=== PATIENT | female | born 1955 | race Caucasian/White ===

== ENCOUNTER 2017-01-23 09:19 | Inpatient (IN) | payer MEDICAID ==
[~2017-01-23] VITALS: Ht 167.6 cm; Wt 54.2 kg
[2017-01-23] VITALS (17 sets, daily range): BP systolic 95–189; BP diastolic 54–83; PULSE 52–92; RESP 13–24; TEMP 95–97.6; O2SAT 93–100
[~2017-01-23 09:19] MED LIST: ASPI81 PO; BACL10TA PO; BUSP15TA PO; CARB200 PO; CARB200T16 PO; CARV3.125 PO; CLOP75 PO; FAMO20 PO; GABA300 PO; GABA300C3 PO; MECL25 PO; MIRTA15 PO; OLAN10 PO; REME45TA PO; TRAM50TA PO; ZYPR10TA PO
[2017-01-23] MEDS ORDERED: SODIUM CHLOR 0.9% 1000 ML INJ 1,000 ML IV SCH ×2 (09:26→12:04)
[2017-01-23] MEDS ORDERED: SODIUM CHLORIDE 0.9% FLUSH 5 ML FLUSH IV FLUSH PRN (09:30)
--- NOTE | 2017-01-23 09:33 | PD ---
HPI Chief Complaint: altered mental status Time Seen by Provider: 09:26 Travel History International Travel<30 days: No Contact w/Intl Traveler<30days: No History of Present Illness HPI 61 y/o female presents by ambulance with being found unresponsive. When they arrived on scene her oxygen saturation was in the 80s. They gave her 2 mg of Narcan and as they were preparing to intubate her with the laryngoscope in her mouth she started to wake up and this was withdrawn. Here she can tell me her name and denies complaints but is a very poor historian on initial evaluation. She was found down outside an apartment complex. PFS Past Medical History Narrative Medical By records Hx Anticoagulant Therapy: Yes ADHD: Yes Arthritis: Yes Asthma: No Autoimmune Disease: No Bipolar Disorder: Yes Anxiety: Yes Depression: Yes Heart Rhythm Problems: Yes (MURMUR) Cancer: No Cardiovascular Problems: Yes High Cholesterol: No Chemotherapy: Yes Chest Pain: Yes Congestive Heart Failure: No COPD: Yes Diabetes: No Diminished Hearing: No Endocrine: No Gastrointestinal Disorders: Yes (IS ON MEDICATION FOR REFLUX) GERD: Yes Genitourinary: No Headaches: No Hepatitis: Yes (HEP B AND C) Hiatal Hernia: No Immune Disorder: No Implanted Vascular Access Dvce: Yes Musculoskeletal: Yes Neurologic: No Psychiatric: Yes Reproductive: No Respiratory: Yes Radiation Therapy: No Schizophrenia: Yes Seizures: No Sleep Apnea: No Ulcer: No Menopausal: Yes Dilation and Curettage (D&C): Yes Past Surgical History Narrative Surgical By records Abdominal Surgery: Yes (total hysterectomy) Cardiac Surgery: No Cholecystectomy: Yes Ear Surgery: No Endocrine Surgery: No Eye Surgery: No Genitourinary Surgery: Yes (UROSTOMY-BLADDER CANCER) Gynecologic Surgery: Yes (total hysterecomy) Hysterectomy: Yes (OVARECTOMY) Oral Surgery: No Thoracic Surgery: Yes (port in and out) Other Surgery: Yes (ILEOSTOMY) Social History Narrative Social History By records Alcohol Use: No Tobacco Use: Yes ( 1 PPD) Substance Use: No Allergies-Medications (Allergen,Severity, Reaction): Coded Allergies: Codeine (Verified Allergy, Severe, 06/10/16) Corticosteroids (Verified Allergy, Severe, 06/10/16) Uncoded Allergies: ANTIHISTIMINES (Allergy, Mild, MANIC, 11/15/06) Reported Meds & Prescriptions Reported Meds & Active Scripts Active Tramadol Hcl (Tramadol HCl) 50 Mg Tab 25 Mg PO Q8HR PRN Olanzapine 10 Mg Tab 20 Mg PO HS 10 Days Mirtazapine 15 Mg Tab 15 Mg PO HS 10 Days Neurontin (Gabapentin) 300 Mg Cap 300 Mg PO Q12HR 10 Days Tegretol 200 Mg Tab (Carbamazepine) 200 Mg Tab 200 Mg PO DAILY 10 Days Tegretol 200 Mg Tab (Carbamazepine) 200 Mg Tab 400 Mg PO HS 10 Days Antivert (Meclizine HCl) 25 Mg Tab 25 Mg PO Q8H PRN 30 Days Pepcid 20 Mg Tab (Famotidine) 20 Mg Tab 20 Mg PO BID 30 Days Aspirin Low Strength (Aspirin) 81 Mg Chw 81 Mg PO DAILY 30 Days Coreg 3.125 mg (Carvedilol) 3.125 Mg Tab 3.125 Mg PO Q12HR 30 Days Plavix (Clopidogrel Bisulfate) 75 Mg Tab 75 Mg PO DAILY 30 Days Reported Remeron 45 mg (Mirtazapine) 45 Mg Tab 45 Tab PO HS Zyprexa (Olanzapine) 10 Mg Tab 10 Mg PO HS Lioresal (Baclofen) 10 Mg Tab 10 Mg PO TID Buspirone Hcl (Buspirone HCl) 15 Mg Tab 15 Mg PO TID Gabapentin 300 Mg Cap 300 Mg PO TID Tegretol (Carbamazepine) 200 Mg Tab 400 Mg PO HS Tegretol (Carbamazepine) 200 Mg Tab 200 Mg PO DAILY Review of Systems ROS Limitations: Poor Historian Physical Exam Exam Limitations: Poor Historian Narrative GENERAL: Thin, well-developed patient. SKIN: Warm and dry. Multiple old bruises noted throughout body HEAD: Normocephalic EYES: No injection or drainage. Pupils equal ENT: No nasal drainage noted. NECK: Supple, trachea midline. No pain with range of motion CARDIOVASCULAR: Regular rate and rhythm RESPIRATORY: Breath sounds equal bilaterally at apices. No accessory muscle use. GASTROINTESTINAL: Abdomen soft, nondistended. NEUROLOGICAL: Awake and alert to name. Moves extremities. Normal speech. Data Data Last Documented VS Vital Signs Date Time Temp Pulse Resp B/P Pulse Ox O2 Delivery O2 Flow Rate FiO2 01/23/17 10:33 18 96 Nasal Cannula 2 01/23/17 09:25 97.6 92 189/75 Orders Electrocardiogram (01/23/17 09:26) Ammonia (01/23/17 09:26) Complete Blood Count With Diff (01/23/17 09:26) Comprehensive Metabolic Panel (01/23/17:26) Creatine Kinase (Cpk) (01/23/17:26) Prothrombin Time / Inr (Pt) (01/23/17:) Act Partial Throm Time (Ptt) (01/23/17:) Troponin I (01/23/17:) Thyroid Stimulating Hormone (01/23/17:) Urinalysis - C+S If Indicated (01/23/17:) Lactic Acid Sepsis Protocol (01/23/17:) Blood Culture (01/23/17:) Chest, Single Ap (01/23/17 09:26) Ct Brain W/O Iv Contrast(Rout) (01/23/17:) Blood Glucose (01/23/17:) Ecg Monitoring (01/23/17:) Iv Access Insert/Monitor (01/23/17:) Oximetry (01/23/17:) Sodium Chloride 0.9% Flush (Ns Flush) (01/23/17 09:30) Sodium Chlor 0.9% 1000 Ml Inj (Ns 1000 M (01/23/17 09:26) Alcohol (Ethanol) (01/23/17 09:26) Drug Screen, Random Urine (01/23/17 09:26) Carbamazepine (Tegretol) (01/23/17 09:28) CKMB (01/23/17 09:30) CKMB% (01/23/17 09:30) Urine Culture (01/23/17 10:00) Ceftriaxone Inj (Rocephin Inj) (01/23/17 11:15) Naloxone Inj (Narcan Inj) (01/23/17 11:31) Etomidate Inj (Amidate Inj) (01/23/17 11:37) Succinylcholine Inj (Quelicin Inj) (01/23/17 11:39) Chest, Single Ap (01/23/17 ) Propofol 1000 Mg/100 Ml Inj (Diprivan 10 (01/23/17 12:00) Admit Order (Ed Use Only) (01/23/17 11:46) Midazolam Inj (Versed Inj) (01/23/17 12:00) Labs Laboratory Tests Test 01/23/17 01/23/17 01/23/17 09:30 10:00 10:55 White Blood Count 7.0 TH/MM3 Red Blood Count 4.22 MIL/MM3 Hemoglobin 14.1 GM/DL Hematocrit 39.6 % Mean Corpuscular Volume 93.8 FL Mean Corpuscular Hemoglobin 33.4 PG Mean Corpuscular Hemoglobin 35.6 % Concent Red Cell Distribution Width 12.9 % Platelet Count 137 TH/MM3 Mean Platelet Volume 8.2 FL Neutrophils (%) (Auto) 66.2 % Lymphocytes (%) (Auto) 22.9 % Monocytes (%) (Auto) 10.8 % Eosinophils (%) (Auto) 0.0 % Basophils (%) (Auto) 0.1 % Neutrophils # (Auto) 4.6 TH/MM3 Lymphocytes # (Auto) 1.6 TH/MM3 Monocytes # (Auto) 0.8 TH/MM3 Eosinophils # (Auto) 0.0 TH/MM3 Basophils # (Auto) 0.0 TH/MM3 CBC Comment DIFF FINAL Differential Comment Sodium Level 138 MEQ/L Potassium Level 3.7 MEQ/L Chloride Level 101 MEQ/L Carbon Dioxide Level 26.3 MEQ/L Anion Gap 11 MEQ/L Blood Urea Nitrogen 17 MG/DL Creatinine 0.94 MG/DL Estimat Glomerular Filtration 61 ML/MIN Rate Random Glucose 120 MG/DL Lactic Acid Level 0.8 mmol/L Calcium Level 8.8 MG/DL Total Bilirubin 0.8 MG/DL Aspartate Amino Transf 84 U/L (AST/SGOT) Alanine Aminotransferase 34 U/L (ALT/SGPT) Alkaline Phosphatase 123 U/L Ammonia 33 MCMOL/L Total Creatine Kinase 1914 U/L Creatine Kinase MB 28.6 NG/ML Creatine Kinase MB % 1.5 % Troponin I LESS THAN 0.02 NG/ML Total Protein 8.0 GM/DL Albumin 3.7 GM/DL Thyroid Stimulating Hormone 1.550 uIU/ML 3rd Gen Carbamazepine (Tegretol) Level 30.0 MCG/ML Ethyl Alcohol Level LESS THAN 3 MG/DL Urine Color YELLOW Urine Turbidity HAZY Urine pH 7.0 Urine Specific [place] 1.019 Urine Protein 30 mg/dL Urine Glucose (UA) NEG mg/dL Urine Ketones TRACE mg/dL Urine Occult Blood NEG Urine Nitrite POS Urine Bilirubin NEG Urine Urobilinogen LESS THAN 2.0 MG/DL Urine Leukocyte Esterase LARGE Urine RBC 0-3 /hpf Urine WBC 20-24 /hpf Urine WBC Clumps OCC Urine Squamous Epithelial 0-5 /hpf Cells Urine Amorphous Sediment SMALL Urine Bacteria MANY /hpf Urine Mucus OCC /lpf Microscopic Urinalysis Comment CATH-CULTURE IND Urine Opiates Screen POS Urine Barbiturates Screen NEG Urine Amphetamines Screen NEG Urine Benzodiazepines Screen POS Urine Cocaine Screen POS Urine Cannabinoids Screen NEG Prothrombin Time 12.5 SEC Prothromb Time International 1.1 RATIO Ratio Activated Partial 28.8 SEC Thromboplast Time MDM Medical Decision Making Medical Screen Exam Complete: Yes Emergency Medical Condition: Yes Medical Record Reviewed: Yes (past history confirmed) Interpretation(s) EKG is sinus rhythm, QTC 406, no STEMI criteria CBC & BMP Diagram 01/23/17 09:30 Last [address] 01/23/17925 Signed Impressions: Service Date/Time: Monday, January 23, 2017 09:46 - CONCLUSION: No acute intracranial findings. Zane Espinal MD Chest X-Ray 01/23/17925 Signed Impressions: Service Date/Time: Monday, January 23, 2017 09:45 - CONCLUSION: No acute cardiopulmonary disease identified. Zane Espinal MD Differential Diagnosis Overdose, congestion, intracranial, electrolyte, UTI Narrative Course Will check blood work, UA, CT brain and closely monitor. Patient now awake and talking and can state her name. GCS of 14. Had pinpoint pupils and responded to Narcan will need to closely follow On recheck patient with depressed GCS and notified by staff of this, patient minimally responsive and decreased respirations. Given 2 mg of Narcan without change. Proceeded with rapid sequence intubation. Sister is at bedside and she was updated. She'll be admitted in ICU area, given Rocephin for UTI Critical Care Narrative Aggregate critical care time was 45 minutes. Time to perform other separately billable procedures was not included in the critical care time. My time did not include minutes spent treating any other patients simultaneously or on activities that did not directly contribute to the patient's treatment. The services I provided to this patient were to treat and/or prevent clinically significant deterioration that could result in: Respiratory failure, shock I provided critical care services requiring my management, as noted below: Chart data review, documentation time, medication orders and management, vital sign assessments/reviewing monitor data, ordering and reviewing lab tests, ordering and interpreting/reviewing x-rays and diagnostic studies, care of the patient and discussion of the patient with the admitting physicians. Procedures Procedure Narrative Emergently performed: INTUBATION: The patient was put in optimal position for the procedure. Rapid sequence intubation was initiated by me using 20 milligrams of etomidate IV and 100 milligrams of succinylcholine IV. The patient was intubated with a 7.5 cuffed endotracheal tube. Tube placement was confirmed by visualization of the tube and balloon passing through the cords, capnometry and subsequent chest x- ray. Breath sounds were equal and well aerated bilaterally postintubation. No breath sounds over stomach. Patient tolerated procedure well. Physician Communication Physician Communication dr troncoso agrees to admit, requests call to [facility] from staff Diagnosis Primary Impression: Respiratory failure Qualified Code: J96.00 - Acute respiratory failure, unspecified whether with hypoxia or hypercapnia Additional Impressions: Tegretol toxicity Qualified Code: T42.1X4A - Tegretol toxicity, undetermined intent, initial encounter Cocaine abuse Opiate overdose Qualified Code: T40.604A - Opiate overdose, undetermined intent, initial encounter UTI (urinary tract infection) Qualified Code: N39.0 - Urinary tract infection without hematuria, site unspecified Admitting Information Admitting Physician Requests: Admit Ese Pagan MD Jan 23, 2017 09:33
--- NOTE | 2017-01-23 09:59 | RADRPT ---
EXAM DATE/TIME: 01/23/2017 09:46 [facility] COMPARISON: CT BRAIN W/O CONTRAST, August 11, 2014, 0:13. INDICATIONS : Altered mental status. RADIATION DOSE: 56.35 CTDIvol (mGy) MEDICAL HISTORY : Hypertension. Cardiovascular disease SURGICAL HISTORY : None. ENCOUNTER: Initial ACUITY: 1 day PAIN SCALE: Non-responsive LOCATION: cranial TECHNIQUE: Multiple contiguous axial images were obtained of the head. Using automated exposure control and adj ustment of the mA and/or kV according to patient size, radiation dose was kept as low as reasonably a chievable to obtain optimal diagnostic quality images. FINDINGS: CEREBRUM: The ventricles are normal for age. No evidence of midline shift, mass lesion, hemorrhage or acute in farction. No extra-axial fluid collections are seen. POSTERIOR FOSSA: The cerebellum and brainstem are intact. The 4th ventricle is midline. The cerebellopontine angle i s unremarkable. EXTRACRANIAL: The visualized portion of the orbits is intact. SKULL: The calvaria is intact. No evidence of skull fracture. CONCLUSION: No acute intracranial findings. Zane Espinal MD on January 23, 2017 at 9:55 Board Certified Radiologist. This report was verified electronically.
--- NOTE | 2017-01-23 10:00 | RADRPT ---
EXAM DATE/TIME: 01/23/2017 09:45 [facility] COMPARISON: CHEST SINGLE AP, June 10, 2016, 20:01. INDICATIONS : Syncopal episode, Short of Breath MEDICAL HISTORY : Carcinoma, bladder. SURGICAL HISTORY : Discectomy, cervical. Hysterectomy. ENCOUNTER: Initial ACUITY: 1 day PAIN SCORE: Non-responsive. LOCATION: Bilateral chest FINDINGS: Single AP view of the chest. The lungs are clear. Cardiomediastinal silhouette within normal limits. No evidence of pleural effusion or pneumothorax. CONCLUSION: No acute cardiopulmonary disease identified. Zane Espinal MD on January 23, 2017 at 9:57 Board Certified Radiologist. This report was verified electronically.
[2017-01-23 10:08] LABS: AUTOMATED NEUTROPHIL # 4.6 TH/MM3 (1.8-7.7); BASOPHIL % 0.1 % (0.0-2.0); HEMATOCRIT 39.6 % (35.0-46.0); HEMO FLAGS DIFF FINAL; LYMPH % 22.9 % (9.0-44.0); LYMPHOCYTE # 1.6 TH/MM3 (1.0-4.8); MEAN CELL VOLUME 93.8 FL (80.0-100.0); MEAN CORPUSCULAR HEMOGLOBIN 33.4 PG (27.0-34.0); MEAN CORPUSCULAR HGB CONC 35.6 % (32.0-36.0); MONO % 10.8 % (0.0-8.0); NEUT % 66.2 % (16.0-70.0); PLATELET COUNT 137 TH/MM3 (150-450); RED BLOOD COUNT 4.22 MIL/MM3 (4.00-5.30); RED CELL DISTRIBUTION WIDTH 12.9 % (11.6-17.2)
[2017-01-23 10:10] LABS: ALT (GPT) 34 U/L (10-53)
[2017-01-23 10:31] LABS: ALKALINE PHOSPHATASE 123 U/L (45-117); ANION GAP 11 MEQ/L (5-15); AST (GOT) 84 U/L (15-37); BICARBONATE 26.3 MEQ/L (21.0-32.0); BLOOD UREA NITROGEN 17 MG/DL (7-18); CHLORIDE 101 MEQ/L (98-107); CREATINE KINASE 1914 U/L (26-192); GLOMERULAR FILTRATION RATE 61 ML/MIN (>89); SODIUM (NA) 138 MEQ/L (136-145); TOTAL BILIRUBIN ADULT 0.8 MG/DL (0.2-1.0)
[2017-01-23 10:36] LABS: POTASSIUM 3.7 MEQ/L (3.5-5.1)
[2017-01-23 10:37] LABS: CKMB 28.6 NG/ML (0.5-3.6)
[2017-01-23 10:43] LABS: BLOOD, URINE NEG (NEG); GLUCOSE,URINE NEG (NEG); KETONE, URINE TRACE mg/dL (NEG); URINE COLOR YELLOW (YELLW/STRAW)
[2017-01-23 10:44] LABS: NITRITE,URINE POS (NEG)
[2017-01-23 10:53] LABS: BACTERIA, URINE MANY /hpf; COMMENT (UR) CATH-CULTURE IND; CULTURE IF INDICATED CATH CULTURE IND; MUCUS URINE OCC /lpf (OCC); RBC, URINE 0-3 /hpf (0-3); SQUAMOUS EPITHELIAL CELL URINE 0-5 /hpf (0-5)
[2017-01-23 10:54] LABS: COMMENT2 (UR) CATH-CULTURE IND
[2017-01-23 10:58] LABS: AMPHETAMINE, URINE NEG (NEG); BARBITURATES, URINE NEG (NEG); COCAINE, URINE POS (NEG)
[2017-01-23] MEDS ORDERED: cefTRIAXone INJ 1,000 MG in SODIUM CHLORIDE 0.9% INJ 100 ML IV ONE (11:15)
[2017-01-23 11:22] LABS: APTT (PATIENT) 28.8 SEC (24.3-30.1); INTERNATIONAL NORMALIZED RATIO 1.1 RATIO; PROTHROMBIN TIME - PATIENT 12.5 SEC (9.8-11.6)
[2017-01-23] MEDS ORDERED: NALOXONE HCL 2 MG/2 ML VIAL ONE (11:31)
[2017-01-23] MEDS ORDERED: ETOMIDATE 40 MG/20 ML VIAL ONE (11:37)
[2017-01-23] MEDS ORDERED: SUCCINYLCHOLINE CHLORIDE 200 MG/10 ML VIAL ONE (11:39)
[2017-01-23] MEDS ORDERED: PROPOFOL 1000 MG/100 ML INJ 100 ML IV SCH (12:00)
[2017-01-23] MEDS ORDERED: MIDAZOLAM HCL 2 MG/2 ML VIAL IV PUSH ONE (12:00)
--- NOTE | 2017-01-23 12:11 | HHI.HP ---
[facility] Service Critical Care Medicine Primary Care Physician Dmitry Gomez, DO Admission Diagnosis overdose, respiratory failure Diagnosis: (1) Acute respiratory failure Diagnosis: Principal (2) Acute encephalopathy Diagnosis: Principal (3) Polydrug overdose Diagnosis: Principal (4) Tegretol toxicity Diagnosis: Principal (5) Rhabdomyolysis Diagnosis: Principal (6) Schizoaffective disorder, bipolar type Diagnosis: Secondary (7) Hx of bladder cancer Diagnosis: Secondary Chief Complaint: Poly drug OD Respiratory failure Travel History International Travel<30 Days: No Contact w/Intl Traveler <30 Da: No Traveled to Known Affected Are: No History of Present Illness Patient is a 61 year old female with past medical history significant for COPD, past history of IV drug use, bladder cancer with history of urostomy, schizoaffective disorder, hepatitis B and C was brought to the [facility] emergency department after being found unresponsive. On scene her oxygen saturation was in the 80s. Patient received 2 mg of Narcan with not adequate response, when EMS attempted to intubate patient started to wake up. Initially in the ER patient had a GCS of 14. On recheck patient with depressed GCS and minimally responsive and decreased respirations. Given 2 mg of Narcan without response and patient was intubated and placed on mechanical ventilation. CT of the head was negative. Urine drug screen was positive for cocaine and opiates and benzodiazepines. Tegretol level was very high at 30, EKG shows slight QTC prolongation. Other pertinent labs include elevated CPK and UA showing UTI I evaluated the patient in the ED. Patient is intubated and heavily sedated. Brother at the bedside confirms that patient has history of IVDU previously done IV heroin and cocaine. I explained to him the expected hospital course Review of Systems ROS Limitations: Intubated Past Family Social History Allergies: Coded Allergies: Codeine (Verified Allergy, Severe, 06/10/16) Corticosteroids (Verified Allergy, Severe, 06/10/16) Uncoded Allergies: ANTIHISTIMINES (Allergy, Mild, MANIC, 11/15/06) Past Medical History Bladder cancer s/p cystectomy Hep C and B GERD Anxiety Bipolar COPD Tobacco abuse Chronic pain Schizoaffective disorder Past Surgical History Cervical spine surgery Hysterectomy/BSO Cystectomy, urostomy EGD/Colonoscopy Reported Medications Tramadol Hcl (Tramadol HCl) 50 Mg Tab 25 Mg PO Q8HR PRN Olanzapine 10 Mg Tab 20 Mg PO HS 10 Days Mirtazapine 15 Mg Tab 15 Mg PO HS 10 Days Neurontin (Gabapentin) 300 Mg Cap 300 Mg PO Q12HR 10 Days Tegretol 200 Mg Tab (Carbamazepine) 200 Mg Tab 200 Mg PO DAILY 10 Days Tegretol 200 Mg Tab (Carbamazepine) 200 Mg Tab 400 Mg PO HS 10 Days Antivert (Meclizine HCl) 25 Mg Tab 25 Mg PO Q8H PRN 30 Days Pepcid 20 Mg Tab (Famotidine) 20 Mg Tab 20 Mg PO BID 30 Days Aspirin Low Strength (Aspirin) 81 Mg Chw 81 Mg PO DAILY 30 Days Coreg 3.125 mg (Carvedilol) 3.125 Mg Tab 3.125 Mg PO Q12HR 30 Days Plavix (Clopidogrel Bisulfate) 75 Mg Tab 75 Mg PO DAILY 30 Days Remeron 45 mg (Mirtazapine) 45 Mg Tab 45 Tab PO HS Zyprexa (Olanzapine) 10 Mg Tab 10 Mg PO HS Lioresal (Baclofen) 10 Mg Tab 10 Mg PO TID Buspirone Hcl (Buspirone HCl) 15 Mg Tab 15 Mg PO TID Gabapentin 300 Mg Cap 300 Mg PO TID Tegretol (Carbamazepine) 200 Mg Tab 400 Mg PO HS Tegretol (Carbamazepine) 200 Mg Tab 200 Mg PO DAILY Active Ordered Medications Reviewed Family History Reviewed Social History UDS positive for cocaine, opiates, benzo and toxic level of Tegretol Physical Exam Vital Signs Vital Signs Date Time Temp Pulse Resp B/P Pulse Ox O2 Delivery O2 Flow Rate FiO2 01/23/17 10:33 18 96 Nasal Cannula 2 01/23/17 09:32 95 Nasal Cannula 2 01/23/17 09:25 97.6 92 24 189/75 93 Physical Exam GENERAL: Thin, built patient who appears chronically ill. SKIN: Warm and dry. Multiple bruises HEAD: Normocephalic EYES: No injection or drainage. Pupils equal ENT: No nasal drainage noted. Orotracheally intubated NECK: Supple, trachea midline. No pain with range of motion CARDIOVASCULAR: Regular rate and rhythm RESPIRATORY: Breath sounds equal bilaterally. No accessory muscle use. GASTROINTESTINAL: Abdomen soft, nondistended. Right-sided urostomy in place NEUROLOGICAL: Intubated sedated with propofol. Moves extremities spontaneously Laboratory Laboratory Tests Test 01/23/17 01/23/17 01/23/17 09:30 10:00 10:55 White Blood Count 7.0 Red Blood Count 4.22 Hemoglobin 14.1 Hematocrit 39.6 Mean Corpuscular Volume 93.8 Mean Corpuscular Hemoglobin 33.4 Mean Corpuscular Hemoglobin 35.6 Concent Red Cell Distribution Width 12.9 Platelet Count 137 Mean Platelet Volume 8.2 Neutrophils (%) (Auto) 66.2 Lymphocytes (%) (Auto) 22.9 Monocytes (%) (Auto) 10.8 Eosinophils (%) (Auto) 0.0 Basophils (%) (Auto) 0.1 Neutrophils # (Auto) 4.6 Lymphocytes # (Auto) 1.6 Monocytes # (Auto) 0.8 Eosinophils # (Auto) 0.0 Basophils # (Auto) 0.0 CBC Comment DIFF FINAL Differential Comment Sodium Level 138 Potassium Level 3.7 Chloride Level 101 Carbon Dioxide Level 26.3 Anion Gap 11 Blood Urea Nitrogen 17 Creatinine 0.94 Estimat Glomerular Filtration 61 Rate Random Glucose 120 Lactic Acid Level 0.8 Calcium Level 8.8 Total Bilirubin 0.8 Aspartate Amino Transf 84 (AST/SGOT) Alanine Aminotransferase 34 (ALT/SGPT) Alkaline Phosphatase 123 Ammonia 33 Total Creatine Kinase 1914 Creatine Kinase MB 28.6 Creatine Kinase MB % 1.5 Troponin I LESS THAN 0.02 Total Protein 8.0 Albumin 3.7 Thyroid Stimulating Hormone 1.550 3rd Gen Carbamazepine (Tegretol) Level 30.0 Ethyl Alcohol Level LESS THAN 3 Urine Color YELLOW Urine Turbidity HAZY Urine pH 7.0 Urine Specific [place] 1.019 Urine Protein 30 Urine Glucose (UA) NEG Urine Ketones TRACE Urine Occult Blood NEG Urine Nitrite POS Urine Bilirubin NEG Urine Urobilinogen LESS THAN 2.0 Urine Leukocyte Esterase LARGE Urine RBC 0-3 Urine WBC 20-24 Urine WBC Clumps OCC Urine Squamous Epithelial 0-5 Cells Urine Amorphous Sediment SMALL Urine Bacteria MANY Urine Mucus OCC Microscopic Urinalysis Comment CATH-CULTURE IND Urine Opiates Screen POS Urine Barbiturates Screen NEG Urine Amphetamines Screen NEG Urine Benzodiazepines Screen POS Urine Cocaine Screen POS Urine Cannabinoids Screen NEG Prothrombin Time 12.5 Prothromb Time International 1.1 Ratio Activated Partial 28.8 Thromboplast Time Date/Time Procedure Status Source Growth 01/23/17 10:00 Urine Culture Received Urine Catheterized Urine Pending 01/23/17 09:38 Aerobic Blood Culture Received Blood Peripheral Pending 01/23/17 09:38 Anaerobic Blood Culture Received Blood Peripheral Pending Result Diagram: 01/23/1730 01/23/[address] head negative Assessment and Plan Assessment and Plan NEURO: Polysubstance abuse overdose Acute encephalopathy IV drug use Tegretol toxicity -Use propofol for sedation and ventilator synchrony -Urine drug screen is positive for cocaine and opiates and benzodiazepines -Tegretol toxicity-start bicarbonate infusion to alkalinize urine -Poison control recommendation check ammonia level, aspirin and Tylenol level, repeat Tegretol level -Charcoal recommended a Tegretol level going up. Monitor QTC RESP: Acute respiratory failure COPD -Assist-control mechanical ventilation, ventilator bundle -DuoNeb every 6 hours and when necessary -Start SBT when mental status permits CV: -Normal saline IV fluids 3L bolus and bicarbonate infusion at 150 mL per hour -Mild QTC prolongation due to Tegretol overdose. Serial EKGs and alkalinization of urine GI: Hepatitis B and C -Start tube feeds in 24 hours -IV Protonix 40 mg daily. Bowel regimen : Acute rhabdomyolysis -Monitor renal function closely. Place Dailey catheter. -Bicarbonate infusion at 150 ml per hour after 3 L of fluid boluses with normal saline ID: UTI -Continue ceftriaxone. Blood urine and sputum cultures sent HEME: -Monitor CBC, CMP, coags -History of bladder cancer status post cystectomy and urostomy ENDO: -Electrolyte replacement protocol PROPH: -Bilateral lower extremity SCDs. Lovenox 40 mg daily. IV Protonix LINES: Utilize peripheral IVs, central line if needed CC time 60 min Code Status Full Discussed Condition With Dr. Pagan, patient's brother at the bedside Problem Qualifiers (1) Acute respiratory failure: Qualified Code: J96.00 - Acute respiratory failure, unspecified whether with hypoxia or hypercapnia (2) Tegretol toxicity: Justin Nino MD Jan 23, 2017 12:11 01/23/17 09:38 Anaerobic Blood Culture Received Blood Peripheral Pending Result Diagram: 01/23/1792901/23/17929 Problem Qualifiers (1) Acute respiratory failure: Qualified Code: J96.00 - Acute respiratory failure, unspecified whether with hypoxia or hypercapnia (2) Tegretol toxicity: Justin Nino MD Jan 23, 2017 12:11
[2017-01-23] MEDS ORDERED: SODIUM CHLORIDE 0.9% FLUSH 10 ML FLUSH IV FLUSH PRN (12:15)
[2017-01-23] MEDS ORDERED: RESP: ALBUTEROL 2.5 MG/3 ML NEB (PRN) INH (12:15)
[2017-01-23] MEDS ORDERED: CHLORHEXIDINE GLUCONATE 2 % 1 PACK (2 CLOTHS) TOP PRN (12:15)
[2017-01-23] MEDS ORDERED: MISCELLANEOUS NURSING INFORMATION XX SCH (12:15)
[2017-01-23 12:30] LABS: BLOOD GAS BASE EXCESS 0.5 mmol/L (-2-2); BLOOD GAS CARBOXYHEMOGLOBIN 3.2 % (0-4); BLOOD GAS HCO3 25 mmol/L (22-26); BLOOD GAS METHEMOGLOBIN 0.8 % (0-2); BLOOD GAS O2 HGB SATURATION 95 % (90-100); BLOOD GAS OXYGEN CONTENT 18.4 Vol % (12.0-20.0); BLOOD GAS PCO2 40 mmHg (38-42); BLOOD GAS PO2 121 mmHG (61-120); BLOOD GAS TOTAL HGB 13.7 G/DL (12.0-16.0); CRITICAL VALUE NO; DRAW SITE LT RADIAL; FIO2 40 %; NUMBER OF ARTERIAL PUNCTURES 1; OXYGEN DEVICE VENTILATOR; STAT YES; TEMP CORR TO 98.6; VENT SETTINGS AC/14/500/PEEP5
[2017-01-23] MEDS ORDERED: SODIUM CHLOR 0.9% 1000 ML INJ 1,000 ML IV ONE ×3 (12:45→14:00)
[2017-01-23] MEDS ORDERED: MIDAZOLAM 100 MG/ML INJ 100 ML IV SCH (12:45)
--- NOTE | 2017-01-23 13:13 | RADRPT ---
EXAM DATE/TIME: 01/23/2017 12:37 [facility] COMPARISON: CHEST SINGLE AP, January 23, 2017, 9:45. INDICATIONS : Post Intubation MEDICAL HISTORY : Hypertension. Cardiovascular disease SURGICAL HISTORY : None. ENCOUNTER: Subsequent ACUITY: 1 day PAIN SCORE: Non-responsive. LOCATION: Bilateral chest FINDINGS: Single AP view of the chest. Endotracheal tube is in place with the tip 3.4 cm above the colby. The lungs are clear. Cardiomediastinal silhouette within normal limits. No evidence of pleural effusion o r pneumothorax. CONCLUSION: Endotracheal tube now in place. No acute cardiopulmonary disease identified. Zane Espinal MD on January 23, 2017 at 13:11 Board Certified Radiologist. This report was verified electronically.
[2017-01-23] MEDS ORDERED: ATOR1TAB18 PO (14:09)
[2017-01-23] MEDS ORDERED: OLAN20TA PO (14:09)
[2017-01-23] MEDS ORDERED: GABA300C5 PO (14:09)
[2017-01-23] MEDS ORDERED: PLAV75TA29 PO (14:09)
[2017-01-23] MEDS ORDERED: BACL10TA PO (14:09)
[2017-01-23] MEDS ORDERED: ASPI81CH7 CHEW (14:09)
[2017-01-23] MEDS ORDERED: TEGR200T PO ×2 (14:09)
[2017-01-23] MEDS ORDERED: ALBUAER3 INH (14:09)
[2017-01-23] MEDS ORDERED: PANT40TA3 PO (14:09)
[2017-01-23] MEDS ORDERED: OLAN5TAB PO (14:09)
[2017-01-23] MEDS ORDERED: CLON0.5T PO (14:09)
[2017-01-23] MEDS ORDERED: MELA2.5C2 PO (14:09)
--- NOTE | 2017-01-23 14:10 | EKG ---
Date Performed: 01/23/2017 Time Performed: 09:32:35 PTAGE: 61 years EKG: Sinus rhythm POSSIBLE LEFT ATRIAL ENLARGEMENT PROBABLE INFERIOR MYOCARDIAL INFARCTION ABNORMAL ECG INTERPRETATION BASED ON A DEFAULT AGE OF [address]-T change Since PREVIOUS TRACING 06/10/2016, the ST-T changes inferolaterally have improved. Q waves rem ain inferiorly. PREVIOUS TRACIN06/10/2016 19.56 DOCTOR: Aubrey Contreras Interpretating Date/Time 01/23/2017 14:09:22
[2017-01-23] MEDS: RESP: ALBUTEROL 2.5 MG/IPRATROPIUM 0.5 MG NEB (SCH) NEB ×2 (16:03→20:34)
[2017-01-23] MEDS: cefTRIAXone INJ 2,000 MG in SODIUM CHLORIDE 0.9% INJ 100 ML IV SCH (16:40)
[2017-01-23 17:14] LABS: INDIRECT BILIRUBIN 0.2 MG/DL (0.0-0.8); TOTAL BILIRUBIN ADULT 0.4 MG/DL (0.2-1.0)
[2017-01-23] MEDS: SODIUM CHLOR 0.45% IV PUSH SCH (18:37)
[2017-01-23] MEDS: SODIUM BICARBONATE IV PUSH SCH (18:37)
[2017-01-23] MEDS: CHLORHEXIDINE 0.12% (ORAL KIT) 15 ML CUP MT SCH (20:00)
[2017-01-23] MEDS: PROPOFOL 1000 MG/100 ML INJ 100 ML IV SCH (20:22)
[2017-01-23] MEDS: SODIUM CHLORIDE 0.9% FLUSH 10 ML FLUSH IV FLUSH SCH (20:27)
[2017-01-24] VITALS (18 sets, daily range): BP systolic 129–187; BP diastolic 60–94; PULSE 60–99; RESP 14–22; TEMP 95.9–98.8; O2SAT 93–100
[2017-01-24] MEDS: PROPOFOL 1000 MG/100 ML INJ 100 ML IV SCH ×2 (01:42→08:03)
[2017-01-24] MEDS: SODIUM CHLOR 0.45% IV PUSH SCH ×2 (01:42→10:15)
[2017-01-24] MEDS: SODIUM BICARBONATE IV PUSH SCH ×2 (01:42→10:15)
[2017-01-24] MEDS: RESP: ALBUTEROL 2.5 MG/IPRATROPIUM 0.5 MG NEB (SCH) NEB ×4 (03:26→20:23)
[2017-01-24] MEDS: CHLORHEXIDINE GLUCONATE 2 % 1 PACK (2 CLOTHS) TOP SCH (04:00)
--- NOTE | 2017-01-24 04:34 | RADRPT ---
EXAM DATE/TIME: 01/24/2017 03:27 [facility] COMPARISON: CHEST SINGLE AP, January 23, 2017, 12:37. INDICATIONS : Shortness of breath, possible pulmonary disease. MEDICAL HISTORY : Hypertension. Cardiovascular disease. SURGICAL HISTORY : None. ENCOUNTER: Subsequent ACUITY: 2 days PAIN SCORE: Non-responsive. LOCATION: Bilateral chest FINDINGS: A single view of the chest demonstrates the endotracheal tube and nasogastric are in position. The na sogastric tubes proximal port overlies the lower esophagus, it could be advanced. The lungs are gross ly clear. No visible pneumothorax. Previous cervical fusion.. The cardiomediastinal contours are unr emarkable. Osseous structures are intact. CONCLUSION: The nasogastric tube be advanced since it barely enters the stomach. ET tube in good position. Lungs are grossly clear. Dexter Hernandez MD on January 24, 2017 at 4:31 Board Certified Radiologist. This report was verified electronically.
[2017-01-24 05:07] LABS: AUTOMATED NEUTROPHIL # 3.7 TH/MM3 (1.8-7.7); BASOPHIL % 0.2 % (0.0-2.0); HEMATOCRIT 35.3 % (35.0-46.0); HEMO FLAGS DIFF FINAL; LYMPH % 20.9 % (9.0-44.0); LYMPHOCYTE # 1.1 TH/MM3 (1.0-4.8); MEAN CELL VOLUME 93.7 FL (80.0-100.0); MEAN CORPUSCULAR HGB CONC 35.2 % (32.0-36.0); MONO % 8.1 % (0.0-8.0); NEUT % 70.8 % (16.0-70.0); PLATELET COUNT 116 TH/MM3 (150-450); RED BLOOD COUNT 3.76 MIL/MM3 (4.00-5.30); RED CELL DISTRIBUTION WIDTH 12.9 % (11.6-17.2); WHITE BLOOD COUNT 5.3 TH/MM3 (4.0-11.0)
[2017-01-24 05:31] LABS: BICARBONATE 30.5 MEQ/L (21.0-32.0); CALCIUM-PROTEIN CORRECTED 7.8 MG/DL (8.5-10.1); TOTAL BILIRUBIN ADULT 0.2 MG/DL (0.2-1.0)
[2017-01-24 05:34] LABS: POTASSIUM 2.8 MEQ/L (3.5-5.1)
[2017-01-24] MEDS: POTASSIUM CHLOR 40 MEQ PREMIX 100 ML IV PRN ×2 (05:59→12:38)
[2017-01-24] MEDS ORDERED: POTASSIUM PHOSPHATE MONOBASIC 500 MG TAB PO/TUBE PRN (06:00)
[2017-01-24] MEDS ORDERED: MAGNESIUM SULFATE INJ 2 GM in SODIUM CHLORIDE 0.9% INJ 96 ML IV PRN (06:00)
[2017-01-24] MEDS ORDERED: SODIUM PHOSPHATE INJ 30 MMOL in SODIUM CHLOR 0.9% 250 ML INJ 240 ML IV PRN (06:00)
[2017-01-24] MEDS ORDERED: POTASSIUM CHLOR 40 MEQ PREMIX 100 ML IV PRN (06:00)
[2017-01-24] MEDS ORDERED: POTASSIUM PHOSPHATE INJ 30 MMOL in SODIUM CHLOR 0.9% 250 ML INJ 250 ML IV PRN (06:00)
[2017-01-24] MEDS ORDERED: POTASSIUM CHLOR 20 MEQ PREMIX 100 ML IV PRN (06:00)
[2017-01-24] MEDS ORDERED: POTASSIUM CHLORIDE 25 MEQ EFFERVESCENT TAB PO PRN (06:00)
[2017-01-24] MEDS ORDERED: MAGNESIUM SULFATE INJ 4 GM in SODIUM CHLORIDE 0.9% INJ 92 ML IV PRN (06:00)
[2017-01-24] MEDS ORDERED: MAGNESIUM OXIDE 400 MG TAB PO PRN (06:00)
[2017-01-24] MEDS ORDERED: POTASSIUM PHOSPHATE MONOBASIC 500 MG TAB PO PRN (06:00)
[2017-01-24] MEDS: CHLORHEXIDINE 0.12% (ORAL KIT) 15 ML CUP MT SCH ×2 (07:28→20:00)
--- NOTE | 2017-01-24 07:45 | HHI.CCPN ---
Subjective Remarks/Hospital Course Patient is a 61 year old female with past medical history significant for COPD, past history of IV drug use, bladder cancer with history of urostomy, schizoaffective disorder, hepatitis B and C was brought to the [place] emergency department after being found unresponsive. On scene her oxygen saturation was in the 80s. Patient received 2 mg of Narcan with not adequate response, when EMS attempted to intubate patient started to wake up. Initially in the ER patient had a GCS of 14. On recheck patient with depressed GCS and minimally responsive and decreased respirations. Given 2 mg of Narcan without response and patient was intubated and placed on mechanical ventilation. CT of the head was negative. Urine drug screen was positive for cocaine and opiates and benzodiazepines. Tegretol level was very high at 30, EKG shows slight QTC prolongation. Other pertinent labs include elevated CPK and UA showing UTI 01/24 Patient is sedated with Diprivan, versed and intubated. On Bicarb drip. Afebrile. Objective Vital Signs Date Time Temp Pulse Resp B/P Pulse Ox O2 Delivery O2 Flow Rate FiO2 01/24/17 06:00 71 01/24/17 04:12 100 35 01/24/17 04:00 98.8 14 129/60 01/23/17 10:33 Nasal Cannula 2 Intake and Output 01/23/17 01/23/17 01/24/17 08:00 16:00 00:00 Intake Total 1178 ml Output Total 550 ml 325 ml Balance -550 ml 853 ml Result Diagram: 01/24/17 0423 01/24/17 0423 Other Results Laboratory Tests Test 01/23/17 01/23/17 01/23/17 01/23/17 09:30 10:00 10:55 12:19 White Blood Count 7.0 TH/MM3 Red Blood Count 4.22 MIL/MM3 Hemoglobin 14.1 GM/DL Hematocrit 39.6 % Mean Corpuscular Volume 93.8 FL Mean Corpuscular Hemoglobin 33.4 PG Mean Corpuscular Hemoglobin 35.6 % Concent Red Cell Distribution Width 12.9 % Platelet Count 137 TH/MM3 Mean Platelet Volume 8.2 FL Neutrophils (%) (Auto) 66.2 % Lymphocytes (%) (Auto) 22.9 % Monocytes (%) (Auto) 10.8 % Eosinophils (%) (Auto) 0.0 % Basophils (%) (Auto) 0.1 % Neutrophils # (Auto) 4.6 TH/MM3 Lymphocytes # (Auto) 1.6 TH/MM3 Monocytes # (Auto) 0.8 TH/MM3 Eosinophils # (Auto) 0.0 TH/MM3 Basophils # (Auto) 0.0 TH/MM3 CBC Comment DIFF FINAL Differential Comment Sodium Level 138 MEQ/L Potassium Level 3.7 MEQ/L Chloride Level 101 MEQ/L Carbon Dioxide Level 26.3 MEQ/L Anion Gap 11 MEQ/L Blood Urea Nitrogen 17 MG/DL Creatinine 0.94 MG/DL Estimat Glomerular Filtration 61 ML/MIN Rate Random Glucose 120 MG/DL Lactic Acid Level 0.8 mmol/L Calcium Level 8.8 MG/DL Total Bilirubin 0.8 MG/DL Aspartate Amino Transf 84 U/L (AST/SGOT) Alanine Aminotransferase 34 U/L (ALT/SGPT) Alkaline Phosphatase 123 U/L Ammonia 33 MCMOL/L Total Creatine Kinase 1914 U/L Creatine Kinase MB 28.6 NG/ML Creatine Kinase MB % 1.5 % Troponin I LESS THAN 0.02 NG/ML Total Protein 8.0 GM/DL Albumin 3.7 GM/DL Thyroid Stimulating Hormone 1.550 uIU/ML 3rd Gen Acetaminophen Level LESS THAN 2.0 MCG/ML Carbamazepine (Tegretol) Level 30.0 MCG/ML Ethyl Alcohol Level LESS THAN 3 MG/DL Urine Color YELLOW Urine Turbidity HAZY Urine pH 7.0 Urine Specific [place] 1.019 Urine Protein 30 mg/dL Urine Glucose (UA) NEG mg/dL Urine Ketones TRACE mg/dL Urine Occult Blood NEG Urine Nitrite POS Urine Bilirubin NEG Urine Urobilinogen LESS THAN 2.0 MG/DL Urine Leukocyte Esterase LARGE Urine RBC 0-3 /hpf Urine WBC 20-24 /hpf Urine WBC Clumps OCC Urine Squamous Epithelial 0-5 /hpf Cells Urine Amorphous Sediment SMALL Urine Bacteria MANY /hpf Urine Mucus OCC /lpf Microscopic Urinalysis Comment CATH-CULTURE IND Urine Opiates Screen POS Urine Barbiturates Screen NEG Urine Amphetamines Screen NEG Urine Benzodiazepines Screen POS Urine Cocaine Screen POS Urine Cannabinoids Screen NEG Prothrombin Time 12.5 SEC Prothromb Time International 1.1 RATIO Ratio Activated Partial 28.8 SEC Thromboplast Time Blood Gas Puncture Site LT RADIAL Blood Gas Patient Temperature 98.6 Blood Gas HCO3 25 mmol/L Blood Gas Base Excess 0.5 mmol/L Blood Gas Oxygen Saturation 95 % Arterial Blood pH 7.41 Arterial Blood Partial 40 mmHg Pressure CO2 Arterial Blood Partial 121 mmHG Pressure O2 Arterial Blood Oxygen Content 18.4 Vol % Arterial Blood 3.2 % Carboxyhemoglobin Arterial Blood Methemoglobin 0.8 % Blood Gas Hemoglobin 13.7 G/DL Oxygen Delivery Device VENTILATOR Blood Gas Ventilator Setting AC/14/500/PEEP5 Blood Gas Inspired Oxygen 40 % Test 01/23/17 01/23/17 01/24/17 15:30 16:25 04:23 Nasal Screen MRSA (PCR) MRSA NOT DETECTED Total Bilirubin 0.4 MG/DL 0.2 MG/DL Direct Bilirubin 0.2 MG/DL Indirect Bilirubin 0.2 MG/DL Aspartate Amino Transf 85 U/L 79 U/L (AST/SGOT) Alanine Aminotransferase 29 U/L 27 U/L (ALT/SGPT) Alkaline Phosphatase 102 U/L 94 U/L Ammonia 21 MCMOL/L Total Protein 6.5 GM/DL 6.1 GM/DL Albumin 2.9 GM/DL 2.7 GM/DL Salicylates Level 6.5 MG/DL Carbamazepine (Tegretol) Level 18.7 MCG/ML White Blood Count 5.3 TH/MM3 Red Blood Count 3.76 MIL/MM3 Hemoglobin 12.4 GM/DL Hematocrit 35.3 % Mean Corpuscular Volume 93.7 FL Mean Corpuscular Hemoglobin 33.0 PG Mean Corpuscular Hemoglobin 35.2 % Concent Red Cell Distribution Width 12.9 % Platelet Count 116 TH/MM3 Mean Platelet Volume 8.1 FL Neutrophils (%) (Auto) 70.8 % Lymphocytes (%) (Auto) 20.9 % Monocytes (%) (Auto) 8.1 % Eosinophils (%) (Auto) 0.0 % Basophils (%) (Auto) 0.2 % Neutrophils # (Auto) 3.7 TH/MM3 Lymphocytes # (Auto) 1.1 TH/MM3 Monocytes # (Auto) 0.4 TH/MM3 Eosinophils # (Auto) 0.0 TH/MM3 Basophils # (Auto) 0.0 TH/MM3 CBC Comment DIFF FINAL Differential Comment Sodium Level 144 MEQ/L Potassium Level 2.8 MEQ/L Chloride Level 106 MEQ/L Carbon Dioxide Level 30.5 MEQ/L Anion Gap 8 MEQ/L Blood Urea Nitrogen 11 MG/DL Creatinine 0.50 MG/DL Estimat Glomerular Filtration 126 ML/MIN Rate Random Glucose 89 MG/DL Calcium Level 7.3 MG/DL Protein Corrected Calcium 7.8 MG/DL Phosphorus Level 2.4 MG/DL Imaging Last Impressions Chest X-Ray 01/24/17 0600 Signed Impressions: Service Date/Time: Tuesday, January 24, 2017 03:27 - CONCLUSION: The nasogastric tube be advanced since it barely enters the stomach. ET tube in good position. Lungs are grossly clear. Dexter Hernandez MD Head CT 01/23/17 0926 Signed Impressions: Service Date/Time: Monday, January 23, 2017 09:46 - CONCLUSION: No acute intracranial findings. Zane Espinal MD Objective Remarks GENERAL: Thin, built patient who appears chronically ill. SKIN: Warm and dry. Multiple bruises HEAD: Normocephalic EYES: No injection or drainage. Pupils equal ENT: No nasal drainage noted. Orotracheally intubated NECK: Supple, trachea midline. No pain with range of motion CARDIOVASCULAR: Regular rate and rhythm RESPIRATORY: Breath sounds equal bilaterally. No accessory muscle use. GASTROINTESTINAL: Abdomen soft, nondistended. Right-sided urostomy in place NEUROLOGICAL: Intubated sedated. Moves extremities spontaneously A/P Assessment and Plan NEURO: Polysubstance abuse overdose Acute encephalopathy IV drug use Tegretol toxicity -On propofol and Versed for sedation and ventilator synchrony. Daily sedation vacation. -Urine drug screen is positive for cocaine and opiates and benzodiazepines -Tegretol toxicity-start bicarbonate infusion to alkalinize urine. Tegretol level trending down, check level today -Charcoal recommended if Tegretol level going up. Monitor QTC RESP: Acute respiratory failure COPD -Continue with vent support keep sat >92% -DuoNeb every 6 hours and when necessary -Start SBT as courtney CV: -On 2 NS + 75meqv bicarb@150ml/hr - Serial EKGs and alkalinization of urine, monitor QTC -Monitor HR and BP keep MAP>65mmHg GI: Hepatitis B and C -Start tube feeds -Glucerna 1.5 @goal rate 45ml/hr -IV Protonix 40 mg daily. Bowel regimen : Acute rhabdomyolysis -Monitor renal function < I/O's, electrolytes replacement per protocol. Will need K, Phos replacement today --On 1/2NS+75meqv bicarb @150ml/hr. Monitor CK;s. ID: UTI -Continue ceftriaxone. Monitor for signs of infections ( Fever, WBC) follow up on cultures HEME: -Monitor CBC, CMP, coags -History of bladder cancer status post cystectomy and urostomy ENDO: -SSI if needed for glycemic control PROPH: -Bilateral lower extremity SCDs. Lovenox 40 mg daily. IV Protonix LINES: Utilize peripheral IVs, central line if needed level 3 Krystal Khalil MD Jan 24, 2017 07:45
[2017-01-24] MEDS: PANTOPRAZOLE SODIUM 40 MG VIAL IV SCH (07:46)
[2017-01-24 08:57] LABS: CKMB 53.8 NG/ML (0.5-3.6)
[2017-01-24] MEDS: SODIUM CHLORIDE 0.9% FLUSH 10 ML FLUSH IV FLUSH SCH ×2 (09:00→21:00)
[2017-01-24] MEDS ORDERED: CALCIUM GLUCONATE INJ 1 GM in SODIUM CHLORIDE 0.9% INJ 100 ML IV ONE (10:00)
[2017-01-24] MEDS ORDERED: DEXMEDETOMIDINE INJ 200 MCG in SODIUM CHLORIDE 0.9% INJ 50 ML IV SCH (11:45)
[2017-01-24] MEDS: SODIUM CHLOR 0.9% 1000 ML INJ 1,000 ML IV SCH ×2 (12:00→20:00)
[2017-01-24 14:50] LABS: BLOOD GAS BASE EXCESS 2.2 mmol/L (-2-2); BLOOD GAS CARBOXYHEMOGLOBIN 1.3 % (0-4); BLOOD GAS HCO3 26 mmol/L (22-26); BLOOD GAS METHEMOGLOBIN 1.2 % (0-2); BLOOD GAS O2 HGB SATURATION 93 % (90-100); BLOOD GAS OXYGEN CONTENT 17.8 Vol % (12.0-20.0); BLOOD GAS PCO2 36 mmHg (38-42); BLOOD GAS PO2 77 mmHg (61-120); BLOOD GAS TOTAL HGB 13.5 G/DL (12.0-16.0); TEMP CORR TO 98.6
[2017-01-24 14:51] LABS: CRITICAL VALUE NO; OXYGEN DEVICE VENTILATOR; VENT SETTINGS PEEP5/PS10
[2017-01-24 14:52] LABS: DRAW SITE RT BRACHIAL; FIO2 35 %; NUMBER OF ARTERIAL PUNCTURES 1; STAT NO
[2017-01-24] MEDS: cefTRIAXone INJ 2,000 MG in SODIUM CHLORIDE 0.9% INJ 100 ML IV SCH (17:06)
[2017-01-24] MEDS: ENOXAPARIN SODIUM 40 MG/0.4 ML SYRINGE SQ SCH (17:07)
[2017-01-24] MEDS: LORazepam 2 MG/ML VIAL IV PUSH PRN (18:02)
[2017-01-24] MEDS: POTASSIUM CHLOR 20 MEQ PREMIX 100 ML IV PRN (23:12)
[2017-01-25] VITALS (14 sets, daily range): BP systolic 120–162; BP diastolic 63–95; PULSE 52–127; RESP 18–26; TEMP 97–97.9; O2SAT 95–100
[2017-01-25] MEDS: LORazepam 2 MG/ML VIAL IV PUSH PRN ×2 (01:21→07:29)
[2017-01-25] MEDS: RESP: ALBUTEROL 2.5 MG/IPRATROPIUM 0.5 MG NEB (SCH) NEB ×4 (03:33→21:34)
[2017-01-25] MEDS: CHLORHEXIDINE GLUCONATE 2 % 1 PACK (2 CLOTHS) TOP SCH (04:00)
[2017-01-25] MEDS: SODIUM CHLOR 0.9% 1000 ML INJ 1,000 ML IV SCH ×3 (04:00→19:29)
[2017-01-25] MEDS: POTASSIUM CHLOR 20 MEQ PREMIX 100 ML IV PRN (05:26)
[2017-01-25] MEDS: DEXMEDETOMIDINE INJ 1,000 MCG in SODIUM CHLOR 0.9% 250 ML INJ 250 ML IV SCH ×2 (05:26→19:29)
[2017-01-25] MEDS: CHLORHEXIDINE 0.12% (ORAL KIT) 15 ML CUP MT SCH ×2 (07:15→19:29)
[2017-01-25 07:23] LABS: CKMB 34.7 NG/ML (0.5-3.6)
[2017-01-25] MEDS: PANTOPRAZOLE SODIUM 40 MG VIAL IV SCH (07:29)
[2017-01-25] MEDS: SODIUM CHLORIDE 0.9% FLUSH 10 ML FLUSH IV FLUSH SCH ×2 (07:29→19:29)
--- NOTE | 2017-01-25 07:38 | HHI.CCPN ---
Subjective Remarks/Hospital Course Patient is a 61 year old female with past medical history significant for COPD, past history of IV drug use, bladder cancer with history of urostomy, schizoaffective disorder, hepatitis B and C was brought to the [place] emergency department after being found unresponsive. On scene her oxygen saturation was in the 80s. Patient received 2 mg of Narcan with not adequate response, when EMS attempted to intubate patient started to wake up. Initially in the ER patient had a GCS of 14. On recheck patient with depressed GCS and minimally responsive and decreased respirations. Given 2 mg of Narcan without response and patient was intubated and placed on mechanical ventilation. CT of the head was negative. Urine drug screen was positive for cocaine and opiates and benzodiazepines. Tegretol level was very high at 30, EKG shows slight QTC prolongation. Other pertinent labs include elevated CPK and UA showing UTI 01/24 Patient is sedated with Diprivan, versed and intubated. On Bicarb drip. Afebrile. 01/25 Patient was extubated yesterday lying inbed in NAD placed on Precedex drip for agitation. Objective Vital Signs Date Time Temp Pulse Resp B/P Pulse Ox O2 Delivery O2 Flow Rate FiO2 01/25/17 06:00 104 01/25/17 04:00 97.0 26 151/79 96 01/24/17 20:21 21 01/24/17 15:30 Nasal Cannula 4 Intake and Output 01/24/17 01/24/17 01/25/17 08:00 16:00 00:00 Intake Total 992 ml 456 ml 770 ml Output Total 300 ml 800 ml 500 ml Balance 692 ml -344 ml 270 ml Result Diagram: 01/24/17 0423 01/24/17 2147 Other Results Laboratory Tests Test 01/24/17 01/24/17 01/25/17 14:35 21:47 05:12 Blood Gas Puncture Site RT BRACHIAL Blood Gas Patient Temperature 98.6 Blood Gas HCO3 26 mmol/L Blood Gas Base Excess 2.2 mmol/L Blood Gas Oxygen Saturation 93 % Arterial Blood pH 7.46 Arterial Blood Partial 36 mmHg Pressure CO2 Arterial Blood Partial 77 mmHg Pressure O2 Arterial Blood Oxygen Content 17.8 Vol % Arterial Blood 1.3 % Carboxyhemoglobin Arterial Blood Methemoglobin 1.2 % Blood Gas Hemoglobin 13.5 G/DL Oxygen Delivery Device VENTILATOR Blood Gas Ventilator Setting PEEP5/PS10 Blood Gas Inspired Oxygen 35 % Potassium Level 3.4 MEQ/L Total Creatine Kinase 2493 U/L Creatine Kinase MB 34.7 NG/ML Creatine Kinase MB % 1.4 % Imaging Last Impressions Chest X-Ray 01/24/17 0600 Signed Impressions: Service Date/Time: Tuesday, January 24, 2017 03:27 - CONCLUSION: The nasogastric tube be advanced since it barely enters the stomach. ET tube in good position. Lungs are grossly clear. Detxer Hernandez MD Head CT 01/23/17 0926 Signed Impressions: Service Date/Time: Monday, January 23, 2017 09:46 - CONCLUSION: No acute intracranial findings. Zane Espinal MD Objective Remarks GENERAL: Thin, built patient who appears chronically ill. SKIN: Warm and dry. Multiple bruises HEAD: Normocephalic EYES: No injection or drainage. Pupils equal ENT: No nasal drainage noted. Orotracheally intubated NECK: Supple, trachea midline. No pain with range of motion CARDIOVASCULAR: Regular rate and rhythm RESPIRATORY: Breath sounds equal bilaterally. No accessory muscle use. GASTROINTESTINAL: Abdomen soft, nondistended. Right-sided urostomy in place NEUROLOGICAL:Awake, confused at times. A/P Assessment and Plan NEURO: Polysubstance abuse overdose Acute encephalopathy IV drug use Tegretol toxicity -Wean off Precedex drip monitor neuro status -Urine drug screen is positive for cocaine and opiates and benzodiazepines - Tegretol level trending down, 10.9 on 01/24 RESP: Acute respiratory failure- extubated 01/24 COPD -Continue with oxygen keep sat >92% -DuoNeb every 6 hours and when necessary CV: -Monitor HR and BP keep MAP>65mmHg GI: Hepatitis B and C Elevated AST -Speech eval, diet per speech -IV Protonix 40 mg daily. Bowel regimen -Monitor LFT's, check US liver, hepatitis profile. : Acute rhabdomyolysis -Monitor renal function ,I/O's, electrolytes replacement per protocol. Will need K, Phos replacement today --On NS@125ml/hr. Monitor CK;s. ID: UTI -Continue ceftriaxone. Monitor for signs of infections ( Fever, WBC) follow up on cultures Blood cultures 01/23: No growth Urine cx 01/23: GNR HEME: -Monitor CBC, CMP, -History of bladder cancer status post cystectomy and urostomy ENDO: -SSI if needed for glycemic control PROPH: -Bilateral lower extremity SCDs. Lovenox 40 mg daily. IV Protonix LINES: Utilize peripheral IVs, Follow up on labs today level 3 Krystal Khalil MD Jan 25, 2017 07:38
[2017-01-25 08:41] LABS: AUTOMATED NEUTROPHIL # 5.8 TH/MM3 (1.8-7.7); BASOPHIL % 0.4 % (0.0-2.0); HEMATOCRIT 36.3 % (35.0-46.0); HEMO FLAGS DIFF FINAL; LYMPHOCYTE # 1.4 TH/MM3 (1.0-4.8); MEAN CELL VOLUME 92.9 FL (80.0-100.0); MEAN CORPUSCULAR HEMOGLOBIN 32.8 PG (27.0-34.0); MEAN CORPUSCULAR HGB CONC 35.3 % (32.0-36.0); NEUT % 72.6 % (16.0-70.0); PLATELET COUNT 123 TH/MM3 (150-450); RED CELL DISTRIBUTION WIDTH 12.9 % (11.6-17.2); WHITE BLOOD COUNT 7.9 TH/MM3 (4.0-11.0)
[2017-01-25 08:56] LABS: ANION GAP 8 MEQ/L (5-15); AST (GOT) 93 U/L (15-37); BICARBONATE 25.8 MEQ/L (21.0-32.0); BLOOD UREA NITROGEN 6 MG/DL (7-18); CHLORIDE 107 MEQ/L (98-107); GLOMERULAR FILTRATION RATE 132 ML/MIN (>89); MAGNESIUM 1.7 MG/DL (1.5-2.5); POTASSIUM 3.7 MEQ/L (3.5-5.1); SODIUM (NA) 141 MEQ/L (136-145)
[2017-01-25 08:57] LABS: ALT (GPT) 34 U/L (10-53)
[2017-01-25 09:00] LABS: ALKALINE PHOSPHATASE 100 U/L (45-117); TOTAL BILIRUBIN ADULT 0.5 MG/DL (0.2-1.0)
--- NOTE | 2017-01-25 15:32 | RADRPT ---
EXAM DATE/TIME: 01/25/2017 12:03 [facility] COMPARISON: No previous studies available for comparison. INDICATIONS : Increased lab values. MEDICAL HISTORY : Hypertension. Chronic obstructive pulmonary disease. Gastroesophageal reflux disease. Myocardial infa rction. Anticoagulant therapy. Arthritis. Hepatitis B. Hepatitis C. Depression. Bipolar disorder. Anx iety. SURGICAL HISTORY : Cholecystectomy. Hysterectomy. Neck fusion. Urostomy. Cervical surgery with plate. Ileostomy. Chemo therapy. ENCOUNTER: Initial ACUITY: 1 day PAIN SCORE: Nonresponsive. LOCATION: Right upper quadrant MEASUREMENTS: LIVER: 18.4 cm length COMMON DUCT: 8 mm RIGHT KIDNEY: 11.5 x 3.7 x 4.7 cm SPLEEN: 9.8 cm length FINDINGS: Small amount of pleural effusion on the left side. LIVER: Normal echotexture without focal lesion or ductal dilatation. Hepatopedal flow single portable vein. COMMON DUCT: No intraluminal mass or stone visualized. GALLBLADDER: Cholecystectomy. PANCREAS: The visualized portions are within normal limits. RIGHT KIDNEY: No hydronephrosis, stone or mass. SPLEEN: No focal lesion. CONCLUSION: 1. Hepatomegaly without focal lesion. 2. Small left pleural effusion. Antolin Tineo MD on January 25, 2017 at 15:29 Board Certified Radiologist. This report was verified electronically.
[2017-01-25] MEDS ORDERED: ONDANSETRON HCL 4 MG/2 ML VIAL IV PUSH PRN (16:15)
[2017-01-25] MEDS: cefTRIAXone INJ 2,000 MG in SODIUM CHLORIDE 0.9% INJ 100 ML IV SCH (16:44)
[2017-01-25] MEDS: ENOXAPARIN SODIUM 40 MG/0.4 ML SYRINGE SQ SCH (16:44)
[2017-01-26] VITALS (15 sets, daily range): BP systolic 137–169; BP diastolic 69–81; PULSE 58–87; RESP 16–26; TEMP 97.4–98.5; O2SAT 95–99
[2017-01-26] MEDS: CHLORHEXIDINE GLUCONATE 2 % 1 PACK (2 CLOTHS) TOP SCH (04:00)
[2017-01-26] MEDS: SODIUM CHLOR 0.9% 1000 ML INJ 1,000 ML IV SCH ×3 (04:00→20:00)
[2017-01-26] MEDS: RESP: ALBUTEROL 2.5 MG/IPRATROPIUM 0.5 MG NEB (SCH) NEB ×4 (04:24→20:23)
[2017-01-26 05:37] LABS: AUTOMATED NEUTROPHIL # 4.8 TH/MM3 (1.8-7.7); BASOPHIL % 0.4 % (0.0-2.0); HEMATOCRIT 37.1 % (35.0-46.0); HEMO FLAGS DIFF FINAL; LYMPH % 23.9 % (9.0-44.0); LYMPHOCYTE # 1.7 TH/MM3 (1.0-4.8); MEAN CELL VOLUME 93.6 FL (80.0-100.0); MEAN CORPUSCULAR HEMOGLOBIN 32.5 PG (27.0-34.0); MEAN CORPUSCULAR HGB CONC 34.7 % (32.0-36.0); MONO % 6.4 % (0.0-8.0); NEUT % 69.3 % (16.0-70.0); PLATELET COUNT 135 TH/MM3 (150-450); RED BLOOD COUNT 3.97 MIL/MM3 (4.00-5.30); WHITE BLOOD COUNT 6.9 TH/MM3 (4.0-11.0)
[2017-01-26 05:49] LABS: ALT (GPT) 32 U/L (10-53); ANION GAP 15 MEQ/L (5-15); AST (GOT) 80 U/L (15-37); BICARBONATE 20.7 MEQ/L (21.0-32.0); CHLORIDE 108 MEQ/L (98-107); GLOMERULAR FILTRATION RATE 136 ML/MIN (>89); MAGNESIUM 1.7 MG/DL (1.5-2.5); POTASSIUM 3.6 MEQ/L (3.5-5.1); SODIUM (NA) 144 MEQ/L (136-145)
[2017-01-26 05:52] LABS: ALKALINE PHOSPHATASE 100 U/L (45-117); TOTAL BILIRUBIN ADULT 0.4 MG/DL (0.2-1.0)
[2017-01-26 06:05] LABS: BLOOD UREA NITROGEN 7 MG/DL (7-18)
[2017-01-26 06:37] LABS: CREATINE KINASE 1404 U/L (26-192)
[2017-01-26 07:05] LABS: CKMB 15.4 NG/ML (0.5-3.6)
[2017-01-26] MEDS ORDERED: DEXTROSE 50% IN WATER 50 ML SYRINGE ONE (07:34)
[2017-01-26] MEDS: PANTOPRAZOLE SODIUM 40 MG VIAL IV SCH (08:53)
[2017-01-26] MEDS: SODIUM CHLORIDE 0.9% FLUSH 10 ML FLUSH IV FLUSH SCH ×2 (08:53→22:32)
[2017-01-26] MEDS: DEXMEDETOMIDINE INJ 1,000 MCG in SODIUM CHLOR 0.9% 250 ML INJ 250 ML IV SCH (11:48)
[2017-01-26] MEDS: CHLORHEXIDINE 0.12% (ORAL KIT) 15 ML CUP MT SCH ×2 (11:49→20:00)
[2017-01-26] MEDS ORDERED: HALOPERIDOL LACTATE 5 MG/ML AMP IV PRN (13:15)
[2017-01-26] MEDS: ENOXAPARIN SODIUM 40 MG/0.4 ML SYRINGE SQ SCH (13:55)
[2017-01-26] MEDS: cefTRIAXone INJ 2,000 MG in SODIUM CHLORIDE 0.9% INJ 100 ML IV SCH (16:03)
--- NOTE | 2017-01-26 17:23 | HHI.CCPN ---
Subjective Remarks/Hospital Course Patient is a 61 year old female with past medical history significant for COPD, past history of IV drug use, bladder cancer with history of urostomy, schizoaffective disorder, hepatitis B and C was brought to the [facility] emergency department after being found unresponsive. On scene her oxygen saturation was in the 80s. Patient received 2 mg of Narcan with not adequate response, when EMS attempted to intubate patient started to wake up. Initially in the ER patient had a GCS of 14. On recheck patient with depressed GCS and minimally responsive and decreased respirations. Given 2 mg of Narcan without response and patient was intubated and placed on mechanical ventilation. CT of the head was negative. Urine drug screen was positive for cocaine and opiates and benzodiazepines. Tegretol level was very high at 30, EKG shows slight QTC prolongation. Other pertinent labs include elevated CPK and UA showing UTI 01/24 Patient is sedated with Diprivan, versed and intubated. On Bicarb drip. Afebrile. 01/25 Patient was extubated yesterday lying inbed in NAD placed on Precedex drip for agitation. 01/26: much less agitated. still on precedex drip at 1.2 mcg/kg/min. however, now oriented and doing much better, although still slightly confused. Objective Vital Signs Date Time Temp Pulse Resp B/P Pulse Ox O2 Delivery O2 Flow Rate FiO2 01/26/17 16:00 97.9 63 19 137/69 98 01/26/17 08:31 Nasal Cannula 2.00 01/25/17 21:34 21 Intake and Output 01/25/17 01/25/17 01/26/17 08:00 16:00 00:00 Intake Total 449 ml 750 ml 873 ml Output Total 700 ml 1000 ml 250 ml Balance -251 ml -250 ml 623 ml Result Diagram: 01/26/17 0433 01/26/17 0433 Other Results Microbiology Date/Time Procedure Status Source Growth 01/23/17 23:10 Gram Stain - Final Complete Sputum Endotracheal 01/23/17 23:10 Sputum Culture - Final Complete Sputum Endotracheal MODERATE GROWTH NORMAL RESPIRATORY SEBAS Imaging Last Impressions Chest X-Ray 01/24/17 0600 Signed Impressions: Service Date/Time: Tuesday, January 24, 2017 03:27 - CONCLUSION: The nasogastric tube be advanced since it barely enters the stomach. ET tube in good position. Lungs are grossly clear. Dexter Hernandez MD Head CT 01/23/17 0955 Signed Impressions: Service Date/Time: Monday, January 23, 2017 09:46 - CONCLUSION: No acute intracranial findings. Zane Espinal MD Objective Remarks GENERAL: Thin, built patient who appears chronically ill. SKIN: Warm and dry. Multiple bruises HEAD: Normocephalic EYES: No injection or drainage. Pupils equal ENT: No nasal drainage noted. Orotracheally intubated NECK: Supple, trachea midline. No pain with range of motion CARDIOVASCULAR: Regular rate and rhythm RESPIRATORY: Breath sounds equal bilaterally. No accessory muscle use. GASTROINTESTINAL: Abdomen soft, nondistended. Right-sided urostomy in place NEUROLOGICAL:Awake, confused at times. A/P Assessment and Plan NEURO: Polysubstance abuse overdose Acute encephalopathy IV drug use Tegretol toxicity- resolved. Agitated Delirium -Wean off Precedex drip monitor neuro status -Urine drug screen is positive for cocaine and opiates and benzodiazepines - Tegretol level trending down, now low - restart home tegretol dose. - restart home psych meds - haldol 5mg iv q4h prn for agitation. RESP: Acute respiratory failure- extubated 01/24 COPD -Continue with oxygen keep sat >92% -DuoNeb every 6 hours and when necessary CV: -Monitor HR and BP keep MAP>65mmHg GI: Hepatitis B and C Elevated AST -Speech eval, diet per speech -IV Protonix 40 mg daily. Bowel regimen -Monitor LFT's, liver u/s: enlarged liver, hepatitis profile pending. : Acute rhabdomyolysis - resolving. -Monitor renal function ,I/O's, electrolytes replacement per protocol. --On NS@125ml/hr. CKs downtrending. ID: UTI -Continue ceftriaxone. Monitor for signs of infections ( Fever, WBC) follow up on cultures Blood cultures 01/23: No growth Urine cx 01/23: Klebsiella and Escherichia, sensitive to ceftriaxone. continue full 7 day course (anticipated stop date 01/28) HEME: -Monitor CBC, CMP, -History of bladder cancer status post cystectomy and urostomy ENDO: -SSI if needed for glycemic control PROPH: -Bilateral lower extremity SCDs. Lovenox 40 mg daily. IV Protonix LINES: Utilize peripheral IVs, level 3 Rm Alvarez MD Jan 26, 2017 17:23
[2017-01-26] MEDS: OLANZapine 10 MG TAB PO SCH (22:31)
[2017-01-26] MEDS: clonazePAM 0.5 MG TAB PO SCH (22:31)
[2017-01-26] MEDS: MELATONIN 5 MG TAB PO SCH (22:31)
[2017-01-26] MEDS: carBAMazepine 200 MG TAB PO SCH (22:32)
[2017-01-26] MEDS: GABAPENTIN 300 MG CAP PO SCH (22:32)
[2017-01-27] VITALS (21 sets, daily range): BP systolic 117–146; BP diastolic 60–75; PULSE 44–103; RESP 15–25; TEMP 97.7–98.8; O2SAT 95–99
[2017-01-27] MEDS: CHLORHEXIDINE GLUCONATE 2 % 1 PACK (2 CLOTHS) TOP SCH (04:00)
[2017-01-27] MEDS: RESP: ALBUTEROL 2.5 MG/IPRATROPIUM 0.5 MG NEB (SCH) NEB ×4 (04:02→21:47)
[2017-01-27 05:34] LABS: MEAN CELL VOLUME 93.5 FL (80.0-100.0); MEAN CORPUSCULAR HEMOGLOBIN 32.1 PG (27.0-34.0); MEAN CORPUSCULAR HGB CONC 34.3 % (32.0-36.0); PLATELET COUNT 143 TH/MM3 (150-450); RED BLOOD COUNT 4.07 MIL/MM3 (4.00-5.30); REVIEW FLAG FINAL; WHITE BLOOD COUNT 5.8 TH/MM3 (4.0-11.0)
[2017-01-27 06:13] LABS: BICARBONATE 24.9 MEQ/L (21.0-32.0)
[2017-01-27 06:18] LABS: POTASSIUM 2.9 MEQ/L (3.5-5.1)
[2017-01-27] MEDS: POTASSIUM CHLOR 40 MEQ PREMIX 100 ML IV PRN (07:02)
[2017-01-27] MEDS: CHLORHEXIDINE 0.12% (ORAL KIT) 15 ML CUP MT SCH ×2 (08:13→20:00)
[2017-01-27] MEDS: OLANZapine 5 MG TAB PO SCH (09:00)
[2017-01-27] MEDS: GABAPENTIN 300 MG CAP PO SCH ×2 (09:38→20:10)
[2017-01-27] MEDS: POTASSIUM CHLORIDE 20 MEQ CONTROLLED RELEASE TAB PO SCH ×2 (09:38→20:12)
[2017-01-27] MEDS: ASPIRIN 81 MG CHEW TAB CHEW SCH (09:38)
[2017-01-27] MEDS: clonazePAM 0.5 MG TAB PO SCH ×2 (09:38→20:11)
[2017-01-27] MEDS: carBAMazepine 200 MG TAB PO SCH ×2 (09:38→20:13)
[2017-01-27] MEDS: PANTOPRAZOLE SOD 40 MG DELAYED RELEASE TAB PO SCH (09:39)
[2017-01-27] MEDS: ENOXAPARIN SODIUM 40 MG/0.4 ML SYRINGE SQ SCH (15:57)
[2017-01-27] MEDS: cefTRIAXone INJ 2,000 MG in SODIUM CHLORIDE 0.9% INJ 100 ML IV SCH (15:57)
[2017-01-27] MEDS: SODIUM CHLORIDE 0.9% FLUSH 10 ML FLUSH IV FLUSH SCH ×2 (15:57→20:09)
[2017-01-27] MEDS: ACETAMINOPHEN 325 MG TAB PO PRN (16:36)
[2017-01-27 17:32] LABS: C. DIFF EPI 027 PRESUMPTIVE NEGATIVE (NEGATIVE); C. DIFF TOXIN PCR NEGATIVE (NEGATIVE)
--- NOTE | 2017-01-27 19:22 | HHI.CCPN ---
Subjective Remarks/Hospital Course Patient is a 61 year old female with past medical history significant for COPD, past history of IV drug use, bladder cancer with history of urostomy, schizoaffective disorder, hepatitis B and C was brought to the [place] emergency department after being found unresponsive. On scene her oxygen saturation was in the 80s. Patient received 2 mg of Narcan with not adequate response, when EMS attempted to intubate patient started to wake up. Initially in the ER patient had a GCS of 14. On recheck patient with depressed GCS and minimally responsive and decreased respirations. Given 2 mg of Narcan without response and patient was intubated and placed on mechanical ventilation. CT of the head was negative. Urine drug screen was positive for cocaine and opiates and benzodiazepines. Tegretol level was very high at 30, EKG shows slight QTC prolongation. Other pertinent labs include elevated CPK and UA showing UTI 01/24 Patient is sedated with Diprivan, versed and intubated. On Bicarb drip. Afebrile. 01/25 Patient was extubated yesterday lying inbed in NAD placed on Precedex drip for agitation. 01/26: much less agitated. still on precedex drip at 1.2 mcg/kg/min. however, now oriented and doing much better, although still slightly confused. 01/27: agitation much improved. now off precedex and on home regimen. required 1 dose of haldol yesterday. still slightly confused, but this may be close to baseline. Objective Vital Signs Date Time Temp Pulse Resp B/P Pulse Ox O2 Delivery O2 Flow Rate FiO2 01/27/17 18:01 96 23 119/65 97 01/27/17 16:00 98.8 01/27/17 09:38 Nasal Cannula 1.00 01/25/17 21:34 21 Intake and Output 01/26/17 01/26/17 01/26/17 07:59 15:59 23:59 Intake Total 1205 ml 1238 ml 1242 ml Output Total 550 ml 900 ml 1000 ml Balance 655 ml 338 ml 242 ml Result Diagram: 01/27/17 0459 01/27/17 1518 Imaging Last Impressions Chest X-Ray 01/24/17 0600 Signed Impressions: Service Date/Time: Tuesday, January 24, 2017 03:27 - CONCLUSION: The nasogastric tube be advanced since it barely enters the stomach. ET tube in good position. Lungs are grossly clear. Dexter Hernandez MD Head CT 01/23/17 0926 Signed Impressions: Service Date/Time: Monday, January 23, 2017 09:46 - CONCLUSION: No acute intracranial findings. Zane Espinal MD Objective Remarks GENERAL: Thin, built patient who appears chronically ill. SKIN: Warm and dry. Multiple bruises HEAD: Normocephalic EYES: No injection or drainage. Pupils equal ENT: No nasal drainage noted. Orotracheally intubated NECK: Supple, trachea midline. No pain with range of motion CARDIOVASCULAR: Regular rate and rhythm RESPIRATORY: Breath sounds equal bilaterally. No accessory muscle use. GASTROINTESTINAL: Abdomen soft, nondistended. Right-sided urostomy in place NEUROLOGICAL:Awake, confused at times. A/P Assessment and Plan NEURO: Polysubstance abuse overdose Acute encephalopathy IV drug use Tegretol toxicity- resolved. Agitated Delirium- improving. -Urine drug screen is positive for cocaine and opiates and benzodiazepines - Tegretol level trending down, now low - home tegretol dose. - home psych meds - haldol 5mg iv q4h prn for agitation. RESP: Acute respiratory failure- extubated 01/24 COPD -Continue with oxygen keep sat >92% -DuoNeb every 6 hours and when necessary CV: -Monitor HR and BP keep MAP>65mmHg GI: Hepatitis B and C Elevated AST -Speech eval, diet per speech -IV Protonix 40 mg daily. Bowel regimen -Monitor LFT's, liver u/s: enlarged liver, hepatitis profile pending. : Acute rhabdomyolysis - resolving. -Monitor renal function ,I/O's, electrolytes replacement per protocol. --saline lock ivf. CKs downtrending. ID: UTI -Continue ceftriaxone. Monitor for signs of infections ( Fever, WBC) follow up on cultures Blood cultures 01/23: No growth Urine cx 01/23: Klebsiella and Escherichia, sensitive to ceftriaxone. continue full 7 day course (anticipated stop date 01/28) HEME: -Monitor CBC, CMP, -History of bladder cancer status post cystectomy and urostomy ENDO: -SSI if needed for glycemic control PROPH: -Bilateral lower extremity SCDs. Lovenox 40 mg daily. IV Protonix LINES: Utilize peripheral IVs, Dispo: stable for transfer to floor. consult hospitalist. Rm Alvarez MD Jan 27, 2017 19:22
[2017-01-27] MEDS: OLANZapine 10 MG TAB PO SCH (20:10)
[2017-01-27] MEDS: MELATONIN 5 MG TAB PO SCH (20:10)
[2017-01-28] VITALS (15 sets, daily range): BP systolic 95–134; BP diastolic 50–83; PULSE 67–95; RESP 16–22; TEMP 97.5–98.8; O2SAT 91–98
[2017-01-28] MEDS: RESP: ALBUTEROL 2.5 MG/IPRATROPIUM 0.5 MG NEB (SCH) NEB ×4 (03:41→20:30)
[2017-01-28] MEDS: CHLORHEXIDINE GLUCONATE 2 % 1 PACK (2 CLOTHS) TOP SCH (04:00)
[2017-01-28 07:03] LABS: HEMATOCRIT 38.4 % (35.0-46.0); MEAN CELL VOLUME 93.2 FL (80.0-100.0); MEAN CORPUSCULAR HEMOGLOBIN 33.4 PG (27.0-34.0); MEAN CORPUSCULAR HGB CONC 35.8 % (32.0-36.0); PLATELET COUNT 179 TH/MM3 (150-450); RED BLOOD COUNT 4.12 MIL/MM3 (4.00-5.30); RED CELL DISTRIBUTION WIDTH 13.5 % (11.6-17.2); REVIEW FLAG FINAL; WHITE BLOOD COUNT 6.8 TH/MM3 (4.0-11.0)
[2017-01-28 07:31] LABS: BICARBONATE 28.8 MEQ/L (21.0-32.0); POTASSIUM 3.2 MEQ/L (3.5-5.1)
[2017-01-28] MEDS: CHLORHEXIDINE 0.12% (ORAL KIT) 15 ML CUP MT SCH (08:00)
[2017-01-28] MEDS: OLANZapine 5 MG TAB PO SCH (09:00)
[2017-01-28 10:27] LABS: MAGNESIUM 1.8 MG/DL (1.5-2.5)
[2017-01-28] MEDS: clonazePAM 0.5 MG TAB PO SCH (10:46)
[2017-01-28] MEDS: carBAMazepine 200 MG TAB PO SCH ×2 (10:46→20:08)
[2017-01-28] MEDS: ASPIRIN 81 MG CHEW TAB CHEW SCH (10:46)
[2017-01-28] MEDS: GABAPENTIN 300 MG CAP PO SCH ×2 (10:46→20:08)
[2017-01-28] MEDS: PANTOPRAZOLE SOD 40 MG DELAYED RELEASE TAB PO SCH (10:46)
[2017-01-28] MEDS: POTASSIUM CHLORIDE 20 MEQ CONTROLLED RELEASE TAB PO SCH ×2 (10:47→20:06)
[2017-01-28] MEDS: SODIUM CHLORIDE 0.9% FLUSH 10 ML FLUSH IV FLUSH SCH ×2 (10:47→20:06)
--- NOTE | 2017-01-28 13:01 | HHI.PR ---
Subjective Remarks Patient reports she is feeling much better. She is awake, alert and oriented. She is requesting to be restarted on Valium for anxiety. She states she has been on this medication by her primary care physician. She would like to start moving around. Objective Vitals Vital Signs Date Time Temp Pulse Resp B/P Pulse Ox O2 Delivery O2 Flow Rate FiO2 01/28/17 09:58 98 21 01/28/17 08:00 69 16 131/68 95 01/28/17 07:00 98.4 77 18 114/63 96 01/28/17 06:00 72 01/28/17 04:00 82 01/28/17 04:00 98.5 82 18 115/55 93 01/28/17 02:00 81 01/28/17 00:00 98.7 89 21 95/50 91 01/28/17 00:00 89 01/27/17 22:00 94 01/27/17 21:49 97 21 01/27/17 20:00 98.5 90 22 118/61 97 01/27/17 20:00 90 01/27/17 18:01 96 23 119/65 97 01/27/17 17:36 16 01/27/17 17:01 103 22 117/66 96 01/27/17 16:00 98.8 88 20 117/60 96 01/27/17 15:00 83 22 132/69 96 01/27/17 14:00 62 01/27/17 14:00 96 20 121/66 98 I/O 01/27/17 01/27/17 01/27/17 01/28/17 01/28/17 01/28/17 07:00 15:00 23:00 07:00 15:00 23:00 Intake Total 981 ml 1018 ml 360 ml 120 ml Output Total 950 ml 2500 ml 1150 ml 450 ml Balance 31 ml -1482 ml -790 ml -330 ml Intake Oral 360 ml 360 ml 120 ml IV Total 981 ml 658 ml 0 ml 0 ml Output Urine Total 950 ml 2500 ml 1150 ml 450 ml # Bowel Movements 7 0 0 1 Result Diagram: 01/28/17 0522 01/28/17 0522 Imaging Last Impressions Liver Ultrasound 01/25/17 0000 Signed Impressions: Service Date/Time: Wednesday, January 25, 2017 12:03 - CONCLUSION: 1. Hepatomegaly without focal lesion. 2. Small left pleural effusion. Antolin Tineo MD Chest X-Ray 01/24/17 0600 Signed Impressions: Service Date/Time: Tuesday, January 24, 2017 03:27 - CONCLUSION: The nasogastric tube be advanced since it barely enters the stomach. ET tube in good position. Lungs are grossly clear. Dexter Hernandez MD Head CT 01/23/17 0926 Signed Impressions: Service Date/Time: Monday, January 23, 2017 09:46 - CONCLUSION: No acute intracranial findings. Zane Espinal MD Objective Remarks GENERAL: Patient appearing older than stated age in no apparent distress. CARDIOVASCULAR: Normal rate and regular rhythm without murmurs, gallops, or rubs. RESPIRATORY: Good respiratory efforts. Breath sounds equal and clear to auscultation bilaterally. GASTROINTESTINAL: Abdomen soft, non-tender, non-distended. Normal active bowel sounds MUSCULOSKELETAL: Extremities without cyanosis, or edema. NEURO: Alert & Oriented x4 to person, place, time, situation. Moves all ext x4. Somewhat tremulous. PSYCH: Anxious. A/P Problem List: (1) Acute respiratory failure ICD Code: J96.00 Status: Acute (2) Acute encephalopathy ICD Code: G93.40 Status: Acute (3) Polydrug overdose Status: Acute (4) Tegretol toxicity ICD Code: T42.1X1A Status: Acute (5) Rhabdomyolysis ICD Code: M62.82 Status: Acute (6) Schizoaffective disorder, bipolar type ICD Code: F25.0 Status: Acute (7) Hx of bladder cancer ICD Code: Z85.51 Status: Acute Assessment and Plan 61-year-old female admitted for respiratory failure secondary to overdose. Patient admitted to using cocaine, opiates and benzodiazepines. She is status post respiratory failure requiring intubation. She has been extubated and is stable. Patient downgraded to the hospitalist service. Polysubstance abuse overdose Acute encephalopathy IV drug use Tegretol toxicity- resolved. Agitated Delirium-resolved. - Urine drug screen is positive for cocaine and opiates and benzodiazepines - Tegretol level trending down, now low - Continue home Tegretol dose. - Continue home psych meds - haldol 5mg iv q4h prn for agitation. Delirium resolving. Patient is now at baseline. Patient is status post respiratory failure requiring intubation. extubated 01/24 COPD -Continue with oxygen keep sat >92% -DuoNeb every 6 hours and when necessary Acute rhabdomyolysis - resolving. -Monitor renal function ,I/O's, electrolytes replacement per protocol. --saline lock ivf. CKs downtrending. UTI -Continue ceftriaxone. Urine cx 01/23: Klebsiella and Escherichia, sensitive to ceftriaxone. Patient completing treatment today. 01/28 History of bladder cancer status post cystectomy and urostomy -Patient has urostomy and she knows how to take care of it. FEN: - Corrective electrolytes per protocol. PROPH: -Bilateral lower extremity SCDs. Lovenox 40 mg daily. Protonix Discharge Planning Stable to transfer to floor. Consult PT. Anticipated discharge in the next 1- 2 days. Problem Qualifiers (1) Acute respiratory failure: Qualified Code: J96.00 - Acute respiratory failure, unspecified whether with hypoxia or hypercapnia (2) Tegretol toxicity: Elias Abreu MD Jan 28, 2017 13:01
[2017-01-28] MEDS: ENOXAPARIN SODIUM 40 MG/0.4 ML SYRINGE SQ SCH (15:49)
[2017-01-28] MEDS: cefTRIAXone INJ 2,000 MG in SODIUM CHLORIDE 0.9% INJ 100 ML IV SCH (15:50)
[2017-01-28] MEDS: ACETAMINOPHEN 325 MG TAB PO PRN (17:45)
[2017-01-28] MEDS: OLANZapine 10 MG TAB PO SCH (20:07)
[2017-01-28] MEDS: MELATONIN 5 MG TAB PO SCH (20:07)
[2017-01-28] MEDS: DIAZEPAM 2 MG TAB PO SCH (20:08)
[2017-01-29 00:34] VITALS: BP 111/53; PULSE 67; RESP 18; TEMP 97.5; O2SAT 95
[2017-01-29] MEDS: CHLORHEXIDINE GLUCONATE 2 % 1 PACK (2 CLOTHS) TOP SCH (04:00)
[2017-01-29 04:31] VITALS: BP 114/62; PULSE 68; RESP 18; TEMP 98.1; O2SAT 93
[2017-01-29] MEDS: RESP: ALBUTEROL 2.5 MG/IPRATROPIUM 0.5 MG NEB (SCH) NEB ×3 (04:44→15:23)
[2017-01-29 04:47] VITALS: O2SAT 93
[2017-01-29 05:26] LABS: HEMATOCRIT 35.2 % (35.0-46.0); MEAN CELL VOLUME 94.8 FL (80.0-100.0); MEAN CORPUSCULAR HEMOGLOBIN 31.7 PG (27.0-34.0); MEAN CORPUSCULAR HGB CONC 33.4 % (32.0-36.0); PLATELET COUNT 157 TH/MM3 (150-450); RED BLOOD COUNT 3.72 MIL/MM3 (4.00-5.30); RED CELL DISTRIBUTION WIDTH 13.3 % (11.6-17.2); REVIEW FLAG FINAL; WHITE BLOOD COUNT 4.8 TH/MM3 (4.0-11.0)
[2017-01-29 05:56] LABS: BICARBONATE 28.8 MEQ/L (21.0-32.0); POTASSIUM 3.8 MEQ/L (3.5-5.1)
[2017-01-29] MEDS: GABAPENTIN 300 MG CAP PO SCH (07:58)
[2017-01-29] MEDS: ASPIRIN 81 MG CHEW TAB CHEW SCH (07:58)
[2017-01-29] MEDS: POTASSIUM CHLORIDE 20 MEQ CONTROLLED RELEASE TAB PO SCH (07:58)
[2017-01-29] MEDS: PANTOPRAZOLE SOD 40 MG DELAYED RELEASE TAB PO SCH (07:58)
[2017-01-29] MEDS: ACETAMINOPHEN 325 MG TAB PO PRN ×2 (07:58→14:43)
[2017-01-29] MEDS: DIAZEPAM 2 MG TAB PO SCH (07:58)
[2017-01-29] MEDS: SODIUM CHLORIDE 0.9% FLUSH 10 ML FLUSH IV FLUSH SCH (07:59)
[2017-01-29] MEDS: carBAMazepine 200 MG TAB PO SCH (07:59)
[2017-01-29] MEDS: OLANZapine 5 MG TAB PO SCH (08:08)
[2017-01-29 08:20] VITALS: BP 154/75; PULSE 63; PULSE 66; RESP 18; TEMP 98; O2SAT 96
[2017-01-29 12:00] VITALS: BP 129/59; PULSE 76; RESP 18; TEMP 98.2; O2SAT 94
[2017-01-29] MEDS: ENOXAPARIN SODIUM 40 MG/0.4 ML SYRINGE SQ SCH (13:33)
--- NOTE | 2017-01-29 14:42 | HHI.DS ---
Discharge Summary Admission Date Jan 23, 2017 at 11:48 Discharge Date: Jan 29, 2017 Admitting Diagnosis overdose, respiratory failure (1) Acute respiratory failure ICD Code: J96.00 Diagnosis: Principal (2) Acute encephalopathy ICD Code: G93.40 Diagnosis: Principal (3) Polydrug overdose Diagnosis: Principal (4) Tegretol toxicity ICD Code: T42.1X1A Diagnosis: Principal (5) Rhabdomyolysis ICD Code: M62.82 Diagnosis: Principal (6) Schizoaffective disorder, bipolar type ICD Code: F25.0 Diagnosis: Secondary (7) Hx of bladder cancer ICD Code: Z85.51 Diagnosis: Secondary Procedures None Brief History - From Admission Patient is a 61 year old female with past medical history significant for COPD, past history of IV drug use, bladder cancer with history of urostomy, schizoaffective disorder, hepatitis B and C was brought to the [facility] emergency department after being found unresponsive. On scene her oxygen saturation was in the 80s. Patient received 2 mg of Narcan with not adequate response, when EMS attempted to intubate patient started to wake up. Initially in the ER patient had a GCS of 14. On recheck patient with depressed GCS and minimally responsive and decreased respirations. Given 2 mg of Narcan without response and patient was intubated and placed on mechanical ventilation. CT of the head was negative. Urine drug screen was positive for cocaine and opiates and benzodiazepines. Tegretol level was very high at 30, EKG shows slight QTC prolongation. Other pertinent labs include elevated CPK and UA showing UTI I evaluated the patient in the ED. Patient is intubated and heavily sedated. Brother at the bedside confirms that patient has history of IVDU previously done IV heroin and cocaine. I explained to him the expected hospital course CBC/BMP: 01/29/17 0455 01/29/17 0455 Significant Findings Laboratory Tests Test 01/27/17 01/27/17 01/28/17 01/29/17 04:59 15:18 05:22 04:55 Platelet Count 143 TH/MM3 (150-450) Potassium Level 2.9 MEQ/L 3.4 MEQ/L 3.2 MEQ/L (3.5-5.1) (3.5-5.1) (3.5-5.1) Chloride Level 109 MEQ/L 108 MEQ/L 108 MEQ/L (98-107) (98-107) (98-107) Blood Urea Nitrogen 6 MG/DL (7-18) Creatinine 0.44 MG/DL (0.50-1.00) Calcium Level 7.7 MG/DL 8.4 MG/DL (8.5-10.1) (8.5-10.1) Phosphorus Level 2.1 MG/DL (2.5-4.9) Red Blood Count 3.72 MIL/MM3 (4.00-5.30) Imaging Last Impressions Liver Ultrasound 01/25/17 0000 Signed Impressions: Service Date/Time: Wednesday, January 25, 2017 12:03 - CONCLUSION: 1. Hepatomegaly without focal lesion. 2. Small left pleural effusion. Antolin Tineo MD Chest X-Ray 01/24/17 0600 Signed Impressions: Service Date/Time: Tuesday, January 24, 2017 03:27 - CONCLUSION: The nasogastric tube be advanced since it barely enters the stomach. ET tube in good position. Lungs are grossly clear. Dexter Hernandez MD Head CT 01/23/17 0926 Signed Impressions: Service Date/Time: Monday, January 23, 2017 09:46 - CONCLUSION: No acute intracranial findings. Zane Espinal MD PE at Discharge GENERAL: Patient appearing older than stated age in no apparent distress. CARDIOVASCULAR: Normal rate and regular rhythm without murmurs, gallops, or rubs. RESPIRATORY: Good respiratory efforts. Breath sounds equal and clear to auscultation bilaterally. GASTROINTESTINAL: Abdomen soft, non-tender, non-distended. Normal active bowel sounds MUSCULOSKELETAL: Extremities without cyanosis, or edema. NEURO: Alert & Oriented x4 to person, place, time, situation. Moves all ext x4. PSYCH: Calm. Pt update on day of discharge Patient reports she is feeling great. Anxious to go home. She has no complaints. She is grateful for the care she received and reports that she is "done with drugs" Hospital Course 61-year-old female admitted for respiratory failure secondary to overdose. Patient admitted to using cocaine, opiates and benzodiazepines. She is status post respiratory failure requiring intubation. She has been extubated and is stable. Patient downgraded to the hospitalist service. Evaluation and treatment course detailed below: Polysubstance abuse/overdose Acute encephalopathy IV drug use Tegretol toxicity- resolved. Agitated Delirium-resolved. - Urine drug screen is positive for cocaine and opiates and benzodiazepines - Tegretol level trending down, now low - Continue home Tegretol dose. - Continue home psych meds Delirium resolved Patient is status post respiratory failure requiring intubation. extubated 01/24 COPD -Patient weaned down to room air by the time of discharge Acute rhabdomyolysis - Resolved with IVF UTI -Patient treated with ceftriaxone. Urine cx 01/23: Klebsiella and Escherichia, sensitive to ceftriaxone. Patient completing treatment today. 01/28 History of bladder cancer status post cystectomy and urostomy -Patient has urostomy and she knows how to take care of it. Pt Condition on Discharge: Good Discharge Disposition: Discharge Home Discharge Time: > 30 minutes Discharge Instructions DIET: Follow Instructions for: Heart Healthy Diet Activities you can perform: Regular-No Restrictions Other Activity Instructions: DO NOT USE ILLEGAL DRUGS. Follow up Referrals: PCP Follow-up - 1 Week Continued Medications: Albuterol 8.5 GM Inh (Proair Hfa 8.5 GM Inh) 90 Mcg/Act Aer 2 PUFF INH DIRECTED 108 mcg/actuation PRN SHORTNESS OF BREATH #1 Ref 0 INHALER Aspirin (Aspirin Children's) 81 Mg Chew 81 MG CHEW DAILY Ref 0 TAB Atorvastatin (Atorvastatin) 80 Mg Tab 80 MG PO DAILY Cholesterol Management #30 Ref 0 TAB Baclofen (Baclofen) 10 Mg Tab 10 MG PO BID Muscle Spasm Ref 0 TAB Carbamazepine (Tegretol) 200 Mg Tab 200 MG PO DAILY IN THE MORNING #60 Ref 0 TAB Carbamazepine (Tegretol) 200 Mg Tab 400 MG PO HS #60 Ref 0 TAB Clopidogrel (Plavix) 75 Mg Tab 75 MG PO DAILY Blood Clot Prevention #30 Ref 0 TAB Gabapentin (Gabapentin) 300 Mg Cap 300 MG PO BID #60 Ref 0 CAP Melatonin (Melatonin Gummies) 2.5 Mg Chw 10 MG PO HS Olanzapine (Olanzapine) 20 Mg Tab 20 MG PO HS #30 Ref 0 TAB Olanzapine (Olanzapine) 5 Mg Tab 5 MG PO DAILY IN THE MORNING #30 Ref 0 TAB Pantoprazole (Pantoprazole) 40 Mg Tab 40 MG PO DAILY Reflux #30 Ref 0 TAB Discontinued Medications: Clonazepam (Clonazepam) 0.5 Mg Tab 0.5 MG PO BID #60 Ref 0 TAB Elias Abreu MD Jan 29, 2017 14:42
[2017-01-29 15:23] VITALS: O2SAT 92
== END 2017-01-29 19:36 | disposition home or self-care (01) | DRG 917 ==
LOC: NEPE 09:19 → NEDA 11:48 → HIMN 15:20 → N04A 01-28 21:20
PROVIDERS: ADMIT Family Medicine; ATTEND Family Medicine
PROC: 0BH17EZ Insertion of Endotracheal Airway into Trachea, Via Natural or Artificial Opening (ICD-10-PCS; principal; 2017-01-23)
PROC: 5A1935Z Respiratory Ventilation, Less than 24 Consecutive Hours (ICD-10-PCS; 2017-01-23)
DX: T42.1X1A Poisoning by iminostilbenes, accidental (unintentional), initial encounter (principal); G92 Toxic encephalopathy; J96.00 Acute respiratory failure, unspecified whether with hypoxia or hypercapnia; J44.9 Chronic obstructive pulmonary disease, unspecified; M62.82 Rhabdomyolysis; N39.0 Urinary tract infection, site not specified; B19.10 Unspecified viral hepatitis B without hepatic coma; F90.9 Attention-deficit hyperactivity disorder, unspecified type; F25.0 Schizoaffective disorder, bipolar type; F41.9 Anxiety disorder, unspecified; K21.9 Gastro-esophageal reflux disease without esophagitis; F17.210 Nicotine dependence, cigarettes, uncomplicated; Z85.51 Personal history of malignant neoplasm of bladder; I45.81 Long QT syndrome; T40.5X1A Poisoning by cocaine, accidental (unintentional), initial encounter; B19.20 Unspecified viral hepatitis C without hepatic coma
CPT/HCPCS: 31500; 36600; 70450; 71010; 76705; 76937; 80048; 80053; 80074; 80076; 80156; 80307; 81001; 82140; 82550; 82552; 82805; 83605; 83735; 84100; 84132; 84443; 84484; 85025; 85027; 85610; 85730; 87040; 87070; 87077; 87086; 87186; 87205; 87493; 87641; 93005; 94002; 94003; 94640; 94664; 96361; 96374; 96375; C9113; J0330; J0610; J0696; J1630; J1650; J2060; J2250; J2310; J2405; J3480; J7030; J7050

== ENCOUNTER 2017-06-20 12:19 | Inpatient (IN) | payer MEDICAID ==
[~2017-06-20] VITALS: Ht 167.6 cm; Wt 61.0 kg
[~2017-06-20 12:19] MED LIST changes: +ALBUAER3 INH; -ASPI81 PO; +ASPI81CH7 CHEW; +ATOR80TA45 PO; -BUSP15TA PO; -CARB200 PO; -CARB200T16 PO; -CARV3.125 PO; -CLOP75 PO; -FAMO20 PO; -GABA300 PO; -GABA300C3 PO; +GABA300C5 PO; -MECL25 PO; +MELA2.5C2 PO; -MIRTA15 PO; -OLAN10 PO; +OLAN20TA PO; +OLAN5TAB PO; +PANT40TA3 PO; +PLAV75TA29 PO; -REME45TA PO; +TEGR200T PO; -TRAM50TA PO; -ZYPR10TA PO
[2017-06-20 12:30] VITALS: BP 142/65; PULSE 88; RESP 16; O2SAT 96
[2017-06-20] MEDS ORDERED: ZOLO50TA PO (12:49)
[2017-06-20] MEDS ORDERED: OLAN10TA PO (12:49)
[2017-06-20] MEDS ORDERED: SODIUM CHLOR 0.9% 1000 ML INJ 1,000 ML IV SCH (12:52)
[2017-06-20] MEDS ORDERED: MORPHINE SULFATE 8 MG/ML INJ IV PUSH ONE (13:00)
[2017-06-20] MEDS ORDERED: PANTOPRAZOLE SODIUM 40 MG VIAL IVP ONE (13:00)
[2017-06-20] MEDS ORDERED: SODIUM CHLORIDE 0.9% FLUSH 10 ML FLUSH IV FLUSH PRN (13:00)
[2017-06-20] MEDS ORDERED: ONDANSETRON HCL 4 MG/2 ML VIAL IVP ONE (13:00)
[2017-06-20 13:01] LABS: BILIRUBIN, URINE NEG (NEG); BLOOD, URINE NEG (NEG); GLUCOSE,URINE NEG (NEG); KETONE, URINE NEG (NEG); NITRITE,URINE POS (NEG); PH, URINE GREATER/EQUAL 9.0 (5.0-8.5); URINE LEUKOCYTE ESTERASE SMALL (NEG)
[2017-06-20 13:06] LABS: URINE COLOR STRAW (YELLW/STRAW)
[2017-06-20 13:07] VITALS: BP 127/74; PULSE 70; RESP 18; O2SAT 97
[2017-06-20 13:07] LABS: AMORPHOUS SEDIMENT, URINE MOD; BACTERIA, URINE MANY /hpf; SQUAMOUS EPITHELIAL CELL URINE 0-5 /hpf (0-5); WBC, URINE 15-19 /hpf (0-5)
[2017-06-20 13:08] LABS: RBC, URINE 0-3 /hpf (0-3)
[2017-06-20] MEDS ORDERED: LIDOCAINE VISCOUS 2% SOLN 15 ML UDC PO STA (13:09)
[2017-06-20 13:14] LABS: AUTOMATED NEUTROPHIL # 8.5 TH/MM3 (1.8-7.7); BASOPHIL # 0.5 TH/MM3 (0-0.2); BASOPHIL % 4.5 % (0.0-2.0); HEMATOCRIT 49.9 % (35.0-46.0); LYMPH % 20.5 % (9.0-44.0); LYMPHOCYTE # 2.5 TH/MM3 (1.0-4.8); MEAN CELL VOLUME 93.8 FL (80.0-100.0); MEAN CORPUSCULAR HEMOGLOBIN 31.9 PG (27.0-34.0); MEAN PLATELET VOLUME 7.4 FL (7.0-11.0); MONO % 3.9 % (0.0-8.0); MONOCYTE # 0.5 TH/MM3 (0-0.9); NEUT % 71.1 % (16.0-70.0); PLATELET COUNT 246 TH/MM3 (150-450); RED BLOOD COUNT 5.32 MIL/MM3 (4.00-5.30); RED CELL DISTRIBUTION WIDTH 14.3 % (11.6-17.2)
[2017-06-20] MEDS ORDERED: ALUMINUM/MAGNESIUM/SIMETH 30 ML CUP PO ONE (13:15)
[2017-06-20 13:18] LABS: CHLORIDE 99 MEQ/L (98-107); SODIUM (NA) 136 MEQ/L (136-145)
[2017-06-20 13:21] LABS: CALCIUM 9.8 MG/DL (8.5-10.1)
[2017-06-20 13:22] LABS: ALBUMIN 4.1 GM/DL (3.4-5.0); BICARBONATE 27.9 MEQ/L (21.0-32.0); BLOOD UREA NITROGEN 12 MG/DL (7-18); GLUCOSE,RANDOM 123 MG/DL (74-106); LIPASE 117 U/L (73-393)
[2017-06-20 13:24] LABS: ALT (GPT) 25 U/L (10-53)
[2017-06-20 13:25] LABS: AST (GOT) 31 U/L (15-37); CREATININE 0.89 MG/DL (0.50-1.00); GLOMERULAR FILTRATION RATE 65 ML/MIN (>89)
[2017-06-20 13:26] LABS: TOTAL BILIRUBIN ADULT 0.5 MG/DL (0.2-1.0)
[2017-06-20 13:27] LABS: ALKALINE PHOSPHATASE 100 U/L (45-117)
[2017-06-20 13:30] LABS: TROPONIN I LESS THAN 0.02 NG/ML (0.02-0.05)
[2017-06-20] MEDS ORDERED: MECLIZINE HCL 25 MG TAB PO ONE (13:30)
[2017-06-20] MEDS ORDERED: IOHEXOL 350 MG/ML 10 ML VIAL (for RAD DIAG) IVCONTRAST ONE (14:12)
--- NOTE | 2017-06-20 14:25 | PD ---
HPI Chief Complaint: Abdominal Pain Time Seen by Provider: 12:50 Travel History International Travel<30 days: No Contact w/Intl Traveler<30days: No Traveled to known affect area: No History of Present Illness HPI This 61-year-old female is complaining of abdominal pain. She says the pain started yesterday and is epigastric in location. She has been having vomiting. She says she had similar pain last year and had a heart attack at the time. She has a history of a radical cystectomy 20 years ago and has a urostomy. She has had a cholecystectomy in the past. She's been having persistent vomiting this morning. The pain she is having is generalized. It is somewhat intermittent PFSH Past Medical History Hx Anticoagulant Therapy: Yes ADHD: Yes Arthritis: Yes Asthma: No Autoimmune Disease: No Bipolar Disorder: Yes Anxiety: Yes Depression: Yes Heart Rhythm Problems: Yes (MURMUR) Cancer: No Cardiovascular Problems: Yes (STENTS TIMES 2 , CHOL) High Cholesterol: Yes Chemotherapy: Yes Chest Pain: Yes Congestive Heart Failure: No COPD: Yes Coronary Artery Disease: Yes Diabetes: No Diminished Hearing: No Endocrine: No Gastrointestinal Disorders: Yes (IS ON MEDICATION FOR REFLUX) GERD: Yes Genitourinary: No Headaches: No Hepatitis: Yes (HEP B AND C) Hiatal Hernia: No Hypertension: Yes Immune Disorder: No Implanted Vascular Access Dvce: Yes Musculoskeletal: Yes Neurologic: No Psychiatric: Yes Reproductive: No Respiratory: Yes Radiation Therapy: No Schizophrenia: Yes Seizures: No Sleep Apnea: No Ulcer: No ?: Not Menopausal: Yes Dilation and Curettage (D&C): Yes Past Surgical History Abdominal Surgery: Yes (total hysterectomy) Cardiac Surgery: No Cholecystectomy: Yes Coronary Stent: Yes Ear Surgery: No Endocrine Surgery: No Eye Surgery: No Genitourinary Surgery: Yes (UROSTOMY-BLADDER CANCER) Gynecologic Surgery: Yes (total hysterecomy) Hysterectomy: Yes (OVARECTOMY) Neurologic Surgery: No Oral Surgery: No Thoracic Surgery: Yes (port in and out) Other Surgery: Yes (ILEOSTOMY) Social History Alcohol Use: No Tobacco Use: Yes ( 1 PPD) Substance Use: No (UNKNOWN) Allergies-Medications (Allergen,Severity, Reaction): Coded Allergies: amcinonide (Unverified Allergy, Severe, 06/20/17) beclomethasone (Unverified Allergy, Severe, 06/20/17) betamethasone (Unverified Allergy, Severe, 06/20/17) codeine (Unverified Allergy, Severe, 06/20/17) desoximetasone (Unverified Allergy, Severe, 06/20/17) dexamethasone (Unverified Allergy, Severe, 06/20/17) fludrocortisone (Unverified Allergy, Severe, 06/20/17) flunisolide (Unverified Allergy, Severe, 06/20/17) fluocinolone acetonide (Unverified Allergy, Severe, 06/20/17) fluocinonide (Unverified Allergy, Severe, 06/20/17) fluorometholone (Unverified Allergy, Severe, 06/20/17) flurandrenolide (Unverified Allergy, Severe, 06/20/17) fluticasone (Unverified Allergy, Severe, 06/20/17) fluticasone furoate (Unverified Allergy, Severe, 06/20/17) hydrocortisone (Unverified Allergy, Severe, 06/20/17) methylprednisolone (Unverified Allergy, Severe, 06/20/17) mometasone furoate (Unverified Allergy, Severe, 06/20/17) prednisolone (Unverified Allergy, Severe, 06/20/17) prednisone (Unverified Allergy, Severe, 06/20/17) triamcinolone (Unverified Allergy, Severe, 06/20/17) Uncoded Allergies: ANTIHISTIMINES (Allergy, Mild, MANIC, 11/15/06) Reported Meds & Prescriptions Reported Meds & Active Scripts Active Reported Spiriva Handihaler (Tiotropium Inh) 18 Mcg Cap 18 Mcg INH DAILY 1 capsule = 18 mcg Valium (Diazepam) 5 Mg Tab 5 Mg PO TID PRN Olanzapine 10 Mg Tab 10 Mg PO HS Zoloft (Sertraline HCl) 50 Mg Tab 50 Mg PO DAILY Proair Hfa 8.5 GM Inh (Albuterol Sulfate) 90 Mcg/Act Aer 2 Puff INH DIRECTED PRN 108 mcg/actuation Atorvastatin (Atorvastatin Calcium) 80 Mg Tab 80 Mg PO DAILY Melatonin Gummies (Melatonin) 2.5 Mg Chw 10 Mg PO HS Plavix (Clopidogrel Bisulfate) 75 Mg Tab 75 Mg PO DAILY Aspirin Children's (Aspirin) 81 Mg Chew 81 Mg CHEW DAILY Gabapentin 300 Mg Cap 300 Mg PO BID Tegretol (Carbamazepine) 200 Mg Tab 400 Mg PO HS Tegretol (Carbamazepine) 200 Mg Tab 200 Mg PO DAILY IN THE MORNING Pantoprazole (Pantoprazole Sodium) 40 Mg Tab 40 Mg PO DAILY Review of Systems General / Constitutional: No: Fever, Chills Eyes: No: Diploplia, Blurred Vision HENT: No: Headaches, Vertigo Cardiovascular: No: Chest Pain or Discomfort, Palpitations Respiratory: No: Cough, Shortness of Breath Gastrointestinal: Positive: Nausea, Vomiting, Abdominal Pain, No: Diarrhea, Loss of Appetite Genitourinary: No: Urgency, Frequency Musculoskeletal: No: Myalgias, Arthralgias Skin: No Rash, No Itching Psychiatric: Positive: Disorder of Thought Hematologic/Lymphatic: No: Easy Bruising Physical Exam Narrative GENERAL: Well-developed female. She is having vomiting on arrival SKIN: Focused skin assessment warm/dry. HEAD: Atraumatic. Normocephalic. EYES: Pupils equal and round. No scleral icterus. No injection or drainage. ENT: No nasal bleeding or discharge. Mucous membranes pink and moist. NECK: Trachea midline. No JVD. CARDIOVASCULAR: Regular rate and rhythm. No murmur appreciated. RESPIRATORY: No accessory muscle use. Clear to auscultation. Breath sounds equal bilaterally. GASTROINTESTINAL: Abdomen soft, there is epigastric and upper abdominal tenderness. there is mild distention. Bowel sounds diminished. There is an ileal conduit on the right side of the abdomen MUSCULOSKELETAL: No obvious deformities. No clubbing. No cyanosis. No edema. NEUROLOGICAL: Awake and alert. No obvious cranial nerve deficits. Motor grossly within normal limits. Normal speech. PSYCHIATRIC: Anxious Data Data Last Documented VS Vital Signs Date Time Temp Pulse Resp B/P (MAP) Pulse Ox O2 Delivery O2 Flow Rate FiO2 06/20/17 13:07 70 18 127/74 (91) 97 Room Air Orders Orders Urinalysis - C+S If Indicated (06/20/17 12:23) Complete Blood Count With Diff (06/20/17 12:52) Comprehensive Metabolic Panel (06/20/17 12:52) Lipase (06/20/17 12:52) Iv Access Insert/Monitor (06/20/17 12:52) Ecg Monitoring (06/20/17 12:52) Oximetry (06/20/17 12:52) Ondansetron Inj (Zofran Inj) (06/20/17 13:00) Pantoprazole Inj (Protonix Inj) (06/20/17 13:00) Sodium Chlor 0.9% 1000 Ml Inj (Ns 1000 M (06/20/17 12:52) Sodium Chloride 0.9% Flush (Ns Flush) (06/20/17 13:00) Electrocardiogram (06/20/17 12:52) Morphine Inj (Morphine Inj) (06/20/17 13:00) Ct Abd/Pel W Iv Contrast(Rout) (06/20/17 ) Troponin I (06/20/17 12:52) Urine Culture (06/20/17 12:55) Al-Mag Hy-Si 40-40-4 Mg/Ml Liq (Mag-Al P (06/20/17 13:15) Lidocaine 2% Viscous (Xylocaine 2% Visco (06/20/17 13:09) Meclizine (Antivert) (06/20/17 13:30) Iohexol 350 Inj (Omnipaque 350 Inj) (06/20/17 14:12) Labs Laboratory Tests Test 06/20/17 12:45 06/20/17 12:55 White Blood Count 12.0 TH/MM3 Red Blood Count 5.32 MIL/MM3 Hemoglobin 17.0 GM/DL Hematocrit 49.9 % Mean Corpuscular Volume 93.8 FL Mean Corpuscular Hemoglobin 31.9 PG Mean Corpuscular Hemoglobin Concent 34.0 % Red Cell Distribution Width 14.3 % Platelet Count 246 TH/MM3 Mean Platelet Volume 7.4 FL Neutrophils (%) (Auto) 71.1 % Lymphocytes (%) (Auto) 20.5 % Monocytes (%) (Auto) 3.9 % Eosinophils (%) (Auto) 0.0 % Basophils (%) (Auto) 4.5 % Neutrophils # (Auto) 8.5 TH/MM3 Lymphocytes # (Auto) 2.5 TH/MM3 Monocytes # (Auto) 0.5 TH/MM3 Eosinophils # (Auto) 0.0 TH/MM3 Basophils # (Auto) 0.5 TH/MM3 CBC Comment DIFF FINAL Differential Comment Blood Urea Nitrogen 12 MG/DL Creatinine 0.89 MG/DL Random Glucose 123 MG/DL Total Protein 9.0 GM/DL Albumin 4.1 GM/DL Calcium Level 9.8 MG/DL Alkaline Phosphatase 100 U/L Aspartate Amino Transf (AST/SGOT) 31 U/L Alanine Aminotransferase (ALT/SGPT) 25 U/L Total Bilirubin 0.5 MG/DL Sodium Level 136 MEQ/L Potassium Level 4.7 MEQ/L Chloride Level 99 MEQ/L Carbon Dioxide Level 27.9 MEQ/L Anion Gap 9 MEQ/L Estimat Glomerular Filtration Rate 65 ML/MIN Troponin I LESS THAN 0.02 NG/ML Lipase 117 U/L Urine Collection Type CLEAN CATCH Urine Color STRAW Urine Turbidity SLIGHT Urine pH GREATER/EQUAL 9.0 Urine Specific [place] 1.015 Urine Protein NEG mg/dL Urine Glucose (UA) NEG mg/dL Urine Ketones NEG mg/dL Urine Occult Blood NEG Urine Nitrite POS Urine Bilirubin NEG Urine Leukocyte Esterase SMALL Urine RBC 0-3 /hpf Urine WBC 15-19 /hpf Urine Squamous Epithelial Cells 0-5 /hpf Urine Amorphous Sediment MOD Urine Bacteria MANY /hpf Microscopic Urinalysis Comment CULTURE INDICATED Urine Collection Time 1255 MDM Medical Decision Making Medical Screen Exam Complete: Yes Emergency Medical Condition: Yes Medical Record Reviewed: Yes Differential Diagnosis Differential includes gastritis, gastroenteritis, bowel obstruction Narrative Course CT scan shows dilatation of proximal small bowel compared to distal with an abrupt zone of transition in the right lower quadrant. No ascites is seen. Diagnosis Primary Impression: Small bowel obstruction Admitting Information Admitting Physician Requests: Admit Mike Sainz MD Jun 20, 2017 14:25
[2017-06-20] MEDS ORDERED: DIAZ5 PO (14:27)
[2017-06-20] MEDS ORDERED: SPIRCAP INH (14:27)
--- NOTE | 2017-06-20 14:39 | RADRPT ---
EXAM DATE/TIME: 06/20/2017 14:03 [facility] COMPARISON: CT ABDOMEN & PELVIS W CONTRAST, January 19, 2013, 17:54. INDICATIONS : Mid abdominal pain and nausea. IV CONTRAST: 85 cc Omnipaque 350 (iohexol) IV ORAL CONTRAST: No oral contrast ingested. RADIATION DOSE: 8.15 CTDIvol (mGy) MEDICAL HISTORY : Cardiovascular disease. Chronic obstructive pulmonary disease. Carcinoma, bladder.Hypertension. SURGICAL HISTORY : Coronary artery stent. Cholecystectomy.Hysterectomy.Urostomy. ENCOUNTER: Initial ACUITY: 2 days PAIN SCALE: 5/10 LOCATION: abdomen TECHNIQUE: Volumetric scanning of the abdomen and pelvis was performed. Using automated exposure control and ad justment of the mA and/or kV according to patient size, radiation dose was kept as low as reasonably achievable to obtain optimal diagnostic quality images. DICOM format image data is available electro nically for review and comparison. FINDINGS: The lung base is are clear. The liver is free of focal defects. Surgical clips are seen in the gallbladder fossa. The common duct is prominent measuring 12 mm in the head of the pancreas. The spleen and pancreas are unremarkable There is symmetrical renal function There is no ascites or adenopathy There is dilatation of proximal small bowel compared to distal with an abrupt zone of transition in t he right lower quadrant. There may be small focal mass in this region as well. I do not see signifi cant tethering of the mesentery. There is no free fluid or free air. Pelvic contents are otherwise unremarkable. CONCLUSION: Abnormal small bowel with abrupt transition right lower quadrant There is no ascites Prominent common duct, probably reservoir phenomenon. Nii Bey MD FACR on June 20, 2017 at 14:33 Board Certified Radiologist. This report was verified electronically.
[2017-06-20] MEDS ORDERED: LORazepam 2 MG/ML VIAL IV PUSH ONE ×2 (15:45→23:15)
[2017-06-20] MEDS: SODIUM CHLORIDE 0.9% FLUSH 10 ML FLUSH IV FLUSH PRN ×2 (15:51→23:38)
[2017-06-20] MEDS: SODIUM CHLOR 0.45% 1000 ML INJ 1,000 ML IV SCH (16:07)
[2017-06-20 16:08] VITALS: BP 103/68; PULSE 94; RESP 16; TEMP 98; O2SAT 91
[2017-06-20 17:30] VITALS: BP 131/60; PULSE 91; RESP 16; TEMP 96.1; O2SAT 91
[2017-06-20] MEDS ORDERED: RESP: ALBUTEROL 2.5 MG/IPRATROPIUM 0.5 MG NEB (PRN) NEB (18:45)
--- NOTE | 2017-06-20 18:45 | HHI.HP ---
[place] [facility] Dmitry Gomez DO Admission Diagnosis SMALL BOWEL OBSTRUCTION Diagnoses: (1) Small bowel obstruction Diagnosis: Principal Chief Complaint: Abdominal pain Travel History International Travel<30 Days: No Contact w/Intl Traveler <30 Da: No Traveled to Known Affected Are: No History of Present Illness Written by Papa Tariq, acting as scribe for Dr. Lo on 06/20/17 at 18:28. 61-year-old female with known history of chronic obstructive pulmonary disease, history of IV drug use, history of bladder cancer with urostomy, history of bowel obstruction, schizoaffective disorder, hepatitis B and C, history of myocardial infarction, hypertension, hyperlipidemia, coronary artery disease who presented to the hospital because acute onset abdominal pain. Patient states that she is doing well until last night when she got a sudden onset of epigastric abdominal pain. Which she describes as a burning type pain 10/10 on a pain scale and she indicated it was a rather constant crescendo type discomfort where the pain would go down to a 5/10 on a pain scale. Patient states that it started after she ate dinner last night. she vomited 2-3 times which made the pain worse. She forced herself to have a bowel movement this morning to see if the pain would improve, however she only had a small amount of stool without any relief. the pain is worse whenever she lies down. It does improve whenever she sits up. she does have slow bowels and only has a bowel movement every 2-3 days, if she drinks coffee that she'll have daily bowel movements. Patient states that she felt hot with chills. She denies any hematochezia, hematemesis, melena, diarrhea, chest pain, shortness of breath, dyspnea. Patient had workup done CT shows small bowel obstruction with transition point. It was requested by the ER physician the patient be admitted for further evaluation. Review of Systems Gastrointestinal: COMPLAINS OF: Abdominal pain, Nausea, Vomiting Except as stated in HPI: all other systems reviewed are Neg Past Family Social History Past Medical History Hypertension Hyperlipidemia Coronary artery disease Chronic obstructive pulmonary disease History of bladder cancer status post urostomy Schizoaffective disorder Anxiety/depression History of drug overdose History of IV drug use History of hepatitis B and C Chronic pain Tobacco abuse Past Surgical History Cervical spine surgery Hysterectomy Radical cystectomy with urostomy EGD with colonoscopy Permacath placement and removal Cardiac catheterization with stenting Cholecystectomy Reported Medications Reported Meds & Active Scripts Active Reported Spiriva Handihaler (Tiotropium Inh) 18 Mcg Cap 18 Mcg INH DAILY 1 capsule = 18 mcg Valium (Diazepam) 5 Mg Tab 5 Mg PO TID PRN Olanzapine 10 Mg Tab 10 Mg PO HS Zoloft (Sertraline HCl) 50 Mg Tab 50 Mg PO DAILY Proair Hfa 8.5 GM Inh (Albuterol Sulfate) 90 Mcg/Act Aer 2 Puff INH DIRECTED PRN 108 mcg/actuation Atorvastatin (Atorvastatin Calcium) 80 Mg Tab 80 Mg PO DAILY Melatonin Gummies (Melatonin) 2.5 Mg Chw 10 Mg PO HS Plavix (Clopidogrel Bisulfate) 75 Mg Tab 75 Mg PO DAILY Aspirin Children's (Aspirin) 81 Mg Chew 81 Mg CHEW DAILY Gabapentin 300 Mg Cap 300 Mg PO BID Tegretol (Carbamazepine) 200 Mg Tab 400 Mg PO HS Tegretol (Carbamazepine) 200 Mg Tab 200 Mg PO DAILY IN THE MORNING Pantoprazole (Pantoprazole Sodium) 40 Mg Tab 40 Mg PO DAILY Allergies: Coded Allergies: amcinonide (Unverified Allergy, Severe, 06/20/17) beclomethasone (Unverified Allergy, Severe, 06/20/17) betamethasone (Unverified Allergy, Severe, 06/20/17) codeine (Unverified Allergy, Severe, 06/20/17) desoximetasone (Unverified Allergy, Severe, 06/20/17) dexamethasone (Unverified Allergy, Severe, 06/20/17) fludrocortisone (Unverified Allergy, Severe, 06/20/17) flunisolide (Unverified Allergy, Severe, 06/20/17) fluocinolone acetonide (Unverified Allergy, Severe, 06/20/17) fluocinonide (Unverified Allergy, Severe, 06/20/17) fluorometholone (Unverified Allergy, Severe, 06/20/17) flurandrenolide (Unverified Allergy, Severe, 06/20/17) fluticasone (Unverified Allergy, Severe, 06/20/17) fluticasone furoate (Unverified Allergy, Severe, 06/20/17) hydrocortisone (Unverified Allergy, Severe, 06/20/17) methylprednisolone (Unverified Allergy, Severe, 06/20/17) mometasone furoate (Unverified Allergy, Severe, 06/20/17) prednisolone (Unverified Allergy, Severe, 06/20/17) prednisone (Unverified Allergy, Severe, 06/20/17) triamcinolone (Unverified Allergy, Severe, 06/20/17) Uncoded Allergies: ANTIHISTIMINES (Allergy, Mild, MANIC, 11/15/06) Family History Patient does not know much about her family medical history Social History Patient continue to smoke a pack a cigarettes a day. She states that she quit using alcohol in 2006. Records indicate that the patient has history of IV drug use. However no indication at this time. Physical Exam Vital Signs Vital Signs Date Time Temp Pulse Resp B/P (MAP) Pulse Ox O2 Delivery O2 Flow Rate FiO2 06/20/17 17:30 96.1 91 16 131/60 (83) 91 06/20/17 17:16 06/20/17 16:08 98.0 94 16 103/68 (80) 91 Room Air 06/20/17 13:07 70 18 127/74 (91) 97 Room Air 06/20/17 13:07 18 97 Room Air 06/20/17 12:30 88 16 142/65 (90) 96 Physical Exam GENERAL: Well-developed, well-nourished, in no acute distress. alert and orientated HEENT: Head is normocephalic without any lesions or masses noted. Facial features are symmetric. Eyes: Pupils equal round reactive to light. Extraocular muscles are intact. Conjunctivae were clear. Oropharyngeal: Pharynx without any erythema edema. Tongue is midline without deviation. Buccal mucosa is moist without any masses or lesions NECK: Supple without any masses. Trachea midline no deviation. No JVD, no bruits are appreciated CARDIAC: Regular rhythm, regular rate. S1/S2 are heard. No murmurs gallops or rubs. LUNGS: Clear to auscultation bilaterally. No wheeze, rhonchi or rales. No use of accessory muscles on inspiration or expiration. ABDOMEN: Soft, tenderness noted in epigastric region. Nondistended. Patient with diminished bowel sounds, there are bowel sounds noted right upper quadrant. No organomegaly or masses. Negative rebound, negative guarding EXTREMITIES: No edema, pulses are equal bilaterally. No cyanosis or clubbing NEUROLOGY: Mood and affect appear appropriate. Cranial nerves II through XII grossly intact. Muscle strength 5/5 in upper and lower extremities bilaterally. Deep tendon reflexes are 2+ in upper and lower extremities bilaterally. Laboratory Laboratory Tests Test 06/20/17 12:45 06/20/17 12:55 White Blood Count 12.0 Red Blood Count 5.32 Hemoglobin 17.0 Hematocrit 49.9 Mean Corpuscular Volume 93.8 Mean Corpuscular Hemoglobin 31.9 Mean Corpuscular Hemoglobin Concent 34.0 Red Cell Distribution Width 14.3 Platelet Count 246 Mean Platelet Volume 7.4 Neutrophils (%) (Auto) 71.1 Lymphocytes (%) (Auto) 20.5 Monocytes (%) (Auto) 3.9 Eosinophils (%) (Auto) 0.0 Basophils (%) (Auto) 4.5 Neutrophils # (Auto) 8.5 Lymphocytes # (Auto) 2.5 Monocytes # (Auto) 0.5 Eosinophils # (Auto) 0.0 Basophils # (Auto) 0.5 CBC Comment DIFF FINAL Differential Comment Blood Urea Nitrogen 12 Creatinine 0.89 Random Glucose 123 Total Protein 9.0 Albumin 4.1 Calcium Level 9.8 Alkaline Phosphatase 100 Aspartate Amino Transf (AST/SGOT) 31 Alanine Aminotransferase (ALT/SGPT) 25 Total Bilirubin 0.5 Sodium Level 136 Potassium Level 4.7 Chloride Level 99 Carbon Dioxide Level 27.9 Anion Gap 9 Estimat Glomerular Filtration Rate 65 Troponin I LESS THAN 0.02 Lipase 117 Urine Collection Type CLEAN CATCH Urine Color STRAW Urine Turbidity SLIGHT Urine pH GREATER/EQUAL 9.0 Urine Specific [place] 1.015 Urine Protein NEG Urine Glucose (UA) NEG Urine Ketones NEG Urine Occult Blood NEG Urine Nitrite POS Urine Bilirubin NEG Urine Leukocyte Esterase SMALL Urine RBC 0-3 Urine WBC 15-19 Urine Squamous Epithelial Cells 0-5 Urine Amorphous Sediment MOD Urine Bacteria MANY Microscopic Urinalysis Comment CULTURE INDICATED Urine Collection Time 1255 Date/Time Source Procedure Growth Status 06/20/17 12:55 Urine Clean Catch Urine Culture Pending Received Result Diagram: 06/20/17 1245 06/20/17 1245 Imaging Last Impressions Abdomen/Pelvis CT 06/20/17 0000 Signed Impressions: Service Date/Time: Tuesday, June 20, 2017 14:03 - CONCLUSION: Abnormal small bowel with abrupt transition right lower quadrant There is no ascites Prominent common duct, probably reservoir phenomenon. Nii Bey MD FACR Caprini VTE Risk Assessment Caprini VTE Risk Assessment: Mod/High Risk (score >= 2) Caprini Risk Assessment Model Point Value = 1 Point Value = 2 Point Value = 3 Point Value = 5 Age 41-60 Minor surgery BMI > 25 kg/m2 Swollen legs Varicose veins or History of unexplained or recurrent spontaneous Oral contraceptives or hormone replacement Sepsis (< 1 month) Serious lung disease, including pneumonia (< 1 month) Abnormal pulmonary function Acute myocardial infarction Congestive heart failure (< 1 month) History of inflammatory bowel disease Medical patient at bed rest Age 61-74 Arthroscopic surgery Major open surgery (> 45 min) Laparoscopic surgery (> 45 min) Malignancy Confined to bed (> 72 hours) Immobilizing plaster cast Central venous access Age >= 75 History of VTE Family history of VTE Factor V Leiden Prothrombin [id number] Lupus anticoagulant Anticardiolipin antibodies Elevated serum homocysteine Heparin-induced thrombocytopenia Other congenital or acquired thrombophilia Stroke (< 1 month) Elective arthroplasty Hip, pelvis, or leg fracture Acute spinal cord injury (< 1 month) Prophylaxis Regimen Total Risk Factor Score Risk Level Prophylaxis Regimen 0-1 Low Early ambulation 2 Moderate Order ONE of the following: *Sequential Compression Device (SCD) *Heparin 5000 units SQ BID 3-4 Higher Order ONE of the following medications: *Heparin 5000 units SQ TID *Enoxaparin/Lovenox 40 mg SQ daily (WT < 150 kg, CrCl > 30 mL/min) *Enoxaparin/Lovenox 30 mg SQ daily (WT < 150 kg, CrCl > 10-29 mL/min) *Enoxaparin/Lovenox 30 mg SQ BID (WT < 150 kg, CrCl > 30 mL/min) AND/OR *Sequential Compression Device (SCD) 5 or more Highest Order ONE of the following medications: *Heparin 5000 units SQ TID (Preferred with Epidurals) *Enoxaparin/Lovenox 40 mg SQ daily (WT < 150 kg, CrCl > 30 mL/min) *Enoxaparin/Lovenox 30 mg SQ daily (WT < 150 kg, CrCl > 10-29 mL/min) *Enoxaparin/Lovenox 30 mg SQ BID (WT < 150 kg, CrCl > 30 mL/min) AND *Sequential Compression Device (SCD) Assessment and Plan Assessment and Plan Small bowel obstruction - Patient presented with acute onset abdominal pain, nausea, vomiting. Patient does have history of bowel obstruction 2011. Patient increased risk for multiple surgeries in the abdomen - Conservative management at this time with IV fluids, pain control, nothing by mouth - If patient has any recurrent nausea and vomiting, will need to place NG tube to low intermittent suction - Consult general surgery for further recommendations - Continue follow KUB for resolution Chronic obstructive pulmonary disease in a chronic smoking patient - O2 subluxation maintain O2 sats greater 92% - Duo nebs as needed - Incentive spirometry Hypertension, hyperlipidemia, coronary artery disease - Continue home medications DVT prevention -Lovenox This note was transcribed by lavinia Tariq. I, Patrick Lo, personally performed the history, physical exam, and medical decision making; and confirmed the accuracy of information in the transcribed note. Authenticated by Patrick Lo on 06/20/17 at 1850. Orders entered by Nathanael Tariq were at my discretion. Physician Certification 2 Midnight Certification Type: Admission for Inpatient Services Order for Inpatient Services The services are ordered in accordance with Medicare regulations or non- Medicare payer requirements, as applicable. In the case of services not specified as inpatient-only, they are appropriately provided as inpatient services in accordance with the 2-midnight benchmark. Estimated LOS (days): 3 3 days is the estimated time the patient will need to remain in the hospital, assuming treatment plan goals are met and no additional complications. Post-Hospital Plan: Not yet determined Papa Tariq Jun 20, 2017 18:45 Patrick Lo MD Jun 21, 2017 16:20
[2017-06-20] MEDS: MORPHINE SULFATE 8 MG/ML INJ IV PUSH PRN (19:36)
[2017-06-20] MEDS: PROMETHAZINE INJ 25 MG/ML VIAL IM PRN (19:38)
[2017-06-20 20:00] VITALS: BP 116/61; PULSE 94; RESP 18; TEMP 97; O2SAT 86
[2017-06-20 21:00] VITALS: O2SAT 95
[2017-06-20] MEDS: SODIUM CHLORIDE 0.9% FLUSH 10 ML FLUSH IV FLUSH SCH (22:06)
[2017-06-21] VITALS (7 sets, daily range): BP systolic 100–119; BP diastolic 57–86; PULSE 81–114; RESP 16–20; TEMP 96.3–99.4; O2SAT 93–99
[2017-06-21] MEDS: MORPHINE SULFATE 8 MG/ML INJ IV PUSH PRN ×5 (00:24→21:51)
[2017-06-21] MEDS: SODIUM CHLOR 0.45% 1000 ML INJ 1,000 ML IV SCH ×2 (05:02→17:42)
[2017-06-21] MEDS: PROMETHAZINE INJ 25 MG/ML VIAL IM PRN ×2 (05:13→21:08)
[2017-06-21] MEDS: SODIUM CHLORIDE 0.9% FLUSH 10 ML FLUSH IV FLUSH PRN (05:14)
--- NOTE | 2017-06-21 06:36 | RADRPT ---
EXAM DATE/TIME: 06/21/2017 06:08 [facility] COMPARISON: CT ABDOMEN & PELVIS W CONTRAST, June 20, 2017, 14:03. INDICATIONS : Distention. MEDICAL HISTORY : Cardiovascular disease. Carcinoma, bladder. SURGICAL HISTORY : Cholecystectomy. Hysterectomy. Urostomy. ENCOUNTER: Subsequent ACUITY: 2 days PAIN SCORE: 5/10 LOCATION: abdomen, all quadrants. FINDINGS: Supine and upright views of the abdomen were performed. The abdominal bowel gas pattern is normal. No air fluid levels are seen. No abnormal masses, calcifications, or organomegaly is seen. The visu alized lower lungs are clear. No evidence of free intraperitoneal gas. The osseous structures are u nremarkable. CONCLUSION: Nonspecific abdomen appearance Trung Forde MD on June 21, 2017 at 6:33 Board Certified Radiologist. This report was verified electronically.
[2017-06-21] MEDS: SODIUM CHLORIDE 0.9% FLUSH 10 ML FLUSH IV FLUSH SCH ×2 (09:00→20:54)
--- NOTE | 2017-06-21 09:57 | PD.CONS ---
cc: Tonny Gan MD HPI Service General Surgery Consult Requested By Dr. Lo Reason for Consult Small bowel obstruction Primary Care Physician Dmitry Gomez DO History of Present Illness This is a 61-year-old female with a past medical history of COPD, bladder cancer with urostomy, small bowel obstruction, schizoaffective disease, bipolar disease, hepatitis B and C, myocardial infarction, high cholesterol, and coronary artery disease with 2 stent placements. The patient is chronically on Plavix and aspirin. The patient developed acute abdominal pain with associated nausea and vomiting about 2 days prior to admission. The patient does does state that she has been around her sister's granddaughter who is 4 years old and had similar type symptoms a few days prior. The patient has had a similar episode several years ago which was treated nonoperatively. The patient had a CT abdomen and pelvis with abnormal small bowel pattern with abrupt transition point in the right lower quadrant. A follow-up x-ray of the abdomen was obtained which shows no specific pattern. The patient does report she had a moderately large bowel movements but is not passing any gas. A General Surgery consultation has been requested. Review of Systems Constitutional: DENIES: Fatigue, Change in appetite Endocrine: DENIES: Polydipsia, Polyuria, Polyphagia Eyes: DENIES: Diplopia, Eye inflammation Ears, nose, mouth, throat: DENIES: Hearing loss Respiratory: DENIES: Cough Cardiovascular: DENIES: Chest pain Gastrointestinal: COMPLAINS OF: Abdominal pain, Nausea, Vomiting, DENIES: Diarrhea Genitourinary: DENIES: Urinary frequency Musculoskeletal: DENIES: Joint pain Integumentary: DENIES: Abnormal pigmentation Hematologic/lymphatic: DENIES: Bruising Immunologic/allergic: DENIES: Eczema Neurologic: DENIES: Headache, Localized weakness Psychiatric: DENIES: Mood changes, Depression, Hallucinations Past Family Social History Past Medical History COPD Bladder cancer with urostomy Small bowel obstruction Schizophrenic disease Bipolar disease Hepatitis B and C Myocardial infarction Hypercholesterolemia Coronary artery disease with stent placements. Past Surgical History Cervical spine surgery Hysterectomy Radical cystectomy with urostomy Cardiac catheterization with stent placement. Open cholecystectomy. Reported Medications Patient has extensive list of medications; Please note that she does chronically take Plavix and aspirin Allergies: Coded Allergies: amcinonide (Unverified Allergy, Severe, 06/20/17) beclomethasone (Unverified Allergy, Severe, 06/20/17) betamethasone (Unverified Allergy, Severe, 06/20/17) codeine (Unverified Allergy, Severe, 06/20/17) desoximetasone (Unverified Allergy, Severe, 06/20/17) dexamethasone (Unverified Allergy, Severe, 06/20/17) fludrocortisone (Unverified Allergy, Severe, 06/20/17) flunisolide (Unverified Allergy, Severe, 06/20/17) fluocinolone acetonide (Unverified Allergy, Severe, 06/20/17) fluocinonide (Unverified Allergy, Severe, 06/20/17) fluorometholone (Unverified Allergy, Severe, 06/20/17) flurandrenolide (Unverified Allergy, Severe, 06/20/17) fluticasone (Unverified Allergy, Severe, 06/20/17) fluticasone furoate (Unverified Allergy, Severe, 06/20/17) hydrocortisone (Unverified Allergy, Severe, 06/20/17) methylprednisolone (Unverified Allergy, Severe, 06/20/17) mometasone furoate (Unverified Allergy, Severe, 06/20/17) prednisolone (Unverified Allergy, Severe, 06/20/17) prednisone (Unverified Allergy, Severe, 06/20/17) triamcinolone (Unverified Allergy, Severe, 06/20/17) Uncoded Allergies: ANTIHISTIMINES (Allergy, Mild, MANIC, 11/15/06) Active Ordered Medications Current Medications Medications (Trade) Dose Ordered Sig/Deondre Route Start Time Stop Time Status Last Admin Sodium Chloride 1,000 ml @ 75 mls/hr [id number] IV 06/20/17 15:28 06/21/17 05:02 (NS Flush) 2 ml UNSCH PRN IV FLUSH 06/20/17 15:30 06/21/17 05:14 (NS Flush) 2 ml BID IV FLUSH 06/20/17 21:00 06/20/17 22:06 (Phenergan Inj) 12.5 mg Q6H PRN IM 06/20/17 18:30 06/21/17 05:13 (Morphine Inj) 4 mg Q4H PRN IV PUSH 06/20/17 19:00 06/21/17 05:13 (Duoneb Neb) 1 ampule Q6HR NEB PRN NEB 06/20/17 18:45 (Pneumovax-23 Inj) 25 mcg ONCE ONCE IM 06/21/17 10:00 06/21/17 10:01 Family History Mother's sister with colorectal cancer metastatic disease to the brain Mother's brother with liver cancer Social History + tobacco use--- 1 ppd Denies ETOH use Denies illicit drug use Physical Exam Vital Signs Vital Signs Date Time Temp Pulse Resp B/P (MAP) Pulse Ox O2 Delivery O2 Flow Rate FiO2 06/21/17 08:00 96.4 93 16 103/63 (76) 93 06/21/17 06:13 18 06/21/17 00:00 99.4 101 16 100/57 (71) 95 06/20/17 21:00 95 Nasal Cannula 2.00 06/20/17 20:00 97.0 94 18 116/61 (79) 86 06/20/17 17:30 96.1 91 16 131/60 (83) 91 06/20/17 17:16 06/20/17 16:08 98.0 94 16 103/68 (80) 91 Room Air 06/20/17 13:07 70 18 127/74 (91) 97 Room Air 06/20/17 13:07 18 97 Room Air 06/20/17 12:30 88 16 142/65 (90) 96 Physical Exam GENERAL: Pleasant 61 year old female resting in bed in no acute distress. SKIN: Warm and dry. HEAD: Atraumatic. Normocephalic. EYES: Pupils equal and round. No scleral icterus. No injection or drainage. ENT: No nasal bleeding or discharge. Mucous membranes pink and moist. NECK: Trachea midline. CARDIOVASCULAR: Regular rate and rhythm. RESPIRATORY: No accessory muscle use. Clear to auscultation. Breath sounds equal bilaterally. GASTROINTESTINAL: Abdomen soft, non-tender, nondistended. Urostomy in place without complications. Well healed midline line incision. Well healed RUQ incision. MUSCULOSKELETAL: Extremities without clubbing, cyanosis, or edema. No obvious deformities. NEUROLOGICAL: Awake and alert. No obvious cranial nerve deficits. Motor grossly within normal limits. Five out of 5 muscle strength in the arms and legs. Normal speech. PSYCHIATRIC: Appropriate mood and affect; insight and judgment normal. Laboratory Laboratory Tests Test 06/20/17 12:45 06/20/17 12:55 White Blood Count 12.0 Red Blood Count 5.32 Hemoglobin 17.0 Hematocrit 49.9 Mean Corpuscular Volume 93.8 Mean Corpuscular Hemoglobin 31.9 Mean Corpuscular Hemoglobin Concent 34.0 Red Cell Distribution Width 14.3 Platelet Count 246 Mean Platelet Volume 7.4 Neutrophils (%) (Auto) 71.1 Lymphocytes (%) (Auto) 20.5 Monocytes (%) (Auto) 3.9 Eosinophils (%) (Auto) 0.0 Basophils (%) (Auto) 4.5 Neutrophils # (Auto) 8.5 Lymphocytes # (Auto) 2.5 Monocytes # (Auto) 0.5 Eosinophils # (Auto) 0.0 Basophils # (Auto) 0.5 CBC Comment DIFF FINAL Differential Comment Blood Urea Nitrogen 12 Creatinine 0.89 Random Glucose 123 Total Protein 9.0 Albumin 4.1 Calcium Level 9.8 Alkaline Phosphatase 100 Aspartate Amino Transf (AST/SGOT) 31 Alanine Aminotransferase (ALT/SGPT) 25 Total Bilirubin 0.5 Sodium Level 136 Potassium Level 4.7 Chloride Level 99 Carbon Dioxide Level 27.9 Anion Gap 9 Estimat Glomerular Filtration Rate 65 Troponin I LESS THAN 0.02 Lipase 117 Urine Collection Type CLEAN CATCH Urine Color STRAW Urine Turbidity SLIGHT Urine pH GREATER/EQUAL 9.0 Urine Specific [place] 1.015 Urine Protein NEG Urine Glucose (UA) NEG Urine Ketones NEG Urine Occult Blood NEG Urine Nitrite POS Urine Bilirubin NEG Urine Leukocyte Esterase SMALL Urine RBC 0-3 Urine WBC 15-19 Urine Squamous Epithelial Cells 0-5 Urine Amorphous Sediment MOD Urine Bacteria MANY Microscopic Urinalysis Comment CULTURE INDICATED Urine Collection Time 1255 Date/Time Source Procedure Growth Status 06/20/17 12:55 Urine Clean Catch Urine Culture Pending Received Result Diagram: 06/20/17 1245 06/20/17 1245 Imaging Last 48 hours Impressions Abdomen X-Ray 06/21/17 0600 Signed Impressions: Service Date/Time: Wednesday, June 21, 2017 06:08 - CONCLUSION: Nonspecific abdomen appearance Trung Forde MD Abdomen/Pelvis CT 06/20/17 0000 Signed Impressions: Service Date/Time: Tuesday, June 20, 2017 14:03 - CONCLUSION: Abnormal small bowel with abrupt transition right lower quadrant There is no ascites Prominent common duct, probably reservoir phenomenon. Nii Bey MD FACR Assessment and Plan Assessment and Plan 61 year old female with abdominal pain; SBO -NPO; okay for ice chips -IVF -Okay to restart medications for schizoaffective and bipolar disease -OOB and mobilize -Will attempt non operative treatment at this time -Will likely need a SBFT in the next day -Thank you for this consult; We will continue to follow Discussed Condition With Dr. Gan MsKatherine Dobbs Attending Statement Patient seen at bedside multiple medical and surgical problems present with sbo will attempt non op mgnt encourage ng tube in nausea and vomiting continue obtain sbft in 48 hours if no improvement Attestation The exam, history, and the medical decision-making described in the above note were completed with the assistance of the mid-level provider. I reviewed and agree with the findings presented. I attest that I had a [id number] encounter with the patient on the same day, and personally performed and documented my assessment and findings in the medical record. Ashwini Miguel Jun 21, 2017 09:57 Tonny Gan MD Jun 21, 2017 21:53
[2017-06-21] MEDS ORDERED: PNEUMOCOCCAL POLYVALENT INJ 25 MCG/0.5 ML SYR IM ONE (10:00)
[2017-06-21] MEDS: TIOTROPIUM BROMIDE 18 MCG INH INH SCH (12:00)
[2017-06-21] MEDS ORDERED: ATORVASTATIN 80 MG TAB PO SCH (12:00)
[2017-06-21] MEDS ORDERED: ALBUTEROL SULFATE 90 MCG/ACT HFA 8 GM INHALER INH PRN (12:00)
[2017-06-21] MEDS: ASPIRIN 81 MG CHEW TAB CHEW SCH (12:00)
--- NOTE | 2017-06-21 12:37 | HHI.PR ---
Subjective Remarks Nursing reports that the patient is somewhat anxious. Patient herself reports some mild nausea since last night but denies any vomiting or any worse abdominal pain. Says that she feels much better since coming through the ER doors. Objective Vital Signs Date Time Temp Pulse Resp B/P (MAP) Pulse Ox O2 Delivery O2 Flow Rate FiO2 06/21/17 12:00 96.5 98 16 118/72 (87) 93 06/21/17 11:07 18 06/21/17 08:00 96.4 93 16 103/63 (76) 93 06/21/17 00:00 99.4 101 16 100/57 (71) 95 06/20/17 21:00 95 Nasal Cannula 2.00 06/20/17 20:00 97.0 94 18 116/61 (79) 86 06/20/17 17:30 96.1 91 16 131/60 (83) 91 06/20/17 17:16 06/20/17 16:08 98.0 94 16 103/68 (80) 91 Room Air 06/20/17 13:07 70 18 127/74 (91) 97 Room Air 06/20/17 13:07 18 97 Room Air I/O 06/20/17 06/20/17 06/20/17 06/21/17 06/21/17 06/21/17 07:00 15:00 23:00 07:00 15:00 23:00 Intake Total 439 ml 1680 ml Balance 439 ml 1680 ml Intake Oral 480 ml IV Total 439 ml 1200 ml # Voids 2 # Bowel Movements 0 Result Diagram: 06/20/17 1245 06/20/17 1245 Objective Remarks Abdomen is soft, nondistended, actually has positive normoactive bowel sounds today on the left and right which are improved compared to yesterday, A/P Problem List: (1) Small bowel obstruction ICD Code: K56.609 - Unspecified intestinal obstruction, unspecified as to partial versus complete obstruction Status: Acute Assessment and Plan Small bowel obstruction - Improved nausea or vomiting but clinically is stalling improvement otherwise. Independently reviewed CT scan and see the transition point in the small bowel also noted gastric distention likely from air, Discussed with Dr. Gan from general surgery, optimal plan would be to insert nasogastric tube for decompression, may possibly need small bowel follow-through if no improvement otherwise. Patient willing to try NG tube with being premedicated for her anxiety Chronic obstructive pulmonary disease in a chronic smoking patient - O2 subluxation maintain O2 sats greater 92% - Duo nebs as needed - Incentive spirometry Mood disorders (schizoaffective and anxiety) - Resume all home medications including carbamazepine, gabapentin, sertraline, Zyprexa, melatonin hyperlipidemia, coronary artery disease - Continue home aspirin, Lipitor, Plavix DVT prevention -Patrick Dickens MD Jun 21, 2017 12:37
[2017-06-21] MEDS: PANTOPRAZOLE SOD 40 MG DELAYED RELEASE TAB PO SCH (12:38)
[2017-06-21] MEDS: DIAZEPAM 5 MG TAB PO PRN (12:39)
[2017-06-21] MEDS: CLOPIDOGREL 75 MG TAB PO SCH (12:39)
[2017-06-21] MEDS: carBAMazepine 200 MG TAB PO SCH ×2 (12:39→21:09)
[2017-06-21] MEDS: GABAPENTIN 300 MG CAP PO SCH ×2 (12:39→21:08)
[2017-06-21] MEDS: SERTRALINE HCL 50 MG TAB PO SCH (12:39)
[2017-06-21] MEDS ORDERED: LORazepam 2 MG/ML VIAL IV PUSH ONE (15:30)
[2017-06-21] MEDS: ENOXAPARIN SODIUM 30 MG/0.3 ML SYRINGE SQ SCH (17:42)
--- NOTE | 2017-06-21 18:17 | EKG ---
Date Performed: 06/20/2017 Time Performed: 12:56:52 PTAGE: 61 years EKG: Sinus rhythm PROBABLE INFERIOR MYOCARDIAL INFARCTION ABNORMAL ECG Compared to prior tracing no significant change PREVIOUS TRACING : 01/23/2017 [id number] DOCTOR: Reva Jiang Interpretating Date/Time 06/21/2017 18:15:17
[2017-06-21] MEDS ORDERED: OLANZapine 10 MG TAB PO SCH (21:00)
[2017-06-21] MEDS: MELATONIN 5 MG TAB PO SCH (21:08)
[2017-06-21] MEDS: OLANZapine 5 MG TAB PO SCH (21:08)
[2017-06-22] VITALS: BP 100/57; PULSE 84; RESP 20; TEMP 97.6; O2SAT 93
[2017-06-22] MEDS: MORPHINE SULFATE 8 MG/ML INJ IV PUSH PRN ×4 (02:26→20:28)
[2017-06-22] MEDS: SODIUM CHLOR 0.45% 1000 ML INJ 1,000 ML IV SCH ×2 (05:20→20:27)
[2017-06-22] MEDS: PROMETHAZINE INJ 25 MG/ML VIAL IM PRN ×3 (06:05→15:23)
[2017-06-22] MEDS: DIAZEPAM 5 MG TAB PO PRN ×2 (06:09→17:52)
--- NOTE | 2017-06-22 07:17 | HHI.PR ---
Subjective Subjective Notes Throat is sore; abdomen ok No emesis. Objective Vitals/I&O Vital Signs Date Time Temp Pulse Resp B/P (MAP) Pulse Ox O2 Delivery O2 Flow Rate FiO2 06/22/17 00:00 97.6 84 20 100/57 (71) 93 06/21/17 20:15 21 06/21/17 15:00 Nasal Cannula 2.00 Labs Date/Time Source Procedure Growth Status 06/20/17 12:55 Urine Clean Catch Urine Culture - Preliminary Gram Negative Jose G Resulted Radiology Last 48 hours Impressions Abdomen X-Ray 06/21/17 0600 Signed Impressions: Service Date/Time: Wednesday, June 21, 2017 06:08 - CONCLUSION: Nonspecific abdomen appearance Trugn Forde MD Abdomen/Pelvis CT 06/20/17 0000 Signed Impressions: Service Date/Time: Tuesday, June 20, 2017 14:03 - CONCLUSION: Abnormal small bowel with abrupt transition right lower quadrant There is no ascites Prominent common duct, probably reservoir phenomenon. Nii Bey MD FACR Abdomen: Non-distended, Non-tender A/P Assessment and Plan Probable SBO right lower quadrant; E coli UTI Undergoing SBS today; if activity still slow or contrast does not pass well, will need laparoscopy/exploration. Explained to patient. Thony Sauceda MD Jun 22, 2017 07:17
[2017-06-22 08:00] VITALS: BP 104/58; PULSE 80; RESP 17; TEMP 96.7; O2SAT 92; O2SAT 93
[2017-06-22] MEDS ORDERED: PIPERACIL-TAZO 3.375 GM PREMIX 50 ML IV SCH (09:00)
[2017-06-22] MEDS: ASPIRIN 81 MG CHEW TAB CHEW SCH (09:00)
[2017-06-22] MEDS ORDERED: ATORVASTATIN 40 MG TAB PO SCH (09:00)
[2017-06-22] MEDS: PHENOL 1.4% SOLN 180 ML BTL OROPHARYNG PRN (09:11)
[2017-06-22] MEDS: TIOTROPIUM BROMIDE 18 MCG INH INH SCH (09:12)
[2017-06-22] MEDS: GABAPENTIN 300 MG CAP PO SCH ×2 (09:13→20:27)
[2017-06-22] MEDS: CLOPIDOGREL 75 MG TAB PO SCH (09:13)
[2017-06-22] MEDS: carBAMazepine 200 MG TAB PO SCH ×2 (09:13→21:34)
[2017-06-22] MEDS: SERTRALINE HCL 50 MG TAB PO SCH (09:13)
[2017-06-22] MEDS: PANTOPRAZOLE SOD 40 MG DELAYED RELEASE TAB PO SCH (09:13)
[2017-06-22] MEDS: SODIUM CHLORIDE 0.9% FLUSH 10 ML FLUSH IV FLUSH SCH ×2 (09:14→21:35)
[2017-06-22 09:17] LABS: BICARBONATE 28.6 MEQ/L (21.0-32.0); CALCIUM 8.7 MG/DL (8.5-10.1); CREATININE 0.8 MG/DL (0.50-1.00)
[2017-06-22] MEDS ORDERED: DIATRIZOATE MEGLUM/DIATRIZOATE SOD 120 ML BTL (for RAD DIAG) NG ONE (10:45)
[2017-06-22] MEDS: CIPROFLOXACIN 200 MG PREMIX 100 ML IV SCH (11:00)
[2017-06-22 12:00] VITALS: BP 105/70; PULSE 79; RESP 18; TEMP 96.5; O2SAT 93
--- NOTE | 2017-06-22 14:48 | RADRPT ---
EXAM DATE/TIME: 06/22/2017 10:44 [facility] COMPARISON: No previous studies available for comparison. INDICATIONS : Obstruction. Abdominal pain and vomiting since x 3 days. FLUORO TIME: 0 minutes IMAGE COUNT: 8 CONTRAST: [facility] IMAGING TIME(S): 15 min, 30 min, 45 min, 1 hr, 2 hr MEDICAL HISTORY : Hypertension. Myocardial infarction. Cardiovascular disease. chemotherapy, copd, bladder cancer SURGICAL HISTORY : Cholecystectomy. Hysterectomy. Coronary artery stent. Urostomy, radical cystectomy, infusaport ENCOUNTER: Subsequent ACUITY: 3 days PAIN SCORE: 5/10 LOCATION: Bilateral lower quadrant abdomen FINDINGS: Preliminary film is unremarkable. The stomach is grossly unremarkable. Examination of the small bowel demonstrates dilated proximal small bowel loops centrally. Oral contra st remains within these dilated bowel loops. Colostomy seen within the right lower quadrant. No intra luminal filling defects are identified. Small bowel transit time is not obtained. Fluoroscopy of th e abdomen and terminal ileum demonstrates no abnormality. Surgical clips in the pelvis. CONCLUSION: Multiple dilated central small bowel loops which can be seen with obstruction versus ileus. Onesimo Saenz MD on June 22, 2017 at 14:46 Board Certified Radiologist. This report was verified electronically.
--- NOTE | 2017-06-22 15:13 | HHI.PR ---
Subjective Remarks Patient was feeling improved this morning but since going for part of the small bowel follow-through test she has developed nausea and vomiting. Abdominal pain is mild and periumbilical. Objective Vitals Vital Signs Date Time Temp Pulse Resp B/P (MAP) Pulse Ox O2 Delivery O2 Flow Rate FiO2 06/22/17 12:00 96.5 79 18 105/70 (82) 93 06/22/17 09:39 18 06/22/17 08:00 96.7 80 17 104/58 (73) 92 06/22/17 00:00 97.6 84 20 100/57 (71) 93 06/21/17 20:15 93 21 06/21/17 20:00 96.3 83 20 114/86 (95) 95 06/21/17 16:00 97.3 81 16 119/65 (83) 93 I/O 06/21/17 06/21/17 06/21/17 06/22/17 06/22/17 06/22/17 07:00 15:00 23:00 07:00 15:00 23:00 Intake Total 1680 ml 0 ml 1000 ml Output Total 400 ml Balance 1680 ml 0 ml 600 ml Intake Oral 480 ml 0 ml 0 ml IV Total 1200 ml 1000 ml Output Gastric Drainage Total 400 ml # Voids 2 3 1 # Bowel Movements 0 Result Diagram: 06/20/17 1245 06/22/17 0840 Objective Remarks GENERAL: Well-nourished, well-developed female patient. SKIN: Warm and dry. HEAD: Normocephalic. EYES: No scleral icterus. No injection or drainage. NECK: Supple, trachea midline. No JVD or lymphadenopathy. CARDIOVASCULAR: Regular rate and rhythm without murmurs, gallops, or rubs. RESPIRATORY: Breath sounds equal bilaterally. No accessory muscle use. GASTROINTESTINAL: Abdomen soft, mildly tender left abdomen, mildly distended, no rebound tenderness or guarding. EXTREMITIES: No cyanosis, or edema. NEUROLOGICAL: Awake, alert, and oriented x 3. Non-focal. A/P Problem List: (1) Small bowel obstruction ICD Code: K56.609 - Unspecified intestinal obstruction, unspecified as to partial versus complete obstruction Status: Acute (2) UTI (urinary tract infection) ICD Code: N39.0 - Urinary tract infection, site not specified Status: Acute Assessment and Plan Small bowel obstruction - Continued vomiting despite NG tube. Appreciate general surgery managing the patient. Follow-up small bowel follow-through, depending on results she may need surgery. Continue IV fluids and antiemetics as needed. -Escherichia coli UTI. Start Cipro IV. Chronic obstructive pulmonary disease in a chronic smoking patient - O2 subluxation maintain O2 sats greater 92% - Duo nebs as needed - Incentive spirometry Mood disorders (schizoaffective and anxiety) - Resume all home medications including carbamazepine, gabapentin, sertraline, Zyprexa, melatonin hyperlipidemia, coronary artery disease - Continue home aspirin, Lipitor, Plavix DVT prevention -Macie Galdamez MD Jun 22, 2017 15:13
[2017-06-22 16:00] VITALS: BP 101/78; PULSE 82; RESP 18; TEMP 97.8; O2SAT 96
[2017-06-22] MEDS: ENOXAPARIN SODIUM 30 MG/0.3 ML SYRINGE SQ SCH (18:00)
[2017-06-22 20:24] VITALS: BP 131/65; PULSE 89; RESP 16; TEMP 99.2; O2SAT 92
[2017-06-22] MEDS: MELATONIN 5 MG TAB PO SCH (21:34)
[2017-06-22] MEDS: OLANZapine 5 MG TAB PO SCH (21:35)
[2017-06-23 00:06] VITALS: BP 114/67; PULSE 102; RESP 16; TEMP 100.8; O2SAT 93
[2017-06-23] MEDS: CIPROFLOXACIN 200 MG PREMIX 100 ML IV SCH ×3 (00:24→23:38)
[2017-06-23] MEDS: MORPHINE SULFATE 8 MG/ML INJ IV PUSH PRN ×4 (01:10→21:00)
[2017-06-23] MEDS ORDERED: POVIDONE IODINE 5% (ANTISEPSIS KIT) 4 APPLICATIONS EACH NARE PRN (01:45)
[2017-06-23] MEDS ORDERED: CHLORHEXIDINE GLUCONATE 2 % 1 PACK (2 CLOTHS) TOPICAL PRN (01:45)
[2017-06-23] MEDS ORDERED: LACTATED RINGER'S 1000 ML IV PRN (02:00)
[2017-06-23 05:06] VITALS: BP 99/54; PULSE 100; RESP 16; TEMP 98.4; O2SAT 92
--- NOTE | 2017-06-23 07:38 | HHI.PR ---
Subjective Subjective Notes sbft with persistent obstruction pt vomited with contrast, no bm Objective Vitals/I&O Vital Signs Date Time Temp Pulse Resp B/P (MAP) Pulse Ox O2 Delivery O2 Flow Rate FiO2 06/23/17 05:06 98.4 100 16 99/54 (69) 92 06/22/17 20:00 Nasal Cannula 3.00 06/21/17 20:15 21 Labs Laboratory Tests Test 06/22/17 08:40 Blood Urea Nitrogen 18 Creatinine 0.80 Random Glucose 86 Calcium Level 8.7 Sodium Level 134 Potassium Level 3.8 Chloride Level 97 Carbon Dioxide Level 28.6 Anion Gap 8 Estimat Glomerular Filtration Rate 73 Date/Time Source Procedure Growth Status 06/20/17 12:55 Urine Clean Catch Urine Culture - Final Escherichia Coli Complete Radiology Last 48 hours Impressions Abdomen X-Ray 06/21/17 0600 Signed Impressions: Service Date/Time: Wednesday, June 21, 2017 06:08 - CONCLUSION: Nonspecific abdomen appearance Trung Forde MD Abdomen/Pelvis CT 06/20/17 0000 Signed Impressions: Service Date/Time: Tuesday, June 20, 2017 14:03 - CONCLUSION: Abnormal small bowel with abrupt transition right lower quadrant There is no ascites Prominent common duct, probably reservoir phenomenon. Nii Bey MD FACR Abdomen: Other (soft disteneded, mild ttp, healed incisional scars, urostomy) A/P Assessment and Plan sbo PLAN OR today for dx lap, possible ex lap, DERICK, discussed with patient and brother the risks of surgery Tonny Gan MD Jun 23, 2017 07:38
[2017-06-23 08:00] VITALS: BP 118/62; PULSE 106; RESP 17; TEMP 96.1; O2SAT 90
[2017-06-23] MEDS ORDERED: LORazepam 2 MG/ML VIAL IV ONE (08:15)
[2017-06-23] MEDS: SODIUM CHLORIDE 0.9% FLUSH 10 ML FLUSH IV FLUSH SCH ×2 (09:00→22:50)
[2017-06-23] MEDS: SERTRALINE HCL 50 MG TAB PO SCH (09:00)
[2017-06-23] MEDS: ASPIRIN 81 MG CHEW TAB CHEW SCH (09:00)
[2017-06-23] MEDS: PANTOPRAZOLE SOD 40 MG DELAYED RELEASE TAB PO SCH (09:00)
[2017-06-23] MEDS: carBAMazepine 200 MG TAB PO SCH ×2 (09:00→21:01)
[2017-06-23] MEDS: TIOTROPIUM BROMIDE 18 MCG INH INH SCH (09:00)
[2017-06-23] MEDS: GABAPENTIN 300 MG CAP PO SCH ×2 (09:00→21:01)
[2017-06-23] MEDS ORDERED: BUPIVACAINE/EPINEPHRINE 0.5% 50 ML VIAL ONE (11:00)
--- NOTE | 2017-06-23 11:45 | HHI.PR ---
Immediate Post Op Note Procedure Date: Jun 23, 2017 Pre Op Diagnosis: small bowel obstruction Post Op Diagnosis: same Surgeon: Tonny Gan MD Information Operator(s): see or sheet Procedure: dx lap, lap sarina Findings: multiple adhesions Complications: none Specimen(s) removed: none Estimated blood loss: 15cc Anesthesia: General Drains: DUC Patient to: PACU Patient Condition: Good Tonny Gan MD Jun 23, 2017 11:45
--- NOTE | 2017-06-23 11:45 | HHI.PR ---
Immediate Post Op Note Procedure Date: Jun 23, 2017 Pre Op Diagnosis: small bowel obstruction Post Op Diagnosis: same Surgeon: Tonny Gan MD Pile Fabric Knitter(s): see or sheet Procedure: dx lap, lap sarina Findings: multiple adhesions Complications: none Specimen(s) removed: none Estimated blood loss: 15cc Anesthesia: General Drains: DUC Patient to: PACU Patient Condition: Good Tonny Gan MD Jun 23, 2017 11:45
[2017-06-23] MEDS ORDERED: CIPROFLOXACIN 400 MG PREMIX 200 ML ONE (12:00)
[2017-06-23 13:43] LABS: AUTOMATED NEUTROPHIL # 7.6 TH/MM3 (1.8-7.7); BASOPHIL % 0.2 % (0.0-2.0); HEMATOCRIT 36.2 % (35.0-46.0); HEMOGLOBIN 12.3 GM/DL (11.6-15.3); LYMPH % 22.1 % (9.0-44.0); LYMPHOCYTE # 2.5 TH/MM3 (1.0-4.8); MEAN CELL VOLUME 97.2 FL (80.0-100.0); MEAN CORPUSCULAR HEMOGLOBIN 32.9 PG (27.0-34.0); MEAN CORPUSCULAR HGB CONC 33.8 % (32.0-36.0); MEAN PLATELET VOLUME 7.4 FL (7.0-11.0); MONO % 11.1 % (0.0-8.0); MONOCYTE # 1.3 TH/MM3 (0-0.9); NEUT % 66.6 % (16.0-70.0); PLATELET COUNT 154 TH/MM3 (150-450); RED BLOOD COUNT 3.72 MIL/MM3 (4.00-5.30); RED CELL DISTRIBUTION WIDTH 13.7 % (11.6-17.2); WHITE BLOOD COUNT 11.5 TH/MM3 (4.0-11.0)
[2017-06-23] MEDS ORDERED: ACETAMINOPHEN 1000 MG/100 ML 100 ML IV ONE (13:44)
[2017-06-23] MEDS ORDERED: SUGAMMADEX SODIUM 200 MG/2 ML VIAL IV PUSH ONE (13:44)
[2017-06-23 13:51] LABS: INTERNATIONAL NORMALIZED RATIO 1.1 RATIO
[2017-06-23 14:24] LABS: BICARBONATE 28.1 MEQ/L (21.0-32.0); CALCIUM 8.1 MG/DL (8.5-10.1); CREATININE 0.75 MG/DL (0.50-1.00)
[2017-06-23] MEDS ORDERED: DO NOT ADM ANY ANTICOAGULANT DRUGS PRN (14:54)
[2017-06-23] MEDS ORDERED: *ONDANSETRON 4 MG VIAL PERIprocedural Use ONLY ONE (15:45)
[2017-06-23] MEDS ORDERED: *morphine SULFATE 8 MG/ML PERIprocedure ONLY ONE (15:45)
[2017-06-23 16:00] VITALS: BP 105/60; PULSE 80; RESP 16; TEMP 96.2; O2SAT 95
[2017-06-23] MEDS: DIAZEPAM 5 MG TAB PO PRN (16:55)
--- NOTE | 2017-06-23 18:30 | HHI.PR ---
Subjective Remarks Patient is sp lysis of adhesions c/o diffuse abdominal pain denies fevers or chills c/o some nausea Objective Vitals Vital Signs Date Time Temp Pulse Resp B/P (MAP) Pulse Ox O2 Delivery O2 Flow Rate FiO2 06/23/17 16:00 96.2 80 16 105/60 (75) 95 06/23/17 16:00 79 16 106/59 (75) 95 Nasal Cannula 4 06/23/17 15:45 81 16 99/58 (72) 93 Nasal Cannula 4 06/23/17 15:30 87 16 104/58 (73) 91 Nasal Cannula 2 06/23/17 15:15 86 16 107/59 (75) 91 Nasal Cannula 2 06/23/17 15:00 92 16 107/53 (71) 91 Nasal Cannula 4 06/23/17 14:53 98.5 91 16 113/57 (75) 90 Nasal Cannula 4 06/23/17 08:00 92 Nasal Cannula 3.00 06/23/17 08:00 96.1 106 17 118/62 (80) 90 06/23/17 05:06 98.4 100 16 99/54 (69) 92 06/23/17 00:06 100.8 102 16 114/67 (83) 93 06/22/17 20:24 99.2 89 16 131/65 (87) 92 06/22/17 20:00 92 Nasal Cannula 3.00 I/O 06/22/17 06/22/17 06/22/17 06/23/17 06/23/17 06/23/17 07:00 15:00 23:00 07:00 15:00 23:00 Intake Total 1000 ml 738 ml 1200 ml Output Total 400 ml 700 ml 730 ml 50 ml 50 ml Balance 600 ml -700 ml 8 ml 1150 ml -50 ml Intake Oral 0 ml IV Total 1000 ml 738 ml 1200 ml Output Urine Total 630 ml Gastric Drainage Total 400 ml 700 ml 100 ml Drainage Total 50 ml Estimated Blood Loss 50 ml # Voids 1 2 Result Diagram: 06/23/17 1315 06/23/17 1315 Imaging Last Impressions Small Bowel X-Ray 06/22/17 0000 Signed Impressions: Service Date/Time: Thursday, June 22, 2017 10:44 - CONCLUSION: Multiple dilated central small bowel loops which can be seen with obstruction versus ileus. Onesimo Saenz MD Abdomen X-Ray 06/21/17 0600 Signed Impressions: Service Date/Time: Wednesday, June 21, 2017 06:08 - CONCLUSION: Nonspecific abdomen appearance Trung Forde MD Abdomen/Pelvis CT 06/20/17 0000 Signed Impressions: Service Date/Time: Tuesday, June 20, 2017 14:03 - CONCLUSION: Abnormal small bowel with abrupt transition right lower quadrant There is no ascites Prominent common duct, probably reservoir phenomenon. Nii Bey MD FACR Objective Remarks AAOx3 Abdomen moderately distended with hypoactive bowel sounds no edema in legs NG tube in place A/P Problem List: (1) Small bowel obstruction ICD Code: K56.609 - Unspecified intestinal obstruction, unspecified as to partial versus complete obstruction Status: Acute (2) UTI (urinary tract infection) ICD Code: N39.0 - Urinary tract infection, site not specified Status: Acute Assessment and Plan 1. Small bowel obstruction Patient was initially treated with NG tube placement. However the patient was still vomiting despite NG tube in place. Gen. surgery consulted. Bowel through exam showed multiple dilated central small bowel loops which could be seen in obstruction versus ileus. The patient was then transferred to the main hospital in [place] for surgical procedure. The patient is status post diagnostic laparoscopy and laparoscopic lysis of adhesions. Continue management as per general surgery. Continue pain control as per general surgery. 2. Escherichia coli UTI. Continue IV ciprofloxacin. 3. Chronic obstructive pulmonary disease in a chronic smoker - O2 subluxation maintain O2 sats greater 92% - Duo nebs as needed - Incentive spirometry - Advised smoking cessation 4. Mood disorders (schizoaffective and anxiety) -Continue all home medications including carbamazepine, gabapentin, sertraline, Zyprexa, melatonin 5. hyperlipidemia, coronary artery disease - Continue home aspirin, Lipitor, Plavix DVT prevention -lovenox Km William MD Jun 23, 2017 18:30
[2017-06-23 20:23] VITALS: BP 115/65; PULSE 75; RESP 18; TEMP 98; O2SAT 97
[2017-06-23] MEDS: MELATONIN 5 MG TAB PO SCH (21:01)
[2017-06-23] MEDS: OLANZapine 5 MG TAB PO SCH (21:01)
[2017-06-23 23:45] VITALS: BP 109/59; PULSE 78; RESP 16; TEMP 98.5; O2SAT 97
[2017-06-24] MEDS: MORPHINE SULFATE 8 MG/ML INJ IV PUSH PRN ×2 (02:16→06:30)
[2017-06-24] MEDS: DIAZEPAM 5 MG TAB PO PRN (02:26)
[2017-06-24 02:34] VITALS: BP 116/62; PULSE 62; RESP 16; TEMP 98.2; O2SAT 98
[2017-06-24] MEDS: PROMETHAZINE INJ 25 MG/ML VIAL IM PRN (06:34)
[2017-06-24 08:00] VITALS: BP 121/57; PULSE 95; RESP 17; TEMP 96; O2SAT 90
--- NOTE | 2017-06-24 08:44 | HHI.PR ---
Subjective Subjective Notes mild nausea, ng pulled out yesterday when Valium was given, c/o incisional pain Objective Vitals/I&O Vital Signs Date Time Temp Pulse Resp B/P (MAP) Pulse Ox O2 Delivery O2 Flow Rate FiO2 06/24/17 02:34 98.2 62 16 116/62 (80) 98 06/23/17 19:33 Nasal Cannula 3.00 06/21/17 20:15 21 Labs Laboratory Tests Test 06/23/17 13:15 06/23/17 13:38 White Blood Count 11.5 Red Blood Count 3.72 Hemoglobin 12.3 Hematocrit 36.2 Mean Corpuscular Volume 97.2 Mean Corpuscular Hemoglobin 32.9 Mean Corpuscular Hemoglobin Concent 33.8 Red Cell Distribution Width 13.7 Platelet Count 154 Mean Platelet Volume 7.4 Neutrophils (%) (Auto) 66.6 Lymphocytes (%) (Auto) 22.1 Monocytes (%) (Auto) 11.1 Eosinophils (%) (Auto) 0.0 Basophils (%) (Auto) 0.2 Neutrophils # (Auto) 7.6 Lymphocytes # (Auto) 2.5 Monocytes # (Auto) 1.3 Eosinophils # (Auto) 0.0 Basophils # (Auto) 0.0 CBC Comment DIFF FINAL Differential Comment Prothrombin Time 12.0 Prothromb Time International Ratio 1.1 Activated Partial Thromboplast Time 34.2 Blood Urea Nitrogen 20 Creatinine 0.75 Random Glucose 146 Calcium Level 8.1 Sodium Level 133 Potassium Level 3.7 Chloride Level 98 Carbon Dioxide Level 28.1 Anion Gap 7 Estimat Glomerular Filtration Rate 79 Blood Gas Puncture Site ART LINE Blood Gas Patient Temperature 98.6 Blood Gas HCO3 26 Blood Gas Base Excess 0.7 Blood Gas Oxygen Saturation 95 Arterial Blood pH 7.31 Arterial Blood Partial Pressure CO2 53 Arterial Blood Partial Pressure O2 152 Arterial Blood Oxygen Content 16.3 Arterial Blood Carboxyhemoglobin 2.0 Arterial Blood Methemoglobin 1.4 Blood Gas Hemoglobin 11.9 Oxygen Delivery Device VENTILATOR Blood Gas Inspired Oxygen 55 Date/Time Source Procedure Growth Status 06/20/17 12:55 Urine Clean Catch Urine Culture - Final Escherichia Coli Complete Radiology Last 48 hours Impressions Abdomen X-Ray 06/21/17 0600 Signed Impressions: Service Date/Time: Wednesday, June 21, 2017 06:08 - CONCLUSION: Nonspecific abdomen appearance Trung Forde MD Abdomen/Pelvis CT 06/20/17 0000 Signed Impressions: Service Date/Time: Tuesday, June 20, 2017 14:03 - CONCLUSION: Abnormal small bowel with abrupt transition right lower quadrant There is no ascites Prominent common duct, probably reservoir phenomenon. Nii Bey MD FACR Abdomen: Other (soft incisions c/d/i, john serosang) A/P Assessment and Plan s/p dx lap, DERICK POD 1 plan npo ok fo small amount of ice chips IV meds- dilaudid, zofran, inc ivf, ativan, ns at 100cc encourage oob ok to leave ng out, keep npo john sxn start anticoagulants tomorrow Tonny Gan MD Jun 24, 2017 08:44
[2017-06-24] MEDS: HYDROmorphone HCL PF 1 MG/ML VIAL IV PUSH PRN ×3 (08:59→22:29)
[2017-06-24] MEDS: TIOTROPIUM BROMIDE 18 MCG INH INH SCH (09:00)
[2017-06-24] MEDS: carBAMazepine 200 MG TAB PO SCH ×2 (09:00→20:31)
[2017-06-24] MEDS: SODIUM CHLORIDE 0.9% FLUSH 10 ML FLUSH IV FLUSH SCH ×2 (09:00→20:30)
[2017-06-24] MEDS: LORazepam 2 MG/ML VIAL IV PUSH PRN ×4 (09:04→22:29)
[2017-06-24] MEDS: KETOROLAC TROMETHAMINE 30 MG/ML (IVP) VIAL IV PUSH SCH ×3 (09:07→20:29)
[2017-06-24] MEDS: ONDANSETRON HCL 4 MG/2 ML VIAL IV PUSH PRN ×2 (09:10→22:29)
[2017-06-24] MEDS: NS + KCL 20 MEQ INJ 1,000 ML IV SCH ×2 (09:20→20:30)
[2017-06-24 09:34] VITALS: O2SAT 97
[2017-06-24] MEDS: ASPIRIN 81 MG CHEW TAB CHEW SCH (10:41)
[2017-06-24] MEDS: ATORVASTATIN 80 MG TAB PO SCH (10:41)
[2017-06-24] MEDS: GABAPENTIN 300 MG CAP PO SCH ×2 (10:43→20:30)
[2017-06-24 12:00] VITALS: BP 107/56; PULSE 92; RESP 18; TEMP 97.3; O2SAT 93
[2017-06-24] MEDS: CIPROFLOXACIN 200 MG PREMIX 100 ML IV SCH ×2 (12:58→22:28)
[2017-06-24 16:00] VITALS: BP 100/49; PULSE 103; RESP 17; TEMP 98.6; O2SAT 94
--- NOTE | 2017-06-24 17:40 | HHI.PR ---
Subjective Remarks The patient complains of mild nausea. Asking if she can eat. Denies fevers or chills. Denies chest pain or shortness of breath. Vital signs stable for the most part. Objective Vitals Vital Signs Date Time Temp Pulse Resp B/P (MAP) Pulse Ox O2 Delivery O2 Flow Rate FiO2 06/24/17 16:00 98.6 103 17 100/49 (66) 94 06/24/17 12:00 97.3 92 18 107/56 (73) 93 06/24/17 09:34 97 06/24/17 08:00 96.0 95 17 121/57 (78) 90 06/24/17 02:34 98.2 62 16 116/62 (80) 98 06/23/17 23:45 98.5 78 16 109/59 (76) 97 06/23/17 20:23 98.0 75 18 115/65 (82) 97 06/23/17 19:33 97 Nasal Cannula 3.00 06/23/17 18:39 22 I/O 06/23/17 06/23/17 06/23/17 06/24/17 06/24/17 06/24/17 07:00 15:00 23:00 07:00 15:00 23:00 Intake Total 738 ml 1200 ml 0 ml 754 ml 259 ml Output Total 730 ml 50 ml 210 ml 510 ml 50 ml Balance 8 ml 1150 ml -210 ml 244 ml 209 ml Intake Oral 0 ml IV Total 738 ml 1200 ml 754 ml 259 ml Output Urine Total 630 ml 380 ml Gastric Drainage Total 100 ml Drainage Total 210 ml 130 ml 50 ml Estimated Blood Loss 50 ml # Bowel Movements 0 Result Diagram: 06/23/17 1315 06/23/17 1315 Imaging Last Impressions Small Bowel X-Ray 06/22/17 0000 Signed Impressions: Service Date/Time: Thursday, June 22, 2017 10:44 - CONCLUSION: Multiple dilated central small bowel loops which can be seen with obstruction versus ileus. Onesimo Saenz MD Abdomen X-Ray 06/21/17 0600 Signed Impressions: Service Date/Time: Wednesday, June 21, 2017 06:08 - CONCLUSION: Nonspecific abdomen appearance Trung Forde MD Abdomen/Pelvis CT 06/20/17 0000 Signed Impressions: Service Date/Time: Tuesday, June 20, 2017 14:03 - CONCLUSION: Abnormal small bowel with abrupt transition right lower quadrant There is no ascites Prominent common duct, probably reservoir phenomenon. Nii Bey MD FACR Objective Remarks AAOx3 Abdomen moderately distended with hypoactive bowel sounds no edema in legs NG tube in place Medications and IVs Current Medications Medications (Trade) Dose Ordered Sig/Deondre Route Start Time Stop Time Status Last Admin (NS Flush) 2 ml UNSCH PRN IV FLUSH 06/20/17 15:30 06/21/17 05:14 (NS Flush) 2 ml BID IV FLUSH 06/20/17 21:00 06/23/17 22:50 (Phenergan Inj) 12.5 mg Q6H PRN IM 06/20/17 18:30 06/24/17 06:34 (Duoneb Neb) 1 ampule Q6HR NEB PRN NEB 06/20/17 18:45 (Proair Hfa Inh) 2 puff Q6HR NEB PRN INH 06/21/17 12:00 (Aspirin Chew) 81 mg DAILY CHEW 06/21/17 12:00 06/24/17 10:41 (TEGretol) 400 mg HS PO 06/21/17 21:00 06/23/17 21:01 (Plavix) 75 mg DAILY PO 06/21/17 12:00 Future Hold 06/22/17 09:13 (Neurontin) 300 mg BID PO 06/21/17 12:00 06/24/17 10:43 (Zoloft) 50 mg DAILY PO 06/21/17 12:00 Future Hold 06/22/17 09:13 (Spiriva Inh) 18 mcg DAILY INH 06/21/17 12:00 06/22/17 09:12 (Melatonin) 10 mg HS PO 06/21/17 21:00 06/23/17 21:01 (TEGretol) 200 mg DAILY PO 06/21/17 12:00 06/24/17 09:00 (Lovenox Inj) 30 mg Q24H SQ 06/21/17 18:00 Future Hold 06/21/17 17:42 (ZyPREXA) 10 mg HS PO 06/21/17 21:00 06/23/17 21:01 (Chloraseptic [place]) 2 spray Q2H PRN OROPHARYNG 06/22/17 07:15 06/22/17 09:11 Ciprofloxacin/ Dextrose 100 ml @ 100 mls/hr Q12H IV 06/22/17 11:00 06/24/17 12:58 (Betadine 5% Antisepsis Kit) 1 applic PSYCHIATRIC NURSING ASSISTANT PRN EACH NARE 06/23/17 01:45 06/26/17 01:44 (Chlorhexidine 2% Cloth) 3 pack PSYCHIATRIC NURSING ASSISTANT PRN TOPICAL 06/23/17 01:45 06/26/17 01:44 (Lipitor) 80 mg DAILY PO 06/24/17 09:00 06/24/17 10:41 (Dilaudid Pf Inj) 1 mg Q2H PRN IV PUSH 06/24/17 08:45 06/24/17 08:59 (Ativan Inj) 1 mg Q4H PRN IV PUSH 06/24/17 08:45 06/24/17 13:59 Potassium Chloride/Sodium Chloride 1,000 ml @ 100 mls/hr Q10H IV 06/24/17 08:45 06/24/17 09:20 (Toradol Inj) 30 mg Q6H IV PUSH 06/24/17 09:00 06/24/17 15:07 (Zofran Inj) 4 mg Q6HR PRN IV PUSH 06/24/17 08:45 06/24/17 09:10 A/P Problem List: (1) Small bowel obstruction ICD Code: K56.609 - Unspecified intestinal obstruction, unspecified as to partial versus complete obstruction Status: Acute (2) UTI (urinary tract infection) ICD Code: N39.0 - Urinary tract infection, site not specified Status: Acute Assessment and Plan 1. Small bowel obstruction Patient was initially treated with NG tube placement. However the patient was still vomiting despite NG tube in place. Gen. surgery consulted. Bowel through exam showed multiple dilated central small bowel loops which could be seen in obstruction versus ileus. The patient was then transferred to the main hospital in [place] for surgical procedure. The patient is status post diagnostic laparoscopy and laparoscopic lysis of adhesions. Continue management as per general surgery. Continue pain control as per general surgery. 06/24 plans to keep patient nothing by mouth except for small amount of ice chips. Continue IV fluids. Continue pain control with IV medications, Dilaudid , Zofran for nausea, Ativan. 2. Escherichia coli UTI. Continue IV ciprofloxacin. 3. Chronic obstructive pulmonary disease in a chronic smoker - O2 subluxation maintain O2 sats greater 92% - Duo nebs as needed - Incentive spirometry - Advised smoking cessation 4. Mood disorders (schizoaffective and anxiety) -Continue all home medications including carbamazepine, gabapentin, sertraline, Zyprexa, melatonin 5. hyperlipidemia, coronary artery disease - Continue home aspirin, Lipitor, Plavix DVT prevention -lovenox - which patient is refusing Discharge Planning Continue to monitor in the surgical floor. Patient still nothing by mouth. Km William MD Jun 24, 2017 17:40
[2017-06-24 20:00] VITALS: BP 117/55; PULSE 96; RESP 18; TEMP 98.6; O2SAT 95
[2017-06-24] MEDS: MELATONIN 5 MG TAB PO SCH (20:30)
[2017-06-24] MEDS: OLANZapine 5 MG TAB PO SCH (20:31)
--- NOTE | 2017-06-24 22:30 | MP ---
cc: JAY GAN MD DATE OF SURGERY 06/23/17 PREOPERATIVE DIAGNOSIS Small bowel obstruction. POSTOPERATIVE DIAGNOSIS Small bowel obstruction. PROCEDURE PERFORMED 1. Diagnostic laparoscopy. 2. Laparoscopic lysis of adhesions, greater than [address] Jay Gan. TURN OUT WORKER See OR sheet. ANESTHESIA GETA. IV FLUIDS See anesthesia sheet. FINDINGS Multiple adhesions in the pelvis. COMPLICATIONS None. WOUND CLASSIFICATION Clean. SPECIMENS None. INDICATION The patient is a 61-year-old female who presents with acute onset of nausea, vomiting, abdominal pain. She had history of multiple abdominal surgeries including bladder cancer with urostomy. She underwent CT scan with findings of distended dilated loops and obstruction and she had a small bowel follow-through confirming this. No evidence of bowel function, therefore decision was made for operative intervention. DETAILS OF THE PROCEDURE The patient was taken to the operating suite, placed in supine position. She was prepped and draped in the usual sterile fashion after induction of general endotracheal anesthesia. Brief time-out done stating correct patient, procedure, surgical site, we were all in agreement with this. Attention first directed to the left upper quadrant where a stab yves incision was made with an 11-blade, prior to incision local anesthetic injected. Veress needle placed, intra-abdominal placement confirmed with saline drop test. Abdomen insufflated to 50 mm pneumoperitoneum. Several other ports placed including left midquadrant 5 mm, left lower quadrant 12 mm and then other left lower quadrant 5 mm and a right lower quadrant 5 mm port. Once the identification of landmarks, the omentum was noted to be intimately adhesed to the anterior abdominal wall along with a portion of small bowel. Harmonic scalpel used to mobilize and transect the omentum down in order to identify the posterior pelvic small bowel. The small bowel was run distally and with findings of a small interloop connected with adhesions down to the posterior pelvis. This appeared to be the point of obstruction. Adequate exposure was obtained laparoscopically and the small bowel loop was tediously mobilized using Endoshears and Harmonic. Once the bowel was completely freed the bowel looked viable. However, one portion had abrasion. A 2-0 Polysorb Endosuture was used just for approximation of this. No overt perforation or bile spillage noted. Further, the small bowel was run distally and noted to be patent and viable. The ileoconduit was identified where the urostomy was. A small hernia defect urostomy was viable and adhered to the anterior abdominal wall as well, patent, without evidence of any issue. The small bowel was run proximally, again noted to be somewhat dilated, however again viable bowel noted as well. At this point once we were satisfied with this the omentum was brought, placed over maintaining anatomical position and suction irrigation used till all ___ was clear. A small 10-Jamaican DUC drain was placed through the left lower quadrant trocar site and secured in place with 2-0 nylon. Next, pneumoperitoneum was removed. The 12 mm port was closed with 0 Vicryl [id number] and 4-0 Monocryl was used for subcuticular sutures at all incision sites. Sterile dressings were placed. All lap and instrument counts were correct. The patient tolerated the procedure well. Drains were 10-Jamaican DUC drain placed in the pelvis out the left lower quadrant incision. MD MARLEN Hernandez/MOISÉS /9:50 AM /10:19 PM
--- NOTE | 2017-06-24 22:30 | MP ---
cc: JAY GAN MD DATE OF SURGERY 06/23/17 PREOPERATIVE DIAGNOSIS Small bowel obstruction. POSTOPERATIVE DIAGNOSIS Small bowel obstruction. PROCEDURE PERFORMED 1. Diagnostic laparoscopy. 2. Laparoscopic lysis of adhesions, greater than [address] Jay Gan. 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 ANESTHESIA GETA. IV FLUIDS See anesthesia sheet. FINDINGS Multiple adhesions in the pelvis. COMPLICATIONS None. WOUND CLASSIFICATION Clean. SPECIMENS None. INDICATION The patient is a 61-year-old female who presents with acute onset of nausea, vomiting, abdominal pain. She had history of multiple abdominal surgeries including bladder cancer with urostomy. She underwent CT scan with findings of distended dilated loops and obstruction and she had a small bowel follow-through confirming this. No evidence of bowel function, therefore decision was made for operative intervention. DETAILS OF THE PROCEDURE The patient was taken to the operating suite, placed in supine position. She was prepped and draped in the usual sterile fashion after induction of general endotracheal anesthesia. Brief time-out done stating correct patient, procedure, surgical site, we were all in agreement with this. Attention first directed to the left upper quadrant where a stab yves incision was made with an 11-blade, prior to incision local anesthetic injected. Veress needle placed, intra-abdominal placement confirmed with saline drop test. Abdomen insufflated to 50 mm pneumoperitoneum. Several other ports placed including left midquadrant 5 mm, left lower quadrant 12 mm and then other left lower quadrant 5 mm and a right lower quadrant 5 mm port. Once the identification of landmarks, the omentum was noted to be intimately adhesed to the anterior abdominal wall along with a portion of small bowel. Harmonic scalpel used to mobilize and transect the omentum down in order to identify the posterior pelvic small bowel. The small bowel was run distally and with findings of a small interloop connected with adhesions down to the posterior pelvis. This appeared to be the point of obstruction. Adequate exposure was obtained laparoscopically and the small bowel loop was tediously mobilized using Endoshears and Harmonic. Once the bowel was completely freed the bowel looked viable. However, one portion had abrasion. A 2-0 Polysorb Endosuture was used just for approximation of this. No overt perforation or bile spillage noted. Further, the small bowel was run distally and noted to be patent and viable. The ileoconduit was identified where the urostomy was. A small hernia defect urostomy was viable and adhered to the anterior abdominal wall as well, patent, without evidence of any issue. The small bowel was run proximally, again noted to be somewhat dilated, however again viable bowel noted as well. At this point once we were satisfied with this the omentum was brought, placed over maintaining anatomical position and suction irrigation used till all ___ was clear. A small 10-Lao DUC drain was placed through the left lower quadrant trocar site and secured in place with 2-0 nylon. Next, pneumoperitoneum was removed. The 12 mm port was closed with 0 Vicryl [id number] and 4-0 Monocryl was used for subcuticular sutures at all incision sites. Sterile dressings were placed. All lap and instrument counts were correct. The patient tolerated the procedure well. Drains were 10-Lao DUC drain placed in the pelvis out the left lower quadrant incision. MD MARLEN Hernandez/MOISÉS /9:50 AM /10:19 PM
--- NOTE | 2017-06-24 22:30 | MP ---
cc: JAY GAN MD DATE OF SURGERY 06/23/17 PREOPERATIVE DIAGNOSIS Small bowel obstruction. POSTOPERATIVE DIAGNOSIS Small bowel obstruction. PROCEDURE PERFORMED 1. Diagnostic laparoscopy. 2. Laparoscopic lysis of adhesions, greater than [address] Jay Gan. 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 ANESTHESIA GETA. IV FLUIDS See anesthesia sheet. FINDINGS Multiple adhesions in the pelvis. COMPLICATIONS None. WOUND CLASSIFICATION Clean. SPECIMENS None. INDICATION The patient is a 61-year-old female who presents with acute onset of nausea, vomiting, abdominal pain. She had history of multiple abdominal surgeries including bladder cancer with urostomy. She underwent CT scan with findings of distended dilated loops and obstruction and she had a small bowel follow-through confirming this. No evidence of bowel function, therefore decision was made for operative intervention. DETAILS OF THE PROCEDURE The patient was taken to the operating suite, placed in supine position. She was prepped and draped in the usual sterile fashion after induction of general endotracheal anesthesia. Brief time-out done stating correct patient, procedure, surgical site, we were all in agreement with this. Attention first directed to the left upper quadrant where a stab yves incision was made with an 11-blade, prior to incision local anesthetic injected. Veress needle placed, intra-abdominal placement confirmed with saline drop test. Abdomen insufflated to 50 mm pneumoperitoneum. Several other ports placed including left midquadrant 5 mm, left lower quadrant 12 mm and then other left lower quadrant 5 mm and a right lower quadrant 5 mm port. Once the identification of landmarks, the omentum was noted to be intimately adhesed to the anterior abdominal wall along with a portion of small bowel. Harmonic scalpel used to mobilize and transect the omentum down in order to identify the posterior pelvic small bowel. The small bowel was run distally and with findings of a small interloop connected with adhesions down to the posterior pelvis. This appeared to be the point of obstruction. Adequate exposure was obtained laparoscopically and the small bowel loop was tediously mobilized using Endoshears and Harmonic. Once the bowel was completely freed the bowel looked viable. However, one portion had abrasion. A 2-0 Polysorb Endosuture was used just for approximation of this. No overt perforation or bile spillage noted. Further, the small bowel was run distally and noted to be patent and viable. The ileoconduit was identified where the urostomy was. A small hernia defect urostomy was viable and adhered to the anterior abdominal wall as well, patent, without evidence of any issue. The small bowel was run proximally, again noted to be somewhat dilated, however again viable bowel noted as well. At this point once we were satisfied with this the omentum was brought, placed over maintaining anatomical position and suction irrigation used till all ___ was clear. A small 10-Slovenian DUC drain was placed through the left lower quadrant trocar site and secured in place with 2-0 nylon. Next, pneumoperitoneum was removed. The 12 mm port was closed with 0 Vicryl [id number] and 4-0 Monocryl was used for subcuticular sutures at all incision sites. Sterile dressings were placed. All lap and instrument counts were correct. The patient tolerated the procedure well. Drains were 10-Slovenian DUC drain placed in the pelvis out the left lower quadrant incision. MD MARLEN Hernandez/OMISÉS /9:50 AM /10:19 PM
[2017-06-25] VITALS: BP 111/60; PULSE 71; RESP 17; TEMP 98.4; O2SAT 95
[2017-06-25] MEDS: KETOROLAC TROMETHAMINE 30 MG/ML (IVP) VIAL IV PUSH SCH ×4 (03:00→20:30)
[2017-06-25] MEDS: NS + KCL 20 MEQ INJ 1,000 ML IV SCH (04:37)
[2017-06-25] MEDS: ASPIRIN 81 MG CHEW TAB CHEW SCH (07:56)
[2017-06-25] MEDS: ATORVASTATIN 80 MG TAB PO SCH (07:57)
[2017-06-25] MEDS: GABAPENTIN 300 MG CAP PO SCH ×2 (07:57→20:30)
[2017-06-25] MEDS: carBAMazepine 200 MG TAB PO SCH ×2 (07:59→20:31)
[2017-06-25 08:00] VITALS: BP 132/64; PULSE 96; RESP 19; TEMP 98.6; O2SAT 98
[2017-06-25] MEDS: HYDROmorphone HCL PF 1 MG/ML VIAL IV PUSH PRN ×2 (08:00→16:40)
[2017-06-25 08:53] LABS: BASOPHIL % 0.1 % (0.0-2.0); HEMATOCRIT 33.2 % (35.0-46.0); HEMOGLOBIN 11.3 GM/DL (11.6-15.3); LYMPH % 12.8 % (9.0-44.0); LYMPHOCYTE # 1.1 TH/MM3 (1.0-4.8); MEAN CELL VOLUME 98.5 FL (80.0-100.0); MEAN CORPUSCULAR HEMOGLOBIN 33.5 PG (27.0-34.0); MEAN CORPUSCULAR HGB CONC 34.1 % (32.0-36.0); MEAN PLATELET VOLUME 7.6 FL (7.0-11.0); MONO % 14.1 % (0.0-8.0); MONOCYTE # 1.2 TH/MM3 (0-0.9); PLATELET COUNT 163 TH/MM3 (150-450); RED BLOOD COUNT 3.37 MIL/MM3 (4.00-5.30); RED CELL DISTRIBUTION WIDTH 13.6 % (11.6-17.2); WHITE BLOOD COUNT 8.3 TH/MM3 (4.0-11.0)
[2017-06-25] MEDS: TIOTROPIUM BROMIDE 18 MCG INH INH SCH (09:00)
[2017-06-25 09:25] LABS: CALCIUM 7.9 MG/DL (8.5-10.1); CREATININE 0.53 MG/DL (0.50-1.00)
[2017-06-25 10:46] VITALS: O2SAT 95
[2017-06-25] MEDS: CIPROFLOXACIN 200 MG PREMIX 100 ML IV SCH (11:22)
[2017-06-25] MEDS: SODIUM CHLORIDE 0.9% FLUSH 10 ML FLUSH IV FLUSH SCH ×2 (11:22→20:30)
[2017-06-25 12:00] VITALS: BP 115/68; PULSE 77; RESP 19; TEMP 96.9; O2SAT 97
--- NOTE | 2017-06-25 14:07 | HHI.PR ---
Subjective Subjective Notes DAILY PROGRESS NOTE FOR SURGICAL ATTENDING, DR. AMANDO TELLEZ Doing well Sitting up in chair She would like something to eat she is very hungry No nausea or vomiting Feels the surgery really helped Objective Vitals/I&O Vital Signs Date Time Temp Pulse Resp B/P (MAP) Pulse Ox O2 Delivery O2 Flow Rate FiO2 06/25/17 12:00 96.9 77 19 115/68 (84) 97 06/25/17 10:46 Nasal Cannula 3.00 06/21/17 20:15 21 Labs Laboratory Tests Test 06/25/17 08:22 White Blood Count 8.3 Red Blood Count 3.37 Hemoglobin 11.3 Hematocrit 33.2 Mean Corpuscular Volume 98.5 Mean Corpuscular Hemoglobin 33.5 Mean Corpuscular Hemoglobin Concent 34.1 Red Cell Distribution Width 13.6 Platelet Count 163 Mean Platelet Volume 7.6 Neutrophils (%) (Auto) 73.0 Lymphocytes (%) (Auto) 12.8 Monocytes (%) (Auto) 14.1 Eosinophils (%) (Auto) 0.0 Basophils (%) (Auto) 0.1 Neutrophils # (Auto) 6.0 Lymphocytes # (Auto) 1.1 Monocytes # (Auto) 1.2 Eosinophils # (Auto) 0.0 Basophils # (Auto) 0.0 CBC Comment DIFF FINAL Differential Comment Blood Urea Nitrogen 15 Creatinine 0.53 Random Glucose 97 Calcium Level 7.9 Sodium Level 133 Potassium Level 4.5 Chloride Level 103 Carbon Dioxide Level 24.0 Anion Gap 6 Estimat Glomerular Filtration Rate 118 Date/Time Source Procedure Growth Status 06/20/17 12:55 Urine Clean Catch Urine Culture - Final Escherichia Coli Complete Radiology Last 48 hours Impressions Abdomen X-Ray 06/21/17 0600 Signed Impressions: Service Date/Time: Wednesday, June 21, 2017 06:08 - CONCLUSION: Nonspecific abdomen appearance Trung Forde MD Abdomen/Pelvis CT 06/20/17 0000 Signed Impressions: Service Date/Time: Tuesday, June 20, 2017 14:03 - CONCLUSION: Abnormal small bowel with abrupt transition right lower quadrant There is no ascites Prominent common duct, probably reservoir phenomenon. Nii Bey MD FACR Cardiovascular: Regular Abdomen: Post-op tenderness Wound Wound : Wound Location: Abdomen (laparoscopic port sites) Appearance: Clean & Dry (patient has ostomy right lower quadrant some fluid output blood-tinged) A/P Problem List: (1) Postop check ICD Codes: Z09 - Encounter for follow-up examination after completed treatment for conditions other than malignant neoplasm (2) History of urostomy ICD Codes: Z98.890 - Other specified postprocedural states Status: Chronic (3) Small bowel obstruction ICD Codes: K56.609 - Unspecified intestinal obstruction, unspecified as to partial versus complete obstruction Status: Resolved Assessment and Plan 61-year-old female status post laparoscopic lysis of adhesions for small bowel obstruction She has a urostomy She would like to start by mouth intake Ambulate and increase activities Attending Statement NOTE FOR SURGICAL ATTENDING, DR. AMANDO TELLEZ I attest that I had a [id number] encounter with the patient on the same day, and personally performed and documented my assessment and findings in the medical record. The following services were provided during this hospital visit: Chart data review, vital sign assessments/reviewing monitor data Review of consultations notes if present. Medication orders/review and/or management Ordering and/or reviewing lab tests Ordering and/or interpreting/reviewing x-rays and/or diagnostic studies Care of the patient and discussion of the patient with the care team Documentation time To help prompt me to consider important information that might be impacting today's encounter and assessment, information from prior notes written by myself or my colleagues may have been "brought forward/copy and pasted" into today's note. Amando Tellez MD Jun 25, 2017 14:07
--- NOTE | 2017-06-25 14:32 | HHI.PR ---
Subjective Remarks Patient states that she is tolerating diet - had regular diet denies nausea, vomiting or abdominal pain sitting up in chair Objective Vitals Vital Signs Date Time Temp Pulse Resp B/P (MAP) Pulse Ox O2 Delivery O2 Flow Rate FiO2 06/25/17 12:00 96.9 77 19 115/68 (84) 97 06/25/17 10:46 95 Nasal Cannula 3.00 06/25/17 09:54 2.00 06/25/17 08:00 98.6 96 19 132/64 (86) 98 06/25/17 00:00 98.4 71 17 111/60 (77) 95 06/24/17 20:42 Nasal Cannula 2.00 06/24/17 20:00 98.6 96 18 117/55 (75) 95 06/24/17 16:00 98.6 103 17 100/49 (66) 94 I/O 06/24/17 06/24/17 06/24/17 06/25/17 06/25/17 06/25/17 07:00 15:00 23:00 07:00 15:00 23:00 Intake Total 754 ml 259 ml 1050 ml 1190 ml 0 ml Output Total 510 ml 50 ml 540 ml 50 ml Balance 244 ml 209 ml 510 ml 1140 ml 0 ml Intake Oral 100 ml 240 ml 0 ml IV Total 754 ml 259 ml 950 ml 950 ml Output Urine Total 380 ml 500 ml Drainage Total 130 ml 50 ml 40 ml 50 ml # Voids 2 # Bowel Movements 0 Result Diagram: 06/25/17 0822 06/25/17 0822 Imaging Last Impressions Small Bowel X-Ray 06/22/17 0000 Signed Impressions: Service Date/Time: Thursday, June 22, 2017 10:44 - CONCLUSION: Multiple dilated central small bowel loops which can be seen with obstruction versus ileus. Onesimo Saenz MD Abdomen X-Ray 06/21/17 0600 Signed Impressions: Service Date/Time: Wednesday, June 21, 2017 06:08 - CONCLUSION: Nonspecific abdomen appearance Trung Forde MD Abdomen/Pelvis CT 06/20/17 0000 Signed Impressions: Service Date/Time: Tuesday, June 20, 2017 14:03 - CONCLUSION: Abnormal small bowel with abrupt transition right lower quadrant There is no ascites Prominent common duct, probably reservoir phenomenon. Nii Bey MD FACR Objective Remarks AAOx3 Abdomen moderately distended with hypoactive bowel sounds and postop tenderness no edema in legs S1S2 Medications and IVs Current Medications Medications (Trade) Dose Ordered Sig/Deondre Route Start Time Stop Time Status Last Admin (NS Flush) 2 ml UNSCH PRN IV FLUSH 06/20/17 15:30 06/21/17 05:14 (NS Flush) 2 ml BID IV FLUSH 06/20/17 21:00 06/25/17 11:22 (Duoneb Neb) 1 ampule Q6HR NEB PRN NEB 06/20/17 18:45 (Proair Hfa Inh) 2 puff Q6HR NEB PRN INH 06/21/17 12:00 (Aspirin Chew) 81 mg DAILY CHEW 06/21/17 12:00 06/25/17 07:56 (TEGretol) 400 mg HS PO 06/21/17 21:00 06/24/17 20:31 (Plavix) 75 mg DAILY PO 06/21/17 12:00 Future Hold 06/22/17 09:13 (Neurontin) 300 mg BID PO 06/21/17 12:00 06/25/17 07:57 (Zoloft) 50 mg DAILY PO 06/21/17 12:00 Future Hold 06/22/17 09:13 (Spiriva Inh) 18 mcg DAILY INH 06/21/17 12:00 06/22/17 09:12 (Melatonin) 10 mg HS PO 06/21/17 21:00 06/24/17 20:30 (TEGretol) 200 mg DAILY PO 06/21/17 12:00 06/25/17 07:59 (Lovenox Inj) 30 mg Q24H SQ 06/21/17 18:00 Future Hold 06/21/17 17:42 (ZyPREXA) 10 mg HS PO 06/21/17 21:00 06/24/17 20:31 (Chloraseptic Rescue) 2 spray Q2H PRN OROPHARYNG 06/22/17 07:15 06/22/17 09:11 Ciprofloxacin/ Dextrose 100 ml @ 100 mls/hr Q12H IV 06/22/17 11:00 06/25/17 11:22 (Betadine 5% Antisepsis Kit) 1 applic HOOP RIVETING MACHINE OPERATOR HELPER PRN EACH NARE 06/23/17 01:45 06/26/17 01:44 (Chlorhexidine 2% Cloth) 3 pack HOOP RIVETING MACHINE OPERATOR HELPER PRN TOPICAL 06/23/17 01:45 06/26/17 01:44 (Lipitor) 80 mg DAILY PO 06/24/17 09:00 06/25/17 07:57 (Dilaudid Pf Inj) 1 mg Q2H PRN IV PUSH 06/24/17 08:45 06/25/17 08:00 (Ativan Inj) 1 mg Q4H PRN IV PUSH 06/24/17 08:45 06/24/17 22:29 Potassium Chloride/Sodium Chloride 1,000 ml @ 100 mls/hr Q10H IV 06/24/17 08:45 06/25/17 04:37 (Toradol Inj) 30 mg Q6H IV PUSH 06/24/17 09:00 06/25/17 07:58 (Zofran Inj) 4 mg Q6HR PRN IV PUSH 06/24/17 08:45 06/24/17 22:29 A/P Problem List: (1) Small bowel obstruction ICD Code: K56.609 - Unspecified intestinal obstruction, unspecified as to partial versus complete obstruction Status: Resolved (2) UTI (urinary tract infection) ICD Code: N39.0 - Urinary tract infection, site not specified Status: Acute Assessment and Plan 1. Small bowel obstruction Patient was initially treated with NG tube placement. However the patient was still vomiting despite NG tube in place. Gen. surgery consulted. Bowel through exam showed multiple dilated central small bowel loops which could be seen in obstruction versus ileus. The patient was then transferred to the main hospital in [place] for surgical procedure. The patient is status post diagnostic laparoscopy and laparoscopic lysis of adhesions. Continue management as per general surgery. Continue pain control as per general surgery. The patient was kept nothing by mouth initially, except for ice chips. 06/25 the patient has been advanced to soft diet by general surgery, patient tolerating diet well. Continue to advance diet as tolerated as per general surgery recommendations. 2. Escherichia coli UTI. I will switch to oral ciprofloxacin. 3. Chronic obstructive pulmonary disease in a chronic smoker - O2 subluxation maintain O2 sats greater 92% - Duo nebs as needed - Incentive spirometry - Advised smoking cessation Seems to be stable. 4. Mood disorders (schizoaffective and anxiety) -Continue all home medications including carbamazepine, gabapentin, sertraline, Zyprexa, melatonin 5. hyperlipidemia, coronary artery disease - Continue home aspirin, Lipitor, Plavix DVT prevention -lovenox - which patient is refusing Discharge Planning Discharge pending general surgery clearance. Km William MD Jun 25, 2017 14:32
[2017-06-25] MEDS: CIPROFLOXACIN 500 MG TAB PO SCH ×2 (15:27→20:31)
[2017-06-25] MEDS: LORazepam 2 MG/ML VIAL IV PUSH PRN (15:33)
[2017-06-25 16:00] VITALS: BP 104/60; PULSE 90; RESP 20; TEMP 98.6; O2SAT 95
[2017-06-25] MEDS: ONDANSETRON HCL 4 MG/2 ML VIAL IV PUSH PRN (16:40)
[2017-06-25 20:00] VITALS: BP 107/61; PULSE 100; RESP 17; TEMP 97.3; O2SAT 92
[2017-06-25] MEDS: MELATONIN 5 MG TAB PO SCH (20:31)
[2017-06-25] MEDS: OLANZapine 5 MG TAB PO SCH (20:31)
[2017-06-26] VITALS: BP 102/60; PULSE 92; RESP 17; TEMP 97; O2SAT 93
[2017-06-26] MEDS: KETOROLAC TROMETHAMINE 30 MG/ML (IVP) VIAL IV PUSH SCH ×4 (01:36→19:44)
[2017-06-26 05:47] LABS: AUTOMATED NEUTROPHIL # 3.6 TH/MM3 (1.8-7.7); BASOPHIL % 0.3 % (0.0-2.0); HEMATOCRIT 31.7 % (35.0-46.0); HEMOGLOBIN 10.7 GM/DL (11.6-15.3); LYMPH % 24.4 % (9.0-44.0); LYMPHOCYTE # 1.4 TH/MM3 (1.0-4.8); MEAN CELL VOLUME 98.8 FL (80.0-100.0); MEAN CORPUSCULAR HEMOGLOBIN 33.3 PG (27.0-34.0); MEAN CORPUSCULAR HGB CONC 33.7 % (32.0-36.0); MEAN PLATELET VOLUME 7.6 FL (7.0-11.0); MONO % 10.7 % (0.0-8.0); MONOCYTE # 0.6 TH/MM3 (0-0.9); NEUT % 64.6 % (16.0-70.0); PLATELET COUNT 153 TH/MM3 (150-450); RED BLOOD COUNT 3.21 MIL/MM3 (4.00-5.30); RED CELL DISTRIBUTION WIDTH 13.4 % (11.6-17.2); WHITE BLOOD COUNT 5.6 TH/MM3 (4.0-11.0)
[2017-06-26 06:22] LABS: BICARBONATE 24.3 MEQ/L (21.0-32.0); CALCIUM 7.3 MG/DL (8.5-10.1); CALCIUM-PROTEIN CORRECTED 8.1 MG/DL (8.5-10.1); CREATININE 0.7 MG/DL (0.50-1.00); PHOSPHORUS 1.6 MG/DL (2.5-4.9); TOTAL BILIRUBIN ADULT 0.4 MG/DL (0.2-1.0); TOTAL PROTEIN 5.6 GM/DL (6.4-8.2)
[2017-06-26 08:00] VITALS: BP 99/57; PULSE 83; RESP 20; TEMP 99.1; O2SAT 95
[2017-06-26] MEDS: GABAPENTIN 300 MG CAP PO SCH ×2 (08:12→19:43)
[2017-06-26] MEDS: ASPIRIN 81 MG CHEW TAB CHEW SCH (08:12)
[2017-06-26] MEDS: ATORVASTATIN 80 MG TAB PO SCH (08:12)
[2017-06-26] MEDS: carBAMazepine 200 MG TAB PO SCH ×2 (08:13→19:45)
[2017-06-26] MEDS: CIPROFLOXACIN 500 MG TAB PO SCH ×2 (08:14→19:44)
[2017-06-26] MEDS: SODIUM CHLORIDE 0.9% FLUSH 10 ML FLUSH IV FLUSH SCH ×2 (08:14→19:44)
[2017-06-26] MEDS: TIOTROPIUM BROMIDE 18 MCG INH INH SCH (08:14)
[2017-06-26] MEDS: ONDANSETRON HCL 4 MG/2 ML VIAL IV PUSH PRN ×2 (09:54→09:56)
[2017-06-26] MEDS ORDERED: CALCIUM CHLORIDE INJ 2 GM in SODIUM CHLORIDE 0.9% INJ 100 ML IV ONE (10:00)
--- NOTE | 2017-06-26 10:07 | HHI.PR ---
Subjective Subjective Notes reports profuse diarrhea, mild nausea, no emesis. tolerating liquids. Objective Vitals/I&O Vital Signs Date Time Temp Pulse Resp B/P (MAP) Pulse Ox O2 Delivery O2 Flow Rate FiO2 06/26/17 08:55 2.00 06/26/17 08:00 99.1 83 20 99/57 (71) 95 06/25/17 21:50 Nasal Cannula Labs Laboratory Tests Test 06/26/17 04:00 White Blood Count 5.6 Red Blood Count 3.21 Hemoglobin 10.7 Hematocrit 31.7 Mean Corpuscular Volume 98.8 Mean Corpuscular Hemoglobin 33.3 Mean Corpuscular Hemoglobin Concent 33.7 Red Cell Distribution Width 13.4 Platelet Count 153 Mean Platelet Volume 7.6 Neutrophils (%) (Auto) 64.6 Lymphocytes (%) (Auto) 24.4 Monocytes (%) (Auto) 10.7 Eosinophils (%) (Auto) 0.0 Basophils (%) (Auto) 0.3 Neutrophils # (Auto) 3.6 Lymphocytes # (Auto) 1.4 Monocytes # (Auto) 0.6 Eosinophils # (Auto) 0.0 Basophils # (Auto) 0.0 CBC Comment DIFF FINAL Differential Comment Blood Urea Nitrogen 15 Creatinine 0.70 Random Glucose 108 Total Protein 5.6 Albumin 2.0 Calcium Level 7.3 Phosphorus Level 1.6 Magnesium Level 2.0 Alkaline Phosphatase 57 Aspartate Amino Transf (AST/SGOT) 30 Alanine Aminotransferase (ALT/SGPT) 29 Total Bilirubin 0.4 Sodium Level 135 Potassium Level 4.6 Chloride Level 104 Carbon Dioxide Level 24.3 Anion Gap 7 Estimat Glomerular Filtration Rate 86 Protein Corrected Calcium 8.1 Date/Time Source Procedure Growth Status 06/20/17 12:55 Urine Clean Catch Urine Culture - Final Escherichia Coli Complete Radiology Last 48 hours Impressions Abdomen X-Ray 06/21/17 0600 Signed Impressions: Service Date/Time: Wednesday, June 21, 2017 06:08 - CONCLUSION: Nonspecific abdomen appearance Trung Forde MD Abdomen/Pelvis CT 06/20/17 0000 Signed Impressions: Service Date/Time: Tuesday, June 20, 2017 14:03 - CONCLUSION: Abnormal small bowel with abrupt transition right lower quadrant There is no ascites Prominent common duct, probably reservoir phenomenon. Nii Bey MD FACR Cardiovascular: Regular Lungs: Clear Abdomen: Non-distended Narrative Exam urostomy RLQ with urine, steri strips intact, wounds clean, john with serous fluid A/P Problem List: (1) Postop check ICD Codes: Z09 - Encounter for follow-up examination after completed treatment for conditions other than malignant neoplasm (2) History of urostomy ICD Codes: Z98.890 - Other specified postprocedural states Status: Chronic (3) Small bowel obstruction ICD Codes: K56.609 - Unspecified intestinal obstruction, unspecified as to partial versus complete obstruction Status: Resolved Assessment and Plan s/p lap DERICK doing well hold on liquids until nausea resolved resume po meds Barrie Matias MD Jun 26, 2017 10:07
[2017-06-26 11:00] VITALS: O2SAT 96
[2017-06-26] MEDS: POTASSIUM PHOSPHATE/SODIUM PHOSPHATE 250 MG TAB PO SCH ×2 (11:08→15:50)
[2017-06-26] MEDS: SERTRALINE HCL 50 MG TAB PO SCH (11:09)
[2017-06-26 12:00] VITALS: BP 109/62; PULSE 88; RESP 20; TEMP 96.9; O2SAT 95
[2017-06-26] MEDS ORDERED: oxyCODONE/ACETAMINOPHEN 5 MG/325 MG TAB PO PRN (14:15)
--- NOTE | 2017-06-26 14:19 | HHI.PR ---
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 Patient states does not feel well, still feels nauseous c/o abdominal pain but denies diarrhea Objective Vitals Vital Signs Date Time Temp Pulse Resp B/P (MAP) Pulse Ox O2 Delivery O2 Flow Rate FiO2 06/26/17 12:00 96.9 88 20 109/62 (78) 95 06/26/17 11:00 96 21 06/26/17 08:55 2.00 06/26/17 08:00 99.1 83 20 99/57 (71) 95 06/26/17 00:00 97.0 92 17 102/60 (74) 93 06/25/17 21:50 Nasal Cannula 3.00 06/25/17 20:36 Nasal Cannula 2.00 06/25/17 20:00 97.3 100 17 107/61 (76) 92 06/25/17 16:00 98.6 90 20 104/60 (75) 95 I/O 06/25/17 06/25/17 06/25/17 06/26/17 06/26/17 06/26/17 07:00 15:00 23:00 07:00 15:00 23:00 Intake Total 1190 ml 0 ml 960 ml 240 ml 120 ml Output Total 50 ml 1075 ml 80 ml 1350 ml Balance 1140 ml 0 ml -115 ml 160 ml -1230 ml Intake Oral 240 ml 0 ml 960 ml 240 ml 120 ml IV Total 950 ml Output Urine Total 1000 ml 1300 ml Drainage Total 50 ml 75 ml 80 ml 50 ml # Voids 2 2 # Bowel Movements 1 Result Diagram: 06/26/17 0400 06/26/17 0400 Objective Remarks AAOx3 Abdomen moderately distended with hypoactive bowel sounds and postop tenderness no edema in legs S1S2 Procedures Status post diagnostic laparoscopy with laparoscopic lysis of adhesions on Medications and IVs Current Medications Medications (Trade) Dose Ordered Sig/Deondre Route Start Time Stop Time Status Last Admin (NS Flush) 2 ml UNSCH PRN IV FLUSH 06/20/17 15:30 06/21/17 05:14 (NS Flush) 2 ml BID IV FLUSH 06/20/17 21:00 06/26/17 08:14 (Duoneb Neb) 1 ampule Q6HR NEB PRN NEB 06/20/17 18:45 (Proair Hfa Inh) 2 puff Q6HR NEB PRN INH 06/21/17 12:00 (Aspirin Chew) 81 mg DAILY CHEW 06/21/17 12:00 06/26/17 08:12 (TEGretol) 400 mg HS PO 06/21/17 21:00 06/25/17 20:31 (Plavix) 75 mg DAILY PO 06/21/17 12:00 Future hold 06/22/17 09:13 (Neurontin) 300 mg BID PO 06/21/17 12:00 06/26/17 08:12 (Zoloft) 50 mg DAILY PO 06/21/17 12:00 Future hold 06/26/17 11:09 (Spiriva Inh) 18 mcg DAILY INH 06/21/17 12:00 06/22/17 09:12 (Melatonin) 10 mg HS PO 06/21/17 21:00 06/25/17 20:31 (TEGretol) 200 mg DAILY PO 06/21/17 12:00 06/26/17 08:13 (Lovenox Inj) 30 mg Q24H SQ 06/21/17 18:00 Future Hold 06/21/17 17:42 (ZyPREXA) 10 mg HS PO 06/21/17 21:00 06/25/17 20:31 (Chloraseptic [place]) 2 spray Q2H PRN OROPHARYNG 06/22/17 07:15 06/22/17 09:11 (Lipitor) 80 mg DAILY PO 06/24/17 09:00 06/26/17 08:12 (Dilaudid Pf Inj) 1 mg Q2H PRN IV PUSH 06/24/17 08:45 06/25/17 16:40 (Ativan Inj) 1 mg Q4H PRN IV PUSH 06/24/17 08:45 06/25/17 15:33 (Toradol Inj) 30 mg Q6H IV PUSH 06/24/17 09:00 06/26/17 08:12 (Zofran Inj) 4 mg Q6HR PRN IV PUSH 06/24/17 08:45 06/26/17 09:56 (Cipro) 500 mg Q12HR PO 06/25/17 14:45 06/26/17 08:14 (K-Phos Neutral) 250 mg Q8H PO 06/26/17 11:00 06/26/17 11:08 A/P Problem List: (1) Small bowel obstruction ICD Code: K56.609 - Unspecified intestinal obstruction, unspecified as to partial versus complete obstruction Status: Resolved (2) UTI (urinary tract infection) ICD Code: N39.0 - Urinary tract infection, site not specified Status: Acute Assessment and Plan 1. Small bowel obstruction Patient was initially treated with NG tube placement. However the patient was still vomiting despite NG tube in place. Gen. surgery consulted. Bowel through exam showed multiple dilated central small bowel loops which could be seen in obstruction versus ileus. The patient was then transferred to the main hospital in [place] for surgical procedure. The patient is status post diagnostic laparoscopy and laparoscopic lysis of adhesions. Continue management as per general surgery. Continue pain control as per general surgery. The patient was kept nothing by mouth initially, except for ice chips. 06/26 Patient advanced to soft diet however feels nauseous. As per GS recommendations hold on liquids until nausea resolves. - Will place back on full liquid diet. 2. Escherichia coli UTI. Continue po Ciprofloxacin. 3. Chronic obstructive pulmonary disease in a chronic smoker - O2 subluxation maintain O2 sats greater 92% - Duo nebs as needed - Incentive spirometry - Advised smoking cessation Seems to be stable. 4. Mood disorders (schizoaffective and anxiety) -Continue all home medications including carbamazepine, gabapentin, sertraline, Zyprexa, melatonin 5. hyperlipidemia, coronary artery disease - Continue home aspirin, Lipitor, Plavix DVT prevention -lovenox - which patient is refusing Discharge Planning Discharge pending general surgery clearance. Km Willima MD Jun 26, 2017 14:19
[2017-06-26] MEDS: oxyCODONE/ACETAMINOPHEN 5 MG/325 MG TAB PO PRN (15:50)
[2017-06-26 16:00] VITALS: BP 133/67; PULSE 83; RESP 20; TEMP 96.9; O2SAT 95
[2017-06-26] MEDS: OLANZapine 5 MG TAB PO SCH (19:43)
[2017-06-26] MEDS: MELATONIN 5 MG TAB PO SCH (19:44)
[2017-06-26 20:00] VITALS: BP 107/59; PULSE 76; RESP 17; TEMP 95.3; O2SAT 94
[2017-06-27] MEDS: POTASSIUM PHOSPHATE/SODIUM PHOSPHATE 250 MG TAB PO SCH ×3 (02:48→17:38)
[2017-06-27] MEDS: KETOROLAC TROMETHAMINE 30 MG/ML (IVP) VIAL IV PUSH SCH ×4 (02:48→20:52)
[2017-06-27] MEDS: oxyCODONE/ACETAMINOPHEN 5 MG/325 MG TAB PO PRN ×5 (03:31→21:44)
[2017-06-27 08:00] VITALS: BP 135/64; PULSE 72; RESP 17; TEMP 96; O2SAT 93
[2017-06-27] MEDS: CIPROFLOXACIN 500 MG TAB PO SCH ×2 (08:52→20:50)
[2017-06-27] MEDS: GABAPENTIN 300 MG CAP PO SCH ×2 (08:53→20:52)
[2017-06-27] MEDS: ASPIRIN 81 MG CHEW TAB CHEW SCH (08:54)
[2017-06-27] MEDS: CLOPIDOGREL 75 MG TAB PO SCH (08:54)
[2017-06-27] MEDS: ATORVASTATIN 80 MG TAB PO SCH (08:54)
[2017-06-27] MEDS: SERTRALINE HCL 50 MG TAB PO SCH (08:55)
[2017-06-27] MEDS: SODIUM CHLORIDE 0.9% FLUSH 10 ML FLUSH IV FLUSH SCH ×2 (08:56→20:52)
[2017-06-27] MEDS: PHENOL 1.4% SOLN 180 ML BTL OROPHARYNG PRN (08:56)
[2017-06-27] MEDS: carBAMazepine 200 MG TAB PO SCH ×2 (08:57→20:52)
[2017-06-27] MEDS: TIOTROPIUM BROMIDE 18 MCG INH INH SCH (10:20)
[2017-06-27] MEDS: ALPRAZolam 0.5 MG TAB PO PRN ×3 (11:31→23:53)
[2017-06-27 12:00] VITALS: BP 118/73; PULSE 62; RESP 17; TEMP 96; O2SAT 99
--- NOTE | 2017-06-27 12:37 | HHI.PR ---
Subjective Subjective Notes Resting in bed Nausea resolved Has been OOB Objective Vitals/I&O Vital Signs Date Time Temp Pulse Resp B/P (MAP) Pulse Ox O2 Delivery O2 Flow Rate FiO2 06/27/17 11:40 21 06/27/17 08:00 96.0 72 17 135/64 (87) 93 06/26/17 08:55 2.00 06/25/17 21:50 Nasal Cannula Labs Date/Time Source Procedure Growth Status 06/20/17 12:55 Urine Clean Catch Urine Culture - Final Escherichia Coli Complete Radiology Last 48 hours Impressions Abdomen X-Ray 06/21/17 0600 Signed Impressions: Service Date/Time: Wednesday, June 21, 2017 06:08 - CONCLUSION: Nonspecific abdomen appearance Trung Forde MD Abdomen/Pelvis CT 06/20/17 0000 Signed Impressions: Service Date/Time: Tuesday, June 20, 2017 14:03 - CONCLUSION: Abnormal small bowel with abrupt transition right lower quadrant There is no ascites Prominent common duct, probably reservoir phenomenon. Nii Bey MD FACR Cardiovascular: Regular Lungs: Clear Abdomen: Other (lap sites c/d/i; abdomen soft; minimaly tender at incision sites; urostomy with clear yellow urine ) Extremities: No edema A/P Problem List: (1) Postop check ICD Codes: Z09 - Encounter for follow-up examination after completed treatment for conditions other than malignant neoplasm (2) History of urostomy ICD Codes: Z98.890 - Other specified postprocedural states Status: Chronic (3) Small bowel obstruction ICD Codes: K56.609 - Unspecified intestinal obstruction, unspecified as to partial versus complete obstruction Status: Resolved Assessment and Plan 61 year old female POD4 laparoscopic DERICK -Advance to regular soft diet -OOB and mobilize -Pain control -Continue all routine home medications Attending Statement patient seen at bedside doing better, nausea improved advance diet diarrhea Attestation The exam, history, and the medical decision-making described in the above note were completed with the assistance of the mid-level provider. I reviewed and agree with the findings presented. I attest that I had a [id number] encounter with the patient on the same day, and personally performed and documented my assessment and findings in the medical record. Ashwini Miguel Jun 27, 2017 12:37 Tonny Gan MD Jun 28, 2017 21:01
--- NOTE | 2017-06-27 14:25 | HHI.PR ---
Subjective Remarks nausea resolved. pain controlled. afebrile stable vital signs tolerating full liquid diet Objective Vitals Vital Signs Date Time Temp Pulse Resp B/P (MAP) Pulse Ox O2 Delivery O2 Flow Rate FiO2 06/27/17 12:00 96.0 62 17 118/73 (88) 99 06/27/17 11:40 21 06/27/17 08:00 96.0 72 17 135/64 (87) 93 06/26/17 20:00 95.3 76 17 107/59 (75) 94 06/26/17 16:00 96.9 83 20 133/67 (89) 95 I/O 06/26/17 06/26/17 06/26/17 06/27/17 06/27/17 06/27/17 07:00 15:00 23:00 07:00 15:00 23:00 Intake Total 240 ml 1240 ml 950 ml 240 ml Output Total 80 ml 1350 ml 1000 ml 90 ml 830 ml Balance 160 ml -110 ml -50 ml 150 ml -830 ml Intake Oral 240 ml 120 ml 950 ml 240 ml IV Total 1120 ml Output Urine Total 1300 ml 1000 ml 750 ml Drainage Total 80 ml 50 ml 90 ml 80 ml # Voids 2 2 # Bowel Movements 1 Result Diagram: 06/26/17 0400 06/26/17 0400 Imaging Last Impressions Small Bowel X-Ray 06/22/17 0000 Signed Impressions: Service Date/Time: Thursday, June 22, 2017 10:44 - CONCLUSION: Multiple dilated central small bowel loops which can be seen with obstruction versus ileus. Onesimo Saenz MD Abdomen X-Ray 06/21/17 0600 Signed Impressions: Service Date/Time: Wednesday, June 21, 2017 06:08 - CONCLUSION: Nonspecific abdomen appearance Trung Forde MD Abdomen/Pelvis CT 06/20/17 0000 Signed Impressions: Service Date/Time: Tuesday, June 20, 2017 14:03 - CONCLUSION: Abnormal small bowel with abrupt transition right lower quadrant There is no ascites Prominent common duct, probably reservoir phenomenon. Nii Bey MD FACR Objective Remarks AAOx3 Abdomen moderately distended with hypoactive bowel sounds and postop tenderness no edema in legs S1S2 Procedures Status post diagnostic laparoscopy with laparoscopic lysis of adhesions on Medications and IVs Current Medications Medications (Trade) Dose Ordered Sig/Deondre Route Start Time Stop Time Status Last Admin (NS Flush) 2 ml UNSCH PRN IV FLUSH 06/20/17 15:30 06/21/17 05:14 (NS Flush) 2 ml BID IV FLUSH 06/20/17 21:00 06/27/17 08:56 (Duoneb Neb) 1 ampule Q6HR NEB PRN NEB 06/20/17 18:45 (Proair Hfa Inh) 2 puff Q6HR NEB PRN INH 06/21/17 12:00 (Aspirin Chew) 81 mg DAILY CHEW 06/21/17 12:00 06/27/17 08:54 (TEGretol) 400 mg HS PO 06/21/17 21:00 06/26/17 19:45 (Plavix) 75 mg DAILY PO 06/21/17 12:00 Future hold 06/27/17 08:54 (Neurontin) 300 mg BID PO 06/21/17 12:00 06/27/17 08:53 (Zoloft) 50 mg DAILY PO 06/21/17 12:00 Future hold 06/27/17 08:55 (Spiriva Inh) 18 mcg DAILY INH 06/21/17 12:00 06/27/17 10:20 (Melatonin) 10 mg HS PO 06/21/17 21:00 06/26/17 19:44 (TEGretol) 200 mg DAILY PO 06/21/17 12:00 06/27/17 08:57 (Lovenox Inj) 30 mg Q24H SQ 06/21/17 18:00 Future Hold 06/21/17 17:42 (ZyPREXA) 10 mg HS PO 06/21/17 21:00 06/26/17 19:43 (Chloraseptic [place]) 2 spray Q2H PRN OROPHARYNG 06/22/17 07:15 06/27/17 08:56 (Lipitor) 80 mg DAILY PO 06/24/17 09:00 06/27/17 08:54 (Toradol Inj) 30 mg Q6H IV PUSH 06/24/17 09:00 06/27/17 08:56 (Zofran Inj) 4 mg Q6HR PRN IV PUSH 06/24/17 08:45 06/26/17 09:56 (Cipro) 500 mg Q12HR PO 06/25/17 14:45 06/27/17 08:52 (K-Phos Neutral) 250 mg Q8H PO 06/26/17 11:00 06/27/17 11:24 (Xanax) 0.5 mg Q6H PRN PO 06/26/17 14:15 06/27/17 11:31 (Percocet 5-325 Mg) 1 tab Q4H PRN PO 06/26/17 14:15 06/26/17 21:51 (Percocet 5-325 Mg) 2 tab Q4H PRN PO 06/26/17 14:15 06/27/17 13:33 Urinary Catheter: No Vascular Central Line Catheter: No A/P Problem List: (1) Small bowel obstruction ICD Code: K56.609 - Unspecified intestinal obstruction, unspecified as to partial versus complete obstruction Status: Resolved (2) UTI (urinary tract infection) ICD Code: N39.0 - Urinary tract infection, site not specified Status: Acute Assessment and Plan 1. Small bowel obstruction Patient was initially treated with NG tube placement. However the patient was still vomiting despite NG tube in place. Gen. surgery consulted. Bowel through exam showed multiple dilated central small bowel loops which could be seen in obstruction versus ileus. The patient was then transferred to the main hospital in [place] for surgical procedure. The patient is status post diagnostic laparoscopy and laparoscopic lysis of adhesions. Continue management as per general surgery. Continue pain control as per general surgery. The patient was kept nothing by mouth initially, except for ice chips. 06/26 Patient advanced to soft diet however feels nauseous. As per GS recommendations hold on liquids until nausea resolves. - Will place back on full liquid diet. 06/27 ADAT - advanced to soft diet which patient is tolerating. Case discussed with callum Pitts Dc in am. 2. Escherichia coli UTI. Continue po Ciprofloxacin. 3. Chronic obstructive pulmonary disease in a chronic smoker - O2 subluxation maintain O2 sats greater 92% - Duo nebs as needed - Incentive spirometry - Advised smoking cessation Seems to be stable. 4. Mood disorders (schizoaffective and anxiety) -Continue all home medications including carbamazepine, gabapentin, sertraline, Zyprexa, melatonin 5. hyperlipidemia, coronary artery disease - Continue home aspirin, Lipitor, Plavix DVT prevention -lovenox - which patient is refusing Discharge Planning Dc in am. Km William MD Jun 27, 2017 14:25
[2017-06-27 16:00] VITALS: BP 152/92; PULSE 75; RESP 17; TEMP 95.2; O2SAT 92
[2017-06-27] MEDS: ONDANSETRON HCL 4 MG/2 ML VIAL IV PUSH PRN (17:09)
[2017-06-27] MEDS: MELATONIN 5 MG TAB PO SCH (20:50)
[2017-06-27 20:52] VITALS: BP 116/66; PULSE 70; RESP 18; TEMP 96.6; O2SAT 94
[2017-06-27] MEDS: OLANZapine 5 MG TAB PO SCH (20:53)
[2017-06-28 00:45] VITALS: BP 102/61; PULSE 80; RESP 16; TEMP 96.3; O2SAT 97
[2017-06-28] MEDS: POTASSIUM PHOSPHATE/SODIUM PHOSPHATE 250 MG TAB PO SCH ×2 (04:39→09:26)
[2017-06-28] MEDS: oxyCODONE/ACETAMINOPHEN 5 MG/325 MG TAB PO PRN ×3 (04:39→14:41)
[2017-06-28] MEDS: KETOROLAC TROMETHAMINE 30 MG/ML (IVP) VIAL IV PUSH SCH ×3 (04:41→15:00)
--- NOTE | 2017-06-28 07:55 | HHI.PR ---
Subjective Subjective Notes mild nausea, no vomiting, +soft bms Objective Vitals/I&O Vital Signs Date Time Temp Pulse Resp B/P (MAP) Pulse Ox O2 Delivery O2 Flow Rate FiO2 06/28/17 00:45 96.3 80 16 102/61 (75) 97 06/27/17 11:40 21 06/26/17 08:55 2.00 06/25/17 21:50 Nasal Cannula Labs Date/Time Source Procedure Growth Status 06/20/17 12:55 Urine Clean Catch Urine Culture - Final Escherichia Coli Complete Radiology Last 48 hours Impressions Abdomen X-Ray 06/21/17 0600 Signed Impressions: Service Date/Time: Wednesday, June 21, 2017 06:08 - CONCLUSION: Nonspecific abdomen appearance Trung Forde MD Abdomen/Pelvis CT 06/20/17 0000 Signed Impressions: Service Date/Time: Tuesday, June 20, 2017 14:03 - CONCLUSION: Abnormal small bowel with abrupt transition right lower quadrant There is no ascites Prominent common duct, probably reservoir phenomenon. Nii Bey MD FACR Abdomen: Other (incisional tenderness) A/P Problem List: (1) Postop check ICD Codes: Z09 - Encounter for follow-up examination after completed treatment for conditions other than malignant neoplasm (2) History of urostomy ICD Codes: Z98.890 - Other specified postprocedural states Status: Chronic (3) Small bowel obstruction ICD Codes: K56.609 - Unspecified intestinal obstruction, unspecified as to partial versus complete obstruction Status: Resolved Assessment and Plan s/p dx lap, DERICK POD 5 doing well plan ok for diet oob bowel regimen d/c home today f/u 1 week Tonny Gan MD Jun 28, 2017 07:55
[2017-06-28 08:00] VITALS: BP 114/61; PULSE 60; RESP 20; TEMP 96.9; O2SAT 94
--- NOTE | 2017-06-28 09:05 | HHI.PR ---
Subjective Subjective Notes Up to chair eating breakfast Objective Vitals/I&O Vital Signs Date Time Temp Pulse Resp B/P (MAP) Pulse Ox O2 Delivery O2 Flow Rate FiO2 06/28/17 08:00 96.9 60 20 114/61 (78) 94 06/27/17 11:40 21 06/26/17 08:55 2.00 06/25/17 21:50 Nasal Cannula Labs Date/Time Source Procedure Growth Status 06/20/17 12:55 Urine Clean Catch Urine Culture - Final Escherichia Coli Complete Radiology Last 48 hours Impressions Abdomen X-Ray 06/21/17 0600 Signed Impressions: Service Date/Time: Wednesday, June 21, 2017 06:08 - CONCLUSION: Nonspecific abdomen appearance Trung Forde MD Abdomen/Pelvis CT 06/20/17 0000 Signed Impressions: Service Date/Time: Tuesday, June 20, 2017 14:03 - CONCLUSION: Abnormal small bowel with abrupt transition right lower quadrant There is no ascites Prominent common duct, probably reservoir phenomenon. Nii Bey MD FACR Cardiovascular: Regular Lungs: Clear Abdomen: Other (lap sites c/d/i; abdomen soft non tender; urostomy in place without complications ) Extremities: No edema A/P Problem List: (1) Postop check ICD Codes: Z09 - Encounter for follow-up examination after completed treatment for conditions other than malignant neoplasm (2) History of urostomy ICD Codes: Z98.890 - Other specified postprocedural states Status: Chronic (3) Small bowel obstruction ICD Codes: K56.609 - Unspecified intestinal obstruction, unspecified as to partial versus complete obstruction Status: Resolved Assessment and Plan 61 year old female POD5 laparoscopic DERICK -Tolerating regular diet -DUC out -OOB and mobilize -Pain control -Continue all routine home medications -Okay to shower; pat incisions dry -GS clear for DC; follow up 1 week; no heavy pulling pushing or lifting Attending Statement patient seen at bedside pain better having bowel fxn minimal nausea otherwise tolerating po Attestation The exam, history, and the medical decision-making described in the above note were completed with the assistance of the mid-level provider. I reviewed and agree with the findings presented. I attest that I had a [id number] encounter with the patient on the same day, and personally performed and documented my assessment and findings in the medical record. Ashwini Miguel Jun 28, 2017 09:05 Tonny Gan MD Jun 28, 2017 21:43
[2017-06-28] MEDS: GABAPENTIN 300 MG CAP PO SCH (09:26)
[2017-06-28] MEDS: ALPRAZolam 0.5 MG TAB PO PRN (09:26)
[2017-06-28] MEDS: SERTRALINE HCL 50 MG TAB PO SCH (09:27)
[2017-06-28] MEDS: CIPROFLOXACIN 500 MG TAB PO SCH (09:27)
[2017-06-28] MEDS: carBAMazepine 200 MG TAB PO SCH (09:28)
[2017-06-28] MEDS: ASPIRIN 81 MG CHEW TAB CHEW SCH (09:28)
[2017-06-28] MEDS: ATORVASTATIN 80 MG TAB PO SCH (09:28)
[2017-06-28] MEDS: TIOTROPIUM BROMIDE 18 MCG INH INH SCH (09:30)
[2017-06-28] MEDS: CLOPIDOGREL 75 MG TAB PO SCH (09:30)
[2017-06-28] MEDS: SODIUM CHLORIDE 0.9% FLUSH 10 ML FLUSH IV FLUSH SCH (09:31)
--- NOTE | 2017-06-28 09:59 | HHI.FF ---
Face to Face Verification Diagnosis: (1) Small bowel obstruction Home Health Nursing Order: Wound care and dressing changes Instructions: Urostomy care and teaching daily Care of laparoscopic incision sites daily I have seen patient Celia Dobbs on 06/28/17. My clinical findings support the need for the requested home health care services because: Limited ability to care for self High risk of falls I certify that my clinical findings support that this patient is homebound because: Post-op weakness Ashwini Miguel Jun 28, 2017 09:58
[2017-06-28 12:00] VITALS: BP 114/62; PULSE 66; RESP 19; TEMP 96.9; O2SAT 96
--- NOTE | 2017-06-28 15:26 | HHI.DS ---
Discharge Summary Admission Date Jun 20, 2017 at 15:32 Discharge Date: Jun 28, 2017 Admitting Diagnosis SMALL BOWEL OBSTRUCTION (1) Small bowel obstruction ICD Code: K56.609 - Unspecified intestinal obstruction, unspecified as to partial versus complete obstruction Status: Resolved (2) UTI (urinary tract infection) ICD Code: N39.0 - Urinary tract infection, site not specified Status: Acute Procedures Status post diagnostic laparoscopy with laparoscopic lysis of adhesions on Brief History - From Admission Written by Papa Tariq, acting as scribe for Dr. Lo on 06/20/17 at 18:28. 61-year-old female with known history of chronic obstructive pulmonary disease, history of IV drug use, history of bladder cancer with urostomy, history of bowel obstruction, schizoaffective disorder, hepatitis B and C, history of myocardial infarction, hypertension, hyperlipidemia, coronary artery disease who presented to the hospital because acute onset abdominal pain. Patient states that she is doing well until last night when she got a sudden onset of epigastric abdominal pain. Which she describes as a burning type pain 10/10 on a pain scale and she indicated it was a rather constant crescendo type discomfort where the pain would go down to a 5/10 on a pain scale. Patient states that it started after she ate dinner last night. she vomited 2-3 times which made the pain worse. She forced herself to have a bowel movement this morning to see if the pain would improve, however she only had a small amount of stool without any relief. the pain is worse whenever she lies down. It does improve whenever she sits up. she does have slow bowels and only has a bowel movement every 2-3 days, if she drinks coffee that she'll have daily bowel movements. Patient states that she felt hot with chills. She denies any hematochezia, hematemesis, melena, diarrhea, chest pain, shortness of breath, dyspnea. Patient had workup done CT shows small bowel obstruction with transition point. It was requested by the ER physician the patient be admitted for further evaluation. CBC/BMP: 06/26/17 0400 06/26/17 0400 Significant Findings Laboratory Tests Test 06/26/17 04:00 Red Blood Count 3.21 MIL/MM3 (4.00-5.30) Hemoglobin 10.7 GM/DL (11.6-15.3) Hematocrit 31.7 % (35.0-46.0) Monocytes (%) (Auto) 10.7 % (0.0-8.0) Random Glucose 108 MG/DL (74-106) Total Protein 5.6 GM/DL (6.4-8.2) Albumin 2.0 GM/DL (3.4-5.0) Calcium Level 7.3 MG/DL (8.5-10.1) Phosphorus Level 1.6 MG/DL (2.5-4.9) Sodium Level 135 MEQ/L (136-145) Estimat Glomerular Filtration Rate 86 ML/MIN (>89) Protein Corrected Calcium 8.1 MG/DL (8.5-10.1) PE at Discharge AAOx3 Abdomen moderately distended with hypoactive bowel sounds and postop tenderness no edema in legs S1S2 Pt Condition on Discharge: Stable Discharge Disposition: Discharge Home Discharge Time: > 30 minutes Discharge Instructions DIET: Follow Instructions for: As Tolerated, No Restrictions Activities you can perform: Regular-No Restrictions Activities to Avoid: Lifting/Bending, Weight Bearing, Prolonged Standing, Strenuous Activity Follow up Referrals: Surgical - 1 Week with Tonny Gan MD Continued Medications: Albuterol 8.5 GM Inh (Proair Hfa 8.5 GM Inh) 90 Mcg/Act Aer 2 PUFF INH DIRECTED PRN for SHORTNESS OF BREATH, #1 INHALER 0 Refills 108 mcg/actuation Aspirin (Aspirin Children's) 81 Mg Chew 81 MG CHEW DAILY, TAB 0 Refills Atorvastatin (Atorvastatin) 80 Mg Tab 80 MG PO DAILY for Cholesterol Management, #30 TAB 0 Refills Carbamazepine (Tegretol) 200 Mg Tab 200 MG PO DAILY IN THE MORNING, #60 TAB 0 Refills Carbamazepine (Tegretol) 200 Mg Tab 400 MG PO HS, #60 TAB 0 Refills Clopidogrel (Plavix) 75 Mg Tab 75 MG PO DAILY for Blood Clot Prevention, #30 TAB 0 Refills Diazepam (Valium) 5 Mg Tab 5 MG PO TID PRN for ANXIETY, TAB 0 Refills Gabapentin (Gabapentin) 300 Mg Cap 300 MG PO BID, #60 CAP 0 Refills Melatonin (Melatonin Gummies) 2.5 Mg Chw 10 MG PO HS Olanzapine (Olanzapine) 10 Mg Tab 10 MG PO HS, #30 TAB 0 Refills Pantoprazole (Pantoprazole) 40 Mg Tab 40 MG PO DAILY for Reflux, #30 TAB 0 Refills Sertraline (Zoloft) 50 Mg Tab 50 MG PO DAILY, #30 TAB 0 Refills Tiotropium Inh (Spiriva Handihaler) 18 Mcg Cap 18 MCG INH DAILY for COPD, #30 CAP 0 Refills 1 capsule = 18 mcg Km William MD Jun 28, 2017 15:26
[2017-06-28] MEDS ORDERED: OXYC1TAB63 PO (15:44)
== END 2017-06-28 16:41 | disposition home or self-care (01) | DRG 336 ==
LOC: PHED 12:19 → PHEDA 15:32 → PH3B 17:37 → N07B 06-22 20:09
PROVIDERS: ADMIT Hospitalist; ATTEND Hospitalist
PROC: 0DN84ZZ Release Small Intestine, Percutaneous Endoscopic Approach (ICD-10-PCS; principal; 2017-06-24)
DX: K56.699 Other intestinal obstruction unspecified as to partial versus complete obstruction (principal); N39.0 Urinary tract infection, site not specified; B19.10 Unspecified viral hepatitis B without hepatic coma; I10 Essential (primary) hypertension; F25.9 Schizoaffective disorder, unspecified; N73.6 Female pelvic peritoneal adhesions (postinfective); B96.20 Unspecified Escherichia coli [E. coli] as the cause of diseases classified elsewhere; E78.5 Hyperlipidemia, unspecified; I25.10 Atherosclerotic heart disease of native coronary artery without angina pectoris; I25.2 Old myocardial infarction; J44.9 Chronic obstructive pulmonary disease, unspecified; F31.9 Bipolar disorder, unspecified; B19.20 Unspecified viral hepatitis C without hepatic coma; Z85.51 Personal history of malignant neoplasm of bladder; F17.200 Nicotine dependence, unspecified, uncomplicated; F41.8 Other specified anxiety disorders; Z79.02 Long term (current) use of antithrombotics/antiplatelets; Z79.82 Long term (current) use of aspirin; Z95.5 Presence of coronary angioplasty implant and graft; Z93.6 Other artificial openings of urinary tract status
CPT/HCPCS: 74020; 74177; 74250; 76937; 80048; 80053; 81001; 82805; 83690; 83735; 84100; 84484; 85025; 85610; 85730; 87077; 87086; 87186; 93005; 94150; 96361; 96374; 96375; C9113; J0131; J0744; J1170; J1650; J1885; J2060; J2270; J2405; J2543; J2550; J3480; J7030; J7120; Q9963; Q9967

== ENCOUNTER 2017-07-05 12:33 | Emergency (ER) | payer MEDICAID ==
[~2017-07-05 12:33] MED LIST changes: -BACL10TA PO; +DIAZ5 PO; +OLAN10TA PO; -OLAN20TA PO; -OLAN5TAB PO; +OXYC1TAB63 PO; +SPIRCAP INH; +ZOLO50TA PO
[2017-07-05 12:36] VITALS: BP 133/79; PULSE 102; RESP 24; TEMP 97.8; O2SAT 95
[2017-07-05 13:31] LABS: BASOPHIL % 0.3 % (0.0-2.0); HEMATOCRIT 38.1 % (35.0-46.0); HEMO FLAGS DIFF FINAL; LYMPH % 19.6 % (9.0-44.0); LYMPHOCYTE # 1.6 TH/MM3 (1.0-4.8); MEAN CELL VOLUME 97.1 FL (80.0-100.0); MEAN CORPUSCULAR HEMOGLOBIN 33.6 PG (27.0-34.0); MEAN CORPUSCULAR HGB CONC 34.6 % (32.0-36.0); MONO % 4.1 % (0.0-8.0); PLATELET COUNT 561 TH/MM3 (150-450); RED BLOOD COUNT 3.92 MIL/MM3 (4.00-5.30); RED CELL DISTRIBUTION WIDTH 13.2 % (11.6-17.2); WHITE BLOOD COUNT 7.9 TH/MM3 (4.0-11.0)
[2017-07-05 13:34] LABS: BACTERIA, URINE FEW /hpf; BLOOD, URINE NEG (NEG); GLUCOSE,URINE NEG (NEG); KETONE, URINE NEG (NEG); NITRITE,URINE POS (NEG); PH, URINE 6.5 (5.0-8.5); URINE COLOR YELLOW (YELLW/STRAW)
[2017-07-05 13:35] LABS: COMMENT (UR) CULTURE INDICATED; CULTURE IF INDICATED CULTURE INDICATED
[2017-07-05 13:46] LABS: APTT (PATIENT) 36.3 SEC (24.3-30.1); PROTHROMBIN TIME - PATIENT 11.2 SEC (9.8-11.6)
[2017-07-05 13:50] LABS: ANION GAP 8 MEQ/L (5-15); AST (GOT) 99 U/L (15-37); BICARBONATE 26.3 MEQ/L (21.0-32.0); BLOOD UREA NITROGEN 6 MG/DL (7-18); CHLORIDE 107 MEQ/L (98-107); GLOMERULAR FILTRATION RATE 100 ML/MIN (>89); POTASSIUM 3.7 MEQ/L (3.5-5.1); SODIUM (NA) 141 MEQ/L (136-145)
[2017-07-05 13:52] LABS: ALKALINE PHOSPHATASE 144 U/L (45-117); ALT (GPT) 46 U/L (10-53); TOTAL BILIRUBIN ADULT 0.3 MG/DL (0.2-1.0)
--- NOTE | 2017-07-05 14:21 | RADRPT ---
EXAM DATE/TIME: 07/05/2017 13:19 [facility] COMPARISON: CT ABDOMEN & PELVIS W CONTRAST, June 20, 2017, 14:03. SMALL BOWEL SERIES W/GASTROGRAFIN, June 22, 2017, 10:44. INDICATIONS : Severe abdominal pain, had surgery on 06/23/17 for small bowel obstruction, started a small bowel seri es at [facility] today and was sent home with instructions to return this afternoon, patient was then advise d by her surgeon to come to the ER. MEDICAL HISTORY : bladder ca, SBO SURGICAL HISTORY : urostomy, repair of small bowel obstruction ENCOUNTER: Initial ACUITY: 1 day PAIN SCORE: 10/10 LOCATION: Bilateral abdomen FINDINGS: A single upright view of the abdomen was obtained. Patient was an outpatient facility today ([facility]) for small bowel follow-through examination. However, she left during the examina tion and subsequently return to the emergency room. The current examination demonstrates progression of contrast since the outpatient study earlier today . The jejunum and ileum are mildly dilated with a few small air-fluid levels identified. Contrast has not yet reached the colon but is likely within the distal ileum in the right pelvis. There is no dayne e intraperitoneal air. Cholecystectomy clips are present. Clips overlie the right pelvis. Lung bases are clear. CONCLUSION: Delay transit time with mildly dilated small bowel with a few air-fluid levels. The small bowel, dejesus afshan, is less dilated than present on the 06/22/2017 examination. Given the appearance and delay transi t time findings are suspicious for partial obstruction but suggest additional followup x-ray to docum ent contrast progression into the colon. Trung Arredondo MD on July 05, 2017 at 14:08 Board Certified Radiologist. This report was verified electronically.
[2017-07-05] MEDS ORDERED: MECL-62 PO (14:36)
[2017-07-05] MEDS ORDERED: ONDANSETRON HCL 4 MG/2 ML VIAL IVP ONE (14:45)
[2017-07-05] MEDS ORDERED: SODIUM CHLOR 0.9% 1000 ML INJ 1,000 ML IV ONE (14:45)
[2017-07-05] MEDS ORDERED: MORPHINE SULFATE 4 MG/ML INJ IV PUSH ONE (14:45)
[2017-07-05] MEDS ORDERED: SODIUM CHLORIDE 0.9% FLUSH 10 ML FLUSH IV FLUSH PRN (14:45)
--- NOTE | 2017-07-05 14:56 | PD ---
HPI Chief Complaint: Abdominal Pain Time Seen by Provider: 14:33 Travel History International Travel<30 days: No Contact w/Intl Traveler<30days: No Traveled to known affect area: No History of Present Illness HPI 62-year-old female with PMH of COPD, IVDA, bladder CA status post urostomy, small bowel obstruction, schizoaffective, hepatitis B and C, OR, HTN, his LD, CAD, exploratory laparoscopy with lysis of adhesions on 06/[address] Pipo Gan presents to the ED for evaluation of abdominal pain. The patient endorses constipation, states that she has only had a few small bowel movements since the surgery, last bowel movement last night, small as compared to normal. She endorses passing a small amount of gas overnight. She took a stool softener overnight endorses several episodes of NBNB diarrhea today. She denies fever, chills, nausea, vomiting, back pain. She saw Dr. Gan 3 days ago and was ordered to have a barium swallow today. She states that she went for the initial testing but did not return. Instead she called Dr. Gan's office and was instructed to come to the ED. PFSH Past Medical History Hx Anticoagulant Therapy: Yes ADHD: Yes Arthritis: Yes Asthma: No Autoimmune Disease: No Bipolar Disorder: Yes Anxiety: Yes Depression: Yes Heart Rhythm Problems: Yes (MURMUR) Cancer: Yes (BLADDER CA ) Cardiovascular Problems: Yes (CAD, OR) High Cholesterol: Yes Chemotherapy: Yes (20 YEARS AGO FINISHED ) Chest Pain: Yes Congestive Heart Failure: No COPD: Yes Coronary Artery Disease: Yes Diabetes: No Diminished Hearing: No Endocrine: No Gastrointestinal Disorders: Yes (IS ON MEDICATION FOR REFLUX) GERD: Yes Genitourinary: Yes (BLADDER CA ) Headaches: No Hepatitis: Yes (HEP B AND C treated) Hiatal Hernia: No Hypertension: Yes Immune Disorder: Yes (HEP B/'C) Implanted Vascular Access Dvce: Yes Musculoskeletal: Yes (MULTIPLE MUSCULOSKELTAL INJURIES) Neurologic: Yes (VERTIGO FOR THE PAST FEW MONTHS ) Psychiatric: Yes Reproductive: No Respiratory: Yes (COPD) Radiation Therapy: No Schizophrenia: Yes (schizo-affective disorder) Seizures: No Sleep Apnea: No Ulcer: No Influenza Vaccination: No Menopausal: Yes Dilation and Curettage (D&C): Yes Past Surgical History Abdominal Surgery: Yes (CHOLESCYSTECTOMY ) Cardiac Surgery: No Cholecystectomy: Yes Coronary Stent: Yes (x2) Ear Surgery: No Endocrine Surgery: No Eye Surgery: No Genitourinary Surgery: Yes (UROSTOMY-BLADDER CANCER) Gynecologic Surgery: Yes (TOTAL HYSTERECTOMY ) Hysterectomy: Yes (OVARECTOMY) Neurologic Surgery: No Oral Surgery: Yes (ALL TEETH REMOVED ) Thoracic Surgery: Yes (port in and out) Other Surgery: Yes (ILEOSTOMY) Social History Alcohol Use: No Tobacco Use: Yes ( 1 PPD) Substance Use: No Allergies-Medications (Allergen,Severity, Reaction): Coded Allergies: amcinonide (Unverified Allergy, Severe, 07/05/17) beclomethasone (Unverified Allergy, Severe, 07/05/17) betamethasone (Unverified Allergy, Severe, 07/05/17) codeine (Unverified Allergy, Severe, 07/05/17) desoximetasone (Unverified Allergy, Severe, 07/05/17) dexamethasone (Unverified Allergy, Severe, 07/05/17) fludrocortisone (Unverified Allergy, Severe, 07/05/17) flunisolide (Unverified Allergy, Severe, 07/05/17) fluocinolone acetonide (Unverified Allergy, Severe, 07/05/17) fluocinonide (Unverified Allergy, Severe, 07/05/17) fluorometholone (Unverified Allergy, Severe, 07/05/17) flurandrenolide (Unverified Allergy, Severe, 07/05/17) fluticasone (Unverified Allergy, Severe, 07/05/17) fluticasone furoate (Unverified Allergy, Severe, 07/05/17) hydrocortisone (Unverified Allergy, Severe, 07/05/17) methylprednisolone (Unverified Allergy, Severe, 07/05/17) mometasone furoate (Unverified Allergy, Severe, 07/05/17) prednisolone (Unverified Allergy, Severe, 07/05/17) prednisone (Unverified Allergy, Severe, 07/05/17) triamcinolone (Unverified Allergy, Severe, 07/05/17) Uncoded Allergies: ANTIHISTIMINES (Allergy, Mild, MANIC, 11/15/06) Reported Meds & Prescriptions Reported Meds & Active Scripts Active Oxycodone-Acetaminophen 5-325 (Oxycodone HCl/Acetaminophen) 5 Mg-325 Mg Tablet 5 Mg PO Q6HR Macrobid (Nitrofurantoin Monoh/Nitrofur Macro) 100 Mg Cap 100 Mg PO BID 7 Days Oxycodone-Acetaminophen 5-325 mg Tab 1 Tab PO Q4H PRN Reported Meclizine (Meclizine HCl) 25 Mg Tab 25 Mg PO TID PRN Spiriva Handihaler (Tiotropium Inh) 18 Mcg Cap 18 Mcg INH DAILY 1 capsule = 18 mcg Valium (Diazepam) 5 Mg Tab 5 Mg PO TID PRN Olanzapine 10 Mg Tab 10 Mg PO HS Zoloft (Sertraline HCl) 50 Mg Tab 50 Mg PO DAILY Proair Hfa 8.5 GM Inh (Albuterol Sulfate) 90 Mcg/Act Aer 2 Puff INH DIRECTED PRN 108 mcg/actuation Atorvastatin (Atorvastatin Calcium) 80 Mg Tab 80 Mg PO DAILY Melatonin Gummies (Melatonin) 2.5 Mg Chw 10 Mg PO HS Plavix (Clopidogrel Bisulfate) 75 Mg Tab 75 Mg PO DAILY Aspirin Children's (Aspirin) 81 Mg Chew 81 Mg CHEW DAILY Gabapentin 300 Mg Cap 300 Mg PO BID Tegretol (Carbamazepine) 200 Mg Tab 400 Mg PO HS Tegretol (Carbamazepine) 200 Mg Tab 200 Mg PO DAILY IN THE MORNING Pantoprazole (Pantoprazole Sodium) 40 Mg Tab 40 Mg PO DAILY Review of Systems Except as stated in HPI: all other systems reviewed are Neg Physical Exam Narrative GENERAL: Frail, chronically ill-appearing white female in no acute distress. SKIN: Focused skin assessment warm/dry. HEAD: Normocephalic. EYES: No scleral icterus. No injection or drainage. NECK: Supple, trachea midline. No JVD or lymphadenopathy. CARDIOVASCULAR: Regular rate and rhythm without murmurs, gallops, or rubs. RESPIRATORY: Breath sounds equal bilaterally. No accessory muscle use. GASTROINTESTINAL: Abdomen soft, nondistended. Hypoactive bowel sounds. Grossly tender to palpation. However I removed the patient's urostomy bag and she was able to sit up and pressed the bag back onto the appliance with no mention of abdominal pain. MUSCULOSKELETAL: No cyanosis, or edema. BACK: Nontender without obvious deformity. No CVA tenderness. Data Data Last Documented VS Vital Signs Date Time Temp Pulse Resp B/P (MAP) Pulse Ox O2 Delivery O2 Flow Rate FiO2 11/14/17 20:09 07/05/17 18:48 72 17 96 Room Air 07/05/17 12:36 97.8 Orders Orders Complete Blood Count With Diff (07/05/17 12:44) Comprehensive Metabolic Panel (07/05/17 12:44) Prothrombin Time / Inr (Pt) (07/05/17 12:44) Act Partial Throm Time (Ptt) (07/05/17 12:44) Urinalysis - C+S If Indicated (07/05/17 12:44) Electrocardiogram (07/05/17 12:44) Abdomen, Upright Only (07/05/17 12:44) Urine Culture (07/05/17 13:10) Iv Access Insert/Monitor (07/05/17 14:33) Ecg Monitoring (07/05/17 14:33) Oximetry (07/05/17 14:33) NPO (07/05/17 14:33) Morphine Inj (Morphine Inj) (07/05/17 14:45) Ondansetron Inj (Zofran Inj) (07/05/17 14:45) Sodium Chloride 0.9% Flush (Ns Flush) (07/05/17 14:45) Sodium Chlor 0.9% 1000 Ml Inj (Ns 1000 M (07/05/17 14:45) Lactic Acid (07/05/17 14:33) Vascular Access Team Consult/P PRN (07/05/17 15:00) Vascular Poc Ultrasound (07/05/17 ) Abdomen, Upright Only (07/05/17 16:30) Nitrofurantoin Monohyd Macrocr (Macrobid (07/05/17 18:15) Ed Discharge Order (07/05/17 19:20) Labs Laboratory Tests Test 07/05/17 13:10 07/05/17 15:30 White Blood Count 7.9 TH/MM3 Red Blood Count 3.92 MIL/MM3 Hemoglobin 13.2 GM/DL Hematocrit 38.1 % Mean Corpuscular Volume 97.1 FL Mean Corpuscular Hemoglobin 33.6 PG Mean Corpuscular Hemoglobin Concent 34.6 % Red Cell Distribution Width 13.2 % Platelet Count 561 TH/MM3 Mean Platelet Volume 6.7 FL Neutrophils (%) (Auto) 76.0 % Lymphocytes (%) (Auto) 19.6 % Monocytes (%) (Auto) 4.1 % Eosinophils (%) (Auto) 0.0 % Basophils (%) (Auto) 0.3 % Neutrophils # (Auto) 6.0 TH/MM3 Lymphocytes # (Auto) 1.6 TH/MM3 Monocytes # (Auto) 0.3 TH/MM3 Eosinophils # (Auto) 0.0 TH/MM3 Basophils # (Auto) 0.0 TH/MM3 CBC Comment DIFF FINAL Differential Comment Prothrombin Time 11.2 SEC Prothromb Time International Ratio 1.0 RATIO Activated Partial Thromboplast Time 36.3 SEC Urine Color YELLOW Urine Turbidity CLEAR Urine pH 6.5 Urine Specific [place] 1.011 Urine Protein NEG mg/dL Urine Glucose (UA) NEG mg/dL Urine Ketones NEG mg/dL Urine Occult Blood NEG Urine Nitrite POS Urine Bilirubin NEG Urine Urobilinogen LESS THAN 2.0 MG/DL Urine Leukocyte Esterase SMALL Urine RBC 1 /hpf Urine WBC 6 /hpf Urine Bacteria FEW /hpf Microscopic Urinalysis Comment CULTURE INDICATED Blood Urea Nitrogen 6 MG/DL Creatinine 0.61 MG/DL Random Glucose 104 MG/DL Total Protein 7.5 GM/DL Albumin 3.1 GM/DL Calcium Level 8.7 MG/DL Alkaline Phosphatase 144 U/L Aspartate Amino Transf (AST/SGOT) 99 U/L Alanine Aminotransferase (ALT/SGPT) 46 U/L Total Bilirubin 0.3 MG/DL Sodium Level 141 MEQ/L Potassium Level 3.7 MEQ/L Chloride Level 107 MEQ/L Carbon Dioxide Level 26.3 MEQ/L Anion Gap 8 MEQ/L Estimat Glomerular Filtration Rate 100 ML/MIN Lactic Acid Level 1.0 mmol/L [facility] Medical Decision Making Medical Screen Exam Complete: Yes Emergency Medical Condition: Yes Differential Diagnosis Paralytic ileus versus Small bowel obstruction versus UTI versus drug seeking behavior versus other Narrative Course 62-year-old female with PMH of COPD, IVDA, bladder CA status post urostomy, small bowel obstruction, schizoaffective, hepatitis B and C, OR, HTN, HLD, CAD, exploratory laparoscopy with lysis of adhesions on 06/[address] Tonny Gan presents to the ED for evaluation of abdominal pain. The patient endorses constipation, states that she has only had a few small bowel movements since the surgery, last bowel movement last night, small as compared to normal. She endorses passing a small amount of gas overnight. She took a stool softener overnight endorses several episodes of NBNB diarrhea today. She denies fever, chills, nausea, vomiting, back pain. She saw Dr. Gan 3 days ago and was ordered to have a barium swallow today. She went for the initial testing but did not return. Instead she called Dr. Gan's office and was instructed to come to the ED. Patient's tachycardic on presentation but this resolves during the course of evaluation. On exam the patient is anxious and initially endorses diffuse abdominal pain, however when I removed her urostomy bag she was able to press it back into place with no pain. IV was established. Patient was administered 4 mg morphine, 4 mg Zofran, 1 L normal saline IV. EKG rate 83, sinus rhythm. KS interval 142, QRS 86, QTc 442. Normal axis. No acute ST changes. Reviewed by Dr. Durán. CBC reveals no leukocytosis. Lactic acid normal. Mild elevation of AST. No right upper quadrant tenderness on exam. UA: Nitrate positive. On initial upright x-ray reveals air fluid levels suspicious for partial obstruction. Repeat x-ray reveals no free air, contrast present within the bowel, potentially within the colon per radiology read. On reexamination the patient is sitting up in bed, chatting with her bedside visit her. She states that her abdominal pain has improved greatly. I think that she'll be able to be discharged with treatment for her UTI. I spoke with Dr. Gan regarding the findings of the workup and he is agreeable to this plan. Patient's provided a short course of narcotic pain medications. She is instructed to resume Zofran as needed. She was prescribed Macrobid 100 mg twice a day 7 days, first dose administered in the ED. She was given strict return instructions. She has scheduled follow-up with Dr. Gan on Tuesday. She is stable and discharged home. Diagnosis Primary Impression: Abdominal pain Qualified Codes: R10.84 - Generalized abdominal pain Referrals: Tonny Gan MD Patient Instructions: Abdominal Pain (ED), General Instructions, Urinary Tract Infection in Women (ED) Additional Instructions: Rest, hydrate. Continue with stool softener daily. Resume your at home medications. Take Macrobid as prescribed, even if your symptoms resolved. In other words take all this medication until it is gone. Take tramadol as prescribed if your pain continues. Follow-up with Dr. Gan on Tuesday as planned. Return to the ED sooner if symptoms worsen or for any urgent or emergent medical condition. Med/Other Pt SpecificInfo: Prescription(s) given Scripts Oxycodone HCl/Acetaminophen (Oxycodone-Acetaminophen 5-325) 5 Mg-325 Mg Tablet 5 MG PO Q6HR for Pain, #15 Prov: Ghazal Jorge MD 07/05/17 Nitrofurantoin Monohydrate Macrocrystals (Macrobid) 100 Mg Cap 100 MG PO BID for Infection for 7 Days, #14 CAP 0 Refills Prov: Ghazal Jorge MD 07/05/17 Disposition: 01 DISCHARGE HOME Condition: Stable Ana María Fenton Jul 05, 2017 14:56
--- NOTE | 2017-07-05 17:32 | RADRPT ---
EXAM DATE/TIME: 07/05/2017 16:43 [facility] COMPARISON: ABDOMEN UPRIGHT ONLY, July 05, 2017, 13:19. EXTERNAL COMPARISON : [place] Imaging[facility] bowel series. INDICATIONS : Abdominal pain since bowel obstruction surgery. MEDICAL HISTORY : None. SURGICAL HISTORY : Cholecystectomy. Hysterectomy. Small bowel surgery, bladder removal. ENCOUNTER: Initial ACUITY: 2 weeks PAIN SCORE: 10/10 LOCATION: Bilateral upper quadrant abdomen. FINDINGS: Single portable upright view of the abdomen demonstrates no free intraperitoneal air. Contrast remain s present within the intestines. Some of contrast may be within the large bowel but is difficult to b e certain given the technique. Cholecystectomy clips are present. Lung bases are clear. CONCLUSION: No free air is present on this single upright view. Contrast is present within the bowel, potentially within the colon. Trung Arredondo MD on July 05, 2017 at 17:29 Board Certified Radiologist. This report was verified electronically.
[2017-07-05] MEDS ORDERED: NITROFURANTOIN MONOHYD MACROCR 100 MG CAP PO ONE (18:15)
[2017-07-05 18:48] VITALS: BP 120/85; PULSE 72; RESP 17; O2SAT 96
[2017-07-05] MEDS ORDERED: OXYC1TAB63 PO (19:16)
[2017-07-05] MEDS ORDERED: MACR100C2 PO (19:16)
--- NOTE | 2017-07-05 21:12 | EKG ---
Date Performed: 07/05/2017 Time Performed: 12:53:18 PTAGE: 62 years EKG: Sinus rhythm POSSIBLE LEFT ATRIAL ENLARGEMENT PROBABLE INFERIOR MYOCARDIAL INFARCTION ABNORMAL ECG Compared to pr ior tracing no significant change DOCTOR: James Haynes Interpretating Date/Time 07/05/2017 21:10:20
== END 2017-07-05 20:09 | disposition home or self-care (01) ==
LOC: NEPC 12:33
DX: R10.84 Generalized abdominal pain (principal); B95.2 Enterococcus as the cause of diseases classified elsewhere; R00.0 Tachycardia, unspecified; R94.31 Abnormal electrocardiogram [ECG] [EKG]; J44.9 Chronic obstructive pulmonary disease, unspecified; F25.9 Schizoaffective disorder, unspecified; I10 Essential (primary) hypertension; I25.10 Atherosclerotic heart disease of native coronary artery without angina pectoris; E78.00 Pure hypercholesterolemia, unspecified
CPT/HCPCS: 74000; 80053; 81001; 83605; 85025; 85610; 85730; 87077; 87086; 87186; 93005; 96361; 96374; 96375; 99285; J2270; J2405; J7030

== ENCOUNTER 2017-08-11 07:11 | Inpatient (IN) | payer MEDICAID ==
[~2017-08-11] VITALS: Ht 167.6 cm; Wt 64.2 kg
[~2017-08-11 07:11] MED LIST changes: +HYDR-3133 PO; +MECL-62 PO; +NICO21DI2 T-DERMAL; +REGL10TA5 PO; +ZOFR4TAB PO
[2017-08-11] MEDS ORDERED: GELFOAM SIZE 100 ONE (07:15)
[2017-08-11] MEDS ORDERED: BUPIVACAINE/EPINEPHRINE 0.5% PF 30 ML VIAL ONE (07:15)
[2017-08-11] MEDS ORDERED: THROMBIN (TOPICAL) 5,000 UNIT VIAL ONE (07:15)
[2017-08-11] MEDS ORDERED: ceFAZolin INJ 1,000 MG VIAL ONE (07:18)
[2017-08-11] MEDS ORDERED: POVIDONE IODINE 5% (ANTISEPSIS KIT) 4 APPLICATIONS EACH NARE PRN (07:45)
[2017-08-11] MEDS ORDERED: SODIUM CHLORID 0.9% 500 ML IV PRN (07:45)
[2017-08-11] MEDS ORDERED: LACTATED RINGER'S 1000 ML IV PRN (07:45)
[2017-08-11] MEDS ORDERED: METOPROLOL TARTRATE 25 MG TAB PO PRN (07:45)
[2017-08-11] MEDS ORDERED: CHLORHEXIDINE GLUCONATE 2 % 1 PACK (2 CLOTHS) TOPICAL PRN (07:45)
[2017-08-11] MEDS ORDERED: ceFAZolin 2 GM PREMIX 50 ML IV SCH (07:45)
[2017-08-11 08:12] LABS: AUTOMATED NEUTROPHIL # 2.8 TH/MM3 (1.8-7.7); BASOPHIL % 0.2 % (0.0-2.0); HEMATOCRIT 40.6 % (35.0-46.0); HEMOGLOBIN 13.9 GM/DL (11.6-15.3); LYMPH % 41.9 % (9.0-44.0); LYMPHOCYTE # 2.4 TH/MM3 (1.0-4.8); MEAN CELL VOLUME 98.2 FL (80.0-100.0); MEAN CORPUSCULAR HEMOGLOBIN 33.7 PG (27.0-34.0); MEAN CORPUSCULAR HGB CONC 34.3 % (32.0-36.0); MEAN PLATELET VOLUME 7.3 FL (7.0-11.0); MONO % 10.3 % (0.0-8.0); MONOCYTE # 0.6 TH/MM3 (0-0.9); NEUT % 47.6 % (16.0-70.0); PLATELET COUNT 205 TH/MM3 (150-450); RED BLOOD COUNT 4.14 MIL/MM3 (4.00-5.30); WHITE BLOOD COUNT 5.8 TH/MM3 (4.0-11.0)
[2017-08-11] MEDS ORDERED: MIDAZOLAM HCL 2 MG/2 ML VIAL ONE (08:28)
[2017-08-11 08:33] LABS: BICARBONATE 26.4 MEQ/L (21.0-32.0); CALCIUM 8.4 MG/DL (8.5-10.1); CREATININE 0.96 MG/DL (0.50-1.00)
[2017-08-11] MEDS ORDERED: BUPIVACAINE LIPOSOME PF 1.3% 20 ML VIAL ONE (08:46)
[2017-08-11] MEDS ORDERED: SODIUM CHLORIDE 0.9% 20 ML VIAL ONE (08:51)
[2017-08-11] MEDS ORDERED: ACETAMINOPHEN 1000 MG/100 ML 100 ML IV ONE (09:05)
[2017-08-11] MEDS ORDERED: ONDANSETRON HCL 4 MG/2 ML VIAL IV ONE (12:00)
[2017-08-11] MEDS ORDERED: LACTATED RINGER'S 1000 ML INJ 2,000 ML IV ONE (12:00)
[2017-08-11] MEDS ORDERED: NORMOSOL R INJ 2,000 ML IV ONE (12:00)
[2017-08-11] MEDS ORDERED: PROPOFOL 200 MG/20 ML AMP IV ONE (12:00)
[2017-08-11] MEDS ORDERED: LIDOCAINE HCL 1% PF 5 ML SYRINGE OTHER ONE (12:00)
[2017-08-11] MEDS ORDERED: METOPROLOL TARTRATE 5 MG/5 ML VIAL IV PUSH ONE (12:00)
[2017-08-11] MEDS ORDERED: SUCCINYLCHOLINE CHLORIDE 100 MG/5 ML SYRINGE IV PUSH ONE (12:00)
[2017-08-11] MEDS ORDERED: NEOSTIGMINE 5 MG/5 ML SYRINGE IV PUSH ONE (12:00)
[2017-08-11] MEDS ORDERED: GLYCOPYRROLATE 1 MG/5 ML SYRINGE IV PUSH ONE (12:00)
[2017-08-11] MEDS ORDERED: ceFAZolin INJ 1,000 MG VIAL IV ONE (12:00)
[2017-08-11] MEDS ORDERED: PHENYLEPH/NS 1000 MCG/10 ML SYR IV ONE (12:00)
[2017-08-11] MEDS ORDERED: ROCURONIUM INJ 50 MG/5 ML SYRINGE IV PUSH ONE (12:00)
[2017-08-11] MEDS ORDERED: ePHEDrine/NS 25 MG/5 ML SYRINGE IV ONE (12:00)
[2017-08-11] MEDS ORDERED: metroNIDAZOLE 500 MG INJ 100 ML IV ONE (12:49)
[2017-08-11] MEDS ORDERED: DO NOT ADM ANY ANTICOAGULANT DRUGS PRN (13:15)
[2017-08-11] MEDS ORDERED: *morphine SULFATE 8 MG/ML PERIprocedure ONLY ONE (13:33)
[2017-08-11] MEDS ORDERED: SODIUM CHLORIDE 0.9% INJ 10 ML ONE (13:41)
[2017-08-11] MEDS ORDERED: LORazepam 2 MG/ML VIAL ONE (13:41)
[2017-08-11] MEDS: SODIUM CHLORIDE 0.9% FLUSH 10 ML FLUSH IV FLUSH SCH ×2 (13:45→21:00)
[2017-08-11] MEDS ORDERED: Post-op Orders (for Pharmacy) XX ONE (13:45)
[2017-08-11] MEDS ORDERED: SODIUM CHLORIDE 0.9% FLUSH 10 ML FLUSH IV FLUSH PRN (13:45)
[2017-08-11] MEDS ORDERED: METOCLOPRAMIDE HCL 10 MG/2 ML VIAL IVS PRN (13:45)
[2017-08-11] MEDS ORDERED: ONDANSETRON HCL 4 MG/2 ML VIAL IV PUSH PRN (13:45)
[2017-08-11] MEDS ORDERED: NALOXONE HCL 0.4 MG/ML AMP IV PUSH PRN ×2 (13:45→19:00)
[2017-08-11] MEDS ORDERED: PCA - TOTAL MG DILAUDID DELIVERED PER SHIFT OTHER SCH (14:00)
[2017-08-11] MEDS: D5-NS + KCL 20 MEQ INJ 1,000 ML IV SCH (14:38)
[2017-08-11 15:00] VITALS: PULSE 72
[2017-08-11] MEDS ORDERED: DOCUSATE SODIUM 100 MG CAP PO SCH (15:00)
[2017-08-11 16:00] VITALS: BP 96/56; PULSE 77; RESP 12; TEMP 87.4; O2SAT 98
[2017-08-11] MEDS ORDERED: ACETAMINOPHEN/HYDROcodone 325 MG/5 MG TAB PO PRN ×2 (16:30)
[2017-08-11] MEDS ORDERED: MORPHINE SULFATE 2 MG/ML INJ IV PUSH PRN (18:15)
[2017-08-11] MEDS ORDERED: ALBUTEROL SULFATE 90 MCG/ACT HFA 8 GM INHALER INH PRN (18:30)
[2017-08-11] MEDS: TIOTROPIUM BROMIDE 18 MCG INH INH SCH (18:30)
[2017-08-11] MEDS: REMOVE OLD PATCH T-DERMAL SCH (18:30)
--- NOTE | 2017-08-11 18:44 | PD.CONS ---
HPI [facility] Consult Requested By Dr. Gan Reason for Consult Medical management Primary Care Physician Dmitry Gomez DO Diagnoses: History of Present Illness This is a 62-year-old female with a history of recurrent SBO status post lysis of adhesions over a month ago. Continued to be symptomatic with nausea, vomiting and abdominal pain secondary to intermittent SBO and underwent elective exploratory laparotomy, lysis of adhesions and resection of small bowel by Dr. Gan requested consultation to evaluate and manage medical conditions. Anesthesia record review shows she was hemodynamically stable received 3800 mL, EBL 200 and urine output of 500 mL. Complains of abdominal pain. She has history of coronary artery disease status post FL in May 2016 status post stenting on aspirin and Plavix, significant psychiatric condition with schizoaffective disorder on Tegretol, Zoloft, Zyprexa and Valium , chronic pain on oxycodone and gabapentin and COPD on Spiriva and albuterol. She also has a history of bladder cancer status post cystectomy and urostomy. All other systems reviewed negative. Case discussed with Dr. Gan and COIN MACHINE ASSEMBLERline cook of Systems Except as stated in HPI: all other systems reviewed are Neg Past Family Social History Allergies: Coded Allergies: amcinonide (Unverified Allergy, Severe, 08/11/17) beclomethasone (Unverified Allergy, Severe, 08/11/17) betamethasone (Unverified Allergy, Severe, 08/11/17) codeine (Unverified Allergy, Severe, 08/11/17) desoximetasone (Unverified Allergy, Severe, 08/11/17) dexamethasone (Unverified Allergy, Severe, 08/11/17) fludrocortisone (Unverified Allergy, Severe, 08/11/17) flunisolide (Unverified Allergy, Severe, 08/11/17) fluocinolone acetonide (Unverified Allergy, Severe, 08/11/17) fluocinonide (Unverified Allergy, Severe, 08/11/17) fluorometholone (Unverified Allergy, Severe, 08/11/17) flurandrenolide (Unverified Allergy, Severe, 08/11/17) fluticasone (Unverified Allergy, Severe, 08/11/17) fluticasone furoate (Unverified Allergy, Severe, 08/11/17) hydrocortisone (Unverified Allergy, Severe, 08/11/17) methylprednisolone (Unverified Allergy, Severe, 08/11/17) mometasone furoate (Unverified Allergy, Severe, 08/11/17) prednisolone (Unverified Allergy, Severe, 08/11/17) prednisone (Unverified Allergy, Severe, 08/11/17) triamcinolone (Unverified Allergy, Severe, 08/11/17) Uncoded Allergies: ANTIHISTIMINES (Allergy, Mild, MANIC, 11/15/06) Past Medical History As previously mentioned Past Surgical History As previously mentioned. section, hysterectomy, EGD and colonoscopy, permacath placement And cholecystectomy Reported Medications Reported Meds & Active Scripts Active Oxycodone-Acetaminophen 5-325 mg Tab 1 Tab PO Q4H PRN Reported Zofran (Ondansetron HCl) 4 Mg Tab 4 Mg PO Q6HR PRN Reglan (Metoclopramide HCl) 10 Mg Tab 10 Mg PO TIDAC PRN Nicotine Patch (Nicotine) 21 Mg/24 Hr Patch 21 Mg T-DERMAL DAILY Hydroxyzine HCl 25 Mg Tab 25 Mg PO BID PRN Meclizine (Meclizine HCl) 25 Mg Tab 25 Mg PO TID PRN Spiriva Handihaler (Tiotropium Inh) 18 Mcg Cap 18 Mcg INH DAILY 1 capsule = 18 mcg Valium (Diazepam) 5 Mg Tab 5 Mg PO TID Olanzapine 10 Mg Tab 10 Mg PO HS Zoloft (Sertraline HCl) 50 Mg Tab 75 Mg PO DAILY Proair Hfa 8.5 GM Inh (Albuterol Sulfate) 90 Mcg/Act Aer 2 Puff INH DIRECTED PRN 108 mcg/actuation Atorvastatin (Atorvastatin Calcium) 80 Mg Tab 80 Mg PO DAILY Melatonin Gummies (Melatonin) 2.5 Mg Chw 10 Mg PO HS Plavix (Clopidogrel Bisulfate) 75 Mg Tab 75 Mg PO DAILY Aspirin Children's (Aspirin) 81 Mg Chew 81 Mg CHEW DAILY Gabapentin 300 Mg Cap 300 Mg PO BID Tegretol (Carbamazepine) 200 Mg Tab 400 Mg PO HS Tegretol (Carbamazepine) 200 Mg Tab 200 Mg PO DAILY IN THE MORNING Pantoprazole (Pantoprazole Sodium) 40 Mg Tab 40 Mg PO DAILY Family History Denies CAD Social History Continues to smoke. Quit alcohol use in 2006 Physical Exam Vital Signs Vital Signs Date Time Temp Pulse Resp B/P (MAP) Pulse Ox O2 Delivery O2 Flow Rate FiO2 08/11/17 16:00 87.4 77 12 96/56 (69) 98 08/11/17 15:00 72 08/11/17 14:45 98.0 78 16 96/55 (69) 96 Nasal Cannula 2 08/11/17 14:30 84 16 94/55 (68) 96 Nasal Cannula 2 08/11/17 14:15 85 16 100/53 (69) 97 Nasal Cannula 2 08/11/17 14:00 83 16 97/53 (68) 96 Nasal Cannula 2 08/11/17 13:45 85 16 94/57 (69) 96 Nasal Cannula 2 08/11/17 13:30 87 16 100/56 (71) 96 Nasal Cannula 2 08/11/17 13:15 98.1 93 20 99/62 (74) 94 Nasal Cannula 2 08/11/17 07:45 97.4 69 22 110/69 (83) 93 Physical Exam GENERAL: This is a well-nourished, well-developed patient, in no apparent distress. SKIN: No rashes, ecchymoses or lesions. Cool and dry. HEAD: Atraumatic. Normocephalic. No temporal or scalp tenderness. EYES: Pupils equal round and reactive. Extraocular motions intact. No scleral icterus. No injection or drainage. ENT: Nose without bleeding, purulent drainage or septal hematoma. Throat without erythema, tonsillar hypertrophy or exudate. Uvula midline. Airway patent. NECK: Trachea midline. No JVD or lymphadenopathy. Supple, nontender, no meningeal signs. CARDIOVASCULAR: Regular rate and rhythm without murmurs, gallops, or rubs. RESPIRATORY: Clear to auscultation. Breath sounds equal bilaterally. No wheezes , rales, or rhonchi. GASTROINTESTINAL: Abdomen soft, tender over surgical sites, nondistended. Urostomy in place, dry dressing in the midline area with a DUC drain in the left lower quadrant MUSCULOSKELETAL: Extremities without clubbing, cyanosis, or edema. No joint tenderness, effusion, or edema noted. No calf tenderness. Negative Homans sign bilaterally. NEUROLOGICAL: Awake and alert. Cranial nerves II through XII intact. Motor and sensory grossly within normal limits. Five out of 5 muscle strength in all muscle groups. Normal speech. Laboratory Laboratory Tests Test 08/11/17 07:50 08/11/17 10:59 White Blood Count 5.8 Red Blood Count 4.14 Hemoglobin 13.9 Hematocrit 40.6 Mean Corpuscular Volume 98.2 Mean Corpuscular Hemoglobin 33.7 Mean Corpuscular Hemoglobin Concent 34.3 Red Cell Distribution Width 13.0 Platelet Count 205 Mean Platelet Volume 7.3 Neutrophils (%) (Auto) 47.6 Lymphocytes (%) (Auto) 41.9 Monocytes (%) (Auto) 10.3 Eosinophils (%) (Auto) 0.0 Basophils (%) (Auto) 0.2 Neutrophils # (Auto) 2.8 Lymphocytes # (Auto) 2.4 Monocytes # (Auto) 0.6 Eosinophils # (Auto) 0.0 Basophils # (Auto) 0.0 CBC Comment DIFF FINAL Differential Comment Blood Urea Nitrogen 14 Creatinine 0.96 Random Glucose 107 Calcium Level 8.4 Sodium Level 138 Potassium Level 4.3 Chloride Level 105 Carbon Dioxide Level 26.4 Anion Gap 7 Estimat Glomerular Filtration Rate 59 Blood Gas Puncture Site DRAWN IN OR Blood Gas Patient Temperature 98.6 Blood Gas HCO3 25 Blood Gas Base Excess -0.6 Blood Gas Oxygen Saturation 92 Arterial Blood pH 7.31 Arterial Blood Partial Pressure CO2 51 Arterial Blood Partial Pressure O2 175 Arterial Blood Oxygen Content 15.8 Arterial Blood Carboxyhemoglobin 5.6 Arterial Blood Methemoglobin 1.5 Blood Gas Hemoglobin 12.0 Oxygen Delivery Device OR Result Diagram: 08/11/17 0750 08/11/17 0750 Assessment and Plan Assessment and Plan This is a 62-year-old female with a history of recurrent SBO status post lysis of adhesions over a month ago. Continued to be symptomatic with nausea, vomiting and abdominal pain secondary to intermittent SBO and underwent elective exploratory laparotomy, lysis of adhesions and resection of small bowel by Dr. Gan requested consultation to evaluate and manage medical conditions. Recurrent SBO status post exploratory laparoscopy, DERICK and resection of small bowel. Nothing by mouth, IV hydration and pain management with Dilaudid PLANT ATTENDANT. Start GI prophylaxis with PPI. Consult dietitian for TPN or PPN. Supportive treatment. Repeat CBC and BMP in the morning Coronary artery disease status post FL in May 2016 status post stenting on aspirin and Plavix. Denies chest pain. Restart antiplatelets when cleared by general surgery Schizoaffective disorder on Tegretol, Zoloft, Zyprexa and Valium. Unable to start by mouth medications secondary to nothing by mouth status. Discussed with pharmacy, significant interaction with IM Zyprexa and IV Ativan. We'll provide IV Ativan as needed to avoid benzo withdrawal. Patient agrees. Consider psychiatry consult Chronic pain on oxycodone and gabapentin. We'll restart when able. Patient will be on Dilaudid PLANT ATTENDANT COPD. Stable on Spiriva and albuterol. Bladder cancer status post cystectomy and urostomy. DVT prophylaxis with SCD and early ambulation. PT evaluation. Discussed Condition With Patient, brother, Dr. Gan and COIN MACHINE ASSEMBLER Jamar Burroughs MD Aug 11, 2017 18:44
[2017-08-11] MEDS: PANTOPRAZOLE SODIUM 40 MG VIAL IV PUSH SCH (18:45)
[2017-08-11] MEDS: NICOTINE 21 MG/24 HR PATCH T-DERMAL SCH (18:47)
[2017-08-11 20:00] VITALS: BP 122/60; PULSE 85; RESP 16; TEMP 98.7; O2SAT 96
[2017-08-11] MEDS: metroNIDAZOLE 500 MG INJ 100 ML IV SCH (20:15)
--- NOTE | 2017-08-11 20:24 | HHI.PR ---
Immediate Post Op Note Procedure Date: Aug 11, 2017 Pre Op Diagnosis: recurrent SBO Post Op Diagnosis: Same, adhesions Surgeon: Tonny Gan MD Manager Solution(s): Dr. Barrie Matias Procedure: ex lap, extensive sarina, small bowel resection with primary anastomosis Findings: multiple small bowel adhesion to pelvis, mild dilation proximal Complications: none Specimen(s) removed: small bowel jejunum Estimated blood loss: 200cc Anesthesia: General Drains: DUC IVF ([id number]) Patient to: PACU Patient Condition: Good Tonny Gan MD Aug 11, 2017 20:24
[2017-08-11] MEDS: PCA - TOTAL MG DILAUDID DELIVERED PER SHIFT SCH (22:00)
[2017-08-11 23:11] VITALS: O2SAT 95
[2017-08-12] VITALS (8 sets, daily range): BP systolic 125–139; BP diastolic 59–69; PULSE 84–107; RESP 13–22; TEMP 98.1–98.6; O2SAT 94–98
[2017-08-12] MEDS: D5-NS + KCL 20 MEQ INJ 1,000 ML IV SCH ×4 (00:08→22:55)
[2017-08-12] MEDS: metroNIDAZOLE 500 MG INJ 100 ML IV SCH ×2 (05:22→14:57)
[2017-08-12 05:46] LABS: AUTOMATED NEUTROPHIL # 5.7 TH/MM3 (1.8-7.7); HEMATOCRIT 34.8 % (35.0-46.0); HEMOGLOBIN 11.9 GM/DL (11.6-15.3); LYMPHOCYTE # 1.1 TH/MM3 (1.0-4.8); MEAN CORPUSCULAR HEMOGLOBIN 33.8 PG (27.0-34.0); MEAN CORPUSCULAR HGB CONC 34.1 % (32.0-36.0); MEAN PLATELET VOLUME 7.9 FL (7.0-11.0); MONO % 6.8 % (0.0-8.0); MONOCYTE # 0.5 TH/MM3 (0-0.9); NEUT % 78.2 % (16.0-70.0); PLATELET COUNT 188 TH/MM3 (150-450); RED BLOOD COUNT 3.52 MIL/MM3 (4.00-5.30); RED CELL DISTRIBUTION WIDTH 12.9 % (11.6-17.2); WHITE BLOOD COUNT 7.3 TH/MM3 (4.0-11.0)
[2017-08-12] MEDS: PCA - TOTAL MG DILAUDID DELIVERED PER SHIFT SCH ×3 (06:00→22:00)
[2017-08-12 06:09] LABS: BICARBONATE 26.9 MEQ/L (21.0-32.0); CALCIUM 7.2 MG/DL (8.5-10.1); CREATININE 0.65 MG/DL (0.50-1.00)
[2017-08-12 06:30] LABS: CALCIUM-PROTEIN CORRECTED 7.9 MG/DL (8.5-10.1); TOTAL PROTEIN 5.7 GM/DL (6.4-8.2)
[2017-08-12] MEDS: REMOVE OLD PATCH T-DERMAL SCH (08:02)
[2017-08-12] MEDS: TIOTROPIUM BROMIDE 18 MCG INH INH SCH (08:02)
[2017-08-12] MEDS: HYDROmorphone HCL PCA 6 MG/30 ML IV SCH (08:02)
[2017-08-12] MEDS: NICOTINE 21 MG/24 HR PATCH T-DERMAL SCH (08:02)
[2017-08-12] MEDS: SODIUM CHLORIDE 0.9% FLUSH 10 ML FLUSH IV FLUSH SCH ×2 (08:03→20:55)
[2017-08-12] MEDS: LORazepam 2 MG/ML VIAL IV PUSH PRN ×2 (08:40→14:58)
[2017-08-12] MEDS: MUPIROCIN 2% OINT 1 APPLIC/GM SYR EACH NARE SCH ×2 (08:41→20:54)
[2017-08-12] MEDS ORDERED: PNEUMOCOCCAL POLYVALENT INJ 25 MCG/0.5 ML SYR IM ONE (10:00)
--- NOTE | 2017-08-12 13:10 | HHI.PR ---
Subjective Remarks Follow-up SBO. Complains of abdominal pain. No passing gas. DUC drain 100 mL. NGT output 400 mL overnight. Discussed with RN, stable for transfer to medical floor Objective Vitals Vital Signs Date Time Temp Pulse Resp B/P (MAP) Pulse Ox O2 Delivery O2 Flow Rate FiO2 08/12/17 12:00 98.3 102 21 138/69 (92) 94 08/12/17 08:32 13 08/12/17 08:02 20 08/12/17 08:00 98.2 104 15 130/59 (82) 96 08/12/17 07:00 107 08/12/17 07:00 97 Nasal Cannula 3.00 08/12/17 04:00 98.2 84 18 139/65 (89) 98 08/12/17 00:00 97 08/12/17 00:00 98.6 97 22 125/69 (87) 96 08/11/17 23:11 95 Nasal Cannula 3.00 08/11/17 22:00 19 08/11/17 20:00 85 08/11/17 20:00 98.7 85 16 122/60 (80) 96 08/11/17 19:00 99 Nasal Cannula 2.00 08/11/17 16:00 87.4 77 12 96/56 (69) 98 08/11/17 15:00 72 08/11/17 14:45 98.0 78 16 96/55 (69) 96 Nasal Cannula 2 08/11/17 14:30 84 16 94/55 (68) 96 Nasal Cannula 2 08/11/17 14:15 85 16 100/53 (69) 97 Nasal Cannula 2 08/11/17 14:00 83 16 97/53 (68) 96 Nasal Cannula 2 08/11/17 13:45 85 16 94/57 (69) 96 Nasal Cannula 2 08/11/17 13:30 87 16 100/56 (71) 96 Nasal Cannula 2 08/11/17 13:15 98.1 93 20 99/62 (74) 94 Nasal Cannula 2 I/O 08/11/17 08/11/17 08/11/17 08/12/17 08/12/17 08/12/17 06:59 14:59 22:59 06:59 14:59 22:59 Intake Total 3800 ml 701 ml 1512 ml Output Total 700 ml 750 ml 1500 ml Balance 3100 ml -49 ml 12 ml Intake Oral 0 ml IV Total 701 ml 1512 ml Other 3800 ml Output Urine Total 500 ml 450 ml 1000 ml Gastric Drainage Total 100 ml 400 ml Drainage Total 200 ml 100 ml Estimated Blood Loss 200 ml # Bowel Movements 0 0 Result Diagram: 08/12/1741808/12/17418 Objective Remarks GENERAL: This is a well-nourished, well-developed patient, in no apparent distress. NGT in place SKIN: No rashes, ecchymoses or lesions. Cool and dry. CARDIOVASCULAR: Regular rate and rhythm without murmurs, gallops, or rubs. RESPIRATORY: Clear to auscultation. Breath sounds equal bilaterally. No wheezes , rales, or rhonchi. GASTROINTESTINAL: Abdomen soft, tender over surgical sites, nondistended. Urostomy in place, dry dressing in the midline area with a DUC drain in the left lower quadrant MUSCULOSKELETAL: Extremities without clubbing, cyanosis, or edema. No joint tenderness, effusion, or edema noted. No calf tenderness. Negative Homans sign bilaterally. NEUROLOGICAL: Awake and alert. Cranial nerves II through XII intact. Motor and sensory grossly within normal limits. Five out of 5 muscle strength in all muscle groups. Normal speech. A/P Assessment and Plan This is a 62-year-old female with a history of recurrent SBO status post lysis of adhesions over a month ago. Continued to be symptomatic with nausea, vomiting and abdominal pain secondary to intermittent SBO and underwent elective exploratory laparotomy, lysis of adhesions and resection of small bowel with anastomosis by Dr. Gan requested consultation to evaluate and manage medical conditions. Recurrent SBO status post exploratory laparoscopy, DERICK and resection of small bowel with anastomosis. Nothing by mouth, IV hydration and pain management with Dilaudid TICKET PRINTER AND TAGGER. GI prophylaxis with PPI. Consulted dietitian for TPN or PPN. Supportive treatment. Repeat CBC and BMP stable Mild hyperglycemia on D5. Monitor fingersticks. Hypoglycemia protocol Coronary artery disease status post [place] in May 2016 status post stenting on aspirin and Plavix. Denies chest pain. Restart antiplatelets when cleared by general surgery Schizoaffective disorder on Tegretol, Zoloft, Zyprexa and Valium. Unable to start by mouth medications secondary to nothing by mouth status. Discussed with pharmacy, significant interaction with IM Zyprexa and IV Ativan. We'll provide IV Ativan daily and as needed to avoid benzo withdrawal. Consider psychiatry consult Chronic pain on oxycodone and gabapentin. We'll restart when able. Patient on Dilaudid TICKET PRINTER AND TAGGER COPD. Stable on Spiriva and albuterol. Bladder cancer status post cystectomy and urostomy. DVT prophylaxis with SCD and early ambulation. PT evaluation. Patient already out of bed today Discharge Planning Stable for transfer to medical floor Jamar Burroughs MD Aug 12, 2017 13:10
[2017-08-12] MEDS ORDERED: DEXTROSE 50% IN WATER 50 ML VIAL(D50) IV PUSH PRN (13:15)
[2017-08-12] MEDS ORDERED: GLUCAGON 1 MG/ML VIAL OTHER PRN (13:15)
--- NOTE | 2017-08-12 14:42 | HHI.PR ---
Subjective Subjective Notes no acute issues, c/o incisional pain, urostomy good ouput, no flatus Objective Vitals/I&O Vital Signs Date Time Temp Pulse Resp B/P (MAP) Pulse Ox O2 Delivery O2 Flow Rate FiO2 08/12/17 12:00 98.3 102 21 138/69 (92) 94 08/12/17 07:00 Nasal Cannula 3.00 Labs Laboratory Tests Test 08/12/17 00:05 08/12/17 04:19 Nasal Screen MRSA (PCR) MRSA DETECTED White Blood Count 7.3 Red Blood Count 3.52 Hemoglobin 11.9 Hematocrit 34.8 Mean Corpuscular Volume 99.0 Mean Corpuscular Hemoglobin 33.8 Mean Corpuscular Hemoglobin Concent 34.1 Red Cell Distribution Width 12.9 Platelet Count 188 Mean Platelet Volume 7.9 Neutrophils (%) (Auto) 78.2 Lymphocytes (%) (Auto) 15.0 Monocytes (%) (Auto) 6.8 Eosinophils (%) (Auto) 0.0 Basophils (%) (Auto) 0.0 Neutrophils # (Auto) 5.7 Lymphocytes # (Auto) 1.1 Monocytes # (Auto) 0.5 Eosinophils # (Auto) 0.0 Basophils # (Auto) 0.0 CBC Comment DIFF FINAL Differential Comment Blood Urea Nitrogen 6 Creatinine 0.65 Random Glucose 133 Total Protein 5.7 Calcium Level 7.2 Sodium Level 141 Potassium Level 4.4 Chloride Level 109 Carbon Dioxide Level 26.9 Anion Gap 5 Estimat Glomerular Filtration Rate 93 Protein Corrected Calcium 7.9 Abdomen: Other (soft incisional tenderness, john serosang, my good sxn saturated ) A/P Assessment and Plan POD 1 ex lap sarina for recurrent sbo PLAN Ok to transfer to floor oob pain control ok for po meds (no blood thinners yet) john sxn ng Tonny Foster MD Aug 12, 2017 14:41
[2017-08-12] MEDS ORDERED: PILL SPLITTER OTHER PRN (15:45)
[2017-08-12] MEDS: PANTOPRAZOLE SODIUM 40 MG VIAL IV PUSH SCH (17:02)
[2017-08-12] MEDS: DIAZEPAM 5 MG TAB PO SCH (17:02)
[2017-08-12] MEDS: GABAPENTIN 300 MG CAP PO SCH (20:54)
[2017-08-12] MEDS: diphenhydrAMINE HCL 25 MG CAP PO PRN (20:54)
[2017-08-12] MEDS: carBAMazepine 200 MG TAB PO SCH (20:54)
[2017-08-12] MEDS: MELATONIN 5 MG TAB PO SCH (20:54)
[2017-08-12] MEDS ORDERED: OLANZapine 5 MG TAB PO SCH (21:00)
[2017-08-12] MEDS ORDERED: OLANZapine 10 MG TAB PO SCH (21:00)
[2017-08-12] MEDS ORDERED: ACETAMINOPHEN 325 MG TAB PO ONE (22:15)
[2017-08-13] VITALS (8 sets, daily range): BP systolic 116–158; BP diastolic 55–72; PULSE 87–103; RESP 18–21; TEMP 98–99.1; O2SAT 94–98
[2017-08-13] MEDS: diphenhydrAMINE HCL 25 MG CAP PO PRN (05:17)
[2017-08-13] MEDS: D5-NS + KCL 20 MEQ INJ 1,000 ML IV SCH ×3 (05:19→20:47)
[2017-08-13] MEDS: LORazepam 2 MG/ML VIAL IV PUSH PRN ×3 (05:24→18:27)
[2017-08-13] MEDS: HYDROmorphone HCL PCA 6 MG/30 ML IV SCH (05:30)
[2017-08-13] MEDS: PCA - TOTAL MG DILAUDID DELIVERED PER SHIFT SCH ×3 (05:30→19:29)
[2017-08-13 08:32] LABS: INTERNATIONAL NORMALIZED RATIO 1.2 RATIO
[2017-08-13 08:33] LABS: AUTOMATED NEUTROPHIL # 5.8 TH/MM3 (1.8-7.7); BASOPHIL % 0.1 % (0.0-2.0); HEMATOCRIT 29.3 % (35.0-46.0); HEMOGLOBIN 10.1 GM/DL (11.6-15.3); LYMPH % 15.4 % (9.0-44.0); LYMPHOCYTE # 1.2 TH/MM3 (1.0-4.8); MEAN CORPUSCULAR HEMOGLOBIN 34.2 PG (27.0-34.0); MEAN CORPUSCULAR HGB CONC 34.5 % (32.0-36.0); MEAN PLATELET VOLUME 7.3 FL (7.0-11.0); MONO % 9.2 % (0.0-8.0); MONOCYTE # 0.7 TH/MM3 (0-0.9); NEUT % 75.3 % (16.0-70.0); PLATELET COUNT 143 TH/MM3 (150-450); RED BLOOD COUNT 2.96 MIL/MM3 (4.00-5.30); WHITE BLOOD COUNT 7.7 TH/MM3 (4.0-11.0)
[2017-08-13] MEDS: MUPIROCIN 2% OINT 1 APPLIC/GM SYR EACH NARE SCH ×2 (08:45→20:48)
[2017-08-13] MEDS: NICOTINE 21 MG/24 HR PATCH T-DERMAL SCH (08:45)
[2017-08-13] MEDS: DIAZEPAM 5 MG TAB PO SCH ×3 (08:46→18:26)
[2017-08-13] MEDS: GABAPENTIN 300 MG CAP PO SCH ×2 (08:47→20:47)
[2017-08-13] MEDS: SODIUM CHLORIDE 0.9% FLUSH 10 ML FLUSH IV FLUSH SCH ×2 (08:47→20:48)
[2017-08-13] MEDS: SERTRALINE HCL 50 MG TAB PO SCH (08:47)
[2017-08-13] MEDS: REMOVE OLD PATCH T-DERMAL SCH (08:47)
[2017-08-13] MEDS: carBAMazepine 200 MG TAB PO SCH ×2 (08:47→20:47)
[2017-08-13] MEDS: TIOTROPIUM BROMIDE 18 MCG INH INH SCH (08:48)
[2017-08-13 08:53] LABS: CALCIUM 7.9 MG/DL (8.5-10.1); CREATININE 0.5 MG/DL (0.50-1.00)
[2017-08-13] MEDS ORDERED: LORazepam 2 MG/ML VIAL IV PUSH SCH (09:00)
--- NOTE | 2017-08-13 09:52 | HHI.PR ---
Subjective Subjective Notes no acute issues, no nausea, c/o pain but controlled, no flatus Objective Vitals/I&O Vital Signs Date Time Temp Pulse Resp B/P (MAP) Pulse Ox O2 Delivery O2 Flow Rate FiO2 08/13/17 08:08 98.7 99 21 152/72 (98) 97 08/12/17 19:45 Nasal Cannula 2.00 Labs Laboratory Tests Test 08/13/17 08:05 White Blood Count 7.7 Red Blood Count 2.96 Hemoglobin 10.1 Hematocrit 29.3 Mean Corpuscular Volume 99.0 Mean Corpuscular Hemoglobin 34.2 Mean Corpuscular Hemoglobin Concent 34.5 Red Cell Distribution Width 13.0 Platelet Count 143 Mean Platelet Volume 7.3 Neutrophils (%) (Auto) 75.3 Lymphocytes (%) (Auto) 15.4 Monocytes (%) (Auto) 9.2 Eosinophils (%) (Auto) 0.0 Basophils (%) (Auto) 0.1 Neutrophils # (Auto) 5.8 Lymphocytes # (Auto) 1.2 Monocytes # (Auto) 0.7 Eosinophils # (Auto) 0.0 Basophils # (Auto) 0.0 CBC Comment DIFF FINAL Differential Comment Prothrombin Time 12.0 Prothromb Time International Ratio 1.2 Activated Partial Thromboplast Time 31.7 Blood Urea Nitrogen 4 Creatinine 0.50 Random Glucose 130 Calcium Level 7.9 Sodium Level 141 Potassium Level 3.8 Chloride Level 111 Carbon Dioxide Level 26.0 Anion Gap 4 Estimat Glomerular Filtration Rate 126 Abdomen: Other (soft incisional tenderness, john serous) A/P Assessment and Plan POD 2 ex lap sarina for recurrent sbo PLAN NG was replaced incorrectly so I removed it, keep pt npo for now, ok for po meds and small cup of ice chips TERI malfunction so I removed it placed 4x4 and tape ostomy needs to be replaced when supplies available oob with PT IS pain control ok for po meds (no blood thinners yet) ok for lovenox tomorrow trend HH slowly going down, on evidence of active bleed Tonny Stone MD Aug 13, 2017 09:52
--- NOTE | 2017-08-13 14:12 | HHI.PR ---
Subjective Remarks Follow-up SBO. Surgical pain which is tolerable. No passing gas. No vomiting. NGT removed. Discussed with RN Objective Vitals Vital Signs Date Time Temp Pulse Resp B/P (MAP) Pulse Ox O2 Delivery O2 Flow Rate FiO2 08/13/17 12:28 20 08/13/17 12:06 98.7 101 21 118/55 (76) 94 08/13/17 08:08 98.7 99 21 152/72 (98) 97 08/13/17 05:30 16 08/13/17 05:30 16 08/13/17 04:00 99.1 92 18 158/71 (100) 98 08/13/17 04:00 87 08/13/17 00:00 89 08/13/17 00:00 98.3 101 18 130/59 (82) 97 08/12/17 22:00 16 08/12/17 20:00 105 08/12/17 20:00 105 08/12/17 20:00 98.1 105 18 133/65 (87) 96 08/12/17 19:45 96 Nasal Cannula 2.00 08/12/17 16:00 98.2 102 13 134/60 (84) 97 08/12/17 15:00 107 I/O 08/12/17 08/12/17 08/12/17 08/13/17 08/13/17 08/13/17 06:59 14:59 22:59 06:59 14:59 22:59 Intake Total 1512 ml 100 ml 1410 ml Output Total 1500 ml 1010 ml 635 ml 650 ml Balance 12 ml 100 ml 400 ml -635 ml -650 ml Intake Oral 0 ml IV Total 1512 ml 100 ml 1410 ml Output Urine Total 1000 ml 835 ml 600 ml 650 ml Gastric Drainage Total 400 ml 125 ml Drainage Total 100 ml 50 ml 35 ml # Bowel Movements 0 0 Result Diagram: 08/13/1780408/13/17804 Objective Remarks GENERAL: This is a well-nourished, well-developed patient, in no apparent distress. SKIN: No rashes, ecchymoses or lesions. Cool and dry. CARDIOVASCULAR: Regular rate and rhythm without murmurs, gallops, or rubs. RESPIRATORY: Clear to auscultation. Breath sounds equal bilaterally. No wheezes , rales, or rhonchi. GASTROINTESTINAL: Abdomen soft, tender over surgical sites, nondistended. Hypoactive bowel sounds MUSCULOSKELETAL: Extremities without clubbing, cyanosis, or edema. No joint tenderness, effusion, or edema noted. No calf tenderness. Negative Homans sign bilaterally. NEUROLOGICAL: Awake and alert. Cranial nerves II through XII intact. Motor and sensory grossly within normal limits. Five out of 5 muscle strength in all muscle groups. Normal speech. A/P Assessment and Plan This is a 62-year-old female with a history of recurrent SBO status post lysis of adhesions over a month ago. Continued to be symptomatic with nausea, vomiting and abdominal pain secondary to intermittent SBO and underwent elective exploratory laparotomy, lysis of adhesions and resection of small bowel with anastomosis by Dr. Gan requested consultation to evaluate and manage medical conditions. Recurrent SBO status post exploratory laparoscopy, DERICK and resection of small bowel with anastomosis. Stable ct NPO except meds, IV hydration and pain management with Dilaudid INSIDE WIREMAN. GI prophylaxis with PPI. Consulted dietitian for TPN or PPN. Supportive treatment. Acute anemia secondary to acute blood loss. Hemodynamically stable. Repeat CBC in the morning Mild hyperglycemia on D5. Monitor fingersticks. Hypoglycemia protocol. Check A1c Coronary artery disease status post [place] in May 2016 status post stenting on aspirin and Plavix. Denies chest pain. Restart antiplatelets when cleared by general surgery Schizoaffective disorder on Tegretol, Zoloft, Zyprexa and Valium which all have been continued. Chronic pain on oxycodone and gabapentin. We'll restart when able. Patient on Dilaudid INSIDE WIREMAN COPD. Stable on Spiriva and albuterol. Bladder cancer status post cystectomy and urostomy. DVT prophylaxis with SCD and early ambulation. PT evaluation. Discharge Planning [facility] vs rehab Jamar Burroughs MD Aug 13, 2017 14:12
[2017-08-13 14:54] LABS: HEMOGLOBIN A1C 5.2 % (4.3-6.0)
--- NOTE | 2017-08-13 15:14 | MP ---
cc: JAY GAN MD DATE OF SURGERY: 08/11/2017. PREOPERATIVE DIAGNOSIS: Recurrent small-bowel obstruction. POSTOPERATIVE DIAGNOSIS: Recurrent small bowel obstruction. OPERATIVE PROCEDURE PERFORMED: 1. Exploratory laparotomy. 2. Extensive lysis of adhesions greater than sixty minutes. 3. Primary anastomosis with stapled anastomosis of small bowel. 4. Placement of anti-adhesive barrier. SURGEON: Jay Gan MD. SHIFT SUPERINTENDENT: Barrie Matias MD. Needed due to the complexity of the operative case. Dr. Matias assisted in retraction and suturing. ANESTHESIA: General endotracheal anesthesia. IV FLUIDS: 3800 cc. ESTIMATED BLOOD LOSS: 200 cc. DRAINS: 10 Bulgarian Myles-Vincent drain COMPLICATIONS: None. WOUND CLASSIFICATION: Clean / contaminated. SPECIMENS: Small bowel. FINDINGS: A mildly dilated proximal small bowel. Decompressed distal small bowel with multiple interloop adhesions in the pelvis. The ileal conduit was noted to be intact. INDICATIONS FOR THE PROCEDURE: The patient is a 62-year-old female who presented with several medical issues. The patient was noted to have a small bowel obstruction for which she underwent diagnostic laparoscopy with lysis of adhesions. She had improvement from this and left the hospital; however, developed recurrence of her bowel obstruction with delayed transit through her small bowel and persistent nausea and vomiting. Decision was discussed with the patient in detail regarding operative intervention versus continued observation. Given the persistence and significant abdominal pain with nausea, decision was made to proceed with operative exploration and lysis of adhesions. DESCRIPTION OF THE PROCEDURE IN DETAIL: The patient was taken to the operating suite and placed in supine position and she was prepped and draped in the usual sterile fashion after induction of general endotracheal anesthesia. Brief time-out done stating correct patient, procedure, surgical site and all were in agreement with this. Attention was directed to the abdomen. The ileal conduit was sectioned off and then tape placed under the drapes ensure it was out of the way. A #10 blade was used to make an incision over the previous incisional scar. Further dissection now with the Bovie electrocautery. The peritoneum was identified and Metzenbaums used to incise the peritoneum and then further incision with Bovie electrocautery down to the pubis. Hemostasis was obtained. On entrance, it was again noted some relatively mobile bowel proximal; however, multiple loops were located in the pelvis that were extremely stuck and situated down in the pelvic floor with multiple interloop adhesions. Meticulously, the adhesions were mobilized with Metzenbaum scissors and Bovie electrocautery. This was done to the left lower quadrant, mid quadrants and towards the right side, leaving the ileal conduit intact. Once full mobilization of the small bowel was done, some of the bowel was noted to be somewhat scarred with dusky. Therefore decision was made to resect this portion of the bowel. The Endo-Sealer was used to transect the mesentery. A 55 OREN was used blue loads to transect either into healthy tissue of the small bowel. Approximately 60 cm of small bowel was excised and placed to pathology and small bowel primary anastomosis was done. Two stay sutures were placed. Small enterotomy was made. The Endo OREN 50 blue load was used to create the [id number] layer. The 30 TX blue load stapler was used to approximate the present enterotomy. Lembert sutures were used to oversew this and reinforce the staple line. A crotch suture was placed as well. The mesenteric defect was closed with 3-0 silks with [id number]. Next, after hemostasis, the bowel was replaced, abdomen irrigated with normal saline. Palpation of the nasogastric tube confirmed its presence in the stomach. The anti-adhesive barrier including Seprafilm was placed deep in the pelvis. Next a 10 flat Myles-Vincent drain was placed in the pelvis and secured with 2-0 nylon. Next the abdomen fascia was closed with a running #1 looped PDS. Subcutaneous tissues were then irrigated. [place] were used to approximate the skin. A dressing was placed. The patient tolerated the procedure well. All lap and instrument counts were correct at the end of the procedure. The patient was extubated and taken stable to the post-anesthesia care unit. There were no intraoperative complications. MD MARLEN Hernandez/MERON /8:14 PM /2:46 PM MARTINA
[2017-08-13] MEDS: PANTOPRAZOLE SODIUM 40 MG VIAL IV PUSH SCH (18:26)
[2017-08-13] MEDS: MELATONIN 5 MG TAB PO SCH (20:47)
[2017-08-13] MEDS: OLANZapine 5 MG TAB PO SCH (20:49)
[2017-08-14] VITALS (8 sets, daily range): BP systolic 106–147; BP diastolic 56–75; PULSE 68–88; RESP 14–18; TEMP 97.2–98.7; O2SAT 94–99
[2017-08-14] MEDS: D5-NS + KCL 20 MEQ INJ 1,000 ML IV SCH ×3 (04:57→20:47)
[2017-08-14] MEDS: LORazepam 2 MG/ML VIAL IV PUSH PRN ×3 (05:02→17:58)
[2017-08-14] MEDS: PCA - TOTAL MG DILAUDID DELIVERED PER SHIFT SCH ×3 (05:14→18:28)
[2017-08-14] MEDS: HYDROmorphone HCL PCA 6 MG/30 ML IV SCH (06:02)
[2017-08-14] MEDS: MUPIROCIN 2% OINT 1 APPLIC/GM SYR EACH NARE SCH ×2 (08:08→20:49)
[2017-08-14] MEDS: carBAMazepine 200 MG TAB PO SCH ×2 (08:09→20:48)
[2017-08-14] MEDS: REMOVE OLD PATCH T-DERMAL SCH (08:09)
[2017-08-14] MEDS: SERTRALINE HCL 50 MG TAB PO SCH (08:09)
[2017-08-14] MEDS: DIAZEPAM 5 MG TAB PO SCH ×3 (08:09→17:56)
[2017-08-14] MEDS: SODIUM CHLORIDE 0.9% FLUSH 10 ML FLUSH IV FLUSH SCH ×2 (08:09→20:50)
[2017-08-14] MEDS: GABAPENTIN 300 MG CAP PO SCH ×2 (08:09→20:48)
[2017-08-14] MEDS: NICOTINE 21 MG/24 HR PATCH T-DERMAL SCH (08:09)
[2017-08-14] MEDS: TIOTROPIUM BROMIDE 18 MCG INH INH SCH (08:10)
[2017-08-14 10:38] LABS: AUTOMATED NEUTROPHIL # 3.6 TH/MM3 (1.8-7.7); BASOPHIL % 0.3 % (0.0-2.0); HEMATOCRIT 26.3 % (35.0-46.0); HEMOGLOBIN 9.1 GM/DL (11.6-15.3); LYMPHOCYTE # 1.5 TH/MM3 (1.0-4.8); MEAN CELL VOLUME 98.4 FL (80.0-100.0); MEAN CORPUSCULAR HEMOGLOBIN 34.2 PG (27.0-34.0); MEAN CORPUSCULAR HGB CONC 34.7 % (32.0-36.0); MEAN PLATELET VOLUME 7.7 FL (7.0-11.0); MONO % 8.7 % (0.0-8.0); MONOCYTE # 0.5 TH/MM3 (0-0.9); PLATELET COUNT 150 TH/MM3 (150-450); RED BLOOD COUNT 2.67 MIL/MM3 (4.00-5.30); RED CELL DISTRIBUTION WIDTH 12.4 % (11.6-17.2); WHITE BLOOD COUNT 5.7 TH/MM3 (4.0-11.0)
--- NOTE | 2017-08-14 11:59 | HHI.PR ---
Subjective Subjective Notes POD 3 ex lap sarina for recurrent sbo NG out ostomy needs to be replaced when supplies available oob with PT IS pain control ok lovenox tomorrow trend HH slowly going down, on evidence of active bleed, follow Objective Vitals/I&O Vital Signs Date Time Temp Pulse Resp B/P (MAP) Pulse Ox O2 Delivery O2 Flow Rate FiO2 08/14/17 08:00 Nasal Cannula 2.00 08/14/17 08:00 97.3 79 16 134/62 (86) 98 Labs Laboratory Tests Test 08/14/17 09:51 White Blood Count 5.7 Red Blood Count 2.67 Hemoglobin 9.1 Hematocrit 26.3 Mean Corpuscular Volume 98.4 Mean Corpuscular Hemoglobin 34.2 Mean Corpuscular Hemoglobin Concent 34.7 Red Cell Distribution Width 12.4 Platelet Count 150 Mean Platelet Volume 7.7 Neutrophils (%) (Auto) 64.0 Lymphocytes (%) (Auto) 27.0 Monocytes (%) (Auto) 8.7 Eosinophils (%) (Auto) 0.0 Basophils (%) (Auto) 0.3 Neutrophils # (Auto) 3.6 Lymphocytes # (Auto) 1.5 Monocytes # (Auto) 0.5 Eosinophils # (Auto) 0.0 Basophils # (Auto) 0.0 CBC Comment DIFF FINAL Differential Comment Joce Heredia MD Aug 14, 2017 11:59
--- NOTE | 2017-08-14 14:13 | HHI.PR ---
Subjective Remarks Follow-up SBO and anemia. States she is okay was told by her surgeon she will be started on liquid diet. She still not passing gas. Discussed with RN Objective Vitals Vital Signs Date Time Temp Pulse Resp B/P (MAP) Pulse Ox O2 Delivery O2 Flow Rate FiO2 08/14/17 12:15 18 08/14/17 12:00 97.5 78 14 106/57 (73) 98 08/14/17 08:00 Nasal Cannula 2.00 08/14/17 08:00 97.3 79 16 134/62 (86) 98 08/14/17 08:00 85 08/14/17 06:36 18 08/14/17 06:02 18 08/14/17 05:32 85 08/14/17 05:14 18 08/14/17 04:00 98.7 88 17 132/62 (85) 98 08/14/17 02:00 Nasal Cannula 2.00 08/14/17 00:00 98.1 84 18 110/58 (75) 97 08/14/17 00:00 80 08/13/17 20:01 91 08/13/17 20:00 98.9 89 18 116/56 (76) 97 08/13/17 20:00 Nasal Cannula 2.00 08/13/17 19:29 18 08/13/17 16:03 98.0 103 20 151/69 (96) 95 I/O 08/13/17 08/13/17 08/13/17 08/14/17 08/14/17 08/14/17 07:00 15:00 23:00 07:00 15:00 23:00 Intake Total 0 ml 0 ml Output Total 635 ml 1525 ml 7 ml 1203 ml Balance -635 ml -1525 ml -7 ml -1203 ml Intake Oral 0 ml 0 ml Output Urine Total 600 ml 1525 ml 1200 ml Drainage Total 35 ml 7 ml 3 ml # Bowel Movements 0 0 Result Diagram: 08/14/1751 08/13/17 0805 Objective Remarks GENERAL: This is a well-nourished, well-developed patient, in no apparent distress. SKIN: No rashes, ecchymoses or lesions. Cool and dry. CARDIOVASCULAR: Regular rate and rhythm without murmurs, gallops, or rubs. RESPIRATORY: Clear to auscultation. Breath sounds equal bilaterally. No wheezes , rales, or rhonchi. GASTROINTESTINAL: Abdomen soft, tender over surgical sites, nondistended. Hypoactive bowel sounds MUSCULOSKELETAL: Extremities without clubbing, cyanosis, or edema. No joint tenderness, effusion, or edema noted. No calf tenderness. Negative Homans sign bilaterally. NEUROLOGICAL: Awake and alert. Cranial nerves II through XII intact. Motor and sensory grossly within normal limits. Five out of 5 muscle strength in all muscle groups. Normal speech. A/P Assessment and Plan This is a 62-year-old female with a history of recurrent SBO status post lysis of adhesions over a month ago. Continued to be symptomatic with nausea, vomiting and abdominal pain secondary to intermittent SBO and underwent elective exploratory laparotomy, lysis of adhesions and resection of small bowel with anastomosis by Dr. Gan requested consultation to evaluate and manage medical conditions. Recurrent SBO status post exploratory laparoscopy, DERICK and resection of small bowel with anastomosis. Stable ct NPO except meds, IV hydration and pain management with Dilaudid BULB GROWER. GI prophylaxis with PPI. Advance diet for general surgery. Consulted dietitian for TPN or PPN if extended nothing by mouth. Supportive treatment. Acute anemia secondary to acute blood loss. Slightly worse but hemodynamically stable. Repeat CBC in the morning Mild hyperglycemia on D5. Monitor fingersticks. Hypoglycemia protocol. A1c 5.2 Coronary artery disease status post [place] in May 2016 status post stenting on aspirin and Plavix. Denies chest pain. Restart antiplatelets when cleared by general surgery Schizoaffective disorder on Tegretol, Zoloft, Zyprexa and Valium which all have been continued. Chronic pain on oxycodone and gabapentin. We'll restart when able. Patient on Dilaudid BULB GROWER COPD. Stable on Spiriva and albuterol. Bladder cancer status post cystectomy and urostomy. DVT prophylaxis with SCD and early ambulation. PT evaluation. Lovenox when okay by GS Discharge Planning [facility] vs rehab Jamar Burroughs MD Aug 14, 2017 14:13
[2017-08-14] MEDS: PANTOPRAZOLE SODIUM 40 MG VIAL IV PUSH SCH (17:56)
[2017-08-14] MEDS: OLANZapine 5 MG TAB PO SCH (20:48)
[2017-08-14] MEDS: MELATONIN 5 MG TAB PO SCH (20:49)
[2017-08-15] VITALS (10 sets, daily range): BP systolic 93–131; BP diastolic 55–62; PULSE 65–89; RESP 16–18; TEMP 97.2–97.9; O2SAT 94–98
[2017-08-15] MEDS: PCA - TOTAL MG DILAUDID DELIVERED PER SHIFT SCH ×3 (05:23→23:01)
[2017-08-15] MEDS: D5-NS + KCL 20 MEQ INJ 1,000 ML IV SCH ×2 (05:24→21:40)
[2017-08-15] MEDS: REMOVE OLD PATCH T-DERMAL SCH (09:00)
[2017-08-15] MEDS: DIAZEPAM 5 MG TAB PO SCH ×3 (09:00→18:32)
[2017-08-15 09:09] LABS: BASOPHIL % 0.1 % (0.0-2.0); HEMATOCRIT 25.8 % (35.0-46.0); HEMOGLOBIN 8.9 GM/DL (11.6-15.3); LYMPH % 34.6 % (9.0-44.0); LYMPHOCYTE # 1.2 TH/MM3 (1.0-4.8); MEAN CORPUSCULAR HEMOGLOBIN 34.2 PG (27.0-34.0); MEAN CORPUSCULAR HGB CONC 34.5 % (32.0-36.0); MEAN PLATELET VOLUME 7.8 FL (7.0-11.0); MONO % 10.6 % (0.0-8.0); MONOCYTE # 0.4 TH/MM3 (0-0.9); NEUT % 54.7 % (16.0-70.0); PLATELET COUNT 177 TH/MM3 (150-450); RED BLOOD COUNT 2.61 MIL/MM3 (4.00-5.30); RED CELL DISTRIBUTION WIDTH 12.3 % (11.6-17.2); WHITE BLOOD COUNT 3.6 TH/MM3 (4.0-11.0)
[2017-08-15 09:21] LABS: BICARBONATE 27.3 MEQ/L (21.0-32.0); CALCIUM 7.7 MG/DL (8.5-10.1); CREATININE 0.32 MG/DL (0.50-1.00); MAGNESIUM 1.4 MG/DL (1.5-2.5)
[2017-08-15] MEDS: GABAPENTIN 300 MG CAP PO SCH ×2 (10:14→21:41)
[2017-08-15] MEDS: carBAMazepine 200 MG TAB PO SCH ×2 (10:14→21:42)
[2017-08-15] MEDS: SERTRALINE HCL 50 MG TAB PO SCH (10:14)
[2017-08-15] MEDS: MUPIROCIN 2% OINT 1 APPLIC/GM SYR EACH NARE SCH ×2 (10:15→21:42)
[2017-08-15] MEDS: LORazepam 2 MG/ML VIAL IV PUSH PRN ×2 (10:15→21:43)
[2017-08-15] MEDS: TIOTROPIUM BROMIDE 18 MCG INH INH SCH (10:16)
[2017-08-15] MEDS: NICOTINE 21 MG/24 HR PATCH T-DERMAL SCH (10:16)
[2017-08-15] MEDS: SODIUM CHLORIDE 0.9% FLUSH 10 ML FLUSH IV FLUSH SCH ×2 (10:16→21:40)
--- NOTE | 2017-08-15 10:34 | HHI.PR ---
Subjective Subjective Notes 'I feel emotional today; I can't stop crying and I don't know why." Thirsty Objective Vitals/I&O Vital Signs Date Time Temp Pulse Resp B/P (MAP) Pulse Ox O2 Delivery O2 Flow Rate FiO2 08/15/17 08:08 97.9 77 17 131/61 (84) 97 08/15/17 04:00 Nasal Cannula 2.00 Labs Laboratory Tests Test 08/15/17 07:10 White Blood Count 3.6 Red Blood Count 2.61 Hemoglobin 8.9 Hematocrit 25.8 Mean Corpuscular Volume 99.0 Mean Corpuscular Hemoglobin 34.2 Mean Corpuscular Hemoglobin Concent 34.5 Red Cell Distribution Width 12.3 Platelet Count 177 Mean Platelet Volume 7.8 Neutrophils (%) (Auto) 54.7 Lymphocytes (%) (Auto) 34.6 Monocytes (%) (Auto) 10.6 Eosinophils (%) (Auto) 0.0 Basophils (%) (Auto) 0.1 Neutrophils # (Auto) 2.0 Lymphocytes # (Auto) 1.2 Monocytes # (Auto) 0.4 Eosinophils # (Auto) 0.0 Basophils # (Auto) 0.0 CBC Comment DIFF FINAL Differential Comment Blood Urea Nitrogen 3 Creatinine 0.32 Random Glucose 97 Calcium Level 7.7 Magnesium Level 1.4 Sodium Level 142 Potassium Level 3.7 Chloride Level 109 Carbon Dioxide Level 27.3 Anion Gap 6 Estimat Glomerular Filtration Rate 211 Cardiovascular: Regular Lungs: Clear Abdomen: Other (midline incisnion with phoebe; c/d/i; urostomy with collection bag; DUC with serosanguineous drainage ) Extremities: No edema A/P Assessment and Plan 62 year old female POD 4 ex lap; DERICK for recurrent SBO -Start clear liquids -OOB and mobilize -IVF -Awaiting today's labs -IS -Dressing changes Attending Statement Will see Grandkids via computer later today. Ileal conduit working well. Incision clean and dry, no erythema. Drain with serous drainage, stripped, small amount of clot extruded. The exam, history, and the medical decision-making described in the above note were completed with the assistance of the mid-level provider. I reviewed and agree with the findings presented. I attest that I had a [id number] encounter with the patient on the same day, and personally performed and documented my assessment and findings in the medical record. Ashwini Miguel Aug 15, 2017 10:34 Chidi Patrick MD Aug 15, 2017 12:16
[2017-08-15] MEDS ORDERED: HYDROmorphone HCL PF 2 MG/ML VIAL IV PUSH ONE (12:45)
[2017-08-15] MEDS ORDERED: MAGNESIUM SULFATE 1 GM PREMIX 100 ML IV ONE (12:45)
[2017-08-15] MEDS ORDERED: MORPHINE SULFATE 2 MG/ML INJ IM ONE (12:45)
--- NOTE | 2017-08-15 12:45 | HHI.PR ---
Subjective Remarks Follow-up SBO. 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 Still no flatus or BM. Can't tell if abdomen is more distended. On 2 L nasal cannula. Discussed with RN Objective Vitals Vital Signs Date Time Temp Pulse Resp B/P (MAP) Pulse Ox O2 Delivery O2 Flow Rate FiO2 08/15/17 08:08 97.9 77 17 131/61 (84) 97 08/15/17 05:23 20 08/15/17 04:00 68 08/15/17 04:00 97.6 75 16 120/62 (81) 97 08/15/17 04:00 Nasal Cannula 2.00 08/15/17 00:00 97.2 76 18 106/55 (72) 97 08/15/17 00:00 74 08/15/17 00:00 Nasal Cannula 2.00 08/14/17 20:09 97 Nasal Cannula 2.00 08/14/17 20:00 Nasal Cannula 2.00 08/14/17 20:00 97.8 80 18 147/75 (99) 94 08/14/17 20:00 75 08/14/17 18:28 18 08/14/17 16:00 97.2 68 14 107/56 (73) 99 I/O 08/14/17 08/14/17 08/14/17 08/15/17 08/15/17 08/15/17 07:00 15:00 23:00 07:00 15:00 23:00 Intake Total 0 ml 1000 ml Output Total 1203 ml 620 ml 410 ml Balance -1203 ml 380 ml -410 ml Intake Oral 0 ml IV Total 1000 ml Output Urine Total 1200 ml 600 ml 400 ml Drainage Total 3 ml 20 ml 10 ml # Bowel Movements 0 Result Diagram: 08/15/17 0710 08/15/17 0710 Objective Remarks GENERAL: This is a well-nourished, well-developed patient, in no apparent distress. SKIN: No rashes, ecchymoses or lesions. Cool and dry. CARDIOVASCULAR: Regular rate and rhythm without murmurs, gallops, or rubs. RESPIRATORY: Clear to auscultation. Breath sounds equal bilaterally. No wheezes , rales, or rhonchi. GASTROINTESTINAL: Abdomen soft, tender over surgical sites, nondistended. Hypoactive bowel sounds MUSCULOSKELETAL: Extremities without clubbing, cyanosis but with trace pitting edema. No joint tenderness, effusion, or edema noted. No calf tenderness. Negative Homans sign bilaterally. NEUROLOGICAL: Awake and alert. Cranial nerves II through XII intact. Motor and sensory grossly within normal limits. Five out of 5 muscle strength in all muscle groups. Normal speech. A/P Assessment and Plan This is a 62-year-old female with a history of recurrent SBO status post lysis of adhesions over a month ago. Continued to be symptomatic with nausea, vomiting and abdominal pain secondary to intermittent SBO and underwent elective exploratory laparotomy, lysis of adhesions and resection of small bowel with anastomosis by Dr. Gan requested consultation to evaluate and manage medical conditions. Recurrent SBO status post exploratory laparoscopy, DERICK and resection of small bowel with anastomosis. Stable diet has been advanced by general surgery to clear liquid, decrease IV hydration and the new pain management with Dilaudid FINISHER OPERATOR. GI prophylaxis with PPI. Acute anemia secondary to acute blood loss. Slightly worse but hemodynamically stable. Repeat CBC in the morning Mild hyperglycemia on D5. Monitor fingersticks. Hypoglycemia protocol. A1c 5.2 Coronary artery disease status post [place] in May 2016 status post stenting on aspirin and Plavix. Denies chest pain. Restart antiplatelets when cleared by general surgery Schizoaffective disorder on Tegretol, Zoloft, Zyprexa and Valium which all have been continued. Chronic pain on oxycodone and gabapentin. We'll restart when able. 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 Stable on Spiriva and albuterol. Bladder cancer status post cystectomy and urostomy. DVT prophylaxis with SCD and early ambulation. PT evaluation. Lovenox when okay by GS Discharge Planning [facility] vs rehab Jamar Burroughs MD Aug 15, 2017 12:45
[2017-08-15] MEDS: HYDROmorphone HCL PCA 6 MG/30 ML IV SCH (15:41)
[2017-08-15] MEDS: PANTOPRAZOLE SODIUM 40 MG VIAL IV PUSH SCH (18:32)
[2017-08-15] MEDS: MELATONIN 5 MG TAB PO SCH (21:41)
[2017-08-15] MEDS: OLANZapine 5 MG TAB PO SCH (21:42)
[2017-08-16] VITALS (9 sets, daily range): BP systolic 120–139; BP diastolic 59–65; PULSE 75–101; RESP 16–20; TEMP 97.5–98.4; O2SAT 94–97
[2017-08-16] MEDS: PCA - TOTAL MG DILAUDID DELIVERED PER SHIFT SCH ×3 (06:18→22:00)
[2017-08-16 07:31] LABS: AUTOMATED NEUTROPHIL # 2.3 TH/MM3 (1.8-7.7); BASOPHIL % 0.1 % (0.0-2.0); HEMATOCRIT 27.2 % (35.0-46.0); HEMOGLOBIN 9.5 GM/DL (11.6-15.3); LYMPHOCYTE # 1.2 TH/MM3 (1.0-4.8); MEAN CELL VOLUME 97.5 FL (80.0-100.0); MEAN CORPUSCULAR HEMOGLOBIN 34.1 PG (27.0-34.0); MEAN PLATELET VOLUME 7.4 FL (7.0-11.0); MONOCYTE # 0.4 TH/MM3 (0-0.9); NEUT % 58.9 % (16.0-70.0); PLATELET COUNT 201 TH/MM3 (150-450); RED BLOOD COUNT 2.79 MIL/MM3 (4.00-5.30); RED CELL DISTRIBUTION WIDTH 12.3 % (11.6-17.2); WHITE BLOOD COUNT 3.9 TH/MM3 (4.0-11.0)
[2017-08-16 07:45] LABS: BICARBONATE 31.5 MEQ/L (21.0-32.0); CALCIUM 7.8 MG/DL (8.5-10.1); CREATININE 0.43 MG/DL (0.50-1.00); MAGNESIUM 1.7 MG/DL (1.5-2.5)
[2017-08-16] MEDS: REMOVE OLD PATCH T-DERMAL SCH (09:00)
[2017-08-16] MEDS: GABAPENTIN 300 MG CAP PO SCH ×2 (10:00→21:21)
[2017-08-16] MEDS: carBAMazepine 200 MG TAB PO SCH ×2 (10:00→21:19)
[2017-08-16] MEDS: DIAZEPAM 5 MG TAB PO SCH ×3 (10:00→21:18)
[2017-08-16] MEDS: SERTRALINE HCL 50 MG TAB PO SCH (10:00)
[2017-08-16] MEDS: TIOTROPIUM BROMIDE 18 MCG INH INH SCH (10:01)
[2017-08-16] MEDS: NICOTINE 21 MG/24 HR PATCH T-DERMAL SCH (10:01)
[2017-08-16] MEDS: SODIUM CHLORIDE 0.9% FLUSH 10 ML FLUSH IV FLUSH SCH ×2 (10:01→21:22)
[2017-08-16] MEDS: MUPIROCIN 2% OINT 1 APPLIC/GM SYR EACH NARE SCH ×2 (10:02→21:19)
[2017-08-16] MEDS: LORazepam 2 MG/ML VIAL IV PUSH PRN ×2 (11:41→19:02)
--- NOTE | 2017-08-16 11:41 | HHI.PR ---
Subjective Subjective Notes Up to chair No issues Ready to have DUC drain out Objective Vitals/I&O Vital Signs Date Time Temp Pulse Resp B/P (MAP) Pulse Ox O2 Delivery O2 Flow Rate FiO2 08/16/17 08:00 98.3 83 16 129/62 (84) 94 08/15/17 19:00 Nasal Cannula 2.00 Labs Laboratory Tests Test 08/16/17 06:43 White Blood Count 3.9 Red Blood Count 2.79 Hemoglobin 9.5 Hematocrit 27.2 Mean Corpuscular Volume 97.5 Mean Corpuscular Hemoglobin 34.1 Mean Corpuscular Hemoglobin Concent 35.0 Red Cell Distribution Width 12.3 Platelet Count 201 Mean Platelet Volume 7.4 Neutrophils (%) (Auto) 58.9 Lymphocytes (%) (Auto) 31.0 Monocytes (%) (Auto) 10.0 Eosinophils (%) (Auto) 0.0 Basophils (%) (Auto) 0.1 Neutrophils # (Auto) 2.3 Lymphocytes # (Auto) 1.2 Monocytes # (Auto) 0.4 Eosinophils # (Auto) 0.0 Basophils # (Auto) 0.0 CBC Comment DIFF FINAL Differential Comment Blood Urea Nitrogen 3 Creatinine 0.43 Random Glucose 103 Calcium Level 7.8 Magnesium Level 1.7 Sodium Level 143 Potassium Level 3.6 Chloride Level 109 Carbon Dioxide Level 31.5 Anion Gap 3 Estimat Glomerular Filtration Rate 150 Cardiovascular: Regular Lungs: Clear Abdomen: Other (midline incision with phoebe; DUC removed; abdomen soft ) Extremities: No edema A/P Assessment and Plan 62 year old female POD5 ex lap; DERICK for recurrent SBO -Continue clear liquids until bowel function returns -OOB and mobilize -IVF -Restart Plavix/ASA today -IS -Dressing changes; DUC removed Attending Statement patient seen at bedside tolerating clears no bowel fxn yet oob bowel regimen Attestation The exam, history, and the medical decision-making described in the above note were completed with the assistance of the mid-level provider. I reviewed and agree with the findings presented. I attest that I had a [id number] encounter with the patient on the same day, and personally performed and documented my assessment and findings in the medical record. Ashwini Miguel Aug 16, 2017 11:41 Tonny Gan MD Aug 19, 2017 23:10
[2017-08-16] MEDS: CLOPIDOGREL 75 MG TAB PO SCH (12:56)
[2017-08-16] MEDS: ASPIRIN 81 MG CHEW TAB CHEW SCH (12:56)
[2017-08-16] MEDS: D5-NS + KCL 20 MEQ INJ 1,000 ML IV SCH (14:00)
--- NOTE | 2017-08-16 14:53 | HHI.PR ---
Subjective Remarks Patient feels nauseous and c/o mild abdominal pain. Afebrile. Denies cp/sob. Objective Vitals Vital Signs Date Time Temp Pulse Resp B/P (MAP) Pulse Ox O2 Delivery O2 Flow Rate FiO2 08/16/17 12:00 98.1 84 20 130/63 (85) 96 08/16/17 08:00 98.3 83 16 129/62 (84) 94 08/16/17 06:18 16 08/16/17 04:15 97.5 75 16 136/65 (88) 97 08/16/17 03:48 75 08/15/17 23:55 87 08/15/17 23:55 97.8 79 16 93/55 (68) 95 08/15/17 23:01 18 08/15/17 20:25 97.9 89 16 117/56 (76) 94 08/15/17 19:46 72 08/15/17 19:00 94 Nasal Cannula 2.00 08/15/17 16:08 97.6 82 17 123/60 (81) 98 08/15/17 16:06 81 08/15/17 15:41 20 I/O 08/15/17 08/15/17 08/15/17 08/16/17 08/16/17 08/16/17 06:59 14:59 22:59 06:59 14:59 22:59 Intake Total 1740 ml 710 ml Output Total 410 ml 100 ml 3350 ml 2150 ml Balance -410 ml -100 ml -1610 ml -1440 ml Intake Oral 640 ml 710 ml IV Total 1100 ml Output Urine Total 400 ml 3300 ml 2150 ml Drainage Total 10 ml 100 ml 50 ml # Bowel Movements 0 0 Result Diagram: 08/16/1743 08/16/17 0643 Objective Remarks AAOX3 NAD PERRLA S1S2 RRR Clear lungs BL Abdomen soft, mildly tender to palpation over right side of abdomen. Midline incision with phoebe; DUC removed; abdomen soft. NO edema in extremities Procedures 1. Exploratory laparotomy. 2. Extensive lysis of adhesions greater than sixty minutes. 3. Primary anastomosis with stapled anastomosis of small bowel. 4. Placement of anti-adhesive barrier. Medications and IVs Current Medications Medications (Trade) Dose Ordered Sig/Deondre Route Start Time Stop Time Status Last Admin Potassium Chloride/Dextrose/ Sod Cl 1,000 ml @ 70 mls/hr [id number] IV 08/11/17 15:00 08/15/17 21:40 (NS Flush) 2 ml UNSCH PRN IV FLUSH 08/11/17 13:45 (NS Flush) 2 ml BID IV FLUSH 08/11/17 13:45 08/16/17 10:01 (Zofran Inj) 4 mg Q4H PRN IV PUSH 08/11/17 13:45 (Reglan Inj) 10 mg Q6H PRN IVS 08/11/17 13:45 08/12/17 06:56 (Benadryl) 25 mg Q6H PRN PO 08/11/17 13:45 08/13/17 05:17 (Narcan Inj) 0.4 mg UNSCH PRN IV PUSH 08/11/17 13:45 (Protonix Inj) 40 mg Q24H IV PUSH 08/11/17 18:45 08/15/17 18:32 (Ativan Inj) 1 mg Q6H PRN IV PUSH 08/11/17 18:30 08/16/17 11:41 (Proair Hfa Inh) 2 puff Q2HR PRN INH 08/11/17 18:30 (Habitrol 21 Mg Patch.24 Hr) 1 patch DAILY T-DERMAL 08/11/17 18:30 08/16/17 10:01 (Spiriva Inh) 18 mcg DAILY INH 08/11/17 18:30 08/16/17 10:01 Miscellaneous Information 1 DAILY T-DERMAL 08/11/17 18:30 08/16/17 09:00 (Dilaudid PARAMEDIC RN Inj) 6 mg UNSCH IV 08/11/17 19:00 08/15/17 15:41 PARAMEDIC RN Dosage Infused (Pha) 1 Q8HR .XX 08/11/17 22:00 08/16/17 06:18 (Narcan Inj) 0.4 mg UNSCH PRN IV PUSH 08/11/17 19:00 (Bactroban Nasal 2% Oint) 1 applic BID EACH NARE 08/12/17 09:00 08/19/17 08:59 08/16/17 10:02 (D50w (Vial) Inj) 50 ml UNSCH PRN IV PUSH 08/12/17 13:15 (Glucagon Inj) 1 mg UNSCH PRN OTHER 08/12/17 13:15 (TEGretol) 200 mg DAILY PO 08/13/17 09:00 08/16/17 10:00 (TEGretol) 400 mg HS PO 08/12/17 21:00 08/15/17 21:42 (Valium) 5 mg TID PO 08/12/17 18:00 08/16/17 12:56 (Neurontin) 300 mg BID PO 08/12/17 21:00 08/16/17 10:00 (Zoloft) 75 mg DAILY PO 08/13/17 09:00 08/16/17 10:00 (Melatonin) 10 mg HS PO 08/12/17 21:00 08/15/17 21:41 (Pill Splitter) 1 ea UNSCH PRN OTHER 08/12/17 15:45 (ZyPREXA) 10 mg HS PO 08/13/17 21:00 08/15/17 21:42 (Aspirin Chew) 81 mg DAILY CHEW 08/16/17 10:00 08/16/17 12:56 (Plavix) 75 mg DAILY PO 08/16/17 10:00 08/16/17 12:56 A/P Problem List: (1) SBO (small bowel obstruction) ICD Code: K56.609 - Unspecified intestinal obstruction, unspecified as to partial versus complete obstruction Plan: This is a 62-year-old female with a history of recurrent SBO status post lysis of adhesions over a month ago. Continued to be symptomatic with nausea, vomiting and abdominal pain secondary to intermittent SBO and underwent elective exploratory laparotomy, lysis of adhesions and resection of small bowel with anastomosis by Dr. Gan requested consultation to evaluate and manage medical conditions. The small bowel obstruction status post expiratory laparoscopy, extensive lysis of adhesions and resection of small bowel with primary anastomosis. Management as per general surgery. Patient currently on clear liquid diet which has not been tolerating very well. On Dilaudid PARAMEDIC RN pump. Patient not tolerating diet. Advance diet once patient tolerating it as per general surgery. (2) Anemia due to acute blood loss ICD Code: D62 - Acute posthemorrhagic anemia Status: Acute Plan: Slight drop of hemoglobin after surgery. Hemoglobin has been stable. Continue to monitor CBC. (3) Hyperglycemia ICD Code: R73.9 - Hyperglycemia, unspecified Plan: Likely related to stress and pain. Blood sugar is now stable. Hemoglobin A1c 5.2. Continue to monitor fingersticks, hyperglycemia protocol. (4) CAD (coronary artery disease) ICD Code: I25.10 - Atherosclerotic heart disease of [place] coronary artery without angina pectoris Plan: CAD seems to be stable. Patient status post [place] in May 2016 status post stenting on aspirin and Plavix. Aspirin and Plavix held prior to surgery. Resume aspirin and Plavix today as per general surgery indications. (5) History of urostomy ICD Code: Z98.890 - Other specified postprocedural states Status: Chronic Plan: Patient with urostomy bag. Seems stable. (6) Schizoaffective disorder ICD Code: F25.9 - Schizoaffective disorder, unspecified Status: Chronic Plan: Seems to be stable. Patient on Tegretol, Zyprexa, Zoloft. (7) COPD (chronic obstructive pulmonary disease) ICD Code: J44.9 - Chronic obstructive pulmonary disease, unspecified Status: Chronic Plan: Seems to be stable. On albuterol inhaler, Spiriva. Continue (8) H/O carcinoma of bladder ICD Code: Z85.51 - Personal history of malignant neoplasm of bladder Plan: Status post cystectomy and urostomy. (9) Chronic pain ICD Code: G89.29 - Other chronic pain Status: Chronic Plan: Oxycodone and gabapentin. Patient on Dilaudid PARAMEDIC RN. Pain control management as per general surgery. Assessment and Plan DVT prophylaxis with SCDs and early ambulation. Aspirin and Plavix resumed. Discharge Planning As per primary team. Patient still not ready Problem Qualifiers (1) CAD (coronary artery disease): Qualified Codes: I25.10 - Atherosclerotic heart disease of [place] coronary artery without angina pectoris (2) Schizoaffective disorder: Qualified Codes: F25.9 - Schizoaffective disorder, unspecified (3) COPD (chronic obstructive pulmonary disease): Qualified Codes: J44.9 - Chronic obstructive pulmonary disease, unspecified (4) Chronic pain: Qualified Codes: G89.3 - Neoplasm related pain (acute) (chronic) Km William MD Aug 16, 2017 14:53
[2017-08-16] MEDS: HYDROmorphone HCL PCA 6 MG/30 ML IV SCH (18:59)
[2017-08-16] MEDS: PANTOPRAZOLE SODIUM 40 MG VIAL IV PUSH SCH (19:02)
[2017-08-16] MEDS: MELATONIN 5 MG TAB PO SCH (21:21)
[2017-08-16] MEDS: OLANZapine 5 MG TAB PO SCH (21:22)
[2017-08-17] VITALS (8 sets, daily range): BP systolic 94–162; BP diastolic 53–76; PULSE 72–97; RESP 16–20; TEMP 95.3–98.4; O2SAT 92–96
[2017-08-17] MEDS: PCA - TOTAL MG DILAUDID DELIVERED PER SHIFT SCH ×3 (06:00→22:00)
[2017-08-17] MEDS: D5-NS + KCL 20 MEQ INJ 1,000 ML IV SCH ×3 (08:28→23:40)
[2017-08-17] MEDS: NICOTINE 21 MG/24 HR PATCH T-DERMAL SCH (08:28)
[2017-08-17] MEDS: GABAPENTIN 300 MG CAP PO SCH ×2 (08:29→21:00)
[2017-08-17] MEDS: CLOPIDOGREL 75 MG TAB PO SCH (08:29)
[2017-08-17] MEDS: ASPIRIN 81 MG CHEW TAB CHEW SCH (08:29)
[2017-08-17] MEDS: SERTRALINE HCL 50 MG TAB PO SCH (08:29)
[2017-08-17] MEDS: DIAZEPAM 5 MG TAB PO SCH ×3 (08:29→18:41)
[2017-08-17] MEDS: REMOVE OLD PATCH T-DERMAL SCH (08:29)
[2017-08-17] MEDS: SODIUM CHLORIDE 0.9% FLUSH 10 ML FLUSH IV FLUSH SCH ×2 (08:31→21:01)
[2017-08-17] MEDS: TIOTROPIUM BROMIDE 18 MCG INH INH SCH (08:36)
[2017-08-17] MEDS: carBAMazepine 200 MG TAB PO SCH ×2 (08:36→21:01)
[2017-08-17] MEDS: MUPIROCIN 2% OINT 1 APPLIC/GM SYR EACH NARE SCH ×2 (08:36→21:01)
[2017-08-17 08:57] LABS: AUTOMATED NEUTROPHIL # 2.4 TH/MM3 (1.8-7.7); BASOPHIL % 0.1 % (0.0-2.0); HEMATOCRIT 27.7 % (35.0-46.0); HEMOGLOBIN 9.4 GM/DL (11.6-15.3); LYMPH % 31.6 % (9.0-44.0); LYMPHOCYTE # 1.3 TH/MM3 (1.0-4.8); MEAN CELL VOLUME 97.6 FL (80.0-100.0); MEAN CORPUSCULAR HEMOGLOBIN 33.3 PG (27.0-34.0); MEAN CORPUSCULAR HGB CONC 34.1 % (32.0-36.0); MONO % 12.1 % (0.0-8.0); MONOCYTE # 0.5 TH/MM3 (0-0.9); NEUT % 56.2 % (16.0-70.0); PLATELET COUNT 200 TH/MM3 (150-450); RED BLOOD COUNT 2.83 MIL/MM3 (4.00-5.30); RED CELL DISTRIBUTION WIDTH 12.5 % (11.6-17.2); WHITE BLOOD COUNT 4.2 TH/MM3 (4.0-11.0)
[2017-08-17 09:19] LABS: BICARBONATE 30.3 MEQ/L (21.0-32.0); CALCIUM 7.9 MG/DL (8.5-10.1); CREATININE 0.49 MG/DL (0.50-1.00)
[2017-08-17] MEDS: LORazepam 2 MG/ML VIAL IV PUSH PRN ×2 (13:09→22:34)
--- NOTE | 2017-08-17 14:55 | HHI.PR ---
Subjective Remarks Patient passed gas today, no BM yet. Denies fevers or chills Tolerating regular diet better feels better compared to yesterday Objective Vitals Vital Signs Date Time Temp Pulse Resp B/P (MAP) Pulse Ox O2 Delivery O2 Flow Rate FiO2 08/17/17 14:36 20 08/17/17 12:44 82 08/17/17 12:20 Nasal Cannula 2.00 08/17/17 12:00 97.9 83 18 108/54 (72) 96 08/17/17 08:40 Nasal Cannula 2.00 08/17/17 08:00 98.3 73 16 162/76 (104) 95 08/17/17 08:00 79 08/17/17 06:00 14 08/17/17 04:00 98.2 72 18 117/55 (75) 96 08/17/17 03:46 76 08/17/17 00:00 95.3 84 18 94/53 (67) 95 08/16/17 23:43 82 08/16/17 20:15 Nasal Cannula 2.00 08/16/17 20:00 98.4 101 18 120/59 (79) 96 08/16/17 19:48 96 08/16/17 18:59 20 08/16/17 16:15 88 08/16/17 16:00 98.1 85 18 139/64 (89) 94 I/O 08/16/17 08/16/17 08/16/17 08/17/17 08/17/17 08/17/17 07:00 15:00 23:00 07:00 15:00 23:00 Intake Total 710 ml 720 ml 240 ml Output Total 2150 ml 1000 ml 1000 ml Balance -1440 ml -280 ml -760 ml Intake Oral 710 ml 720 ml 240 ml Output Urine Total 2150 ml 1000 ml 1000 ml # Bowel Movements 0 0 0 Result Diagram: 08/17/1771908/17/17719 Objective Remarks AAOX3 NAD PERRLA S1S2 RRR Clear lungs BL Abdomen soft, mildly tender to palpation over right side of abdomen. Midline incision with phoebe; DUC removed; abdomen soft. NO edema in extremities Procedures 1. Exploratory laparotomy. 2. Extensive lysis of adhesions greater than sixty minutes. 3. Primary anastomosis with stapled anastomosis of small bowel. 4. Placement of anti-adhesive barrier. Medications and IVs Current Medications Medications (Trade) Dose Ordered Sig/Deondre Route Start Time Stop Time Status Last Admin Potassium Chloride/Dextrose/ Sod Cl 1,000 ml @ 70 mls/hr [id number] IV 08/11/17 15:00 08/17/17 08:28 (NS Flush) 2 ml UNSCH PRN IV FLUSH 08/11/17 13:45 (NS Flush) 2 ml BID IV FLUSH 08/11/17 13:45 08/16/17 21:22 (Zofran Inj) 4 mg Q4H PRN IV PUSH 08/11/17 13:45 (Reglan Inj) 10 mg Q6H PRN IVS 08/11/17 13:45 08/12/17 06:56 (Benadryl) 25 mg Q6H PRN PO 08/11/17 13:45 08/13/17 05:17 (Narcan Inj) 0.4 mg UNSCH PRN IV PUSH 08/11/17 13:45 (Protonix Inj) 40 mg Q24H IV PUSH 08/11/17 18:45 08/16/17 19:02 (Ativan Inj) 1 mg Q6H PRN IV PUSH 08/11/17 18:30 08/17/17 13:09 (Proair Hfa Inh) 2 puff Q2HR PRN INH 08/11/17 18:30 (Habitrol 21 Mg Patch.24 Hr) 1 patch DAILY T-DERMAL 08/11/17 18:30 08/17/17 08:28 (Spiriva Inh) 18 mcg DAILY INH 08/11/17 18:30 08/17/17 08:36 Miscellaneous Information 1 DAILY T-DERMAL 08/11/17 18:30 08/17/17 08:29 (Dilaudid IT RISK AND ASSURANCE MANAGER Inj) 6 mg UNSCH IV 08/11/17 19:00 08/16/17 18:59 IT RISK AND ASSURANCE MANAGER Dosage Infused (Pha) 1 Q8HR .XX 08/11/17 22:00 08/17/17 14:36 (Narcan Inj) 0.4 mg UNSCH PRN IV PUSH 08/11/17 19:00 (Bactroban Nasal 2% Oint) 1 applic BID EACH NARE 08/12/17 09:00 08/19/17 08:59 08/17/17 08:36 (D50w (Vial) Inj) 50 ml UNSCH PRN IV PUSH 08/12/17 13:15 (Glucagon Inj) 1 mg UNSCH PRN OTHER 08/12/17 13:15 (TEGretol) 200 mg DAILY PO 08/13/17 09:00 08/17/17 08:36 (TEGretol) 400 mg HS PO 08/12/17 21:00 08/16/17 21:19 (Valium) 5 mg TID PO 08/12/17 18:00 08/17/17 08:29 (Neurontin) 300 mg BID PO 08/12/17 21:00 08/17/17 08:29 (Zoloft) 75 mg DAILY PO 08/13/17 09:00 08/17/17 08:29 (Melatonin) 10 mg HS PO 08/12/17 21:00 08/16/17 21:21 (Pill Splitter) 1 ea UNSCH PRN OTHER 08/12/17 15:45 (ZyPREXA) 10 mg HS PO 08/13/17 21:00 08/16/17 21:22 (Aspirin Chew) 81 mg DAILY CHEW 08/16/17 10:00 08/17/17 08:29 (Plavix) 75 mg DAILY PO 08/16/17 10:00 08/17/17 08:29 A/P Problem List: (1) SBO (small bowel obstruction) ICD Code: K56.609 - Unspecified intestinal obstruction, unspecified as to partial versus complete obstruction (2) Anemia due to acute blood loss ICD Code: D62 - Acute posthemorrhagic anemia Status: Acute (3) Hyperglycemia ICD Code: R73.9 - Hyperglycemia, unspecified (4) CAD (coronary artery disease) ICD Code: I25.10 - Atherosclerotic heart disease of [place] coronary artery without angina pectoris (5) History of urostomy ICD Code: Z98.890 - Other specified postprocedural states Status: Chronic (6) Schizoaffective disorder ICD Code: F25.9 - Schizoaffective disorder, unspecified Status: Chronic (7) COPD (chronic obstructive pulmonary disease) ICD Code: J44.9 - Chronic obstructive pulmonary disease, unspecified Status: Chronic (8) H/O carcinoma of bladder ICD Code: Z85.51 - Personal history of malignant neoplasm of bladder (9) Chronic pain ICD Code: G89.29 - Other chronic pain Status: Chronic Assessment and Plan (1) SBO (small bowel obstruction) ICD Code: K56.609 - Unspecified intestinal obstruction, unspecified as to partial versus complete obstruction Plan: This is a 62-year-old female with a history of recurrent SBO status post lysis of adhesions over a month ago. Continued to be symptomatic with nausea, vomiting and abdominal pain secondary to intermittent SBO and underwent elective exploratory laparotomy, lysis of adhesions and resection of small bowel with anastomosis by Dr. Gan requested consultation to evaluate and manage medical conditions. The small bowel obstruction status post expiratory laparoscopy, extensive lysis of adhesions and resection of small bowel with primary anastomosis. Management as per general surgery. Patient currently on clear liquid diet which has not been tolerating very well. On Dilaudid IT RISK AND ASSURANCE MANAGER pump. Patient not tolerating diet. Advance diet once patient tolerating it as per general surgery. (2) Anemia due to acute blood loss ICD Code: D62 - Acute posthemorrhagic anemia Status: Acute Plan: Slight drop of hemoglobin after surgery. Hemoglobin has been stable. Continue to monitor CBC. (3) Hyperglycemia ICD Code: R73.9 - Hyperglycemia, unspecified Plan: Likely related to stress and pain. Blood sugar is now stable. Hemoglobin A1c 5.2. Continue to monitor fingersticks, hyperglycemia protocol. (4) CAD (coronary artery disease) ICD Code: I25.10 - Atherosclerotic heart disease of [place] coronary artery without angina pectoris Plan: CAD seems to be stable. Patient status post [place] in May 2016 status post stenting on aspirin and Plavix. Aspirin and Plavix held prior to surgery. Resume aspirin and Plavix today as per general surgery indications. (5) History of urostomy ICD Code: Z98.890 - Other specified postprocedural states Status: Chronic Plan: Patient with urostomy bag. Seems stable. (6) Schizoaffective disorder ICD Code: F25.9 - Schizoaffective disorder, unspecified Status: Chronic Plan: Seems to be stable. Patient on Tegretol, Zyprexa, Zoloft. (7) COPD (chronic obstructive pulmonary disease) ICD Code: J44.9 - Chronic obstructive pulmonary disease, unspecified Status: Chronic Plan: Seems to be stable. On albuterol inhaler, Spiriva. Continue (8) H/O carcinoma of bladder ICD Code: Z85.51 - Personal history of malignant neoplasm of bladder Plan: Status post cystectomy and urostomy. (9) Chronic pain ICD Code: G89.29 - Other chronic pain Status: Chronic Plan: Oxycodone and gabapentin. Patient on Dilaudid IT RISK AND ASSURANCE MANAGER. Pain control management as per general surgery. Assessment and Plan DVT prophylaxis with SCDs and early ambulation. Aspirin and Plavix resumed. DVT prophylaxis with SCDs and early ambulation. Aspirin and Plavix resumed. Discharge Planning As per primary team. Patient still not ready Problem Qualifiers (1) CAD (coronary artery disease): Qualified Codes: I25.10 - Atherosclerotic heart disease of [place] coronary artery without angina pectoris (2) Schizoaffective disorder: Qualified Codes: F25.9 - Schizoaffective disorder, unspecified (3) COPD (chronic obstructive pulmonary disease): Qualified Codes: J44.9 - Chronic obstructive pulmonary disease, unspecified (4) Chronic pain: Qualified Codes: G89.3 - Neoplasm related pain (acute) (chronic) Km William MD Aug 17, 2017 14:55
--- NOTE | 2017-08-17 17:03 | HHI.PR ---
Subjective Subjective Notes Resting in bed +Gas now Objective Vitals/I&O Vital Signs Date Time Temp Pulse Resp B/P (MAP) Pulse Ox O2 Delivery O2 Flow Rate FiO2 08/17/17 16:00 98.4 86 20 136/61 (86) 92 08/17/17 12:20 Nasal Cannula 2.00 Labs Laboratory Tests Test 08/17/17 07:20 White Blood Count 4.2 Red Blood Count 2.83 Hemoglobin 9.4 Hematocrit 27.7 Mean Corpuscular Volume 97.6 Mean Corpuscular Hemoglobin 33.3 Mean Corpuscular Hemoglobin Concent 34.1 Red Cell Distribution Width 12.5 Platelet Count 200 Mean Platelet Volume 7.0 Neutrophils (%) (Auto) 56.2 Lymphocytes (%) (Auto) 31.6 Monocytes (%) (Auto) 12.1 Eosinophils (%) (Auto) 0.0 Basophils (%) (Auto) 0.1 Neutrophils # (Auto) 2.4 Lymphocytes # (Auto) 1.3 Monocytes # (Auto) 0.5 Eosinophils # (Auto) 0.0 Basophils # (Auto) 0.0 CBC Comment DIFF FINAL Differential Comment Blood Urea Nitrogen 4 Creatinine 0.49 Random Glucose 94 Calcium Level 7.9 Sodium Level 141 Potassium Level 3.6 Chloride Level 106 Carbon Dioxide Level 30.3 Anion Gap 5 Estimat Glomerular Filtration Rate 129 Cardiovascular: Regular Lungs: Clear Abdomen: Other (midline incision with just some minimal serous drainage at inferior portion of incision), Post-op tenderness Extremities: No edema A/P Assessment and Plan 62 year old female POD6 ex lap; DERICK for recurrent SBO -Advance to fulls; encourage small meals for now -Added Percocet----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 I reviewed and agree with the findings presented. I attest that I had a [id number] encounter with the patient on the same day, and personally performed and documented my assessment and findings in the medical record. Ashwini Miguel Aug 17, 2017 17:03 Tonny Gan MD Aug 19, 2017 23:14
[2017-08-17] MEDS ORDERED: oxyCODONE/ACETAMINOPHEN 5 MG/325 MG TAB PO PRN (17:15)
[2017-08-17] MEDS: oxyCODONE/ACETAMINOPHEN 5 MG/325 MG TAB PO PRN (18:41)
[2017-08-17] MEDS: PANTOPRAZOLE SODIUM 40 MG VIAL IV PUSH SCH (18:41)
[2017-08-17] MEDS: OLANZapine 5 MG TAB PO SCH (21:00)
[2017-08-17] MEDS: MELATONIN 5 MG TAB PO SCH (21:00)
[2017-08-17] MEDS: HYDROmorphone HCL PCA 6 MG/30 ML IV SCH (22:30)
[2017-08-18] VITALS (7 sets, daily range): BP systolic 96–138; BP diastolic 52–78; PULSE 72–89; RESP 16–20; TEMP 97.4–98.9; O2SAT 93–98
[2017-08-18] MEDS: PCA - TOTAL MG DILAUDID DELIVERED PER SHIFT SCH ×3 (06:00→22:00)
[2017-08-18] MEDS: MUPIROCIN 2% OINT 1 APPLIC/GM SYR EACH NARE SCH ×2 (08:01→21:10)
[2017-08-18] MEDS: carBAMazepine 200 MG TAB PO SCH ×2 (08:02→21:00)
[2017-08-18] MEDS: DIAZEPAM 5 MG TAB PO SCH ×3 (08:02→18:20)
[2017-08-18] MEDS: ASPIRIN 81 MG CHEW TAB CHEW SCH (08:02)
[2017-08-18] MEDS: GABAPENTIN 300 MG CAP PO SCH ×2 (08:02→21:09)
[2017-08-18] MEDS: SERTRALINE HCL 50 MG TAB PO SCH (08:02)
[2017-08-18] MEDS: CLOPIDOGREL 75 MG TAB PO SCH (08:03)
[2017-08-18] MEDS: SODIUM CHLORIDE 0.9% FLUSH 10 ML FLUSH IV FLUSH SCH ×2 (08:04→21:10)
[2017-08-18] MEDS: REMOVE OLD PATCH T-DERMAL SCH (08:04)
[2017-08-18] MEDS: TIOTROPIUM BROMIDE 18 MCG INH INH SCH (08:04)
[2017-08-18] MEDS: NICOTINE 21 MG/24 HR PATCH T-DERMAL SCH (08:04)
[2017-08-18] MEDS ORDERED: MAGNESIUM HYDROXIDE SUSP 30 ML CUP PO ONE (13:15)
[2017-08-18] MEDS ORDERED: LACTULOSE SYRUP 20 GM/30 ML CUP PO ONE (13:15)
[2017-08-18] MEDS: oxyCODONE/ACETAMINOPHEN 5 MG/325 MG TAB PO PRN ×2 (13:30→21:09)
[2017-08-18] MEDS: LORazepam 2 MG/ML VIAL IV PUSH PRN ×2 (13:31→21:11)
--- NOTE | 2017-08-18 14:48 | HHI.PR ---
Subjective Subjective Notes Up to chair No BM yet Objective Vitals/I&O Vital Signs Date Time Temp Pulse Resp B/P (MAP) Pulse Ox O2 Delivery O2 Flow Rate FiO2 08/18/17 13:32 18 08/18/17 12:00 98.3 80 115/57 (76) 95 08/18/17 11:39 Nasal Cannula 2.00 Cardiovascular: Regular Lungs: Clear Abdomen: Other (midline incision with minimal drainage at inferior portion of incision ) Extremities: No edema A/P Assessment and Plan 62 year old female POD7 ex lap; DERICK for recurrent SBO -Advance to fulls; encourage small meals for now; plan to advance to soft diet for dinner -Percocet----wean RECEPTIONIST -OOB and mobilize -DC IVF -Continue Plavix/ASA -IS -Dressing changes -Wean O2 -If pain controlled using Percocet, bowel function returns and able to tolerate soft diet will plan to DC tomorrow Attending Statement patient seen at bedside d/c planning bowel regimen pain control transition to po Attestation The exam, history, and the medical decision-making described in the above note were completed with the assistance of the mid-level provider. I reviewed and agree with the findings presented. I attest that I had a [id number] encounter with the patient on the same day, and personally performed and documented my assessment and findings in the medical record. Ashwini Miguel Aug 18, 2017 14:48 Tonny Gan MD Aug 23, 2017 21:42
[2017-08-18] MEDS ORDERED: OXYC1TAB63 PO (14:55)
--- NOTE | 2017-08-18 17:16 | HHI.PR ---
Objective Vitals Vital Signs Date Time Temp Pulse Resp B/P (MAP) Pulse Ox O2 Delivery O2 Flow Rate FiO2 08/18/17 16:49 82 08/18/17 16:00 97.4 89 20 96/55 (69) 93 08/18/17 15:58 Nasal Cannula 2.00 08/18/17 13:32 18 08/18/17 12:00 80 08/18/17 12:00 98.3 80 20 115/57 (76) 95 08/18/17 11:39 Nasal Cannula 2.00 08/18/17 08:05 Room Air 2.00 08/18/17 08:00 72 08/18/17 08:00 97.6 88 20 127/60 (82) 98 08/18/17 06:00 18 08/18/17 04:00 97.4 80 20 102/52 (69) 97 08/18/17 04:00 81 08/18/17 00:00 98.9 88 16 100/54 (69) 94 08/18/17 00:00 82 08/17/17 22:30 16 08/17/17 22:00 16 08/17/17 20:15 97 Room Air 08/17/17 20:00 93 08/17/17 20:00 98.4 97 18 133/66 (88) 95 08/17/17 20:00 93 08/17/17 17:56 Room Air I/O 08/17/17 08/17/17 08/17/17 08/18/17 08/18/17 08/18/17 07:00 15:00 23:00 07:00 15:00 23:00 Intake Total 240 ml 480 ml Output Total 1000 ml 2700 ml Balance -760 ml -2220 ml Intake Oral 240 ml 480 ml Output Urine Total 1000 ml 2700 ml # Bowel Movements 0 Result Diagram: 08/17/1771908/17/17719 Objective Remarks AAOX3 NAD PERRLA S1S2 RRR Clear lungs BL Abdomen soft, mildly tender to palpation over right side of abdomen. Midline incision with phoebe; DUC removed; abdomen soft. NO edema in extremities Procedures 1. Exploratory laparotomy. 2. Extensive lysis of adhesions greater than sixty minutes. 3. Primary anastomosis with stapled anastomosis of small bowel. 4. Placement of anti-adhesive barrier. A/P Problem List: (1) SBO (small bowel obstruction) ICD Code: K56.609 - Unspecified intestinal obstruction, unspecified as to partial versus complete obstruction (2) Anemia due to acute blood loss ICD Code: D62 - Acute posthemorrhagic anemia Status: Acute (3) Hyperglycemia ICD Code: R73.9 - Hyperglycemia, unspecified (4) CAD (coronary artery disease) ICD Code: I25.10 - Atherosclerotic heart disease of [place] coronary artery without angina pectoris (5) History of urostomy ICD Code: Z98.890 - Other specified postprocedural states Status: Chronic (6) Schizoaffective disorder ICD Code: F25.9 - Schizoaffective disorder, unspecified Status: Chronic (7) COPD (chronic obstructive pulmonary disease) ICD Code: J44.9 - Chronic obstructive pulmonary disease, unspecified Status: Chronic (8) H/O carcinoma of bladder ICD Code: Z85.51 - Personal history of malignant neoplasm of bladder (9) Chronic pain ICD Code: G89.29 - Other chronic pain Status: Chronic Assessment and Plan (1) SBO (small bowel obstruction) ICD Code: K56.609 - Unspecified intestinal obstruction, unspecified as to partial versus complete obstruction Plan: This is a 62-year-old female with a history of recurrent SBO status post lysis of adhesions over a month ago. Continued to be symptomatic with nausea, vomiting and abdominal pain secondary to intermittent SBO and underwent elective exploratory laparotomy, lysis of adhesions and resection of small bowel with anastomosis by Dr. Gan requested consultation to evaluate and manage medical conditions. The small bowel obstruction status post expiratory laparoscopy, extensive lysis of adhesions and resection of small bowel with primary anastomosis. Management as per general surgery. Patient currently on clear liquid diet which has not been tolerating very well. On Dilaudid FURNITURE ASSEMBLER AND INSTALLER pump. Patient not tolerating diet. Advance diet once patient tolerating it as per general surgery. (2) Anemia due to acute blood loss ICD Code: D62 - Acute posthemorrhagic anemia Status: Acute Plan: Slight drop of hemoglobin after surgery. Hemoglobin has been stable. Continue to monitor CBC. (3) Hyperglycemia ICD Code: R73.9 - Hyperglycemia, unspecified Plan: Likely related to stress and pain. Blood sugar is now stable. Hemoglobin A1c 5.2. Continue to monitor fingersticks, hyperglycemia protocol. (4) CAD (coronary artery disease) ICD Code: I25.10 - Atherosclerotic heart disease of [place] coronary artery without angina pectoris Plan: CAD seems to be stable. Patient status post [place] in May 2016 status post stenting on aspirin and Plavix. Aspirin and Plavix held prior to surgery. Resume aspirin and Plavix today as per general surgery indications. (5) History of urostomy ICD Code: Z98.890 - Other specified postprocedural states Status: Chronic Plan: Patient with urostomy bag. Seems stable. (6) Schizoaffective disorder ICD Code: F25.9 - Schizoaffective disorder, unspecified Status: Chronic Plan: Seems to be stable. Patient on Tegretol, Zyprexa, Zoloft. (7) COPD (chronic obstructive pulmonary disease) ICD Code: J44.9 - Chronic obstructive pulmonary disease, unspecified Status: Chronic Plan: Seems to be stable. On albuterol inhaler, Spiriva. Continue (8) H/O carcinoma of bladder ICD Code: Z85.51 - Personal history of malignant neoplasm of bladder Plan: Status post cystectomy and urostomy. (9) Chronic pain ICD Code: G89.29 - Other chronic pain Status: Chronic Plan: Oxycodone and gabapentin. Patient on Dilaudid FURNITURE ASSEMBLER [employer] INSTALLER. Pain control management as per general surgery. Assessment and Plan DVT prophylaxis with SCDs and early ambulation. Aspirin and Plavix resumed. DVT prophylaxis with SCDs and early ambulation. Aspirin and Plavix resumed. Discharge Planning As per primary team. Patient still not ready Problem Qualifiers (1) CAD (coronary artery disease): Qualified Codes: I25.10 - Atherosclerotic heart disease of [place] coronary artery without angina pectoris (2) Schizoaffective disorder: Qualified Codes: F25.9 - Schizoaffective disorder, unspecified (3) COPD (chronic obstructive pulmonary disease): Qualified Codes: J44.9 - Chronic obstructive pulmonary disease, unspecified (4) Chronic pain: Qualified Codes: G89.3 - Neoplasm related pain (acute) (chronic) Km William MD Aug 18, 2017 17:16
[2017-08-18] MEDS: PANTOPRAZOLE SODIUM 40 MG VIAL IV PUSH SCH (18:21)
--- NOTE | 2017-08-18 18:40 | HHI.PR ---
Subjective Remarks Patient up to chair. (+) passing gas, no BM yet. Objective Vitals Vital Signs Date Time Temp Pulse Resp B/P (MAP) Pulse Ox O2 Delivery O2 Flow Rate FiO2 08/18/17 16:49 82 08/18/17 16:00 97.4 89 20 96/55 (69) 93 08/18/17 15:58 Nasal Cannula 2.00 08/18/17 13:32 18 08/18/17 12:00 80 08/18/17 12:00 98.3 80 20 115/57 (76) 95 08/18/17 11:39 Nasal Cannula 2.00 08/18/17 08:05 Room Air 2.00 08/18/17 08:00 72 08/18/17 08:00 97.6 88 20 127/60 (82) 98 08/18/17 06:00 18 08/18/17 04:00 97.4 80 20 102/52 (69) 97 08/18/17 04:00 81 08/18/17 00:00 98.9 88 16 100/54 (69) 94 08/18/17 00:00 82 08/17/17 22:30 16 08/17/17 22:00 16 08/17/17 20:15 97 Room Air 08/17/17 20:00 93 08/17/17 20:00 98.4 97 18 133/66 (88) 95 08/17/17 20:00 93 I/O 08/17/17 08/17/17 08/17/17 08/18/17 08/18/17 08/18/17 07:00 15:00 23:00 07:00 15:00 23:00 Intake Total 240 ml 480 ml 480 ml Output Total 1000 ml 2700 ml 2800 ml Balance -760 ml -2220 ml -2320 ml Intake Oral 240 ml 480 ml 480 ml Output Urine Total 1000 ml 2700 ml 2800 ml # Bowel Movements 0 1 Result Diagram: 08/17/1771908/17/17719 Objective Remarks AAOX3 NAD PERRLA S1S2 RRR Clear lungs BL Abdomen soft, mildly tender to palpation over right side of abdomen. Midline incision with phoebe; DUC removed; abdomen soft. NO edema in extremities Procedures 1. Exploratory laparotomy. 2. Extensive lysis of adhesions greater than sixty minutes. 3. Primary anastomosis with stapled anastomosis of small bowel. 4. Placement of anti-adhesive barrier. Medications and IVs Current Medications Medications (Trade) Dose Ordered Sig/Deondre Route Start Time Stop Time Status Last Admin Potassium Chloride/Dextrose/ Sod Cl 1,000 ml @ 0 mls/hr [id number] IV 08/11/17 15:00 08/17/17 23:40 (NS Flush) 2 ml UNSCH PRN IV FLUSH 08/11/17 13:45 (NS Flush) 2 ml BID IV FLUSH 08/11/17 13:45 08/17/17 21:01 (Zofran Inj) 4 mg Q4H PRN IV PUSH 08/11/17 13:45 (Benadryl) 25 mg Q6H PRN PO 08/11/17 13:45 08/13/17 05:17 (Narcan Inj) 0.4 mg UNSCH PRN IV PUSH 08/11/17 13:45 (Protonix Inj) 40 mg Q24H IV PUSH 08/11/17 18:45 08/18/17 18:21 (Ativan Inj) 1 mg Q6H PRN IV PUSH 08/11/17 18:30 08/18/17 13:31 (Proair Hfa Inh) 2 puff Q2HR PRN INH 08/11/17 18:30 (Habitrol 21 Mg Patch.24 Hr) 1 patch DAILY T-DERMAL 08/11/17 18:30 08/18/17 08:04 (Spiriva Inh) 18 mcg DAILY INH 08/11/17 18:30 08/18/17 08:04 Miscellaneous Information 1 DAILY T-DERMAL 08/11/17 18:30 08/18/17 08:04 (Dilaudid DEATH CLAIM CLERK Inj) 6 mg UNSCH IV 08/11/17 19:00 08/17/17 22:30 DEATH CLAIM CLERK Dosage Infused (Pha) 1 Q8HR .XX 08/11/17 22:00 08/18/17 13:32 (Narcan Inj) 0.4 mg UNSCH PRN IV PUSH 08/11/17 19:00 (Bactroban Nasal 2% Oint) 1 applic BID EACH NARE 08/12/17 09:00 08/19/17 08:59 08/18/17 08:01 (D50w (Vial) Inj) 50 ml UNSCH PRN IV PUSH 08/12/17 13:15 (Glucagon Inj) 1 mg UNSCH PRN OTHER 08/12/17 13:15 (TEGretol) 200 mg DAILY PO 08/13/17 09:00 08/18/17 08:02 (TEGretol) 400 mg HS PO 08/12/17 21:00 08/17/17 21:01 (Valium) 5 mg TID PO 08/12/17 18:00 08/18/17 18:20 (Neurontin) 300 mg BID PO 08/12/17 21:00 08/18/17 08:02 (Zoloft) 75 mg DAILY PO 08/13/17 09:00 08/18/17 08:02 (Melatonin) 10 mg HS PO 08/12/17 21:00 08/17/17 21:00 (Pill Splitter) 1 ea UNSCH PRN OTHER 08/12/17 15:45 (ZyPREXA) 10 mg HS PO 08/13/17 21:00 08/17/17 21:00 (Aspirin Chew) 81 mg DAILY CHEW 08/16/17 10:00 08/18/17 08:02 (Plavix) 75 mg DAILY PO 08/16/17 10:00 08/18/17 08:03 (Percocet 5-325 Mg) 1 tab Q4H PRN PO 08/17/17 17:15 (Percocet 5-325 Mg) 2 tab Q4H PRN PO 08/17/17 17:15 08/18/17 13:30 A/P Problem List: (1) SBO (small bowel obstruction) ICD Code: K56.609 - Unspecified intestinal obstruction, unspecified as to partial versus complete obstruction (2) Anemia due to acute blood loss ICD Code: D62 - Acute posthemorrhagic anemia Status: Acute (3) Hyperglycemia ICD Code: R73.9 - Hyperglycemia, unspecified (4) CAD (coronary artery disease) ICD Code: I25.10 - Atherosclerotic heart disease of [place] coronary artery without angina pectoris (5) History of urostomy ICD Code: Z98.890 - Other specified postprocedural states Status: Chronic (6) Schizoaffective disorder ICD Code: F25.9 - Schizoaffective disorder, unspecified Status: Chronic (7) COPD (chronic obstructive pulmonary disease) ICD Code: J44.9 - Chronic obstructive pulmonary disease, unspecified Status: Chronic (8) H/O carcinoma of bladder ICD Code: Z85.51 - Personal history of malignant neoplasm of bladder (9) Chronic pain ICD Code: G89.29 - Other chronic pain Status: Chronic Assessment and Plan (1) SBO (small bowel obstruction) Plan: This is a 62-year-old female with a history of recurrent SBO status post lysis of adhesions over a month ago. Continued to be symptomatic with nausea, vomiting and abdominal pain secondary to intermittent SBO and underwent elective exploratory laparotomy, lysis of adhesions and resection of small bowel with anastomosis by Dr. Gan requested consultation to evaluate and manage medical conditions. The small bowel obstruction status post expiratory laparoscopy, extensive lysis of adhesions and resection of small bowel with primary anastomosis. Management as per general surgery. Patient currently on clear liquid diet which has not been tolerating very well. On Dilaudid DEATH CLAIM CLERK pump. Diet as tolerated as per GS. Tolerating clear liquids andvanced to full. Encourage small meals. (2) Anemia due to acute blood loss Plan: Slight drop of hemoglobin after surgery. Hemoglobin has been stable. Continue to monitor CBC. (3) Hyperglycemia Plan: Likely related to stress and pain. Blood sugar is now stable. Hemoglobin A1c 5.2. Continue to monitor fingersticks, hyperglycemia protocol. (4) CAD (coronary artery disease) Plan: CAD seems to be stable. Patient status post [place] in May 2016 status post stenting on aspirin and Plavix. Aspirin and Plavix held prior to surgery. Resume aspirin and Plavix today as per general surgery indications. (5) History of urostomy Plan: Patient with urostomy bag. Seems stable. (6) Schizoaffective disorder Plan: Seems to be stable. Patient on Tegretol, Zyprexa, Zoloft. (7) COPD (chronic obstructive pulmonary disease) Plan: Seems to be stable. On albuterol inhaler, Spiriva. Continue (8) H/O carcinoma of bladder Plan: Status post cystectomy and urostomy. (9) Chronic pain Plan: Oxycodone and gabapentin. Patient on Dilaudid DEATH CLAIM CLERK. Pain control management as per general surgery. DVT prophylaxis with SCDs and early ambulation. Aspirin and Plavix resumed. Discharge Planning As per primary team. Patient still not ready Problem Qualifiers (1) CAD (coronary artery disease): Qualified Codes: I25.10 - Atherosclerotic heart disease of [place] coronary artery without angina pectoris (2) Schizoaffective disorder: Qualified Codes: F25.9 - Schizoaffective disorder, unspecified (3) COPD (chronic obstructive pulmonary disease): Qualified Codes: J44.9 - Chronic obstructive pulmonary disease, unspecified (4) Chronic pain: Qualified Codes: G89.3 - Neoplasm related pain (acute) (chronic) Km William MD Aug 18, 2017 18:40
[2017-08-18] MEDS: OLANZapine 5 MG TAB PO SCH (21:09)
[2017-08-18] MEDS: MELATONIN 5 MG TAB PO SCH (21:09)
[2017-08-19] VITALS (11 sets, daily range): BP systolic 87–122; BP diastolic 50–58; PULSE 64–102; RESP 16–20; TEMP 97.3–99.3; O2SAT 87–98
[2017-08-19] MEDS: oxyCODONE/ACETAMINOPHEN 5 MG/325 MG TAB PO PRN ×3 (01:35→18:39)
[2017-08-19] MEDS: HYDROmorphone HCL PCA 6 MG/30 ML IV SCH (04:02)
[2017-08-19] MEDS: PCA - TOTAL MG DILAUDID DELIVERED PER SHIFT SCH ×3 (05:47→21:10)
[2017-08-19] MEDS ORDERED: SODIUM CHLORID 0.9% 500 ML INJ 500 ML IV ONE ×2 (09:00→17:30)
[2017-08-19] MEDS: CLOPIDOGREL 75 MG TAB PO SCH (09:21)
[2017-08-19] MEDS: GABAPENTIN 300 MG CAP PO SCH ×2 (09:21→21:16)
[2017-08-19] MEDS: DIAZEPAM 5 MG TAB PO SCH ×3 (09:23→17:54)
[2017-08-19] MEDS: ASPIRIN 81 MG CHEW TAB CHEW SCH (09:23)
[2017-08-19] MEDS: carBAMazepine 200 MG TAB PO SCH ×2 (09:23→21:16)
[2017-08-19] MEDS: SODIUM CHLORIDE 0.9% FLUSH 10 ML FLUSH IV FLUSH SCH ×2 (09:24→21:16)
[2017-08-19] MEDS: NICOTINE 21 MG/24 HR PATCH T-DERMAL SCH (09:25)
[2017-08-19] MEDS: REMOVE OLD PATCH T-DERMAL SCH (09:25)
[2017-08-19] MEDS: SERTRALINE HCL 50 MG TAB PO SCH (09:42)
[2017-08-19] MEDS: TIOTROPIUM BROMIDE 18 MCG INH INH SCH (10:14)
[2017-08-19] MEDS: LORazepam 2 MG/ML VIAL IV PUSH PRN ×2 (12:53→21:22)
--- NOTE | 2017-08-19 14:43 | HHI.PR ---
Subjective Remarks Deferred entry, patient seen earlier at 10 AM Oxygen saturation dropped to 87 earlier today. Patient denied any chest pain or shortness of breath. Objective Vitals Vital Signs Date Time Temp Pulse Resp B/P (MAP) Pulse Ox O2 Delivery O2 Flow Rate FiO2 08/19/17 12:07 97 Nasal Cannula 2.00 08/19/17 12:00 71 08/19/17 10:21 16 08/19/17 09:44 95 Nasal Cannula 2.00 08/19/17 08:00 97.3 95 20 122/57 (78) 87 08/19/17 07:25 Room Air 08/19/17 04:00 99.0 97 20 91/55 (67) 93 08/19/17 04:00 97 08/19/17 00:00 99.3 102 20 97/56 (70) 93 08/19/17 00:00 98 08/18/17 22:00 16 08/18/17 20:52 Nasal Cannula 2.00 08/18/17 20:00 83 08/18/17 20:00 97.6 89 20 138/78 (98) 98 08/18/17 16:49 82 08/18/17 16:00 97.4 89 20 96/55 (69) 93 08/18/17 15:58 Nasal Cannula 2.00 I/O 08/18/17 08/18/17 08/18/17 08/19/17 08/19/17 08/19/17 07:00 15:00 23:00 07:00 15:00 23:00 Intake Total 480 ml 0 ml 500 ml Output Total 2800 ml 500 ml Balance -2320 ml -500 ml 500 ml Intake Oral 480 ml 0 ml IV Total 500 ml Output Urine Total 2800 ml 500 ml # Bowel Movements 1 Result Diagram: 08/17/1720 08/17/17 0720 Objective Remarks AAOX3 NAD PERRLA S1S2 RRR Clear lungs BL Abdomen soft, mildly tender to palpation over right side of abdomen. Midline incision with phoebe; DUC removed; abdomen soft. NO edema in extremities Procedures 1. Exploratory laparotomy. 2. Extensive lysis of adhesions greater than sixty minutes. 3. Primary anastomosis with stapled anastomosis of small bowel. 4. Placement of anti-adhesive barrier. Medications and IVs Current Medications Medications (Trade) Dose Ordered Sig/Deondre Route Start Time Stop Time Status Last Admin Potassium Chloride/Dextrose/ Sod Cl 1,000 ml @ 0 mls/hr [id number] IV 08/11/17 15:00 08/17/17 23:40 (NS Flush) 2 ml UNSCH PRN IV FLUSH 08/11/17 13:45 (NS Flush) 2 ml BID IV FLUSH 08/11/17 13:45 08/19/17 09:24 (Zofran Inj) 4 mg Q4H PRN IV PUSH 08/11/17 13:45 (Benadryl) 25 mg Q6H PRN PO 08/11/17 13:45 08/13/17 05:17 (Narcan Inj) 0.4 mg UNSCH PRN IV PUSH 08/11/17 13:45 (Protonix Inj) 40 mg Q24H IV PUSH 08/11/17 18:45 08/18/17 18:21 (Ativan Inj) 1 mg Q6H PRN IV PUSH 08/11/17 18:30 08/19/17 12:53 (Proair Hfa Inh) 2 puff Q2HR PRN INH 08/11/17 18:30 (Habitrol 21 Mg Patch.24 Hr) 1 patch DAILY T-DERMAL 08/11/17 18:30 08/19/17 09:25 (Spiriva Inh) 18 mcg DAILY INH 08/11/17 18:30 08/19/17 10:14 Miscellaneous Information 1 DAILY T-DERMAL 08/11/17 18:30 08/19/17 09:25 (Dilaudid SEAM FELLER Inj) 6 mg UNSCH IV 08/11/17 19:00 08/17/17 22:30 SEAM FELLER Dosage Infused (Pha) 1 Q8HR .XX 08/11/17 22:00 08/18/17 22:00 (Narcan Inj) 0.4 mg UNSCH PRN IV PUSH 08/11/17 19:00 (D50w (Vial) Inj) 50 ml UNSCH PRN IV PUSH 08/12/17 13:15 (Glucagon Inj) 1 mg UNSCH PRN OTHER 08/12/17 13:15 (TEGretol) 200 mg DAILY PO 08/13/17 09:00 08/19/17 09:23 (TEGretol) 400 mg HS PO 08/12/17 21:00 08/18/17 21:00 (Valium) 5 mg TID PO 08/12/17 18:00 08/19/17 09:23 (Neurontin) 300 mg BID PO 08/12/17 21:00 08/19/17 09:21 (Zoloft) 75 mg DAILY PO 08/13/17 09:00 08/19/17 09:42 (Melatonin) 10 mg HS PO 08/12/17 21:00 08/18/17 21:09 (Pill Splitter) 1 ea UNSCH PRN OTHER 08/12/17 15:45 (ZyPREXA) 10 mg HS PO 08/13/17 21:00 08/18/17 21:09 (Aspirin Chew) 81 mg DAILY CHEW 08/16/17 10:00 08/19/17 09:23 (Plavix) 75 mg DAILY PO 08/16/17 10:00 08/19/17 09:21 (Percocet 5-325 Mg) 1 tab Q4H PRN PO 08/17/17 17:15 (Percocet 5-325 Mg) 2 tab Q4H PRN PO 08/17/17 17:15 08/19/17 09:24 A/P Problem List: (1) SBO (small bowel obstruction) ICD Code: K56.609 - Unspecified intestinal obstruction, unspecified as to partial versus complete obstruction (2) Anemia due to acute blood loss ICD Code: D62 - Acute posthemorrhagic anemia Status: Acute (3) Hyperglycemia ICD Code: R73.9 - Hyperglycemia, unspecified (4) CAD (coronary artery disease) ICD Code: I25.10 - Atherosclerotic heart disease of [place] coronary artery without angina pectoris (5) History of urostomy ICD Code: Z98.890 - Other specified postprocedural states Status: Chronic (6) Schizoaffective disorder ICD Code: F25.9 - Schizoaffective disorder, unspecified Status: Chronic (7) COPD (chronic obstructive pulmonary disease) ICD Code: J44.9 - Chronic obstructive pulmonary disease, unspecified Status: Chronic (8) H/O carcinoma of bladder ICD Code: Z85.51 - Personal history of malignant neoplasm of bladder (9) Chronic pain ICD Code: G89.29 - Other chronic pain Status: Chronic (10) Hypoxemia ICD Code: R09.02 - Hypoxemia Plan: Oxygen saturation dropped into the high 80s today when the patient was off oxygen. Oxygen quickly came up after oxygen was placed back. The patient is currently introduced nasal cannula. I will order stat chest x-ray to assess the lung parenchyma. If there is not a clear explanation on the chest x-ray done will proceed to order a CT pulmonary grams to rule out PE. Continue to provide supplemental oxygen to keep oxygen saturations more than 92% . Assessment and Plan (1) SBO (small bowel obstruction) Plan: This is a 62-year-old female with a history of recurrent SBO status post lysis of adhesions over a month ago. Continued to be symptomatic with nausea, vomiting and abdominal pain secondary to intermittent SBO and underwent elective exploratory laparotomy, lysis of adhesions and resection of small bowel with anastomosis by Dr. Gan requested consultation to evaluate and manage medical conditions. The small bowel obstruction status post expiratory laparoscopy, extensive lysis of adhesions and resection of small bowel with primary anastomosis. Management as per general surgery. Patient currently on clear liquid diet which has not been tolerating very well. On Dilaudid SEAM FELLER pump. Diet as tolerated as per GS. Tolerating clear liquids andvanced to full. Encourage small meals. 08/19 Discussed case with Ashwini Miguel (Surgery [facility]) she states patient is cleared for DC from surgical standpoint, however patient was hypoxemic so will need medical clearance prior to being discharged. (2) Anemia due to acute blood loss Plan: Slight drop of hemoglobin after surgery. Hemoglobin has been stable. Continue to monitor CBC. (3) Hyperglycemia Plan: Likely related to stress and pain. Blood sugar is now stable. Hemoglobin A1c 5.2. Continue to monitor fingersticks, hyperglycemia protocol. (4) CAD (coronary artery disease) Plan: CAD seems to be stable. Patient status post [place] in May 2016 status post stenting on aspirin and Plavix. Aspirin and Plavix held prior to surgery. Resume aspirin and Plavix today as per general surgery indications. (5) History of urostomy Plan: Patient with urostomy bag. Seems stable. (6) Schizoaffective disorder Plan: Seems to be stable. Patient on Tegretol, Zyprexa, Zoloft. (7) COPD (chronic obstructive pulmonary disease) Plan: Seems to be stable. On albuterol inhaler, Spiriva. Continue (8) H/O carcinoma of bladder Plan: Status post cystectomy and urostomy. (9) Chronic pain Plan: Oxycodone and gabapentin. Patient on Dilaudid SEAM FELLER. Pain control management as per general surgery. DVT prophylaxis with SCDs and early ambulation. Aspirin and Plavix resumed. Discharge Planning As per primary team. Patient still not ready Problem Qualifiers (1) CAD (coronary artery disease): Qualified Codes: I25.10 - Atherosclerotic heart disease of [place] coronary artery without angina pectoris (2) Schizoaffective disorder: Qualified Codes: F25.9 - Schizoaffective disorder, unspecified (3) COPD (chronic obstructive pulmonary disease): Qualified Codes: J44.9 - Chronic obstructive pulmonary disease, unspecified (4) Chronic pain: Qualified Codes: G89.3 - Neoplasm related pain (acute) (chronic) Km William MD Aug 19, 2017 14:43
--- NOTE | 2017-08-19 15:48 | RADRPT ---
EXAM DATE/TIME: 08/19/2017 15:17 [facility] COMPARISON: CHEST SINGLE AP, January 24, 2017, 3:27. INDICATIONS : Hypoxemia and shortness of breath. MEDICAL HISTORY : Hypertension. Cardiovascular disease. SURGICAL HISTORY : None. ENCOUNTER: Initial ACUITY: 3 days PAIN SCORE: 0/10 LOCATION: chest FINDINGS: A single AP semierect portable view of the chest was obtained. This demonstrates mild patchy opacity at the lung bases right greater than left. There is minimal blunting of the right costophrenic angle. The heart size remains within normal limits with no perihilar edema. The patient is status post lowe r cervical fusion with screw-plate fixation device. There are multiple overlying electrocardiogram le ads. CONCLUSION: Mild patchy opacity at the lung bases right greater than left. This may represent atelectasis. Early infiltrate at the right lung base is also a consideration. Thony Godinez MD on August 19, 2017 at 15:45 Board Certified Radiologist. This report was verified electronically.
--- NOTE | 2017-08-19 16:21 | HHI.PR ---
Subjective Subjective Notes Was ready to go home but found to have low oxygen and placed on O2 CXR pending Objective Vitals/I&O Vital Signs Date Time Temp Pulse Resp B/P (MAP) Pulse Ox O2 Delivery O2 Flow Rate FiO2 08/19/17 12:07 97 Nasal Cannula 2.00 08/19/17 12:00 71 08/19/17 10:21 16 08/19/17 08:00 97.3 122/57 (78) Cardiovascular: Regular Lungs: Clear Abdomen: Other (midline incison with phoebe; DUC removed; urostomy working ) Extremities: No edema A/P Assessment and Plan 62 year old female POD8 ex lap; DERICK for recurrent SBO -Tolerating regular diet -Percocet for pain -OOB and mobilize -DC IVF -Continue Plavix/ASA -IS -Dressing changes -Now needs home O2 -Medicine working up increased oxygen requirements -CM consult for home o2 Attending Statement patient seen at bedside aggressive pulm tx IS, breath tx, check cxr O2 as needed d/c planning Attestation The exam, history, and the medical decision-making described in the above note were completed with the assistance of the mid-level provider. I reviewed and agree with the findings presented. I attest that I had a [id number] encounter with the patient on the same day, and personally performed and documented my assessment and findings in the medical record. Ashwini Miguel Aug 19, 2017 16:21 Tonny Gan MD Aug 24, 2017 21:08
--- NOTE | 2017-08-19 16:22 | HHI.FF ---
Face to Face Verification Diagnosis: (1) Small bowel obstruction due to adhesions Home Health Nursing Order: Oxygen administration education Instructions: New oxygen; 2L NC Midline incision ---can leave open to air I have seen patient Celia Dobbs on 08/19/17. My clinical findings support the need for the requested home health care services because: Limited ability to care for self High risk of falls I certify that my clinical findings support that this patient is homebound because: Post-op weakness Ashwini Miguel [facility] Aug 19, 2017 16:22
[2017-08-19] MEDS ORDERED: OXYGENDME NAS.CANULA (16:23)
[2017-08-19] MEDS: PANTOPRAZOLE SODIUM 40 MG VIAL IV PUSH SCH (17:55)
[2017-08-19] MEDS ORDERED: IOHEXOL 350 MG/ML 10 ML VIAL (for RAD DIAG) IVCONTRAST ONE (19:14)
--- NOTE | 2017-08-19 19:21 | RADRPT ---
EXAM DATE/TIME: 08/19/2017 19:03 [place] COMPARISON: CT PULMONARY ANGIOGRAM, June 10, 2016, 21:13. INDICATIONS : Dyspnea post cholecystectomy; rule out pulmonary embolus. IV CONTRAST: 80 cc Omnipaque 350 (iohexol) IV RADIATION DOSE: 22.95 CTDIvol (mGy) MEDICAL HISTORY : Cardiovascular disease. Gastroesophageal reflux disease. Carcinoma, bladder. SURGICAL HISTORY : Hysterectomy. Cholecystectomy.Urostomy ENCOUNTER: Initial ACUITY: 1 day PAIN SCALE: 5/10 LOCATION: Bilateral chest TECHNIQUE: Volumetric scanning of the chest was performed using a pulmonary embolism protocol MIP images were re constructed. Using automated exposure control and adjustment of the mA and/or kV according to patien t size, radiation dose was kept as low as reasonably achievable to obtain optimal diagnostic quality images. DICOM format image data is available electronically for review and comparison. Follow-up recommendations for detected pulmonary nodules are based at a minimum on nodule size and pa tient risk factors according to Fleischner Society Guidelines. FINDINGS: PULMONARY ARTERIES: No filling defects are seen in the pulmonary arteries through the segmental level. LUNGS: There is no pneumothorax . No concerning pulmonary nodule is visualized. There is hyperinflation and underlying emphysema. There is mild consolidation in both lung bases. Left right. PLEURAE: There is no pleural thickening or pleural effusion. MEDIASTINUM: There is good visualization of the great vessels of the middle mediastinum. No evidence of mediastin al or hilar adenopathy/mass. MUSCULOSKELETAL: Within normal limits for patient age. MISCELLANEOUS: The visualized upper abdominal organs demonstrate no acute abnormality. CONCLUSION: 1. No evidence of pulmonary embolism. 2. Consolidation in lung bases left greater than right with small effusions. 3. Hyperinflation and underlying emphysema. Thony Godinez MD on August 19, 2017 at 19:15 Board Certified Radiologist. This report was verified electronically.
[2017-08-19] MEDS: MELATONIN 5 MG TAB PO SCH (21:13)
[2017-08-19] MEDS: OLANZapine 5 MG TAB PO SCH (21:15)
[2017-08-19] MEDS ORDERED: SODIUM CHLOR 0.9% 1000 ML INJ 1,000 ML IV ONE (23:15)
[2017-08-20] VITALS (12 sets, daily range): BP systolic 103–160; BP diastolic 56–72; PULSE 58–84; RESP 16–20; TEMP 97.4–98.2; O2SAT 92–98
[2017-08-20] MEDS: PCA - TOTAL MG DILAUDID DELIVERED PER SHIFT SCH (03:11)
[2017-08-20] MEDS ORDERED: FUROSEMIDE 40 MG TAB PO ONE (09:00)
[2017-08-20] MEDS: DIAZEPAM 5 MG TAB PO SCH ×3 (09:44→17:27)
[2017-08-20] MEDS: CLOPIDOGREL 75 MG TAB PO SCH (09:45)
[2017-08-20] MEDS: carBAMazepine 200 MG TAB PO SCH ×2 (09:45→20:25)
[2017-08-20] MEDS: GABAPENTIN 300 MG CAP PO SCH ×2 (09:45→20:26)
[2017-08-20] MEDS: SODIUM CHLORIDE 0.9% FLUSH 10 ML FLUSH IV FLUSH SCH ×2 (09:46→20:25)
[2017-08-20] MEDS: SERTRALINE HCL 50 MG TAB PO SCH (09:47)
[2017-08-20] MEDS: REMOVE OLD PATCH T-DERMAL SCH (09:47)
[2017-08-20] MEDS: ASPIRIN 81 MG CHEW TAB CHEW SCH (09:47)
[2017-08-20] MEDS: NICOTINE 21 MG/24 HR PATCH T-DERMAL SCH (09:47)
[2017-08-20] MEDS: TIOTROPIUM BROMIDE 18 MCG INH INH SCH (09:48)
[2017-08-20] MEDS: oxyCODONE/ACETAMINOPHEN 5 MG/325 MG TAB PO PRN ×3 (09:49→21:28)
[2017-08-20 10:28] LABS: AUTOMATED NEUTROPHIL # 3.1 TH/MM3 (1.8-7.7); BASOPHIL % 0.6 % (0.0-2.0); HEMATOCRIT 28.3 % (35.0-46.0); HEMOGLOBIN 9.7 GM/DL (11.6-15.3); LYMPH % 27.6 % (9.0-44.0); LYMPHOCYTE # 1.4 TH/MM3 (1.0-4.8); MEAN CELL VOLUME 96.1 FL (80.0-100.0); MEAN CORPUSCULAR HEMOGLOBIN 33.1 PG (27.0-34.0); MEAN CORPUSCULAR HGB CONC 34.5 % (32.0-36.0); MEAN PLATELET VOLUME 7.2 FL (7.0-11.0); MONOCYTE # 0.5 TH/MM3 (0-0.9); NEUT % 61.8 % (16.0-70.0); PLATELET COUNT 281 TH/MM3 (150-450); RED BLOOD COUNT 2.94 MIL/MM3 (4.00-5.30); RED CELL DISTRIBUTION WIDTH 12.5 % (11.6-17.2)
[2017-08-20 10:51] LABS: ALBUMIN 2.3 GM/DL (3.4-5.0); ALT (GPT) 19 U/L (10-53); AST (GOT) 34 U/L (15-37); BICARBONATE 28.4 MEQ/L (21.0-32.0); BLOOD UREA NITROGEN 7 MG/DL (7-18); CALCIUM 8.4 MG/DL (8.5-10.1); CHLORIDE 109 MEQ/L (98-107); CREATININE 0.54 MG/DL (0.50-1.00); GLOMERULAR FILTRATION RATE 115 ML/MIN (>89); GLUCOSE,RANDOM 110 MG/DL (74-106); SODIUM (NA) 143 MEQ/L (136-145)
[2017-08-20 10:54] LABS: ALKALINE PHOSPHATASE 112 U/L (45-117); TOTAL BILIRUBIN ADULT 0.2 MG/DL (0.2-1.0); TOTAL PROTEIN 6.4 GM/DL (6.4-8.2)
[2017-08-20] MEDS: LORazepam 2 MG/ML VIAL IV PUSH PRN ×2 (10:59→20:26)
[2017-08-20] MEDS ORDERED: POTASSIUM CHLORIDE 10 MEQ CONTROLLED RELEASE TAB PO ONE (11:15)
--- NOTE | 2017-08-20 14:23 | HHI.PR ---
Subjective Subjective Notes Feels sick today, nausea and diarrhea. Had 4 BMs, waiting for next to check for C Difficle. Wants to try to eat and take a nap. Does not want to go home today. Objective Vitals/I&O Vital Signs Date Time Temp Pulse Resp B/P (MAP) Pulse Ox O2 Delivery O2 Flow Rate FiO2 08/20/17 12:08 68 122/66 (84) Manual Cuff/Doppler 08/20/17 10:56 18 08/20/17 08:00 98.0 97 08/20/17 07:15 Nasal Cannula 2.00 Labs Laboratory Tests Test 08/20/17 10:00 White Blood Count 5.0 Red Blood Count 2.94 Hemoglobin 9.7 Hematocrit 28.3 Mean Corpuscular Volume 96.1 Mean Corpuscular Hemoglobin 33.1 Mean Corpuscular Hemoglobin Concent 34.5 Red Cell Distribution Width 12.5 Platelet Count 281 Mean Platelet Volume 7.2 Neutrophils (%) (Auto) 61.8 Lymphocytes (%) (Auto) 27.6 Monocytes (%) (Auto) 10.0 Eosinophils (%) (Auto) 0.0 Basophils (%) (Auto) 0.6 Neutrophils # (Auto) 3.1 Lymphocytes # (Auto) 1.4 Monocytes # (Auto) 0.5 Eosinophils # (Auto) 0.0 Basophils # (Auto) 0.0 CBC Comment DIFF FINAL Differential Comment Blood Urea Nitrogen 7 Creatinine 0.54 Random Glucose 110 Total Protein 6.4 Albumin 2.3 Calcium Level 8.4 Alkaline Phosphatase 112 Aspartate Amino Transf (AST/SGOT) 34 Alanine Aminotransferase (ALT/SGPT) 19 Total Bilirubin 0.2 Sodium Level 143 Potassium Level 3.3 Chloride Level 109 Carbon Dioxide Level 28.4 Anion Gap 6 Estimat Glomerular Filtration Rate 115 Abdomen: Non-distended, Non-tender, Other (Incision clean and dry no drainage. Ileal conduit functioning well.), BS normal A/P Assessment and Plan Postop ex lap lysis of adhesions. Was to go home today, but feels poorly. Will give her another day... Chidi Patrick MD Aug 20, 2017 14:23
--- NOTE | 2017-08-20 16:35 | HHI.PR ---
Subjective Remarks Deferred entry - patient seen earlier at 11:15 am Patient feels sick today, c/o diffuse abdominal pain. States had 4 BM's Denies fevers or chills c/o nausea but no diarrhea Objective Vitals Vital Signs Date Time Temp Pulse Resp B/P (MAP) Pulse Ox O2 Delivery O2 Flow Rate FiO2 08/20/17 14:57 92 Nasal Cannula 2.00 08/20/17 12:08 68 122/66 (84) Manual Cuff/Doppler 08/20/17 12:00 78 08/20/17 10:56 18 08/20/17 10:55 84 160/72 (101) 08/20/17 08:00 98.0 58 20 117/56 (76) 97 08/20/17 08:00 59 08/20/17 07:15 Nasal Cannula 2.00 08/20/17 04:26 97.4 59 16 103/56 (72) 95 08/20/17 04:00 61 08/20/17 04:00 Nasal Cannula 2.00 08/20/17 02:00 110/62 (78) 08/20/17 00:00 64 08/19/17 23:59 Nasal Cannula 2.00 08/19/17 23:30 98.5 67 16 90/55 (67) 97 08/19/17 21:20 Nasal Cannula 2.00 08/19/17 21:07 98.3 79 16 87/50 (62) 98 92/52 (65) 08/19/17 20:00 79 08/19/17 18:18 97 Nasal Cannula 2.00 I/O 08/19/17 08/19/17 08/19/17 08/20/17 08/20/17 08/20/17 07:00 15:00 23:00 07:00 15:00 23:00 Intake Total 0 ml 500 ml 860 ml 1239 ml Output Total 500 ml 1500 ml 1650 ml Balance -500 ml 500 ml -640 ml -411 ml Intake Oral 0 ml 360 ml 240 ml IV Total 500 ml 500 ml 999 ml Output Urine Total 500 ml 1500 ml 1650 ml # Bowel Movements 0 0 Result Diagram: 08/20/17 1000 08/20/17 1000 Imaging Last Impressions Chest X-Ray 08/19/17 0000 Signed Impressions: Service Date/Time: Saturday, August 19, 2017 15:17 - CONCLUSION: Mild patchy opacity at the lung bases right greater than left. This may represent atelectasis. Early infiltrate at the right lung base is also a consideration. Thony Godinez MD CT Angiography 08/19/17 0000 Signed Impressions: Service Date/Time: Saturday, August 19, 2017 19:03 - CONCLUSION: 1. No evidence of pulmonary embolism. 2. Consolidation in lung bases left greater than right with small effusions. 3. Hyperinflation and underlying emphysema. Thony Godinez MD Objective Remarks AAOX3 NAD PERRLA S1S2 RRR Clear lungs BL Abdomen soft, difusely tender to palpation. Midline incision with phoebe; DUC removed; abdomen soft. NO edema in extremities Procedures 1. Exploratory laparotomy. 2. Extensive lysis of adhesions greater than sixty minutes. 3. Primary anastomosis with stapled anastomosis of small bowel. 4. Placement of anti-adhesive barrier. Medications and IVs Current Medications Medications (Trade) Dose Ordered Sig/Deondre Route Start Time Stop Time Status Last Admin Potassium Chloride/Dextrose/ Sod Cl 1,000 ml @ 0 mls/hr [id number] IV 08/11/17 15:00 08/17/17 23:40 (NS Flush) 2 ml UNSCH PRN IV FLUSH 08/11/17 13:45 (NS Flush) 2 ml BID IV FLUSH 08/11/17 13:45 08/20/17 09:46 (Zofran Inj) 4 mg Q4H PRN IV PUSH 08/11/17 13:45 (Benadryl) 25 mg Q6H PRN PO 08/11/17 13:45 08/13/17 05:17 (Narcan Inj) 0.4 mg UNSCH PRN IV PUSH 08/11/17 13:45 (Protonix Inj) 40 mg Q24H IV PUSH 08/11/17 18:45 08/19/17 17:55 (Ativan Inj) 1 mg Q6H PRN IV PUSH 08/11/17 18:30 08/20/17 10:59 (Proair Hfa Inh) 2 puff Q2HR PRN INH 08/11/17 18:30 (Habitrol 21 Mg Patch.24 Hr) 1 patch DAILY T-DERMAL 08/11/17 18:30 08/20/17 09:47 (Spiriva Inh) 18 mcg DAILY INH 08/11/17 18:30 08/20/17 09:48 Miscellaneous Information 1 DAILY T-DERMAL 08/11/17 18:30 08/20/17 09:47 (D50w (Vial) Inj) 50 ml UNSCH PRN IV PUSH 08/12/17 13:15 (Glucagon Inj) 1 mg UNSCH PRN OTHER 08/12/17 13:15 (TEGretol) 200 mg DAILY PO 08/13/17 09:00 08/20/17 09:45 (TEGretol) 400 mg HS PO 08/12/17 21:00 08/19/17 21:16 (Valium) 5 mg TID PO 08/12/17 18:00 08/20/17 12:09 (Neurontin) 300 mg BID PO 08/12/17 21:00 08/20/17 09:45 (Zoloft) 75 mg DAILY PO 08/13/17 09:00 08/20/17 09:47 (Melatonin) 10 mg HS PO 08/12/17 21:00 08/19/17 21:13 (Pill Splitter) 1 ea UNSCH PRN OTHER 08/12/17 15:45 (ZyPREXA) 10 mg HS PO 08/13/17 21:00 08/19/17 21:15 (Aspirin Chew) 81 mg DAILY CHEW 08/16/17 10:00 08/20/17 09:47 (Plavix) 75 mg DAILY PO 08/16/17 10:00 08/20/17 09:45 (Percocet 5-325 Mg) 1 tab Q4H PRN PO 08/17/17 17:15 (Percocet 5-325 Mg) 2 tab Q4H PRN PO 08/17/17 17:15 08/20/17 15:41 A/P Problem List: (1) SBO (small bowel obstruction) ICD Code: K56.609 - Unspecified intestinal obstruction, unspecified as to partial versus complete obstruction (2) Anemia due to acute blood loss ICD Code: D62 - Acute posthemorrhagic anemia Status: Acute (3) Hyperglycemia ICD Code: R73.9 - Hyperglycemia, unspecified (4) CAD (coronary artery disease) ICD Code: I25.10 - Atherosclerotic heart disease of [place] coronary artery without angina pectoris (5) History of urostomy ICD Code: Z98.890 - Other specified postprocedural states Status: Chronic (6) Schizoaffective disorder ICD Code: F25.9 - Schizoaffective disorder, unspecified Status: Chronic (7) COPD (chronic obstructive pulmonary disease) ICD Code: J44.9 - Chronic obstructive pulmonary disease, unspecified Status: Chronic (8) H/O carcinoma of bladder ICD Code: Z85.51 - Personal history of malignant neoplasm of bladder (9) Chronic pain ICD Code: G89.29 - Other chronic pain Status: Chronic (10) Hypoxemia ICD Code: R09.02 - Hypoxemia Plan: Oxygen saturation dropped into the high 80s today when the patient was off oxygen. Oxygen quickly came up after oxygen was placed back. The patient is currently introduced nasal cannula. I will order stat chest x-ray to assess the lung parenchyma. If there is not a clear explanation on the chest x-ray done will proceed to order a CT pulmonary grams to rule out PE. Continue to provide supplemental oxygen to keep oxygen saturations more than 92% . 08/20 the pulmonary angiogram negative for PE however some consolidation at bases left greater than right with small effusions were seen. Hyperinflation and underlying emphysema. I will order incentive spirometry and a walk test to assess the need for the patient to be discharged on oxygen. I will also start the patient on oral Lasix. (11) Diarrhea ICD Code: R19.7 - Diarrhea, unspecified Plan: Not on laxatives - Will order C diff toxin PCR stool test. Will start on probiotics. Assessment and Plan (1) SBO (small bowel obstruction) Plan: This is a 62-year-old female with a history of recurrent SBO status post lysis of adhesions over a month ago. Continued to be symptomatic with nausea, vomiting and abdominal pain secondary to intermittent SBO and underwent elective exploratory laparotomy, lysis of adhesions and resection of small bowel with anastomosis by Dr. Gan requested consultation to evaluate and manage medical conditions. The small bowel obstruction status post expiratory laparoscopy, extensive lysis of adhesions and resection of small bowel with primary anastomosis. Management as per general surgery. Patient currently on clear liquid diet which has not been tolerating very well. On Dilaudid TECHNICAL DEVELOPER pump. Diet as tolerated as per GS. Tolerating clear liquids andvanced to full. Encourage small meals. 08/19 Discussed case with Ashwini Miguel ([facility]) she states patient is cleared for DC from surgical standpoint, however patient was hypoxemic so will need medical clearance prior to being discharged. (2) Anemia due to acute blood loss Plan: Slight drop of hemoglobin after surgery. Hemoglobin has been stable. Continue to monitor CBC. (3) Hyperglycemia Plan: Likely related to stress and pain. Blood sugar is now stable. Hemoglobin A1c 5.2. Continue to monitor fingersticks, hyperglycemia protocol. (4) CAD (coronary artery disease) Plan: CAD seems to be stable. Patient status post [place] in May 2016 status post stenting on aspirin and Plavix. Aspirin and Plavix held prior to surgery. Resume aspirin and Plavix today as per general surgery indications. (5) History of urostomy Plan: Patient with urostomy bag. Seems stable. (6) Schizoaffective disorder Plan: Seems to be stable. Patient on Tegretol, Zyprexa, Zoloft. (7) COPD (chronic obstructive pulmonary disease) Plan: Seems to be stable. On albuterol inhaler, Spiriva. Continue (8) H/O carcinoma of bladder Plan: Status post cystectomy and urostomy. (9) Chronic pain Plan: Oxycodone and gabapentin. 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 Pain control management as per general surgery. DVT prophylaxis with SCDs and early ambulation. Aspirin and Plavix resumed. Discharge Planning As per primary team. Problem Qualifiers (1) CAD (coronary artery disease): Qualified Codes: I25.10 - Atherosclerotic heart disease of [place] coronary artery without angina pectoris (2) Schizoaffective disorder: Qualified Codes: F25.9 - Schizoaffective disorder, unspecified (3) COPD (chronic obstructive pulmonary disease): Qualified Codes: J44.9 - Chronic obstructive pulmonary disease, unspecified (4) Chronic pain: Qualified Codes: G89.3 - Neoplasm related pain (acute) (chronic) (5) Diarrhea: Qualified Codes: R19.7 - Diarrhea, unspecified Km William MD Aug 20, 2017 16:35
[2017-08-20] MEDS: PANTOPRAZOLE SODIUM 40 MG VIAL IV PUSH SCH (17:27)
[2017-08-20] MEDS: LACTOBACILLUS ACIDOPHILUS TAB PO SCH (17:27)
[2017-08-20] MEDS: MELATONIN 5 MG TAB PO SCH (20:26)
[2017-08-20] MEDS: OLANZapine 5 MG TAB PO SCH (20:26)
[2017-08-21] VITALS (10 sets, daily range): BP systolic 92–113; BP diastolic 46–63; PULSE 54–87; RESP 18–20; TEMP 97.1–98.4; O2SAT 95–99
[2017-08-21] MEDS: NICOTINE 21 MG/24 HR PATCH T-DERMAL SCH (09:18)
[2017-08-21] MEDS: carBAMazepine 200 MG TAB PO SCH ×2 (09:19→20:34)
[2017-08-21] MEDS: GABAPENTIN 300 MG CAP PO SCH ×2 (09:19→20:33)
[2017-08-21] MEDS: DIAZEPAM 5 MG TAB PO SCH ×3 (09:19→18:19)
[2017-08-21] MEDS: REMOVE OLD PATCH T-DERMAL SCH (09:19)
[2017-08-21] MEDS: ASPIRIN 81 MG CHEW TAB CHEW SCH (09:19)
[2017-08-21] MEDS: CLOPIDOGREL 75 MG TAB PO SCH (09:19)
[2017-08-21] MEDS: LACTOBACILLUS ACIDOPHILUS TAB PO SCH ×3 (09:19→18:19)
[2017-08-21] MEDS: SODIUM CHLORIDE 0.9% FLUSH 10 ML FLUSH IV FLUSH SCH ×2 (09:20→20:35)
[2017-08-21] MEDS: SERTRALINE HCL 50 MG TAB PO SCH (09:20)
[2017-08-21] MEDS: TIOTROPIUM BROMIDE 18 MCG INH INH SCH (09:21)
--- NOTE | 2017-08-21 10:16 | HHI.PR ---
Subjective Subjective Notes feels better today, reports no diarrhea overnight or this am, tolerating po, pain controlled Objective Vitals/I&O Vital Signs Date Time Temp Pulse Resp B/P (MAP) Pulse Ox O2 Delivery O2 Flow Rate FiO2 08/21/17 08:00 98.0 54 18 107/57 (74) 97 08/20/17 20:00 Nasal Cannula 2.00 Abdomen: Non-distended, Post-op tenderness, BS normal Narrative Exam urostomy RLQ working well, wound clean, phoebe intact Wound Wound : Wound Location: Abdomen Appearance: Clean & Dry A/P Assessment and Plan s/p exp lap, sarina for chronic abd pain slowly improving, diarrhea seems to be improving. wean off oxygen home soon Barrie Matias MD Aug 21, 2017 10:16
[2017-08-21] MEDS: oxyCODONE/ACETAMINOPHEN 5 MG/325 MG TAB PO PRN ×3 (12:01→20:34)
[2017-08-21] MEDS: LORazepam 2 MG/ML VIAL IV PUSH PRN ×2 (12:49→18:56)
[2017-08-21 13:13] LABS: BICARBONATE 27.1 MEQ/L (21.0-32.0); CALCIUM 8.1 MG/DL (8.5-10.1); CREATININE 0.67 MG/DL (0.50-1.00)
--- NOTE | 2017-08-21 15:06 | HHI.PR ---
Subjective Remarks Patient reports no further diarrhea since yesterday. Denies cp/sob. Denies fevers/chills. Objective Vitals Vital Signs Date Time Temp Pulse Resp B/P (MAP) Pulse Ox O2 Delivery O2 Flow Rate FiO2 08/21/17 12:41 87 08/21/17 12:00 98.2 72 18 113/56 (75) 96 08/21/17 09:15 57 08/21/17 09:15 97 Nasal Cannula 2.00 21 08/21/17 08:00 98.0 54 18 107/57 (74) 97 08/21/17 04:00 55 08/21/17 03:54 98.3 55 18 92/46 (61) 99 08/21/17 00:00 97.4 70 20 108/63 (78) 96 08/21/17 00:00 82 08/20/17 20:00 80 08/20/17 20:00 96 Nasal Cannula 2.00 08/20/17 19:34 97.9 74 20 125/64 (84) 96 08/20/17 16:48 16 08/20/17 16:00 98.0 76 20 136/68 (90) 93 I/O 08/20/17 08/20/17 08/20/17 08/21/17 08/21/17 08/21/17 07:00 15:00 23:00 07:00 15:00 23:00 Intake Total 1239 ml 480 ml 360 ml 480 ml Output Total 1650 ml 4425 ml 1050 ml 1200 ml Balance -411 ml -3945 ml -690 ml -720 ml Intake Oral 240 ml 480 ml 360 ml 480 ml IV Total 999 ml Output Urine Total 1650 ml 4425 ml 1050 ml 1200 ml # Bowel Movements 0 4 0 0 Result Diagram: 08/20/17 1000 08/21/17 1217 Imaging Last Impressions Chest X-Ray 08/19/17 0000 Signed Impressions: Service Date/Time: Saturday, August 19, 2017 15:17 - CONCLUSION: Mild patchy opacity at the lung bases right greater than left. This may represent atelectasis. Early infiltrate at the right lung base is also a consideration. Thony Godinez MD CT Angiography 08/19/17 0000 Signed Impressions: Service Date/Time: Saturday, August 19, 2017 19:03 - CONCLUSION: 1. No evidence of pulmonary embolism. 2. Consolidation in lung bases left greater than right with small effusions. 3. Hyperinflation and underlying emphysema. Thony Godniez MD Objective Remarks AAOX3 NAD PERRLA S1S2 RRR Clear lungs BL Abdomen soft, difusely tender to palpation. Midline incision with phoebe; DUC removed; abdomen soft. NO edema in extremities Procedures 1. Exploratory laparotomy. 2. Extensive lysis of adhesions greater than sixty minutes. 3. Primary anastomosis with stapled anastomosis of small bowel. 4. Placement of anti-adhesive barrier. Medications and IVs Current Medications Medications (Trade) Dose Ordered Sig/Deondre Route Start Time Stop Time Status Last Admin Potassium Chloride/Dextrose/ Sod Cl 1,000 ml @ 0 mls/hr [id number] IV 08/11/17 15:00 08/17/17 23:40 (NS Flush) 2 ml UNSCH PRN IV FLUSH 08/11/17 13:45 (NS Flush) 2 ml BID IV FLUSH 08/11/17 13:45 08/21/17 09:20 (Zofran Inj) 4 mg Q4H PRN IV PUSH 08/11/17 13:45 (Benadryl) 25 mg Q6H PRN PO 08/11/17 13:45 08/13/17 05:17 (Narcan Inj) 0.4 mg UNSCH PRN IV PUSH 08/11/17 13:45 (Protonix Inj) 40 mg Q24H IV PUSH 08/11/17 18:45 08/20/17 17:27 (Ativan Inj) 1 mg Q6H PRN IV PUSH 08/11/17 18:30 08/21/17 12:49 (Proair Hfa Inh) 2 puff Q2HR PRN INH 08/11/17 18:30 (Habitrol 21 Mg Patch.24 Hr) 1 patch DAILY T-DERMAL 08/11/17 18:30 08/21/17 09:18 (Spiriva Inh) 18 mcg DAILY INH 08/11/17 18:30 08/21/17 09:21 Miscellaneous Information 1 DAILY T-DERMAL 08/11/17 18:30 08/21/17 09:19 (D50w (Vial) Inj) 50 ml UNSCH PRN IV PUSH 08/12/17 13:15 (Glucagon Inj) 1 mg UNSCH PRN OTHER 08/12/17 13:15 (TEGretol) 200 mg DAILY PO 08/13/17 09:00 08/21/17 09:19 (TEGretol) 400 mg HS PO 08/12/17 21:00 08/20/17 20:25 (Valium) 5 mg TID PO 08/12/17 18:00 08/21/17 13:56 (Neurontin) 300 mg BID PO 08/12/17 21:00 08/21/17 09:19 (Zoloft) 75 mg DAILY PO 08/13/17 09:00 08/21/17 09:20 (Melatonin) 10 mg HS PO 08/12/17 21:00 08/20/17 20:26 (Pill Splitter) 1 ea UNSCH PRN OTHER 08/12/17 15:45 (ZyPREXA) 10 mg HS PO 08/13/17 21:00 08/20/17 20:26 (Aspirin Chew) 81 mg DAILY CHEW 08/16/17 10:00 08/21/17 09:19 (Plavix) 75 mg DAILY PO 08/16/17 10:00 08/21/17 09:19 (Percocet 5-325 Mg) 1 tab Q4H PRN PO 08/17/17 17:15 (Percocet 5-325 Mg) 2 tab Q4H PRN PO 08/17/17 17:15 08/21/17 12:01 (Lactinex) 1 tab TID PO 08/20/17 18:00 08/21/17 12:48 A/P Problem List: (1) SBO (small bowel obstruction) ICD Code: K56.609 - Unspecified intestinal obstruction, unspecified as to partial versus complete obstruction (2) Anemia due to acute blood loss ICD Code: D62 - Acute posthemorrhagic anemia Status: Acute (3) Hyperglycemia ICD Code: R73.9 - Hyperglycemia, unspecified (4) CAD (coronary artery disease) ICD Code: I25.10 - Atherosclerotic heart disease of [place] coronary artery without angina pectoris (5) History of urostomy ICD Code: Z98.890 - Other specified postprocedural states Status: Chronic (6) Schizoaffective disorder ICD Code: F25.9 - Schizoaffective disorder, unspecified Status: Chronic (7) COPD (chronic obstructive pulmonary disease) ICD Code: J44.9 - Chronic obstructive pulmonary disease, unspecified Status: Chronic (8) H/O carcinoma of bladder ICD Code: Z85.51 - Personal history of malignant neoplasm of bladder (9) Chronic pain ICD Code: G89.29 - Other chronic pain Status: Chronic (10) Hypoxemia ICD Code: R09.02 - Hypoxemia Plan: Oxygen saturation dropped into the high 80s today when the patient was off oxygen. Oxygen quickly came up after oxygen was placed back. The patient is currently introduced nasal cannula. I will order stat chest x-ray to assess the lung parenchyma. If there is not a clear explanation on the chest x-ray done will proceed to order a CT pulmonary grams to rule out PE. Continue to provide supplemental oxygen to keep oxygen saturations more than 92% . 08/20 the pulmonary angiogram negative for PE however some consolidation at bases left greater than right with small effusions were seen. Hyperinflation and underlying emphysema. I will order incentive spirometry and a walk test to assess the need for the patient to be discharged on oxygen. I will also start the patient on oral Lasix. 08/21 Continue Lasix. Patient will need home o2. Wean off O2. (11) Diarrhea ICD Code: R19.7 - Diarrhea, unspecified Plan: Not on laxatives - Will order C diff toxin PCR stool test. Will start on probiotics. 08/21 No diarrhea since yesterday. Continue probiotics. Assessment and Plan (1) SBO (small bowel obstruction) Plan: This is a 62-year-old female with a history of recurrent SBO status post lysis of adhesions over a month ago. Continued to be symptomatic with nausea, vomiting and abdominal pain secondary to intermittent SBO and underwent elective exploratory laparotomy, lysis of adhesions and resection of small bowel with anastomosis by Dr. Gan requested consultation to evaluate and manage medical conditions. The small bowel obstruction status post expiratory laparoscopy, extensive lysis of adhesions and resection of small bowel with primary anastomosis. Management as per general surgery. Patient currently on clear liquid diet which has not been tolerating very well. 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 Diet as tolerated as per GS. Tolerating clear liquids andvanced to full. Encourage small meals. 08/19 Discussed case with Ashwini Miguel ([facility]) she states patient is cleared for DC from surgical standpoint, however patient was hypoxemic so will need medical clearance prior to being discharged. (2) Anemia due to acute blood loss Plan: Slight drop of hemoglobin after surgery. Hemoglobin has been stable. Continue to monitor CBC. (3) Hyperglycemia Plan: Likely related to stress and pain. Blood sugar is now stable. Hemoglobin A1c 5.2. Continue to monitor fingersticks, hyperglycemia protocol. (4) CAD (coronary artery disease) Plan: CAD seems to be stable. Patient status post [place] in May 2016 status post stenting on aspirin and Plavix. Aspirin and Plavix held prior to surgery. Resume aspirin and Plavix today as per general surgery indications. (5) History of urostomy Plan: Patient with urostomy bag. Seems stable. (6) Schizoaffective disorder Plan: Seems to be stable. Patient on Tegretol, Zyprexa, Zoloft. (7) COPD (chronic obstructive pulmonary disease) Plan: Seems to be stable. On albuterol inhaler, Spiriva. Continue (8) H/O carcinoma of bladder Plan: Status post cystectomy and urostomy. (9) Chronic pain Plan: Oxycodone and gabapentin. Patient on Dilaudid MAGNET VALVE ASSEMBLER. Pain control management as per general surgery. DVT prophylaxis with SCDs and early ambulation. Aspirin and Plavix resumed. Discharge Planning Patient is medically clear to be discharged home. Problem Qualifiers (1) CAD (coronary artery disease): Qualified Codes: I25.10 - Atherosclerotic heart disease of [place] coronary artery without angina pectoris (2) Schizoaffective disorder: Qualified Codes: F25.9 - Schizoaffective disorder, unspecified (3) COPD (chronic obstructive pulmonary disease): Qualified Codes: J44.9 - Chronic obstructive pulmonary disease, unspecified (4) Chronic pain: Qualified Codes: G89.3 - Neoplasm related pain (acute) (chronic) (5) Diarrhea: Qualified Codes: R19.7 - Diarrhea, unspecified Km William MD Aug 21, 2017 15:06
[2017-08-21] MEDS ORDERED: FURO1TAB62 PO (15:08)
[2017-08-21] MEDS: PANTOPRAZOLE SODIUM 40 MG VIAL IV PUSH SCH (18:20)
[2017-08-21] MEDS: MELATONIN 5 MG TAB PO SCH (20:33)
[2017-08-21] MEDS: OLANZapine 5 MG TAB PO SCH (20:33)
[2017-08-22] VITALS (10 sets, daily range): BP systolic 90–114; BP diastolic 53–60; PULSE 53–72; RESP 16–20; TEMP 97.2–98.2; O2SAT 94–99
[2017-08-22] MEDS: oxyCODONE/ACETAMINOPHEN 5 MG/325 MG TAB PO PRN ×3 (05:03→20:29)
[2017-08-22 08:25] LABS: HEMATOCRIT 27.2 % (35.0-46.0); HEMOGLOBIN 9.2 GM/DL (11.6-15.3); MEAN CELL VOLUME 95.6 FL (80.0-100.0); MEAN CORPUSCULAR HEMOGLOBIN 32.5 PG (27.0-34.0); MEAN CORPUSCULAR HGB CONC 33.9 % (32.0-36.0); MEAN PLATELET VOLUME 7.1 FL (7.0-11.0); PLATELET COUNT 304 TH/MM3 (150-450); RED BLOOD COUNT 2.85 MIL/MM3 (4.00-5.30); RED CELL DISTRIBUTION WIDTH 12.4 % (11.6-17.2); WHITE BLOOD COUNT 4.8 TH/MM3 (4.0-11.0)
[2017-08-22] MEDS: NICOTINE 21 MG/24 HR PATCH T-DERMAL SCH (08:48)
[2017-08-22] MEDS: CLOPIDOGREL 75 MG TAB PO SCH (08:48)
[2017-08-22] MEDS: LORazepam 2 MG/ML VIAL IV PUSH PRN ×3 (08:48→23:42)
[2017-08-22] MEDS: DIAZEPAM 5 MG TAB PO SCH ×3 (08:49→17:05)
[2017-08-22] MEDS: carBAMazepine 200 MG TAB PO SCH ×2 (08:49→20:28)
[2017-08-22] MEDS: SERTRALINE HCL 50 MG TAB PO SCH (08:49)
[2017-08-22] MEDS: ASPIRIN 81 MG CHEW TAB CHEW SCH (08:49)
[2017-08-22] MEDS: SODIUM CHLORIDE 0.9% FLUSH 10 ML FLUSH IV FLUSH SCH ×2 (08:50→20:28)
[2017-08-22] MEDS: TIOTROPIUM BROMIDE 18 MCG INH INH SCH (08:50)
[2017-08-22] MEDS: LACTOBACILLUS ACIDOPHILUS TAB PO SCH ×3 (08:50→17:28)
[2017-08-22] MEDS: GABAPENTIN 300 MG CAP PO SCH ×2 (08:50→20:28)
[2017-08-22] MEDS: REMOVE OLD PATCH T-DERMAL SCH (08:51)
[2017-08-22 08:55] LABS: BICARBONATE 28.7 MEQ/L (21.0-32.0); CREATININE 0.66 MG/DL (0.50-1.00)
--- NOTE | 2017-08-22 10:11 | HHI.PR ---
Subjective Subjective Notes no acute issues, tolerating po, no nausea, diarrhea better Objective Vitals/I&O Vital Signs Date Time Temp Pulse Resp B/P (MAP) Pulse Ox O2 Delivery O2 Flow Rate FiO2 08/22/17 04:00 98.2 62 20 92/54 (67) 98 08/22/17 04:00 Nasal Cannula 2.00 08/21/17 09:15 21 Labs Laboratory Tests Test 08/21/17 12:17 08/22/17 06:10 Blood Urea Nitrogen 10 12 Creatinine 0.67 0.66 Random Glucose 96 89 Calcium Level 8.1 8.0 Sodium Level 137 138 Potassium Level 4.2 3.5 Chloride Level 103 102 Carbon Dioxide Level 27.1 28.7 Anion Gap 7 7 Estimat Glomerular Filtration Rate 90 91 White Blood Count 4.8 Red Blood Count 2.85 Hemoglobin 9.2 Hematocrit 27.2 Mean Corpuscular Volume 95.6 Mean Corpuscular Hemoglobin 32.5 Mean Corpuscular Hemoglobin Concent 33.9 Red Cell Distribution Width 12.4 Platelet Count 304 Mean Platelet Volume 7.1 Lungs: Clear Abdomen: Other (soft incisional tenderness, urostomy bag intact, incision c/d/i ) A/P Assessment and Plan s/p ex lap sarina for recurrent sbo PLAN oob with PT, encouraged IS pain control ok for po meds dvt ppx d/c planning tomorrow Tonny Gan MD Aug 22, 2017 10:11
--- NOTE | 2017-08-22 15:07 | HHI.PR ---
Subjective Remarks Diarrhea resolved. feels tired, afebrile, denies nausea or vomiting. Abdominal pain controlled. Objective Vitals Vital Signs Date Time Temp Pulse Resp B/P (MAP) Pulse Ox O2 Delivery O2 Flow Rate FiO2 08/22/17 12:00 98.0 62 18 105/56 (72) 98 08/22/17 10:30 94 Nasal Cannula 1.00 08/22/17 08:15 Nasal Cannula 2.00 08/22/17 08:00 53 08/22/17 08:00 98.2 70 16 107/53 (71) 97 08/22/17 04:00 98.2 62 20 92/54 (67) 98 08/22/17 04:00 Nasal Cannula 2.00 08/22/17 04:00 57 08/22/17 00:00 Nasal Cannula 2.00 08/22/17 00:00 97.7 63 18 90/60 (70) 99 08/22/17 00:00 62 08/21/17 20:34 Nasal Cannula 2.00 08/21/17 20:00 98.4 68 18 95/50 (65) 96 08/21/17 20:00 71 08/21/17 18:45 71 08/21/17 16:00 97.1 68 18 104/59 (74) 95 I/O 08/21/17 08/21/17 08/21/17 08/22/17 08/22/17 08/22/17 07:00 15:00 23:00 07:00 15:00 23:00 Intake Total 360 ml 480 ml 240 ml Output Total 1050 ml 1200 ml 1176 ml Balance -690 ml -720 ml -936 ml Intake Oral 360 ml 480 ml 240 ml Output Urine Total 1050 ml 1200 ml 1175 ml Stool Total 1 ml # Bowel Movements 0 0 Result Diagram: 08/22/17 0610 08/22/17 0610 Imaging Last Impressions Chest X-Ray 08/19/17 0000 Signed Impressions: Service Date/Time: Saturday, August 19, 2017 15:17 - CONCLUSION: Mild patchy opacity at the lung bases right greater than left. This may represent atelectasis. Early infiltrate at the right lung base is also a consideration. Thony Godinez MD CT Angiography 08/19/17 0000 Signed Impressions: Service Date/Time: Saturday, August 19, 2017 19:03 - CONCLUSION: 1. No evidence of pulmonary embolism. 2. Consolidation in lung bases left greater than right with small effusions. 3. Hyperinflation and underlying emphysema. Thony Godinez MD Objective Remarks AAOX3 NAD PERRLA S1S2 RRR Clear lungs BL Abdomen soft, difusely tender to palpation. Midline incision with phoebe; DUC removed; abdomen soft. NO edema in extremities Procedures 1. Exploratory laparotomy. 2. Extensive lysis of adhesions greater than sixty minutes. 3. Primary anastomosis with stapled anastomosis of small bowel. 4. Placement of anti-adhesive barrier. Medications and IVs Current Medications Medications (Trade) Dose Ordered Sig/Deondre Route Start Time Stop Time Status Last Admin Potassium Chloride/Dextrose/ Sod Cl 1,000 ml @ 0 mls/hr [id number] IV 08/11/17 15:00 08/17/17 23:40 (NS Flush) 2 ml UNSCH PRN IV FLUSH 08/11/17 13:45 (NS Flush) 2 ml BID IV FLUSH 08/11/17 13:45 08/22/17 08:50 (Zofran Inj) 4 mg Q4H PRN IV PUSH 08/11/17 13:45 (Benadryl) 25 mg Q6H PRN PO 08/11/17 13:45 08/13/17 05:17 (Narcan Inj) 0.4 mg UNSCH PRN IV PUSH 08/11/17 13:45 (Protonix Inj) 40 mg Q24H IV PUSH 08/11/17 18:45 08/21/17 18:20 (Ativan Inj) 1 mg Q6H PRN IV PUSH 08/11/17 18:30 08/22/17 08:48 (Proair Hfa Inh) 2 puff Q2HR PRN INH 08/11/17 18:30 (Habitrol 21 Mg Patch.24 Hr) 1 patch DAILY T-DERMAL 08/11/17 18:30 08/22/17 08:48 (Spiriva Inh) 18 mcg DAILY INH 08/11/17 18:30 08/22/17 08:50 Miscellaneous Information 1 DAILY T-DERMAL 08/11/17 18:30 08/22/17 08:51 (D50w (Vial) Inj) 50 ml UNSCH PRN IV PUSH 08/12/17 13:15 (Glucagon Inj) 1 mg UNSCH PRN OTHER 08/12/17 13:15 (TEGretol) 200 mg DAILY PO 08/13/17 09:00 08/22/17 08:49 (TEGretol) 400 mg HS PO 08/12/17 21:00 08/21/17 20:34 (Valium) 5 mg TID PO 08/12/17 18:00 08/22/17 12:54 (Neurontin) 300 mg BID PO 08/12/17 21:00 08/22/17 08:50 (Zoloft) 75 mg DAILY PO 08/13/17 09:00 08/22/17 08:49 (Melatonin) 10 mg HS PO 08/12/17 21:00 08/21/17 20:33 (Pill Splitter) 1 ea UNSCH PRN OTHER 08/12/17 15:45 (ZyPREXA) 10 mg HS PO 08/13/17 21:00 08/21/17 20:33 (Aspirin Chew) 81 mg DAILY CHEW 08/16/17 10:00 08/22/17 08:49 (Plavix) 75 mg DAILY PO 08/16/17 10:00 08/22/17 08:48 (Percocet 5-325 Mg) 1 tab Q4H PRN PO 08/17/17 17:15 (Percocet 5-325 Mg) 2 tab Q4H PRN PO 08/17/17 17:15 08/22/17 14:47 (Lactinex) 1 tab TID PO 08/20/17 18:00 08/22/17 12:54 A/P Problem List: (1) SBO (small bowel obstruction) ICD Code: K56.609 - Unspecified intestinal obstruction, unspecified as to partial versus complete obstruction (2) Anemia due to acute blood loss ICD Code: D62 - Acute posthemorrhagic anemia Status: Acute (3) Hyperglycemia ICD Code: R73.9 - Hyperglycemia, unspecified (4) CAD (coronary artery disease) ICD Code: I25.10 - Atherosclerotic heart disease of [place] coronary artery without angina pectoris (5) History of urostomy ICD Code: Z98.890 - Other specified postprocedural states Status: Chronic (6) Schizoaffective disorder ICD Code: F25.9 - Schizoaffective disorder, unspecified Status: Chronic (7) COPD (chronic obstructive pulmonary disease) ICD Code: J44.9 - Chronic obstructive pulmonary disease, unspecified Status: Chronic (8) H/O carcinoma of bladder ICD Code: Z85.51 - Personal history of malignant neoplasm of bladder (9) Chronic pain ICD Code: G89.29 - Other chronic pain Status: Chronic (10) Hypoxemia ICD Code: R09.02 - Hypoxemia Plan: Oxygen saturation dropped into the high 80s today when the patient was off oxygen. Oxygen quickly came up after oxygen was placed back. The patient is currently introduced nasal cannula. I will order stat chest x-ray to assess the lung parenchyma. If there is not a clear explanation on the chest x-ray done will proceed to order a CT pulmonary grams to rule out PE. Continue to provide supplemental oxygen to keep oxygen saturations more than 92% . 08/20 the pulmonary angiogram negative for PE however some consolidation at bases left greater than right with small effusions were seen. Hyperinflation and underlying emphysema. I will order incentive spirometry and a walk test to assess the need for the patient to be discharged on oxygen. I will also start the patient on oral Lasix. Continue Lasix. Patient will need home o2. Wean off O2. (11) Diarrhea ICD Code: R19.7 - Diarrhea, unspecified Plan: C diff negative. No diarrhea since 08/20 . Continue probiotics. Assessment and Plan (1) SBO (small bowel obstruction) Plan: This is a 62-year-old female with a history of recurrent SBO status post lysis of adhesions over a month ago. Continued to be symptomatic with nausea, vomiting and abdominal pain secondary to intermittent SBO and underwent elective exploratory laparotomy, lysis of adhesions and resection of small bowel with anastomosis by Dr. Gan requested consultation to evaluate and manage medical conditions. The small bowel obstruction status post expiratory laparoscopy, extensive lysis of adhesions and resection of small bowel with primary anastomosis. Management as per general surgery. Patient currently on clear liquid diet which has not been tolerating very well. 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 Diet as tolerated as per GS. Tolerating clear liquids andvanced to full. Encourage small meals. 08/19 Discussed case with Ashwini Miguel (Surgery PA) she states patient is cleared for DC from surgical standpoint, however patient was hypoxemic so will need medical clearance prior to being discharged. (2) Anemia due to acute blood loss Plan: Slight drop of hemoglobin after surgery. Hemoglobin has been stable. Continue to monitor CBC. (3) Hyperglycemia Plan: Likely related to stress and pain. Blood sugar is now stable. Hemoglobin A1c 5.2. Continue to monitor fingersticks, hyperglycemia protocol. (4) CAD (coronary artery disease) Plan: CAD seems to be stable. Patient status post [place] in May 2016 status post stenting on aspirin and Plavix. Aspirin and Plavix held prior to surgery. Resume aspirin and Plavix today as per general surgery indications. (5) History of urostomy Plan: Patient with urostomy bag. Seems stable. (6) Schizoaffective disorder Plan: Seems to be stable. Patient on Tegretol, Zyprexa, Zoloft. (7) COPD (chronic obstructive pulmonary disease) Plan: Seems to be stable. On albuterol inhaler, Spiriva. Continue (8) H/O carcinoma of bladder Plan: Status post cystectomy and urostomy. (9) Chronic pain Plan: Oxycodone and gabapentin. 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 Pain control management as per general surgery. DVT prophylaxis with SCDs and early ambulation. Aspirin and Plavix resumed. Discharge Planning Patient is medically clear to be discharged home. Poss Dc in am as per . Problem Qualifiers (1) CAD (coronary artery disease): Qualified Codes: I25.10 - Atherosclerotic heart disease of [place] coronary artery without angina pectoris (2) Schizoaffective disorder: Qualified Codes: F25.9 - Schizoaffective disorder, unspecified (3) COPD (chronic obstructive pulmonary disease): Qualified Codes: J44.9 - Chronic obstructive pulmonary disease, unspecified (4) Chronic pain: Qualified Codes: G89.3 - Neoplasm related pain (acute) (chronic) (5) Diarrhea: Qualified Codes: R19.7 - Diarrhea, unspecified Km William MD Aug 22, 2017 15:07
[2017-08-22] MEDS ORDERED: POTASSIUM CHLORIDE 10 MEQ CONTROLLED RELEASE TAB PO ONE (15:15)
[2017-08-22] MEDS: PANTOPRAZOLE SODIUM 40 MG VIAL IV PUSH SCH (17:26)
[2017-08-22] MEDS: OLANZapine 5 MG TAB PO SCH (20:28)
[2017-08-22] MEDS: MELATONIN 5 MG TAB PO SCH (20:28)
[2017-08-23] VITALS: PULSE 64; PULSE 68; PULSE 71; RESP 18; TEMP 98.3; O2SAT 96
[2017-08-23 04:00] VITALS: BP 93/53; PULSE 64; PULSE 65; RESP 18; TEMP 98.1; O2SAT 96
[2017-08-23 08:00] VITALS: BP_SYST 98; BP_DIAS 48; BP_DIAS 49; PULSE 54; PULSE 60; RESP 20; TEMP 98.3; O2SAT 95
[2017-08-23] MEDS: SODIUM CHLORIDE 0.9% FLUSH 10 ML FLUSH IV FLUSH SCH (08:37)
[2017-08-23] MEDS: ASPIRIN 81 MG CHEW TAB CHEW SCH (08:37)
[2017-08-23] MEDS: CLOPIDOGREL 75 MG TAB PO SCH (08:38)
[2017-08-23] MEDS: carBAMazepine 200 MG TAB PO SCH (08:38)
[2017-08-23] MEDS: GABAPENTIN 300 MG CAP PO SCH (08:38)
[2017-08-23] MEDS: LACTOBACILLUS ACIDOPHILUS TAB PO SCH (08:38)
[2017-08-23] MEDS: DIAZEPAM 5 MG TAB PO SCH (08:38)
[2017-08-23] MEDS: SERTRALINE HCL 50 MG TAB PO SCH (08:39)
[2017-08-23] MEDS: NICOTINE 21 MG/24 HR PATCH T-DERMAL SCH (08:39)
[2017-08-23] MEDS: REMOVE OLD PATCH T-DERMAL SCH (08:42)
[2017-08-23] MEDS: TIOTROPIUM BROMIDE 18 MCG INH INH SCH (08:42)
[2017-08-23 08:51] VITALS: O2SAT 96
[2017-08-23] MEDS: LORazepam 2 MG/ML VIAL IV PUSH PRN (11:14)
--- NOTE | 2017-08-23 11:59 | HHI.DS ---
Discharge Summary Admission Date Aug 11, 2017 at 07:11 Discharge Date: Aug 23, 2017 Admitting Diagnosis Brief History 62-year-old female status post exploratory laparotomy and lysis of adhesions for small bowel obstruction. CBC/BMP: 08/22/17 0610 08/22/17 0610 Significant Findings Laboratory Tests Test 08/21/17 12:17 08/22/17 06:10 Calcium Level 8.1 MG/DL (8.5-10.1) 8.0 MG/DL (8.5-10.1) Red Blood Count 2.85 MIL/MM3 (4.00-5.30) Hemoglobin 9.2 GM/DL (11.6-15.3) Hematocrit 27.2 % (35.0-46.0) PE at Discharge Alert awake Cardio: Regular rate and rhythm Respiratory: Clear to auscultation bilaterally urostomy RLQ working well, wound clean, phoebe intact; scant drainage at inferior portion of incision Hospital Course This is a 62-year-old female status post exploratory laparotomy and lysis of adhesions for small bowel obstruction. The patient's diet was advanced as tolerated. The patient was given a bowel regimen. The patient's hospital day she was slightly complicated due to a need for oxygen. A CT angiogram was completed which ruled out a pulmonary emboli. A chest x-ray showed some atelectasis postoperatively. She was encouraged to use her incentive spirometer. Home healthcare was arranged for home oxygen. The patient will follow-up in the office on August 26. Pt Condition on Discharge: Good Discharge Disposition: Disch w/ Home Health Serv Discharge Instructions DIET: Follow Instructions for: As Tolerated, No Restrictions Activities you can perform: See Additionl Instruction Other Activity Instructions: Avoid heavy pushing pulling or lifting Okay to shower; no baths Ashwini Miguel Aug 23, 2017 11:59
[2017-08-23 12:00] VITALS: BP 98/53; PULSE 77; RESP 20; TEMP 97.9; O2SAT 96
[2017-08-23 13:04] VITALS: BP 116/56; PULSE 68
[2017-08-23] MEDS: oxyCODONE/ACETAMINOPHEN 5 MG/325 MG TAB PO PRN (13:04)
--- NOTE | 2017-08-23 14:09 | HHI.PR ---
Subjective Remarks late entry patient seen at 11 am Patient denies cp/sob, afebrile, tolerating diet. Denies any further diarrhea. Objective Vitals Vital Signs Date Time Temp Pulse Resp B/P (MAP) Pulse Ox O2 Delivery O2 Flow Rate FiO2 08/23/17 13:04 68 116/56 (76) 08/23/17 12:00 97.9 77 20 98/53 (68) 96 08/23/17 08:51 96 Nasal Cannula 1.00 08/23/17 08:00 54 08/23/17 08:00 98.3 60 20 98/49 (65) 95 98/48 (65) 08/23/17 07:15 96 Nasal Cannula 2.00 08/23/17 04:00 64 08/23/17 04:00 98.1 65 18 93/53 (66) 96 08/23/17 00:00 Nasal Cannula 2.00 08/23/17 00:00 98.3 64 18 96 08/23/17 00:00 68 08/22/17 20:37 98 Nasal Cannula 1.00 08/22/17 20:00 Nasal Cannula 2.00 08/22/17 20:00 71 08/22/17 20:00 97.2 72 18 114/58 (76) 97 08/22/17 18:00 98.1 66 18 99/53 (68) 98 08/22/17 16:00 59 I/O 08/22/17 08/22/17 08/22/17 08/23/17 08/23/17 08/23/17 07:00 15:00 23:00 07:00 15:00 23:00 Intake Total 240 ml 720 ml 480 ml Output Total 1176 ml 800 ml 1800 ml 750 ml Balance -936 ml -80 ml -1320 ml -750 ml Intake Oral 240 ml 720 ml 480 ml Output Urine Total 1175 ml 800 ml 1800 ml 750 ml Stool Total 1 ml # Bowel Movements 0 0 Result Diagram: 08/22/17 0610 08/22/17 0610 Objective Remarks AAOX3 NAD PERRLA S1S2 RRR Clear lungs BL Abdomen soft, difusely tender to palpation. Midline incision with phoebe; DUC removed; abdomen soft. NO edema in extremities Procedures 1. Exploratory laparotomy. 2. Extensive lysis of adhesions greater than sixty minutes. 3. Primary anastomosis with stapled anastomosis of small bowel. 4. Placement of anti-adhesive barrier. A/P Problem List: (1) SBO (small bowel obstruction) ICD Code: K56.609 - Unspecified intestinal obstruction, unspecified as to partial versus complete obstruction (2) Anemia due to acute blood loss ICD Code: D62 - Acute posthemorrhagic anemia Status: Acute (3) Hyperglycemia ICD Code: R73.9 - Hyperglycemia, unspecified (4) CAD (coronary artery disease) ICD Code: I25.10 - Atherosclerotic heart disease of [place] coronary artery without angina pectoris (5) History of urostomy ICD Code: Z98.890 - Other specified postprocedural states Status: Chronic (6) Schizoaffective disorder ICD Code: F25.9 - Schizoaffective disorder, unspecified Status: Chronic (7) COPD (chronic obstructive pulmonary disease) ICD Code: J44.9 - Chronic obstructive pulmonary disease, unspecified Status: Chronic (8) H/O carcinoma of bladder ICD Code: Z85.51 - Personal history of malignant neoplasm of bladder (9) Chronic pain ICD Code: G89.29 - Other chronic pain Status: Chronic (10) Hypoxemia ICD Code: R09.02 - Hypoxemia Plan: Oxygen saturation dropped into the high 80s today when the patient was off oxygen. Oxygen quickly came up after oxygen was placed back. The patient is currently introduced nasal cannula. I will order stat chest x-ray to assess the lung parenchyma. If there is not a clear explanation on the chest x-ray done will proceed to order a CT pulmonary grams to rule out PE. Continue to provide supplemental oxygen to keep oxygen saturations more than 92% . 08/20 the pulmonary angiogram negative for PE however some consolidation at bases left greater than right with small effusions were seen. Hyperinflation and underlying emphysema. I will order incentive spirometry and a walk test to assess the need for the patient to be discharged on oxygen. I will also start the patient on oral Lasix. Continue Lasix. Patient will need home o2. (11) Diarrhea ICD Code: R19.7 - Diarrhea, unspecified Plan: C diff negative. No diarrhea since 08/20 . Continue probiotics. Assessment and Plan (1) SBO (small bowel obstruction) Plan: This is a 62-year-old female with a history of recurrent SBO status post lysis of adhesions over a month ago. Continued to be symptomatic with nausea, vomiting and abdominal pain secondary to intermittent SBO and underwent elective exploratory laparotomy, lysis of adhesions and resection of small bowel with anastomosis by Dr. Gan requested consultation to evaluate and manage medical conditions. The small bowel obstruction status post expiratory laparoscopy, extensive lysis of adhesions and resection of small bowel with primary anastomosis. Management as per general surgery. Patient currently on clear liquid diet which has not been tolerating very well. 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 Diet as tolerated as per GS. Tolerating clear liquids andvanced to full. Encourage small meals. (2) Anemia due to acute blood loss Plan: Slight drop of hemoglobin after surgery. Hemoglobin has been stable. (3) Hyperglycemia Plan: Likely related to stress and pain. Blood sugar is now stable. Hemoglobin A1c 5.2. Continue to monitor fingersticks, hyperglycemia protocol. (4) CAD (coronary artery disease) Plan: CAD seems to be stable. Patient status post [place] in May 2016 status post stenting on aspirin and Plavix. Aspirin and Plavix held prior to surgery. Resume aspirin and Plavix today as per general surgery indications. (5) History of urostomy Plan: Patient with urostomy bag. Seems stable. (6) Schizoaffective disorder Plan: Seems to be stable. Patient on Tegretol, Zyprexa, Zoloft. (7) COPD (chronic obstructive pulmonary disease) Plan: Seems to be stable. On albuterol inhaler, Spiriva. Continue (8) H/O carcinoma of bladder Plan: Status post cystectomy and urostomy. (9) Chronic pain Plan: Oxycodone and gabapentin. 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 Pain control management as per general surgery. DVT prophylaxis with SCDs and early ambulation. Aspirin and Plavix resumed. Discharge Planning Patient is medically clear to be discharged home. discussed with Dr Gan. Problem Qualifiers (1) CAD (coronary artery disease): Qualified Codes: I25.10 - Atherosclerotic heart disease of [place] coronary artery without angina pectoris (2) Schizoaffective disorder: Qualified Codes: F25.9 - Schizoaffective disorder, unspecified (3) COPD (chronic obstructive pulmonary disease): Qualified Codes: J44.9 - Chronic obstructive pulmonary disease, unspecified (4) Chronic pain: Qualified Codes: G89.3 - Neoplasm related pain (acute) (chronic) (5) Diarrhea: Qualified Codes: R19.7 - Diarrhea, unspecified Km William MD Aug 23, 2017 14:09
== END 2017-08-23 13:38 | disposition home health service (06) | DRG 330 ==
LOC: HSDI 07:11 → N03A 15:23 → N04B 08-12 18:33
PROVIDERS: ADMIT Surgery; ATTEND Surgery
PROC: 0DN80ZZ Release Small Intestine, Open Approach (ICD-10-PCS; 2017-08-11)
PROC: 3E0M05Z Introduction of Adhesion Barrier into Peritoneal Cavity, Open Approach (ICD-10-PCS; 2017-08-11)
PROC: 0DB80ZZ Excision of Small Intestine, Open Approach (ICD-10-PCS; principal; 2017-08-11 09:19)
DX: K56.50 Intestinal adhesions [bands], unspecified as to partial versus complete obstruction (principal); D62 Acute posthemorrhagic anemia; J43.9 Emphysema, unspecified; J98.11 Atelectasis; Z90.6 Acquired absence of other parts of urinary tract; F25.9 Schizoaffective disorder, unspecified; I25.2 Old myocardial infarction; I25.10 Atherosclerotic heart disease of native coronary artery without angina pectoris; R09.02 Hypoxemia; G89.29 Other chronic pain; F17.200 Nicotine dependence, unspecified, uncomplicated; Z98.0 Intestinal bypass and anastomosis status; Z95.5 Presence of coronary angioplasty implant and graft; Z79.82 Long term (current) use of aspirin; Z85.51 Personal history of malignant neoplasm of bladder; Z79.02 Long term (current) use of antithrombotics/antiplatelets; Z79.891 Long term (current) use of opiate analgesic; R19.7 Diarrhea, unspecified; Z23 Encounter for immunization
CPT/HCPCS: 71010; 71275; 76937; 80048; 80053; 82805; 82948; 83036; 83735; 84155; 85025; 85027; 85610; 85730; 86850; 86900; 86901; 87641; 88305; 88307; 90732; 94150; 94620; C1765; C9113; C9290; J0131; J0330; J0690; J1170; J2060; J2250; J2270; J2370; J2405; J2710; J2765; J3475; J3480; J7030; J7040; J7120; Q9967

== ENCOUNTER 2018-01-28 13:29 | Observation (INO) | payer MEDICAID ==
[2018-01-28] VITALS (9 sets, daily range): BP systolic 100–143; BP diastolic 58–77; PULSE 71–86; RESP 16–20; TEMP 96.3–98; O2SAT 95–97
[~2018-01-28] VITALS: Ht 167.6 cm; Wt 63.3 kg
[~2018-01-28 13:29] MED LIST changes: +FURO1TAB62 PO; +OXYGENDME NAS.CANULA
[2018-01-28] MEDS ORDERED: SODIUM CHLORIDE 0.9% FLUSH 10 ML FLUSH IVF PRN (14:00)
--- NOTE | 2018-01-28 14:10 | PD ---
HPI Chief Complaint: Chest Pain Time Seen by Provider: 13:39 Travel History International Travel<30 days: No Contact w/Intl Traveler<30days: No Traveled to known affect area: No History of Present Illness HPI The patient was seen and examined in the presence of the nurse. This patient complains of chest pain. Started at 9:30 AM. Duration 4 hours. Location left upper chest. Feels like an aching and pressure. She has history of non-STEMI and has 2 stents. She had catheterization here 2 years ago showing nonobstructive coronary disease. She reports recently having catheterization in [place] but has no documentation. Severity is moderate. No alleviating factors. She is not short of breath or having hemoptysis or fever or chest wall injury. No exacerbating factors. PFSH Past Medical History Hx Anticoagulant Therapy: Yes ADHD: Yes Arthritis: Yes Asthma: No Autoimmune Disease: No Bipolar Disorder: Yes Anxiety: Yes Depression: Yes Heart Rhythm Problems: Yes (MURMUR) Cancer: Yes (BLADDER CA ) Cardiovascular Problems: Yes (CAD, TN) High Cholesterol: Yes Chemotherapy: Yes (MANY YEARS AGO FINISHED ) Chest Pain: Yes Congestive Heart Failure: No COPD: Yes Coronary Artery Disease: Yes Diabetes: No Diminished Hearing: No Endocrine: No Gastrointestinal Disorders: Yes (GERD) GERD: Yes Genitourinary: Yes (BLADDER CA, UROSTOMY) Headaches: No Hepatitis: Yes (HEP B AND C treated) Hiatal Hernia: No Hypertension: Yes Immune Disorder: No Implanted Vascular Access Dvce: No (REMOVED) Musculoskeletal: Yes (MULTIPLE MUSCULOSKELTAL INJURIES, OA) Neurologic: Yes (POSITIONAL VERTIGO, DDD, BULGING DISK) Psychiatric: Yes (BIPOLAR, SCHIZOPHRENIA EFFECTIVE DISORDER) Reproductive: No Respiratory: Yes (COPD) Immunizations Current: Yes Radiation Therapy: No Schizophrenia: Yes (schizo-affective disorder) Seizures: No Sleep Apnea: No Thyroid Disease: No Ulcer: No Menopausal: Yes Dilation and Curettage (D&C): Yes Past Surgical History Abdominal Surgery: Yes (CHOLECYSTECTOMY ) AICD: No Body Medical Devices: fussion in cervical Cardiac Surgery: No Cholecystectomy: Yes Coronary Stent: Yes (x2) Ear Surgery: No Endocrine Surgery: No Eye Surgery: No Genitourinary Surgery: Yes (UROSTOMY-BLADDER CANCER, BLADDER SURGERY AT 6 YEARS OF AGE) Gynecologic Surgery: Yes (TOTAL HYSTERECTOMY ) Hysterectomy: Yes (OVARECTOMY) Joint Replacement: No Neurologic Surgery: No Oral Surgery: Yes (ALL TEETH REMOVED ) Pacemaker: No Thoracic Surgery: Yes (port in and out) Other Surgery: Yes (ILEOSTOMY) Social History Alcohol Use: No Tobacco Use: Yes ( 1 PPD) Substance Use: No Allergies-Medications (Allergen,Severity, Reaction): Coded Allergies: amcinonide (Unverified Allergy, Severe, 01/28/18) beclomethasone (Unverified Allergy, Severe, 01/28/18) betamethasone (Unverified Allergy, Severe, 01/28/18) codeine (Unverified Allergy, Severe, 01/28/18) desoximetasone (Unverified Allergy, Severe, 01/28/18) dexamethasone (Unverified Allergy, Severe, 01/28/18) fludrocortisone (Unverified Allergy, Severe, 01/28/18) flunisolide (Unverified Allergy, Severe, 01/28/18) fluocinolone acetonide (Unverified Allergy, Severe, 01/28/18) fluocinonide (Unverified Allergy, Severe, 01/28/18) fluorometholone (Unverified Allergy, Severe, 01/28/18) flurandrenolide (Unverified Allergy, Severe, 01/28/18) fluticasone (Unverified Allergy, Severe, 01/28/18) fluticasone furoate (Unverified Allergy, Severe, 01/28/18) hydrocortisone (Unverified Allergy, Severe, 01/28/18) methylprednisolone (Unverified Allergy, Severe, 01/28/18) mometasone furoate (Unverified Allergy, Severe, 01/28/18) prednisolone (Unverified Allergy, Severe, 01/28/18) prednisone (Unverified Allergy, Severe, 01/28/18) triamcinolone (Unverified Allergy, Severe, 01/28/18) Uncoded Allergies: ANTIHISTIMINES (Allergy, Mild, MANIC, 11/15/06) Reported Meds & Prescriptions Reported Meds & Active Scripts Active Lasix (Furosemide) 20 Mg Tab 20 Mg PO DAILY Reported Ferrous Sulfate 325 Mg (65 Mg Iron) Tablet 325 Mg PO DAILY Vraylar (Cariprazine) 1.5 Mg Cap 1.5 Mg PO DAILY Nicotine Patch (Nicotine) 14 Mg/24 Hr Patch 14 Mg T-DERMAL DAILY Potassium Chloride ER (Potassium Chloride) 20 Meq Tab 20 Meq PO DAILY Albuterol Neb (Albuterol Sulfate) 2.5 Mg/3 Ml Neb 2.5 Mg NEB BID PRN Zofran (Ondansetron HCl) 4 Mg Tab 4 Mg PO Q6HR PRN Hydroxyzine HCl 25 Mg Tab 25 Mg PO BID PRN Valium (Diazepam) 5 Mg Tab 5 Mg PO TID Olanzapine 10 Mg Tab 5 Mg PO HS Atorvastatin (Atorvastatin Calcium) 80 Mg Tab 40 Mg PO HS Melatonin Gummies (Melatonin) 2.5 Mg Chw 10 Mg PO HS Plavix (Clopidogrel Bisulfate) 75 Mg Tab 75 Mg PO DAILY Aspirin Children's (Aspirin) 81 Mg Chew 81 Mg CHEW DAILY Gabapentin 300 Mg Cap 300 Mg PO TID Tegretol (Carbamazepine) 200 Mg Tab 400 Mg PO HS Tegretol (Carbamazepine) 200 Mg Tab 200 Mg PO DAILY IN THE MORNING Pantoprazole (Pantoprazole Sodium) 40 Mg Tab 40 Mg PO DAILY Review of Systems General / Constitutional: No: Fever Eyes: No: Visual changes HENT: No: Headaches Cardiovascular: Positive: Chest Pain or Discomfort Respiratory: No: Shortness of Breath Gastrointestinal: No: Abdominal Pain Genitourinary: No: Dysuria Musculoskeletal: No: Pain Skin: No Rash Neurologic: No: Weakness Psychiatric: No: Depression Endocrine: No: Polydipsia Hematologic/Lymphatic: No: Easy Bruising Physical Exam Narrative GENERAL: Well-nourished, well-developed patient in no apparent distress. SKIN: Focused skin assessment reveals no rash and nodules. Skin is Warm and dry. HEAD: Atraumatic. Normocephalic. EYES: Pupils equal and round. No scleral icterus. No injection or drainage. ENT: No nasal bleeding or discharge. Mucous membranes pink and moist. NECK: Trachea midline. No JVD. CARDIOVASCULAR: Regular rate and rhythm. No murmur appreciated. RESPIRATORY: No accessory muscle use. Clear to auscultation. Breath sounds equal bilaterally. GASTROINTESTINAL: Abdomen soft, non-tender, nondistended. Hepatic and splenic margins not palpable. MUSCULOSKELETAL: No obvious deformities. No clubbing. No cyanosis. No edema. NEUROLOGICAL: Awake and alert. No obvious cranial nerve deficits. Motor grossly within normal limits. Normal speech. PSYCHIATRIC: Appropriate mood and affect; insight and judgment normal. Data Data Last Documented VS Vital Signs Date Time Temp Pulse Resp B/P (MAP) Pulse Ox O2 Delivery O2 Flow Rate FiO2 01/28/18 14:52 82 16 106/66 (79) 95 Room Air 01/28/18 13:36 98.0 Orders Orders Electrocardiogram (01/28/18 13:58) Basic Metabolic Panel (Bmp) (01/28/18 13:58) Ckmb (Isoenzyme) Profile (01/28/18 13:58) Complete Blood Count With Diff (01/28/18 13:58) Magnesium (Mg) (01/28/18 13:58) Prothrombin Time / Inr (Pt) (01/28/18 13:58) Act Partial Throm Time (Ptt) (01/28/18 13:58) Troponin I (01/28/18 13:58) Chest, Single Ap (01/28/18 13:58) Ecg Monitoring (01/28/18 13:58) Iv Access Insert/Monitor (01/28/18 13:58) Oximetry (01/28/18 13:58) Sodium Chloride 0.9% Flush (Ns Flush) (01/28/18 14:00) CKMB (01/28/18 14:30) CKMB% (01/28/18 14:30) Admit Order (Ed Use Only) (01/28/18 15:18) Labs Laboratory Tests Test 01/28/18 14:30 White Blood Count 5.4 TH/MM3 Red Blood Count 3.97 MIL/MM3 Hemoglobin 11.4 GM/DL Hematocrit 34.8 % Mean Corpuscular Volume 87.8 FL Mean Corpuscular Hemoglobin 28.7 PG Mean Corpuscular Hemoglobin Concent 32.7 % Red Cell Distribution Width 17.2 % Platelet Count 342 TH/MM3 Mean Platelet Volume 7.0 FL Neutrophils (%) (Auto) 67.2 % Lymphocytes (%) (Auto) 25.0 % Monocytes (%) (Auto) 6.8 % Eosinophils (%) (Auto) 0.1 % Basophils (%) (Auto) 0.9 % Neutrophils # (Auto) 3.6 TH/MM3 Lymphocytes # (Auto) 1.4 TH/MM3 Monocytes # (Auto) 0.4 TH/MM3 Eosinophils # (Auto) 0.0 TH/MM3 Basophils # (Auto) 0.0 TH/MM3 CBC Comment DIFF FINAL Differential Comment Prothrombin Time 10.7 SEC Prothromb Time International Ratio 1.1 RATIO Activated Partial Thromboplast Time 25.9 SEC Blood Urea Nitrogen 6 MG/DL Creatinine 0.70 MG/DL Random Glucose 90 MG/DL Calcium Level 8.8 MG/DL Magnesium Level 2.0 MG/DL Sodium Level 131 MEQ/L Potassium Level 4.0 MEQ/L Chloride Level 96 MEQ/L Carbon Dioxide Level 27.7 MEQ/L Anion Gap 7 MEQ/L Estimat Glomerular Filtration Rate 85 ML/MIN Total Creatine Kinase 113 U/L Creatine Kinase MB 1.8 NG/ML Troponin I LESS THAN 0.02 NG/ML MDM Medical Decision Making Medical Screen Exam Complete: Yes Emergency Medical Condition: Yes Medical Record Reviewed: Yes Differential Diagnosis Differential diagnosis includes TN, angina, pericarditis, pleurisy, GERD, anxiety. Narrative Course I have reviewed the patient's electronic medical record. Reviewed her catheterization from 2016 IV placed and labs sent She had aspirin prior to arrival EKG shows sinus rhythm without ST elevation Extended cardiac monitoring reveals sinus rhythm without ectopy I reviewed her chest x-ray which is negative Metabolic studies show minor hyponatremia Cardiac enzymes are normal I have paged the hospitalist to discuss. She will be a 23 hour observation in the chest pain center to rule out cardiac cause of her symptoms Diagnosis Primary Impression: Chest pain Qualified Codes: R07.9 - Chest pain, unspecified Additional Impression: CAD (coronary artery disease) Qualified Codes: I25.10 - Atherosclerotic heart disease of [place] coronary artery without angina pectoris; I25.84 - Coronary atherosclerosis due to calcified coronary lesion Admitting Information Admitting Physician Requests: Observation Papa Oviedo MD Jan 28, 2018 14:10
[2018-01-28] MEDS ORDERED: ALBU0.08 NEB (14:12)
[2018-01-28] MEDS ORDERED: POTA-163 PO (14:12)
[2018-01-28 14:37] LABS: AUTOMATED NEUTROPHIL # 3.6 TH/MM3 (1.8-7.7); BASOPHIL % 0.9 % (0.0-2.0); EOSINOPHIL % 0.1 % (0.0-4.0); HEMATOCRIT 34.8 % (35.0-46.0); HEMOGLOBIN 11.4 GM/DL (11.6-15.3); LYMPHOCYTE # 1.4 TH/MM3 (1.0-4.8); MEAN CELL VOLUME 87.8 FL (80.0-100.0); MEAN CORPUSCULAR HEMOGLOBIN 28.7 PG (27.0-34.0); MEAN CORPUSCULAR HGB CONC 32.7 % (32.0-36.0); MONO % 6.8 % (0.0-8.0); MONOCYTE # 0.4 TH/MM3 (0-0.9); NEUT % 67.2 % (16.0-70.0); PLATELET COUNT 342 TH/MM3 (150-450); RED BLOOD COUNT 3.97 MIL/MM3 (4.00-5.30); RED CELL DISTRIBUTION WIDTH 17.2 % (11.6-17.2); WHITE BLOOD COUNT 5.4 TH/MM3 (4.0-11.0)
[2018-01-28 14:46] LABS: CHLORIDE 96 MEQ/L (98-107); SODIUM (NA) 131 MEQ/L (136-145)
[2018-01-28] MEDS ORDERED: NICO14DI T-DERMAL (14:46)
[2018-01-28 14:48] LABS: CALCIUM 8.8 MG/DL (8.5-10.1)
[2018-01-28] MEDS ORDERED: CARI1CAP PO (14:48)
--- NOTE | 2018-01-28 14:48 | RADRPT ---
EXAM DATE: 01/28/2018 2:44 PM EDT AGE/SEX: 62 years / Female INDICATIONS: Chest pain. CLINICAL DATA: This is the patient's initial encounter. Patient reports that signs and symptoms have been present for 1 day and indicates a pain score of 5/10. MEDICAL/SURGICAL HISTORY: None. Umbilical hernia repair. COMPARISON: [facility] [place], CHEST SINGLE AP, 08/19/2017. . FINDINGS: A single AP view of the chest demonstrates the lungs to be symmetrically aerated without evidence of mass, infiltrate or effusion. The cardiomediastinal contours are unremarkable. Osseous structures a re intact. CONCLUSION: The lungs are clear. Electronically signed by: Antolin Tineo MD 01/28/2018 2:47 PM EDT
[2018-01-28 14:49] LABS: BICARBONATE 27.7 MEQ/L (21.0-32.0); BLOOD UREA NITROGEN 6 MG/DL (7-18); GLUCOSE,RANDOM 90 MG/DL (74-106)
[2018-01-28 14:50] LABS: INTERNATIONAL NORMALIZED RATIO 1.1 RATIO; PROTHROMBIN TIME - PATIENT 10.7 SEC (9.8-11.6)
[2018-01-28] MEDS ORDERED: FERR325T18 PO (14:50)
[2018-01-28 14:52] LABS: GLOMERULAR FILTRATION RATE 85 ML/MIN (>89)
[2018-01-28 14:57] LABS: TROPONIN I LESS THAN 0.02 NG/ML (0.02-0.05)
--- NOTE | 2018-01-28 15:26 | EKG ---
Date Performed: 01/28/2018 Time Performed: 13:34:46 PTAGE: 62 years EKG: Sinus rhythm POSSIBLE LEFT ATRIAL ENLARGEMENT MINIMAL ST DEPRESSION BORDERLINE ECG INTERPRETATION BASED ON A DEFA ULT AGE OF 40 YEARS PREVIOUS TRACING : 07/05/2017 12.53 Since the previous tracing, no significant change not ed DOCTOR: Gold Yee Interpretating Date/Time 01/28/2018 15:24:16
[2018-01-28] MEDS ORDERED: ACETAMINOPHEN/HYDROcodone 325 MG/5 MG TAB PO ONE (15:30)
[2018-01-28] MEDS ORDERED: SODIUM CHLORIDE 0.9% FLUSH 10 ML FLUSH IV FLUSH PRN (15:30)
--- NOTE | 2018-01-28 16:30 | HHI.HP ---
HPI Service [facility] Primary Care Physician Dmitry Gomez DO Admission Diagnosis chest pain Diagnoses: (1) Chest pain Diagnosis: Principal Chief Complaint: Chest pain Travel History International Travel<30 Days: No Contact w/Intl Traveler <30 Da: No Traveled to Known Affected Are: No History of Present Illness Written by Papa Tariq, acting as scribe for Dr. Blue on 01/28/18 at 16: 29. 62-year-old female with rather extensive medical history, including cardiac history of hypertension, hyperlipidemia, coronary artery disease status post stenting, history of myocardial infarction who presented to hospital because of onset of chest discomfort. Patient states that she is in normal state of health until this morning approximately 930. She states that she developed a pain in left side of her chest that radiated over to the left side of her thorax. It has remained constant at 10/10 on a pain scale and worsens whenever she takes a deep breath. She denies any nausea, vomiting, diaphoresis , she is no significant difference in her shortness of breath or dyspnea on exertion than usual. Patient states that the pain is worse whenever it is palpated or pushed on. She states that she has been doing some increase heavy lifting over the last week and she did hurt her back at that time. Patient indicates that she was just recently in [facility] in November where she was hospitalized and developed congestive heart failure, fluid overload, she states that she had a myocardial infarction at that time. She underwent cardiac catheterization which she indicates was normal. There is no documentation of that at this time. Will need to obtain documentation. Patient was seen by management physician and original laboratory studies were unremarkable, EKGs did not show any acute abnormality. Is recommended the patient be observed in the chest pain center. Review of Systems Respiratory: COMPLAINS OF: Shortness of breath Cardiovascular: COMPLAINS OF: Chest pain Except as stated in HPI: all other systems reviewed are Neg Past Family Social History Past Medical History Hypertension Hyperlipidemia Coronary artery disease Chronic obstructive pulmonary disease History of bladder cancer status post urostomy Schizoaffective disorder Anxiety/depression History of drug overdose History of IV drug use History of hepatitis B and C Chronic pain Tobacco abuse Past Surgical History Cervical spine surgery Hysterectomy Radical cystectomy with urostomy EGD with colonoscopy Permacath placement and removal Cardiac catheterization with stenting Cholecystectomy Open abdominal surgery for bowel obstruction Reported Medications Reported Meds & Active Scripts Active Lasix (Furosemide) 20 Mg Tab 20 Mg PO DAILY Reported Ferrous Sulfate 325 Mg (65 Mg Iron) Tablet 325 Mg PO DAILY Vraylar (Cariprazine) 1.5 Mg Cap 1.5 Mg PO DAILY Nicotine Patch (Nicotine) 14 Mg/24 Hr Patch 14 Mg T-DERMAL DAILY Potassium Chloride ER (Potassium Chloride) 20 Meq Tab 20 Meq PO DAILY Albuterol Neb (Albuterol Sulfate) 2.5 Mg/3 Ml Neb 2.5 Mg NEB BID PRN Zofran (Ondansetron HCl) 4 Mg Tab 4 Mg PO Q6HR PRN Hydroxyzine HCl 25 Mg Tab 25 Mg PO BID PRN Valium (Diazepam) 5 Mg Tab 5 Mg PO TID Olanzapine 10 Mg Tab 5 Mg PO HS Atorvastatin (Atorvastatin Calcium) 80 Mg Tab 40 Mg PO HS Melatonin Gummies (Melatonin) 2.5 Mg Chw 10 Mg PO HS Plavix (Clopidogrel Bisulfate) 75 Mg Tab 75 Mg PO DAILY Aspirin Children's (Aspirin) 81 Mg Chew 81 Mg CHEW DAILY Gabapentin 300 Mg Cap 300 Mg PO TID Tegretol (Carbamazepine) 200 Mg Tab 400 Mg PO HS Tegretol (Carbamazepine) 200 Mg Tab 200 Mg PO DAILY IN THE MORNING Pantoprazole (Pantoprazole Sodium) 40 Mg Tab 40 Mg PO DAILY Allergies: Coded Allergies: amcinonide (Unverified Allergy, Severe, 01/28/18) beclomethasone (Unverified Allergy, Severe, 01/28/18) betamethasone (Unverified Allergy, Severe, 01/28/18) codeine (Unverified Allergy, Severe, 01/28/18) desoximetasone (Unverified Allergy, Severe, 01/28/18) dexamethasone (Unverified Allergy, Severe, 01/28/18) fludrocortisone (Unverified Allergy, Severe, 01/28/18) flunisolide (Unverified Allergy, Severe, 01/28/18) fluocinolone acetonide (Unverified Allergy, Severe, 01/28/18) fluocinonide (Unverified Allergy, Severe, 01/28/18) fluorometholone (Unverified Allergy, Severe, 01/28/18) flurandrenolide (Unverified Allergy, Severe, 01/28/18) fluticasone (Unverified Allergy, Severe, 01/28/18) fluticasone furoate (Unverified Allergy, Severe, 01/28/18) hydrocortisone (Unverified Allergy, Severe, 01/28/18) methylprednisolone (Unverified Allergy, Severe, 01/28/18) mometasone furoate (Unverified Allergy, Severe, 01/28/18) prednisolone (Unverified Allergy, Severe, 01/28/18) prednisone (Unverified Allergy, Severe, 01/28/18) triamcinolone (Unverified Allergy, Severe, 01/28/18) Uncoded Allergies: ANTIHISTIMINES (Allergy, Mild, MANIC, 11/15/06) Family History Patient does not know much about her family medical history Social History Patient continue to smoke a pack a cigarettes a day. She states that she quit using alcohol in 2006. Records indicate that the patient has history of IV drug use. However no indication at this time. Physical Exam Vital Signs Vital Signs Date Time Temp Pulse Resp B/P (MAP) Pulse Ox O2 Delivery O2 Flow Rate FiO2 01/28/18 16:26 97 21 01/28/18 16:24 96.3 71 20 143/68 (93) 97 01/28/18 16:00 01/28/18 15:50 77 16 118/75 (89) 97 Room Air 01/28/18 14:52 82 16 106/66 (79) 95 Room Air 01/28/18 13:45 16 97 Room Air 01/28/18 13:41 18 96 Room Air 01/28/18 13:36 98.0 86 18 126/64 (84) 97 Physical Exam GENERAL: elderly female. alert and orientated HEENT: Extraocular muscles are intact. Conjunctivae were clear. Buccal mucosa is moist NECK: Supple without any masses. Trachea midline no deviation. No JVD appreciated CARDIAC: Regular rhythm, regular rate. S1/S2 are heard. No murmurs. Obvious reproducible chest wall tenderness over the left anterior chest at the site of her pain LUNGS: Clear to auscultation bilaterally. No wheeze. No use of accessory muscles on inspiration or expiration. ABDOMEN: Soft, nontender. Nondistended. Bowel sounds heard in all 4 quadrants. Negative rebound, negative guarding EXTREMITIES: No edema, pulses are equal bilaterally. NEUROLOGY: Mood and affect appear appropriate. Cranial nerves II through XII grossly intact. Muscle strength 5/5 in upper and lower extremities bilaterally. Laboratory Laboratory Tests Test 01/28/18 14:30 White Blood Count 5.4 Red Blood Count 3.97 Hemoglobin 11.4 Hematocrit 34.8 Mean Corpuscular Volume 87.8 Mean Corpuscular Hemoglobin 28.7 Mean Corpuscular Hemoglobin Concent 32.7 Red Cell Distribution Width 17.2 Platelet Count 342 Mean Platelet Volume 7.0 Neutrophils (%) (Auto) 67.2 Lymphocytes (%) (Auto) 25.0 Monocytes (%) (Auto) 6.8 Eosinophils (%) (Auto) 0.1 Basophils (%) (Auto) 0.9 Neutrophils # (Auto) 3.6 Lymphocytes # (Auto) 1.4 Monocytes # (Auto) 0.4 Eosinophils # (Auto) 0.0 Basophils # (Auto) 0.0 CBC Comment DIFF FINAL Differential Comment Prothrombin Time 10.7 Prothromb Time International Ratio 1.1 Activated Partial Thromboplast Time 25.9 Blood Urea Nitrogen 6 Creatinine 0.70 Random Glucose 90 Calcium Level 8.8 Magnesium Level 2.0 Sodium Level 131 Potassium Level 4.0 Chloride Level 96 Carbon Dioxide Level 27.7 Anion Gap 7 Estimat Glomerular Filtration Rate 85 Total Creatine Kinase 113 Creatine Kinase MB 1.8 Troponin I LESS THAN 0.02 Result Diagram: 01/28/18 1430 01/28/18 1430 Imaging Last Impressions Chest X-Ray 01/28/18 1358 Signed Impressions: CONCLUSION: The lungs are clear. Caprini VTE Risk Assessment Caprini VTE Risk Assessment: Mod/High Risk (score >= 2) Caprini Risk Assessment Model Point Value = 1 Point Value = 2 Point Value = 3 Point Value = 5 Age 41-60 Minor surgery BMI > 25 kg/m2 Swollen legs Varicose veins or History of unexplained or recurrent spontaneous Oral contraceptives or hormone replacement Sepsis (< 1 month) Serious lung disease, including pneumonia (< 1 month) Abnormal pulmonary function Acute myocardial infarction Congestive heart failure (< 1 month) History of inflammatory bowel disease Medical patient at bed rest Age 61-74 Arthroscopic surgery Major open surgery (> 45 min) Laparoscopic surgery (> 45 min) Malignancy Confined to bed (> 72 hours) Immobilizing plaster cast Central venous access Age >= 75 History of VTE Family history of VTE Factor V Leiden Prothrombin [id number] Lupus anticoagulant Anticardiolipin antibodies Elevated serum homocysteine Heparin-induced thrombocytopenia Other congenital or acquired thrombophilia Stroke (< 1 month) Elective arthroplasty Hip, pelvis, or leg fracture Acute spinal cord injury (< 1 month) Prophylaxis Regimen Total Risk Factor Score Risk Level Prophylaxis Regimen 0-1 Low Early ambulation 2 Moderate Order ONE of the following: *Sequential Compression Device (SCD) *Heparin 5000 units SQ BID 3-4 Higher Order ONE of the following medications: *Heparin 5000 units SQ TID *Enoxaparin/Lovenox 40 mg SQ daily (WT < 150 kg, CrCl > 30 mL/min) *Enoxaparin/Lovenox 30 mg SQ daily (WT < 150 kg, CrCl > 10-29 mL/min) *Enoxaparin/Lovenox 30 mg SQ BID (WT < 150 kg, CrCl > 30 mL/min) AND/OR *Sequential Compression Device (SCD) 5 or more Highest Order ONE of the following medications: *Heparin 5000 units SQ TID (Preferred with Epidurals) *Enoxaparin/Lovenox 40 mg SQ daily (WT < 150 kg, CrCl > 30 mL/min) *Enoxaparin/Lovenox 30 mg SQ daily (WT < 150 kg, CrCl > 10-29 mL/min) *Enoxaparin/Lovenox 30 mg SQ BID (WT < 150 kg, CrCl > 30 mL/min) AND *Sequential Compression Device (SCD) Assessment and Plan Assessment and Plan Chest pain, atypical -Patient does have increased risk factors include age, hypertension, hyperlipidemia, coronary disease, history of myocardial infarction, cardiac stenting, tobacco use -Patient's pain is reproducible and likely musculoskeletal in nature, however due to the patient's history will need to rule out any acute coronary event -Continue trending cardiac enzymes and serial EKGs to rule out acute coronary syndrome -We will need to obtain recent cardiac catheterization result in November from [facility] in [facility], would like to have results of the catheterization prior to any provocative testing -Patient has had recent cardiac catheterization in 2015 documented with open coronary arteries -Start aspirin, nitroglycerin as needed, morphine for pain control Hypertension, hyperlipidemia, coronary disease, history myocardial infarction -Resume home medications -Obtain lipid panel Chronic pain -Resume home medication Chronic tobacco use -Smoking cessation counseling DVT prevention -Sequential compression devices This note was transcribed by lavinia Tariq. I, Dr. Maria Blue personally performed the history, physical exam, and medical decision making; and confirmed the accuracy of the information in the transcribed note. Authenticated by Dr. Maria Blue on 01/28/18 at 16:29. Code Status Full code Discussed Condition With ER physician and patient Problem Qualifiers (1) Chest pain: Qualified Codes: R07.9 - Chest pain, unspecified Papa Tariq Jan 28, 2018 16:30 Maria Blue MD Jan 28, 2018 16:37
[2018-01-28] MEDS ORDERED: NITROGLYCERIN 0.4 MG SL 25 TABS/BTL SL PRN (16:45)
[2018-01-28] MEDS ORDERED: ACETAMINOPHEN 500 MG CPLT PO PRN (16:45)
[2018-01-28] MEDS ORDERED: MORPHINE SULFATE 4 MG/ML INJ IV PUSH PRN (16:45)
[2018-01-28] MEDS ORDERED: ONDANSETRON HCL 4 MG/2 ML VIAL IV PUSH PRN (16:45)
[2018-01-28] MEDS: ACETAMINOPHEN/HYDROcodone 325 MG/7.5 MG TAB PO PRN ×2 (17:18→21:52)
[2018-01-28] MEDS: DIAZEPAM 5 MG TAB PO SCH (17:18)
[2018-01-28] MEDS: GABAPENTIN 300 MG CAP PO SCH (17:18)
[2018-01-28 18:14] LABS: TROPONIN I LESS THAN 0.02 NG/ML (0.02-0.05)
[2018-01-28] MEDS ORDERED: carBAMazepine 200 MG TAB PO SCH (21:00)
[2018-01-28] MEDS ORDERED: OLANZapine 5 MG TAB PO SCH (21:00)
[2018-01-28] MEDS ORDERED: ATORVASTATIN 40 MG TAB PO SCH (21:00)
[2018-01-28 21:03] LABS: TROPONIN I LESS THAN 0.02 NG/ML (0.02-0.05)
[2018-01-28] MEDS: SODIUM CHLORIDE 0.9% FLUSH 10 ML FLUSH IV FLUSH SCH (21:46)
[2018-01-28] MEDS ORDERED: GABAPENTIN 100 MG CAP PO ONE (22:00)
[2018-01-28] MEDS ORDERED: DIAZEPAM 2 MG TAB PO ONE (22:00)
[2018-01-28] MEDS ORDERED: MELATONIN 5 MG TAB PO PRN (22:00)
[2018-01-29] VITALS: BP 126/66; PULSE 77; RESP 20; TEMP 98.1; O2SAT 96
[2018-01-29] MEDS: ACETAMINOPHEN/HYDROcodone 325 MG/7.5 MG TAB PO PRN ×2 (02:49→10:02)
[2018-01-29 07:49] VITALS: BP 108/59; PULSE 71; RESP 18; TEMP 96.5; O2SAT 97
[2018-01-29] MEDS: DIAZEPAM 5 MG TAB PO SCH ×2 (07:52→12:35)
[2018-01-29] MEDS: GABAPENTIN 300 MG CAP PO SCH ×2 (07:52→12:35)
[2018-01-29] MEDS: SODIUM CHLORIDE 0.9% FLUSH 10 ML FLUSH IV FLUSH SCH (07:55)
[2018-01-29 08:00] VITALS: PULSE 57
[2018-01-29 08:23] VITALS: O2SAT 93
[2018-01-29] MEDS ORDERED: CLOPIDOGREL 75 MG TAB PO SCH (09:00)
[2018-01-29] MEDS ORDERED: CARIPRAZINE 1.5 MG PO SCH ×2 (09:00→21:00)
[2018-01-29] MEDS ORDERED: FUROSEMIDE 20 MG TAB PO SCH (09:00)
[2018-01-29] MEDS ORDERED: POTASSIUM CHLORIDE 20 MEQ CONTROLLED RELEASE TAB PO SCH (09:00)
[2018-01-29] MEDS ORDERED: ASPIRIN 325 MG TAB PO SCH (09:00)
[2018-01-29] MEDS ORDERED: PANTOPRAZOLE SOD 40 MG DELAYED RELEASE TAB PO SCH (09:00)
--- NOTE | 2018-01-29 09:25 | HHI.DCPOC ---
Discharge Care Plan Diagnosis: (1) Chest pain Goals to Promote Your Health * To prevent worsening of your condition and complications * To maintain your health at the optimal level Directions to Meet Your Goals Take your medications as prescribed Follow your dietary instruction Follow activity as directed Keep your appointments as scheduled Take your immunizations and boosters as scheduled If your symptoms worsen call your PCP, if no PCP go to Urgent Care Center or Emergency Room Smoking is Dangerous to Your Health. Avoid second hand smoke Call the 24-hour hour crisis hotline for domestic abuse at Papa Tariq Jan 29, 2018 09:25
[2018-01-29] MEDS ORDERED: carBAMazepine 200 MG TAB PO SCH (10:00)
[2018-01-29 10:30] LABS: CHOLESTEROL/ HDL RATIO 2.95 RATIO; HDL CHOLESTEROL 43.6 MG/DL (40.0-60.0)
[2018-01-29 11:53] VITALS: BP 126/65; PULSE 76; RESP 18; TEMP 96.5; O2SAT 97
--- NOTE | 2018-01-29 12:58 | RADRPT ---
EXAM DATE: 01/29/2018 12:44 PM EDT AGE/SEX: 62 years / Female INDICATIONS:Angina. Myocardial infarction Left chest pain. CLINICAL DATA: This is the patient's initial encounter. Patient reports that signs and symptoms have been present for 1 day and indicates a pain score of 8/10. MEDICAL/SURGICAL HISTORY: Chronic obstructive pulmonary disease. Hypercholesterolemia. Gastro esophageal reflux disease. Coronary artery stent. Cholecystectomy. Hysterectomy. COMPARISON: No prior exams available for comparison. DOSE: 26.9 mCi Tc 99m Myoview at stress 8.8 mCi [id number] at rest 0.4 mg Lexiscan STRESS SYMPTOMS: Dyspnea, head pressure and chest pain. EJECTION FRACTION: 51 % TECHNIQUE: The patient underwent pharmacologic stress with infusion of prescribed dose. Continuous ECG tracing was monitored during stress. Gated SPECT imaging was performed after stress and conventi onal SPECT imaging was performed at rest. The examination was performed on a SPECT/CT scanner, both attenuation and non-corrected datasets were reviewed. FINDINGS: Distribution: The maximum perfused segment at stress is in the anterolateral wall. Perfusion Study: The pattern of perfusion at stress is within normal limits. Gated Study: There are intact wall motion and wall thickening without hypokinetic or dyskinetic segm ents. The ejection fraction is calculated at 51%. RISK CATEGORY: Low (<1% Annual Motality Rate) CONCLUSION: 1. No significant reversibility to suggest ischemia. 2. Wall motion within normal limits with ejection fraction of 51%. Electronically signed by: Jon Simon MD 01/29/2018 12:56 PM EDT
--- NOTE | 2018-01-29 13:06 | TR ---
Date Performed: 01/29/2018 Time Performed: 11:59:51 DOCTOR: Felipe Osullivan DRUG LIST: CLINICAL HISTORY: REASON FOR TEST: Chest pain REASON FOR ENDING: OBSERVATION: CONCLUSION: Lexiscan stress test was performed under standard four minute protocol. Radionuclide was injected one minute prior to ending the test. No electrocardiographic abormalities were present to suggest ischemia. Nuclear imaging and interpretation are pending. COMMENTS:
[2018-01-29] MEDS ORDERED: NAPR250T4 PO (13:25)
--- NOTE | 2018-01-29 14:37 | EKG ---
Date Performed: 01/28/2018 Time Performed: 20:31:44 PTAGE: 62 years EKG: Sinus rhythm INFERIOR MYOCARDIAL INFARCTION ABNORMAL ECG PREVIOUS TRACING : 01/28/2018 17.34 Since the previous tracing, no significant change noted DOCTOR: Gold Yee Interpretating Date/Time 01/29/2018 14:35:21
--- NOTE | 2018-01-29 14:40 | EKG ---
Date Performed: 01/28/2018 Time Performed: 17:34:09 PTAGE: 62 years EKG: Sinus rhythm PROBABLE INFERIOR MYOCARDIAL INFARCTION ABNORMAL ECG PREVIOUS TRACING : 01/28/2018 13.34 Since the previous tracing, no significant change noted DOCTOR: Gold Yee Interpretating Date/Time 01/29/2018 14:37:48
[2018-01-29] MEDS ORDERED: REGADENOSON INJ 0.4 MG/5 ML SYR IV ONE (15:33)
--- NOTE | 2018-01-29 16:10 | HHI.PR ---
Subjective Remarks states she couldn't sleep last night and doesn't really know why when asked if she has chest pain, states yes w movement, otherwise none. denies any lightheadedness or dizziness, nausea or vomiting. Objective Vitals Vital Signs Date Time Temp Pulse Resp B/P (MAP) Pulse Ox O2 Delivery O2 Flow Rate FiO2 01/29/18 11:53 96.5 76 18 126/65 (85) 97 01/29/18 11:02 18 01/29/18 08:23 93 Nasal Cannula 21 01/29/18 08:00 57 01/29/18 07:49 96.5 71 18 108/59 (75) 97 01/29/18 00:00 98.1 77 20 126/66 (86) 96 01/28/18 20:02 85 01/28/18 20:00 97.0 71 20 133/58 (83) 97 01/28/18 19:28 95 21 01/28/18 16:26 97 21 01/28/18 16:24 96.3 71 20 143/68 (93) 97 I/O 01/28/18 01/28/18 01/28/18 01/29/18 01/29/18 01/29/18 07:00 15:00 23:00 07:00 15:00 23:00 Intake Total 480 ml 480 ml Output Total 0 ml 2300 ml Balance 480 ml -1820 ml Intake Oral 480 ml 480 ml Output Urine Total 0 ml 2300 ml # Bowel Movements 0 Result Diagram: 01/28/18 1430 01/28/18 1430 Imaging Last Impressions Myocardial Perfusion Scan Nuc Med 01/29/18 0600 Signed Impressions: CONCLUSION: 1. No significant reversibility to suggest ischemia. 2. Wall motion within normal limits with ejection fraction of 51%. Chest X-Ray 01/28/18 1358 Signed Impressions: CONCLUSION: The lungs are clear. Objective Remarks GENERAL: elderly female. alert and orientated CVS: rrr w no murmurs. Chest pain reproducible LUNGS: Clear to auscultation bilaterally. No wheeze. ABDOMEN: Soft, nontender. Nondistended. EXTREMITIES: No edema, pulses are equal bilaterally. NEUROLOGY: moves extremities A/P Problem List: (1) Chest pain ICD Code: R07.9 - Chest pain, unspecified Status: Acute Assessment and Plan Chest pain, atypical: -Patient does have increased risk factors include age, hypertension, hyperlipidemia, coronary disease, history of myocardial infarction, cardiac stenting, tobacco use -However Patient's pain is reproducible and likely musculoskeletal in nature -serial CE were obtained and were neg. -Patient has had recent cardiac catheterization in 2016 documented with open coronary arteries -Myocardial perfusion scan done and was low risk for ischemia. -she received aspirin, nitroglycerin as needed, morphine for pain control Hypertension, hyperlipidemia, coronary disease, history myocardial infarction -on home medications Chronic pain -Resume home medication Chronic tobacco use -Smoking cessation counseling Discharge Planning Myocardial perfusion scan low probability d/c home today f/u w PCP and cards as an outpatient heart healthy diet condition stable condition: stable Problem Qualifiers (1) Chest pain: Qualified Codes: R07.9 - Chest pain, unspecified Maria Blue MD Jan 29, 2018 16:10
== END 2018-01-29 14:05 | disposition home or self-care (01) ==
LOC: PHED 13:29 → PHEDA 15:32 → PH3B 16:00
PROVIDERS: ADMIT Hospitalist; ATTEND Hospitalist
DX: R07.89 Other chest pain (principal); I11.0 Hypertensive heart disease with heart failure; I50.9 Heart failure, unspecified; E78.5 Hyperlipidemia, unspecified; G89.29 Other chronic pain; I25.10 Atherosclerotic heart disease of native coronary artery without angina pectoris; I25.2 Old myocardial infarction; J44.9 Chronic obstructive pulmonary disease, unspecified; K21.9 Gastro-esophageal reflux disease without esophagitis; R94.31 Abnormal electrocardiogram [ECG] [EKG]; F25.9 Schizoaffective disorder, unspecified; F31.9 Bipolar disorder, unspecified; F41.9 Anxiety disorder, unspecified; M19.90 Unspecified osteoarthritis, unspecified site; F17.210 Nicotine dependence, cigarettes, uncomplicated; Z95.5 Presence of coronary angioplasty implant and graft; Z79.899 Other long term (current) drug therapy; Z79.82 Long term (current) use of aspirin; Z79.02 Long term (current) use of antithrombotics/antiplatelets; Z85.51 Personal history of malignant neoplasm of bladder
CPT/HCPCS: 71045; 78452; 80048; 80061; 82550; 82552; 83735; 84484; 85025; 85610; 85730; 93005; 93017; 99285; A9502; G0378; J2785

== ENCOUNTER 2018-08-19 11:59 | Observation (INO) ==
[2018-08-19] MEDS ORDERED: MethylPREDNISolone Sod Succinate Inj 40 MG/ML Vial IV.PUSH ONE (12:15)
--- NOTE | 2018-08-19 12:29 | ED ---
HPI General Chief Complaint: Respiratory Symptoms Stated Complaint: short of breath Time Seen by Provider: 08/19/18 12:10 Source: patient Mode of arrival: ambulatory Limitations: no limitations History of Present Illness 63-year-old female with a history of AR status post stent placement x2, HTN, HLD presents to the emergency department evaluation of cough. She states that the shortness of breath started yesterday and the cough started . She has had fairly and productive cough and has used Robitussin-DM [id number] with some relief of her cough. She states that she was diagnosed with COPD and has home oxygen however, does not regularly uses. She states that she started using it yesterday because of her short of breath. Denies fever, chills, nausea , vomiting or diarrhea. Says she had midsternal chest discomfort this morning that resolved somewhat after taking Rolaids. MD Complaint: Reports shortness of breath, cough and chest pain Onset (ago): day(s) Context: Reports recent illness Severity: moderate Consistency/Duration: constant Relieving factors: oxygen, rest, bronchodilators (last use yesterday, per patient) and upright position Known history of: Reports COPD, asthma and congestive heart failure Associated symptoms: Reports chest pain and cough; Denies pain with inspiration , fever, sputum production and lower extremity pain Treatment prior to arrival: Reports oxygen and bronchodilator Related Data Home oxygen amount: as needed at night Home Medications Medication Instructions Recorded Confirmed aspirin [Aspir-81] 81 mg PO DAILY 08/19/18 08/19/18 atorvastatin 80 mg PO QPM 08/19/18 08/19/18 carbamazepine [Tegretol] 200 mg PO DAILY 08/19/18 08/19/18 carbamazepine [Tegretol] 400 mg PO HS 08/19/18 08/19/18 clopidogrel 75 mg PO DAILY 08/19/18 08/19/18 furosemide 40 mg PO DAILY 08/19/18 08/19/18 gabapentin 300 mg PO TID 08/19/18 08/19/18 indacaterol-glycopyrrolate 1 inh INHALATION BID 08/19/18 08/19/18 [Utibron Neohaler] melatonin 10 mg PO HS 08/19/18 08/19/18 nicotine 1 patch TRANSDERMAL DAILY 08/19/18 08/19/18 olanzapine 10 mg PO DAILY 08/19/18 08/19/18 pantoprazole 40 mg PO DAILY 08/19/18 08/19/18 potassium chloride 8 meq PO DAILY 08/19/18 08/19/18 sertraline [Zoloft] 150 mg PO DAILY 08/19/18 08/19/18 Allergies Allergy/AdvReac Type Severity Reaction Status Date / Time amcinonide Allergy Severe manic Verified 08/19/18 14:32 beclomethasone Allergy Severe manic Verified 08/19/18 14:32 betamethasone Allergy Severe manic Verified 08/19/18 14:32 codeine Allergy Severe manic Verified 08/19/18 14:32 desoximetasone Allergy Severe manic Verified 08/19/18 14:32 dexamethasone Allergy Severe manic Verified 08/19/18 14:32 fludrocortisone Allergy Severe manic Verified 08/19/18 14:32 flunisolide Allergy Severe manic Verified 08/19/18 14:32 fluocinolone acetonide Allergy Severe manic Verified 08/19/18 14:32 fluocinonide Allergy Severe manic Verified 08/19/18 14:32 fluorometholone Allergy Severe manic Verified 08/19/18 14:32 flurandrenolide Allergy Severe manic Verified 08/19/18 14:32 fluticasone Allergy Severe manic Verified 08/19/18 14:32 fluticasone furoate Allergy Severe manic Verified 08/19/18 14:32 hydrocortisone Allergy Severe manic Verified 08/19/18 14:32 methylprednisolone Allergy Severe manic Verified 08/19/18 14:32 mometasone furoate Allergy Severe manic Verified 08/19/18 14:32 prednisolone Allergy Severe manic Verified 08/19/18 14:32 prednisone Allergy Severe manic Verified 08/19/18 14:32 triamcinolone Allergy Severe manic Verified 08/19/18 14:32 ANTIHISTIMINES Allergy Mild MANIC Uncoded 11/15/06 05:07 Review of Systems ROS: all other systems reviewed are negative PMFSH History History Provided By: Patient Medical History Medical History Bipolar 1 disorder (Acute) Bladder cancer (Acute) COPD (chronic obstructive pulmonary disease) (Acute) Myocardial infarction (Acute) Surgical History Surgical History H/O resection of small bowel (Acute) History of coronary artery stent placement (Acute) Social History Social History Substance History: Past History Second Hand Smoke Exposure: Yes Smoking Status: Current every day smoker Tobacco Type: Cigarettes How Often Do You Have a Drink Containing Alcohol: Never Recent Travel in [place] within the Last 8 Weeks: No Recent Out of Country Travel within the Last 8 Weeks: No Exam Narrative Exam Narrative: GENERAL: WD, WN in NAD, coughing throughout my examination and history SKIN: Focused skin assessment warm/dry. HEAD: Atraumatic. Normocephalic. EYES: Pupils equal and round. No scleral icterus. No injection or drainage. ENT: No nasal bleeding or discharge. Mucous membranes pink and moist. No tonsillar hypertrophy or exudate. NECK: Trachea midline. No JVD. No meningismus. No midline tenderness. CARDIOVASCULAR: Regular rate and rhythm. No murmur appreciated. RESPIRATORY: No accessory muscle use. Diffuse wheezing and rhonchi GASTROINTESTINAL: Abdomen soft, non-tender, nondistended. No CVAT. MUSCULOSKELETAL: No obvious deformities. No clubbing. No cyanosis. No edema. No tenderness to palpation of the calves. Sensation intact to bilateral lower extremities. NEUROLOGICAL: Awake and alert. No obvious cranial nerve deficits. Motor grossly within normal limits. Normal speech. PSYCHIATRIC: Appropriate mood and affect; insight and judgment normal. Course Initial Documented Vital Signs Temperature 98.1 F 08/19/18 12:10 Pulse Rate 105 H 08/19/18 12:10 Respiratory Rate 26 H 08/19/18 12:10 Blood Pressure 118/91 H 08/19/18 12:10 Pulse Oximetry 2 L 08/19/18 12:10 Last Documented Vital Signs Temperature 98.1 F 08/19/18 12:10 Pulse Rate 101 H 08/19/18 17:40 Respiratory Rate 21 08/19/18 17:40 Blood Pressure 135/63 08/19/18 17:40 Pulse Oximetry 94 L 08/19/18 17:40 Medical Decision Making REMEDIOS Attestation REMEDIOS supervised visit: Yes Attestation: I, Dr. Jacobo, have reviewed the advance practice practitioner's documentation and am in agreement, met with the patient face to face, made the diagnosis, and the medical decision making was done by me. *My assessment and Findings: Patient is a 63-year-old female with history of COPD, coronary artery disease, presents to the emergency room with complaints of chest pain and shortness of breath. On initial presentation to the emergency room, patient a pulse ox of 80 % on room air, she is actively wheezing. Patient is a smoker, she has COPD. Patient was given neb treatments as well as IV steroids with minimal relief of symptoms. Patient reports that she has been having chest pain, reports that chest pain is midsternal in nature, she did have some shortness of breath along with this. Patient has resolved at this time. Given her severe cardiac history and her hypoxia, plan to admit for further workup. Patient reports that she was prescribed oxygen a few years ago but never use that she never needed it, she is stable on 2 L nasal cannula at 89-93% MDM Narrative Medical decision making narrative: 63-year-old female presents to emergency department for evaluation of shortness of breath that started yesterday. She says that she has had a cough since however. Says that she has been using Robitussin-DM [id number] with some relief of her cough. She states she has shortness of breath that started last night associated with some midsternal chest discomfort that was somewhat resolved after taking Rolaids. Her vital signs are concerning. Initially, patient was tachycardic, CO2 85% on room air and respiratory distress. Oxygen 2 LPM administered with improvement of SaO2 to 89-93%. Labs, EKG, chest x-ray ordered for evaluation. ASA 324mg administered in the ED. Duonebx2 administered with some improvement of symptoms although she states she continues to feel short of breath. Pt agreed to a lower dose of solumedrol as she states she feels 'manic' with the use of steroids. I reviewed the EMR briefly and saw that patient had a stress test in January this year which was negative. In her previous notes 01/28/2018, there is mention of a cardiac cath performed in November of this year which was normal, per patient. Further on in this note, records indicated that her last heart cath was in 2015 with 'open coronaries'. She states compliance with aspirin and Plavix although she has not had these medications today. CXR appears stable. DDimer ordered due to tachycardia, SOB, chest pain, hypoxia and seemingly quick onset of symptoms. She also is not entirely improved with the duoneb. Her labs are notable for WBC 9.4, H/H 11.1/32.8, neutrophil percent 79.2, INR 1.1, d-dimer 0.65, sodium 138, potassium 3.5, BUN/creatinine 9/0.70, troponin less than 0.02, BNP 111, influenza negative. Pt requested cough medication and does appear to become winded with coughing. Robitussion with codeine administered to assist with cough and anxiety related to her SOB. She states she has had improvement with this medication previously. Ordered CTA pulmonary angiogram however poor vascular access limited this exam so will order VQ scan for further evaluation. Low probability for PE on VQ scan. After return from the scan, she was complaining of midepigastric pain that is dull and aching and constant. She denies palliative or provocative factors. Her abdomen is soft and mildly tender to palpation. No rebound tenderness. No organomegaly. Her colostomy bag is patent without blood or discharge. She states that she only takes Protonix and has not had her medication today. Will order Protonix for administration. She otherwise appears well and much better states than her initial presentation. Will admit this patient under Dr. Mills. Spoke with Roslyn nurse practitioner on behalf of Dr. Mills. Medical Screen Exam Complete: Yes Emergency Medical Condition: Yes Differential Diagnosis Differential Diagnosis: COPD exacerbation, pneumonia, ACS, CHF, PE, URI Lab Data Result diagrams: 08/19/18 12:20 08/19/18 12:20 Lab Results 08/19/18 08/19/18 08/19/18 Range/Units 12:20 12:20 12:20 CBC w Diff Auto diff final WBC 9.4 (4.0-11.0) th/mm3 RBC 3.64 L (4.00-5.30) mil/mm3 Hgb 11.1 L (11.6-15.3) gm/dL Hct 32.8 L (35.0-46.0) % MCV 90.2 (80.0-100.0) fL MCH 30.4 (27.0-34.0) pg MCHC 33.7 (32.0-36.0) % RDW 13.3 (11.6-17.2) % Plt Count 269 (150-450) th/mm3 MPV 7.3 (7.0-11.0) fL Neut % (Auto) 79.2 H (16.0-70.0) % Lymph % (Auto) 12.6 (9.0-44.0) % Upson % (Auto) 7.8 (0.0-8.0) % Eos % (Auto) 0.0 (0.0-4.0) % Baso % (Auto) 0.4 (0.0-2.0) % Neut # (Auto) 7.5 (1.8-7.7) th/mm3 Lymph # (Auto) 1.2 (1.0-4.8) th/mm3 Upson # (Auto) 0.7 (0.0-0.9) th/mm3 Eos # (Auto) 0.0 (0.0-0.4) th/mm3 Baso # (Auto) 0.0 (0.0-0.2) th/mm3 WBC Differential . Differential Comment . PT 10.9 (9.8-11.6) sec INR 1.1 Ratio APTT 34.3 H (23.4-31.7) sec D-Dimer Quant (PE/DVT) (0.00-0.50) mg/L FEU Sodium 138 (136-145) meq/L Potassium 3.5 (3.5-5.1) meq/L Chloride 105 (98-107) meq/L Carbon Dioxide 22.6 (21.0-32.0) meq/L Anion Gap 10 (5-15) meq/L BUN 9 (7-18) mg/dL Creatinine 0.70 (0.50-1.00) mg/dL Estimated GFR 85 L (>89) mL/min Random Glucose 129 H (74-106) mg/dL Calcium 8.7 (8.5-10.1) mg/dL Total Bilirubin 0.5 (0.2-1.0) mg/dL AST 16 (15-37) U/L ALT 16 (10-53) U/L Alkaline Phosphatase 159 H (45-117) U/L Troponin I Less than 0.02 L (0.02-0.05) ng/mL B-Natriuretic Peptide (0-100) pg/mL Total Protein 7.9 (6.4-8.2) g/dL Albumin 3.1 L (3.4-5.0) g/dL 08/19/18 08/19/18 Range/Units 12:20 12:20 CBC w Diff WBC (4.0-11.0) th/mm3 RBC (4.00-5.30) mil/mm3 Hgb (11.6-15.3) gm/dL Hct (35.0-46.0) % MCV (80.0-100.0) fL MCH (27.0-34.0) pg MCHC (32.0-36.0) % RDW (11.6-17.2) % Plt Count (150-450) th/mm3 MPV (7.0-11.0) fL Neut % (Auto) (16.0-70.0) % Lymph % (Auto) (9.0-44.0) % Upson % (Auto) (0.0-8.0) % Eos % (Auto) (0.0-4.0) % Baso % (Auto) (0.0-2.0) % Neut # (Auto) (1.8-7.7) th/mm3 Lymph # (Auto) (1.0-4.8) th/mm3 Upson # (Auto) (0.0-0.9) th/mm3 Eos # (Auto) (0.0-0.4) th/mm3 Baso # (Auto) (0.0-0.2) th/mm3 WBC Differential Differential Comment PT (9.8-11.6) sec INR Ratio APTT (23.4-31.7) sec D-Dimer Quant (PE/DVT) 0.65 H (0.00-0.50) mg/L FEU Sodium (136-145) meq/L Potassium (3.5-5.1) meq/L Chloride (98-107) meq/L Carbon Dioxide (21.0-32.0) meq/L Anion Gap (5-15) meq/L BUN (7-18) mg/dL Creatinine (0.50-1.00) mg/dL Estimated GFR (>89) mL/min Random Glucose (74-106) mg/dL Calcium (8.5-10.1) mg/dL Total Bilirubin (0.2-1.0) mg/dL AST (15-37) U/L ALT (10-53) U/L Alkaline Phosphatase (45-117) U/L Troponin I (0.02-0.05) ng/mL B-Natriuretic Peptide 111 H (0-100) pg/mL Total Protein (6.4-8.2) g/dL Albumin (3.4-5.0) g/dL Imaging Data Radiologist's impression: Chest X-Ray 08/19/18 12:15 CONCLUSION: COPD Stable chest without evidence of acute process. Pulmonary Perfusion Imaging 08/19/18 13:56 CONCLUSION: 1. Low probability for pulmonary embolus. Air trapping in the lungs. Discharge Plan Discharge Disposition Patient Disposition: ED Admit(ED Internal Use Only) Discharge Condition Condition: Stable Discharge Order Discharge Orders: ED Use Only Admit Order (Routine); Ordered 08/19/18 Ordered By: Soni Ford Discharge Details Diagnosis: Acute exacerbation of chronic obstructive pulmonary disease (COPD), Hypoxia Physicians Team ED Provider: Nelly Jacobo ED Midlevel Provider: Soni Ford Primary Care Provider: Shelley Prieto Attending Provider: Len Mills Status ED Status: Left Department Discharge Information Discharge Date/Time: 08/19/18 19:03
[2018-08-19 12:34] LABS: Baso % (Auto) 0.4 % (0.0-2.0); Hematocrit 32.8 % (35.0-46.0); Hemoglobin 11.1 gm/dL (11.6-15.3); Lymph # (Auto) 1.2 th/mm3 (1.0-4.8); Lymph % (Auto) 12.6 % (9.0-44.0); Mean Corpuscular HGB Conc 33.7 % (32.0-36.0); Mean Corpuscular Hemoglobin 30.4 pg (27.0-34.0); Mean Corpuscular Volume 90.2 fL (80.0-100.0); Mean Platelet Volume 7.3 fL (7.0-11.0); Mono # (Auto) 0.7 th/mm3 (0.0-0.9); Mono % (Auto) 7.8 % (0.0-8.0); Neut # (Auto) 7.5 th/mm3 (1.8-7.7); Neut % (Auto) 79.2 % (16.0-70.0); Platelet Count 269 th/mm3 (150-450); Red Blood Count 3.64 mil/mm3 (4.00-5.30); Red Cell Distribution Width 13.3 % (11.6-17.2); White Blood Count 9.4 th/mm3 (4.0-11.0)
[2018-08-19 12:43] LABS: Chloride 105 meq/L (98-107); Potassium 3.5 meq/L (3.5-5.1); Sodium 138 meq/L (136-145)
[2018-08-19 12:46] LABS: Albumin 3.1 g/dL (3.4-5.0); Anion Gap 10 meq/L (5-15); Blood Urea Nitrogen 9 mg/dL (7-18); Calcium 8.7 mg/dL (8.5-10.1); Carbon Dioxide 22.6 meq/L (21.0-32.0); Glucose,Random 129 mg/dL (74-106)
[2018-08-19 12:49] LABS: Alanine Aminotransferase 16 U/L (10-53); Aspartate Aminotransferase 16 U/L (15-37)
[2018-08-19 12:50] LABS: Activated Partial Thrombo Time 34.3 sec (23.4-31.7); Glomerular Filtration Rate 85 mL/min (>89); INR 1.1 Ratio; Prothrombin Time 10.9 sec (9.8-11.6)
[2018-08-19 12:51] LABS: Total Protein 7.9 g/dL (6.4-8.2)
[2018-08-19 12:52] LABS: Alkaline Phosphatase 159 U/L (45-117)
--- NOTE | 2018-08-19 13:00 | XR ---
EXAM DATE: 08/19/2018 12:41 PM EST AGE/SEX: 63 years / Female INDICATIONS: Short of breath, cough, chest pains CLINICAL DATA: This is the patient's initial encounter. Patient reports that signs and symptoms have been present for 2 days and indicates a pain score of 3/10. MEDICAL/SURGICAL HISTORY: Chronic obstructive pulmonary disease. Carcinoma, bladder. Myocardi al infarction. . Cardiac stents COMPARISON: POI, XR CHEST PA AND LAT, 04/04/2018. . FINDINGS: Lungs are hyperinflated. Emphysematous changes are seen in the upper lobes. There is no evidence of acute airspace disease or congestion. Heart and mediastinal structures appear stable. Postsurgical changes are noted in the lower cervical spine following fusion. CONCLUSION: COPD Stable chest without evidence of acute process. Electronically signed by: Aurelio Harley MD Board Certified Radiologist 08/19/2018 12:59 PM EST
[2018-08-19] MEDS ORDERED: guaiFENesin/Codeine Syrup 200 MG/20 MG 10 ML UDC PO ONE (13:30)
--- NOTE | 2018-08-19 16:48 | NM ---
EXAM DATE: 08/19/2018 4:38 PM EST AGE/SEX: 63 years / Female INDICATIONS: Dyspnea. CLINICAL DATA: This is the patient's initial encounter. Patient reports that signs and symptoms have been present for 1 day and indicates a pain score of 0/10. MEDICAL/SURGICAL HISTORY: Hypertension. Myocardial infarction. Chronic obstructive pulmonary disease. Bladder cancer. Coronary artery stent. COMPARISON: [facility], CT LUNG SCREENING, 08/16/2018. . DOSE: 1.2 mCi Tc99m DTPA aerosol 8.5 mCi Tc99m MAA IV TECHNIQUE: Following five minutes of tidal breathing of DTPA aerosol, planar images of the lungs wer e performed in eight projections. The patient was then injected with MAA, and eight-view perfusion s can was performed. FINDINGS: There is a heterogeneous pattern of aerosol delivery likely related to air trapping. The perfusion lung scan demonstrates a homogenous pattern of uptake in both lungs. No segmental or s ubsegmental defects are seen. CONCLUSION: 1. Low probability for pulmonary embolus. Air trapping in the lungs. Electronically signed by: Jon Simon MD Board Certified Radiologist 08/19/2018 4:47 PM EST
[2018-08-19] MEDS ORDERED: Pantoprazole Inj 40 MG Vial IV.PUSH ONE (17:30)
--- NOTE | 2018-08-19 17:37 | ECG ---
Date Performed: 08/19/2018 Time Performed: 13:17:32 PTAGE: 63 years EKG: SINUS TACHYCARDIA POSSIBLE LEFT ATRIAL ENLARGEMENT NONSPECIFIC ST & T-WAVE ABNORMALITY ABNO RMAL RHYTHM ECG INTERPRETATION BASED ON A DEFAULT AGE OF 40 YEARS PREVIOUS TRACING : 01/28/2018 20.31 Compared to previous tracing, sinus tachycardia is n ew DOCTOR: Gold Yee Interpretating Date/Time 08/19/2018 17:36:52
[2018-08-19] MEDS ORDERED: Bisacodyl 10 MG Supp RECTAL PRN (18:13)
--- NOTE | 2018-08-19 18:31 | P.HPIM ---
History of Present Illness Service: Hospitalist Primary Care Physician: Shelley Prieto MD Chief Complaint: Cannot breathe History of Present Illness: Patient is a 63-year-old female with a past medical history of ID status post stent x2, hyperlipidemia, hypertension, anxiety/depression, GERD and COPD with home O2 who presents to the emergency room for evaluation of cough and shortness of breath. She reports that she has had 2 days of coughing which she tried to treat with Robitussin. She also tried using her own home O2 which to help some. She typically does not use the O2 because her tubing is too short. She initially denies fever but does report intermittent chills and sweating. No current chest pain. No nausea vomiting or diarrhea. She has had normal urine output in her ostomy bag. No edema. [facility] Medical History Medical History Bipolar 1 disorder (Acute) Bladder cancer (Acute) COPD (chronic obstructive pulmonary disease) (Acute) Myocardial infarction (Acute) Surgical History Surgical History H/O resection of small bowel (Acute) History of coronary artery stent placement (Acute) Social History Social History Substance History: No History of Abuse Smoking Status: Current every day smoker Tobacco Type: Cigarettes How Often Do You Have a Drink Containing Alcohol: Never Recent Travel in [place] within the Last 8 Weeks: No Recent Out of Country Travel within the Last 8 Weeks: No Immunization History Tetanus Immunization: <5 Years Medications and Allergies Allergies Allergy/AdvReac Type Severity Reaction Status Date / Time amcinonide Allergy Severe manic Verified 08/19/18 14:32 beclomethasone Allergy Severe manic Verified 08/19/18 14:32 betamethasone Allergy Severe manic Verified 08/19/18 14:32 codeine Allergy Severe manic Verified 08/19/18 14:32 desoximetasone Allergy Severe manic Verified 08/19/18 14:32 dexamethasone Allergy Severe manic Verified 08/19/18 14:32 fludrocortisone Allergy Severe manic Verified 08/19/18 14:32 flunisolide Allergy Severe manic Verified 08/19/18 14:32 fluocinolone acetonide Allergy Severe manic Verified 08/19/18 14:32 fluocinonide Allergy Severe manic Verified 08/19/18 14:32 fluorometholone Allergy Severe manic Verified 08/19/18 14:32 flurandrenolide Allergy Severe manic Verified 08/19/18 14:32 fluticasone Allergy Severe manic Verified 08/19/18 14:32 fluticasone furoate Allergy Severe manic Verified 08/19/18 14:32 hydrocortisone Allergy Severe manic Verified 08/19/18 14:32 methylprednisolone Allergy Severe manic Verified 08/19/18 14:32 mometasone furoate Allergy Severe manic Verified 08/19/18 14:32 prednisolone Allergy Severe manic Verified 08/19/18 14:32 prednisone Allergy Severe manic Verified 08/19/18 14:32 triamcinolone Allergy Severe manic Verified 08/19/18 14:32 ANTIHISTIMINES Allergy Mild MANIC Uncoded 11/15/06 05:07 Home Medications Medication Instructions Recorded Confirmed Type aspirin [Aspir-81] 81 mg PO DAILY 08/19/18 08/19/18 History atorvastatin 80 mg PO QPM 08/19/18 08/19/18 History carbamazepine [Tegretol] 200 mg PO DAILY 08/19/18 08/19/18 History carbamazepine [Tegretol] 400 mg PO HS 08/19/18 08/19/18 History clopidogrel 75 mg PO DAILY 08/19/18 08/19/18 History furosemide 40 mg PO DAILY 08/19/18 08/19/18 History gabapentin 300 mg PO TID 08/19/18 08/19/18 History indacaterol-glycopyrrolate 1 inh INHALATION BID 08/19/18 08/19/18 History [Utibron Neohaler] melatonin 10 mg PO HS 08/19/18 08/19/18 History nicotine 1 patch TRANSDERMAL DAILY 08/19/18 08/19/18 History olanzapine 10 mg PO DAILY 08/19/18 08/19/18 History pantoprazole 40 mg PO DAILY 08/19/18 08/19/18 History potassium chloride 8 meq PO DAILY 08/19/18 08/19/18 History sertraline [Zoloft] 150 mg PO DAILY 08/19/18 08/19/18 History Active Medications: Active Medications Acetaminophen (Tylenol) 650 mg PO Q4H PRN PRN Reason: Temp > 100.4 Al Hydroxide/Mg Hydroxide (Milk Of Magnesia Liq) 30 ml PO Q12H PRN PRN Reason: Mild Constipation Albuterol (Duoneb Neb (Prn)) 1 ampul NEB Q2HR NEB PRN PRN Reason: SHORTNESS OF BREATH/WHEEZING Albuterol (Duoneb Neb (Deondre)) 1 ampul NEB Q6HR WHILE AWAKE NEB [facility] Aspirin (Ecotrin) 81 mg PO DAILY [facility] Atorvastatin Calcium (Lipitor) 80 mg PO QPM [facility] Bisacodyl (Dulcolax Supp) 10 mg RECTAL DAILY PRN PRN Reason: SEVERE CONSITIPATION Carbamazepine (Tegretol) 200 mg PO DAILY [facility] Carbamazepine (Tegretol) 400 mg PO HS [facility] Clopidogrel Bisulfate (Plavix) 75 mg PO DAILY [facility] Furosemide (Lasix) 40 mg PO DAILY [facility] Gabapentin (Neurontin) 300 mg PO TID [facility] Guaifenesin (Mucinex Er) 600 mg PO BID [facility] Azithromycin 500 mg/ Sodium (Chloride) 250 mls @ 250 mls/hr IV.SIG Q24H [facility] Lactulose (Lactulose Liq) 30 ml PO DAILY PRN PRN Reason: SEVERE CONSITIPATION Nicotine (Habitrol 14 Mg Patch.24 Hr) 1 patch T-DERMAL DAILY [facility] Non-Formulary Medication (Melatonin [Melatonin]) 10 mg PO HS [facility] Olanzapine (Zyprexa) 10 mg PO DAILY [facility] Ondansetron HCl (Zofran Inj) 4 mg IV.PUSH Q6H PRN PRN Reason: NAUSEA OR VOMITING Pantoprazole Sodium (Protonix) 40 mg PO DAILY [facility] Potassium Chloride (Klor-Con 8) 8 meq PO DAILY [facility] Senna/Docusate Sodium (Lanny-Colace) 1 tab PO BID [facility] Sennosides (Senokot) 17.2 mg PO Q12H PRN PRN Reason: Moderate Constipation Sertraline HCl (Zoloft) 150 mg PO DAILY [facility] Sodium Chloride (Ns Flush) 2 ml IV.FLUSH BID [facility] Sodium Chloride (Ns Flush) 2 ml IV.FLUSH PRN PRN PRN Reason: FLUSH AFTER USING IV ACCESS Physical Exam Vital signs: Last Vital Signs Temp 98.1 F 08/19/18 12:10 Pulse 101 H 08/19/18 17:40 Resp 21 08/19/18 17:40 BP 135/63 08/19/18 17:40 Pulse Ox 94 L 08/19/18 17:40 Intake & Output 08/17/18 08/18/18 08/19/18 08/20/18 06:59 06:59 06:59 06:59 Weight 73.6 kg Narrative: GENERAL: Well-nourished, well-developed adult female in mild distress. SKIN: Warm and dry. HEAD: Atraumatic. Normocephalic. CARDIOVASCULAR: Regular rate and rhythm. RESPIRATORY: No accessory muscle use. Slight wheeze. Breath sounds equal bilaterally. Becomes breathless easily during exam; on 2 L nasal cannula GASTROINTESTINAL: Abdomen soft, non-tender, non-distended. Positive bowel sounds. Urostomy in place. MUSCULOSKELETAL: Extremities without clubbing, cyanosis, or edema. No obvious deformities. NEUROLOGICAL: Awake and alert. No obvious cranial nerve deficits. Motor grossly within normal limits. Normal speech. PSYCHIATRIC: Appropriate mood and affect; insight and judgment good. Results Labs CBC & Chem 7: 08/19/18 12:20 08/19/18 12:20 Imaging Impressions Chest X-Ray 08/19/18 12:15 CONCLUSION: COPD Stable chest without evidence of acute process. Pulmonary Perfusion Imaging 08/19/18 13:56 CONCLUSION: 1. Low probability for pulmonary embolus. Air trapping in the lungs. Caprini VTE Risk Assessment Caprini Risk Assessment Model: Point Value = 1 Point Value = 2 Point Value = 3 Point Value = 5 Age 41-60 Minor surgery BMI > 25 kg/m2 Swollen legs Varicose veins or History of unexplained or recurrent spontaneous Oral contraceptives or hormone replacement Sepsis (< 1 month) Serious lung disease, including pneumonia (< 1 month) Abnormal pulmonary function Acute myocardial infarction Congestive heart failure (< 1 month) History of inflammatory bowel disease Medical patient at bed rest Age 61-74 Arthroscopic surgery Major open surgery (> 45 min) Laparoscopic surgery (> 45 min) Malignancy Confined to bed (> 72 hours) Immobilizing plaster cast Central venous access Age >= 75 History of VTE Family history of VTE Factor V Leiden Prothrombin [id number] Lupus anticoagulant Anticardiolipin antibodies Elevated serum homocysteine Heparin-induced thrombocytopenia Other congenital or acquired thrombophilia Stroke (< 1 month) Elective arthroplasty Hip, pelvis, or leg fracture Acute spinal cord injury (< 1 month) Prophylaxis Regimen: Total Risk Factor Score Risk Level Prophylaxis Regimen 0-1 Low Early ambulation 2 Moderate Order ONE of the following: *Sequential Compression Device (SCD) *Heparin 5000 units SQ BID 3-4 Higher Order ONE of the following medications: *Heparin 5000 units SQ TID *Enoxaparin/Lovenox 40 mg SQ daily (WT < 150 kg, CrCl > 30 mL/min) *Enoxaparin/Lovenox 30 mg SQ daily (WT < 150 kg, CrCl > 10-29 mL/min) *Enoxaparin/Lovenox 30 mg SQ BID (WT < 150 kg, CrCl > 30 mL/min) AND/OR *Sequential Compression Device (SCD) 5 or more Highest Order ONE of the following medications: *Heparin 5000 units SQ TID (Preferred with Epidurals) *Enoxaparin/Lovenox 40 mg SQ daily (WT < 150 kg, CrCl > 30 mL/min) *Enoxaparin/Lovenox 30 mg SQ daily (WT < 150 kg, CrCl > 10-29 mL/min) *Enoxaparin/Lovenox 30 mg SQ BID (WT < 150 kg, CrCl > 30 mL/min) AND *Sequential Compression Device (SCD) Assessment and Plan Plan Patient is a 63-year-old female with a past medical history of ID status post stent x2, hyperlipidemia, hypertension, anxiety/depression, GERD and COPD with home O2 who presents to the emergency room for evaluation of cough and shortness of breath. COPD exacerbation Acute bronchitis -VQ scan negative for PE; troponins negative; BNP grossly normal -02; titrate to maintain sats 88-94% -Duo nebs, Mucinex. -No Solu-Medrol at this time as patient reports adverse effect of florencio. -Azithromycin -Continue home Lasix Tobacco dependence -Encourage cessation -Nicotine patch ordered Continue home medications as indicated for chronic condition DVT prophylaxis: SCDs. Continue home Plavix and ASA Discharge planning: Likely home once clinically improved.
[2018-08-19] MEDS: Acetaminophen 325 MG Tablet PO PRN (18:38)
[2018-08-19] MEDS: carBAMazepine 200 MG Tablet PO SCH (22:17)
[2018-08-19] MEDS: Melatonin 5 MG Tablet PO SCH (22:17)
[2018-08-19] MEDS: OLANZapine 10 MG Tablet PO SCH (22:17)
[2018-08-19] MEDS: Azithromycin Inj 500 MG in Sodium Chlor 0.9% Inj 250 ML IV.SIG SCH (22:18)
[2018-08-19] MEDS: Senna/Docusate Sodium 8.6/50 MG Tablet PO SCH (22:18)
[2018-08-19] MEDS: Gabapentin 300 MG Capsule PO SCH (22:18)
[2018-08-19] MEDS: guaiFENesin 600 MG ER Tablet PO SCH (22:18)
[2018-08-20] MEDS: Acetaminophen 325 MG Tablet PO PRN ×2 (01:07→09:00)
[2018-08-20] MEDS: Sertraline 100 MG Tablet PO SCH (09:00)
[2018-08-20] MEDS ORDERED: OLANZapine 10 MG Tablet PO SCH (09:00)
[2018-08-20] MEDS: guaiFENesin 600 MG ER Tablet PO SCH ×2 (09:01→21:06)
[2018-08-20] MEDS: Gabapentin 300 MG Capsule PO SCH ×3 (09:02→18:14)
[2018-08-20] MEDS: Furosemide 40 MG Tablet PO SCH (09:02)
[2018-08-20] MEDS: carBAMazepine 200 MG Tablet PO SCH ×2 (09:02→21:04)
[2018-08-20] MEDS: Senna/Docusate Sodium 8.6/50 MG Tablet PO SCH ×2 (09:03→21:06)
[2018-08-20 10:06] LABS: Baso % (Auto) 0.2 % (0.0-2.0); Hematocrit 28.3 % (35.0-46.0); Hemoglobin 9.3 gm/dL (11.6-15.3); Lymph # (Auto) 0.7 th/mm3 (1.0-4.8); Lymph % (Auto) 12.3 % (9.0-44.0); Mean Corpuscular HGB Conc 32.7 % (32.0-36.0); Mean Corpuscular Hemoglobin 29.5 pg (27.0-34.0); Mean Corpuscular Volume 90.3 fL (80.0-100.0); Mean Platelet Volume 7.2 fL (7.0-11.0); Mono # (Auto) 0.7 th/mm3 (0.0-0.9); Mono % (Auto) 11.1 % (0.0-8.0); Neut # (Auto) 4.6 th/mm3 (1.8-7.7); Neut % (Auto) 76.4 % (16.0-70.0); Platelet Count 220 th/mm3 (150-450); Red Blood Count 3.14 mil/mm3 (4.00-5.30); Red Cell Distribution Width 13.4 % (11.6-17.2)
[2018-08-20 10:16] LABS: Potassium 3.7 meq/L (3.5-5.1)
[2018-08-20 10:20] LABS: Calcium 8.3 mg/dL (8.5-10.1)
[2018-08-20 10:21] LABS: Carbon Dioxide 23.8 meq/L (21.0-32.0)
--- NOTE | 2018-08-20 12:10 | P.PNIM ---
Subjective Interval history: Follow up COPD exacerbation. Patient seen and examined, lying in bed comfortably in nad. Coughing continued. On supplemental O2. Attempt to wean. Eating well without any nausea or vomiting. No chest pain. VSS. Afebrile. Physical Exam Vital signs: Vital Signs 08/19/18 12:10 08/19/18 12:20 08/19/18 13:03 Temperature 98.1 F Pulse Rate 105 H 95 H Respiratory Rate 26 H 24 Blood Pressure 118/91 H 122/60 Pulse Oximetry 2 L 93 L 95 08/19/18 14:13 08/19/18 15:13 08/19/18 15:14 Temperature Pulse Rate 105 H 98 H Respiratory Rate 24 24 Blood Pressure 126/78 124/51 L Pulse Oximetry 92 L 94 L 94 L 08/19/18 15:56 08/19/18 16:50 08/19/18 17:40 Temperature Pulse Rate 88 97 H 101 H Respiratory Rate 22 24 21 Blood Pressure 115/61 135/63 Pulse Oximetry 94 L 94 L 08/19/18 20:00 08/19/18 20:34 08/19/18 23:03 Temperature 96.0 F L Pulse Rate 94 H 83 91 H Respiratory Rate 21 20 20 Blood Pressure 148/84 H Pulse Oximetry 92 L 95 08/20/18 00:00 08/20/18 01:05 08/20/18 06:22 Temperature 98.6 F Pulse Rate 83 97 H 93 H Respiratory Rate 20 20 20 Blood Pressure 120/60 Pulse Oximetry 94 L 08/20/18 08:00 08/20/18 08:05 08/20/18 10:00 Temperature 98.8 F Pulse Rate 96 H 105 H Respiratory Rate 20 20 16 Blood Pressure 112/53 L Pulse Oximetry 94 L 94 L 08/20/18 11:16 Temperature Pulse Rate 94 H Respiratory Rate 20 Blood Pressure Pulse Oximetry Intake & Output 08/19/18 08/20/18 08/20/18 18:59 06:59 18:59 Intake Total 370 / 370 Balance 370 / 370 Weight 73.6 kg 72.7 kg Intake: IV 250 / 250 Azithromycin Inj 500 MG In NS 250 / 250 Inj 250 ML @ 250 mls/hr IV.SIG Q24H [facility] Rx#:[id number] Oral 120 / 120 Other: # Voids 2 Weight On Admission 76.921 kg Narrative: GENERAL: Well-nourished, well-developed adult female SKIN: Warm and dry. HEAD: Atraumatic. Normocephalic. CARDIOVASCULAR: Regular rate and rhythm. RESPIRATORY: No accessory muscle use. Expiratory wheezing in bilateral posterior bases. Breath sounds equal bilaterally. on 2 L nasal cannula GASTROINTESTINAL: Abdomen soft, non-tender, non-distended. Positive bowel sounds. Urostomy in place. MUSCULOSKELETAL: Extremities without clubbing, cyanosis, or edema. No obvious deformities. NEUROLOGICAL: Awake and alert. No obvious cranial nerve deficits. Motor grossly within normal limits. Normal speech. PSYCHIATRIC: Appropriate mood and affect; insight and judgment good. Results - Labs CBC & Chem 7: 08/20/18 09:40 08/20/18 09:40 Laboratory Results - last 24 hr 08/19/18 08/19/18 08/19/18 12:20 12:20 12:20 CBC w Diff Auto diff final WBC 9.4 RBC 3.64 L Hgb 11.1 L Hct 32.8 L MCV 90.2 MCH 30.4 MCHC 33.7 RDW 13.3 Plt Count 269 MPV 7.3 Neut % (Auto) 79.2 H Lymph % (Auto) 12.6 Collier % (Auto) 7.8 Eos % (Auto) 0.0 Baso % (Auto) 0.4 Neut # (Auto) 7.5 Lymph # (Auto) 1.2 Collier # (Auto) 0.7 Eos # (Auto) 0.0 Baso # (Auto) 0.0 WBC Differential . Differential Comment . PT 10.9 INR 1.1 APTT 34.3 H D-Dimer Quant (PE/DVT) Sodium 138 Potassium 3.5 Chloride 105 Carbon Dioxide 22.6 Anion Gap 10 BUN 9 Creatinine 0.70 Estimated GFR 85 L Random Glucose 129 H Calcium 8.7 Total Bilirubin 0.5 AST 16 ALT 16 Alkaline Phosphatase 159 H Troponin I Less than 0.02 L B-Natriuretic Peptide Total Protein 7.9 Albumin 3.1 L 08/19/18 08/19/18 08/20/18 12:20 12:20 09:40 CBC w Diff Auto diff final WBC 6.0 RBC 3.14 L Hgb 9.3 L Hct 28.3 L MCV 90.3 MCH 29.5 MCHC 32.7 RDW 13.4 Plt Count 220 MPV 7.2 Neut % (Auto) 76.4 H Lymph % (Auto) 12.3 Collier % (Auto) 11.1 H Eos % (Auto) 0.0 Baso % (Auto) 0.2 Neut # (Auto) 4.6 Lymph # (Auto) 0.7 L Collier # (Auto) 0.7 Eos # (Auto) 0.0 Baso # (Auto) 0.0 WBC Differential . Differential Comment . PT INR APTT D-Dimer Quant (PE/DVT) 0.65 H Sodium Potassium Chloride Carbon Dioxide Anion Gap BUN Creatinine Estimated GFR Random Glucose Calcium Total Bilirubin AST ALT Alkaline Phosphatase Troponin I B-Natriuretic Peptide 111 H Total Protein Albumin 08/20/18 09:40 CBC w Diff WBC RBC Hgb Hct MCV MCH MCHC RDW Plt Count MPV Neut % (Auto) Lymph % (Auto) Collier % (Auto) Eos % (Auto) Baso % (Auto) Neut # (Auto) Lymph # (Auto) Collier # (Auto) Eos # (Auto) Baso # (Auto) WBC Differential Differential Comment PT INR APTT D-Dimer Quant (PE/DVT) Sodium 136 Potassium 3.7 Chloride 104 Carbon Dioxide 23.8 Anion Gap 8 BUN 11 Creatinine 0.70 Estimated GFR 85 L Random Glucose 116 H Calcium 8.3 L Total Bilirubin AST ALT Alkaline Phosphatase Troponin I B-Natriuretic Peptide Total Protein Albumin Microbiology 08/19/18 12:25 Nasal Wash Influenza Types A,B Antigen - Final Negative for FLU A and B antigen Infection due to influenza A or B cannot be ruled out since the antigen present in the sample may be below the detection limit of the test. - Imaging Impressions Chest X-Ray 08/19/18 12:15 CONCLUSION: COPD Stable chest without evidence of acute process. Pulmonary Perfusion Imaging 08/19/18 13:56 CONCLUSION: 1. Low probability for pulmonary embolus. Air trapping in the lungs. Assessment and Plan - Plan Patient is a 63-year-old female with a past medical history of [place] status post stent x2, hyperlipidemia, hypertension, anxiety/depression, GERD and COPD with home O2 who presents to the emergency room for evaluation of cough and shortness of breath. COPD exacerbation Acute bronchitis -VQ scan negative for PE; troponins negative; BNP grossly normal -02; titrate to maintain sats 88-94% -Duo nebs, Mucinex. -No Solu-Medrol at this time as patient reports adverse effect of florencio. -Azithromycin -Continue home Lasix -No wheezing on exam today. Still on 2LNC. -Has an appointment with Dr. Young on 09/04/17, will encourage to see outpatient. Tobacco dependence -Encourage cessation -Nicotine patch ordered -Approx. 7 min were spent counseling the pt in cessation techniques. She understands continuing to smoke could lead to stroke and and worsening COPD. The benefits were also presented to the patient. She expresses desire to quit. Continue home medications as indicated for chronic condition DVT prophylaxis: SCDs. Continue home Plavix and ASA Discharge Planning: Clinical improvement.
[2018-08-20] MEDS: Azithromycin Inj 500 MG in Sodium Chlor 0.9% Inj 250 ML IV.SIG SCH (18:14)
[2018-08-20] MEDS: Melatonin 5 MG Tablet PO SCH (21:04)
[2018-08-20] MEDS: OLANZapine 10 MG Tablet PO SCH (21:05)
[2018-08-21 07:44] LABS: Baso % (Auto) 0.3 % (0.0-2.0); Eos % (Auto) 0.1 % (0.0-4.0); Hematocrit 28.8 % (35.0-46.0); Hemoglobin 9.3 gm/dL (11.6-15.3); Lymph # (Auto) 1.1 th/mm3 (1.0-4.8); Lymph % (Auto) 14.3 % (9.0-44.0); Mean Corpuscular HGB Conc 32.3 % (32.0-36.0); Mean Corpuscular Hemoglobin 29.6 pg (27.0-34.0); Mean Corpuscular Volume 91.6 fL (80.0-100.0); Mono # (Auto) 0.9 th/mm3 (0.0-0.9); Mono % (Auto) 12.1 % (0.0-8.0); Neut # (Auto) 5.4 th/mm3 (1.8-7.7); Neut % (Auto) 73.2 % (16.0-70.0); Platelet Count 236 th/mm3 (150-450); Red Blood Count 3.15 mil/mm3 (4.00-5.30); Red Cell Distribution Width 14.1 % (11.6-17.2); White Blood Count 7.4 th/mm3 (4.0-11.0)
[2018-08-21] MEDS: Gabapentin 300 MG Capsule PO SCH ×2 (09:18→14:24)
[2018-08-21] MEDS: Sertraline 100 MG Tablet PO SCH (09:18)
[2018-08-21] MEDS: guaiFENesin 600 MG ER Tablet PO SCH (09:18)
[2018-08-21] MEDS: carBAMazepine 200 MG Tablet PO SCH (09:18)
[2018-08-21] MEDS: Senna/Docusate Sodium 8.6/50 MG Tablet PO SCH (09:19)
[2018-08-21] MEDS: Furosemide 40 MG Tablet PO SCH (09:19)
--- NOTE | 2018-08-21 10:34 | P.PNIM ---
Physical Exam Vital signs: Vital Signs 08/20/18 11:16 08/20/18 12:00 08/20/18 16:00 Temperature 97.5 F L 97.7 F Pulse Rate 94 H 95 H 83 Respiratory Rate 20 20 20 Blood Pressure 111/55 L 120/57 L Pulse Oximetry 94 L 95 08/20/18 16:42 08/20/18 19:47 08/20/18 19:49 Temperature 99.6 F Pulse Rate 86 93 H 90 Respiratory Rate 20 16 18 Blood Pressure 102/61 Pulse Oximetry 94 L 95 08/21/18 00:00 08/21/18 01:43 08/21/18 03:47 Temperature 100.3 F H 99.3 F Pulse Rate 94 H 101 H Respiratory Rate 16 18 Blood Pressure 105/57 L Pulse Oximetry 94 L 08/21/18 07:33 08/21/18 08:00 Temperature 98.8 F Pulse Rate 88 95 H Respiratory Rate 20 18 Blood Pressure 124/60 Pulse Oximetry 92 L 92 L Intake & Output 08/20/18 08/21/18 08/21/18 18:59 06:59 18:59 Intake Total 620 / 620 250 / 250 Output Total 1750 / 1750 1400 / 1400 Balance -1130 / -1130 -1150 / -1150 Weight 74.2 kg Intake: IV 250 / 250 Azithromycin Inj 500 MG In NS 250 / 250 Inj 250 ML @ 250 mls/hr IV.SIG Q24H [facility] Rx#:[id number] Oral 620 / 620 Output: Urine 1750 / 1750 200 / 200 Urine Amount (Stoma) 1200 / 1200 Continent Urostomy Right 1200 / 1200 Other: # Bowel Movements 0 Results - Labs CBC & Chem 7: 08/21/18 07:20 08/20/18 09:40 Laboratory Results - last 24 hr 08/21/18 07:20 CBC w Diff Auto diff final WBC 7.4 RBC 3.15 L Hgb 9.3 L Hct 28.8 L MCV 91.6 MCH 29.6 MCHC 32.3 RDW 14.1 Plt Count 236 MPV 7.0 Neut % (Auto) 73.2 H Lymph % (Auto) 14.3 Daniels % (Auto) 12.1 H Eos % (Auto) 0.1 Baso % (Auto) 0.3 Neut # (Auto) 5.4 Lymph # (Auto) 1.1 Daniels # (Auto) 0.9 Eos # (Auto) 0.0 Baso # (Auto) 0.0 WBC Differential . Differential Comment . Assessment and Plan - Plan Patient is a 63-year-old female with a past medical history of [place] status post stent x2, hyperlipidemia, hypertension, anxiety/depression, GERD and COPD with home O2 who presents to the emergency room for evaluation of cough and shortness of breath. COPD exacerbation Acute bronchitis -VQ scan negative for PE; troponins negative; BNP grossly normal -02; titrate to maintain sats 88-94% -Duo nebs, Mucinex. -No Solu-Medrol at this time as patient reports adverse effect of florencio. -Azithromycin -Continue home Lasix -No wheezing on exam today. Still on 2LNC. -Has an appointment with Dr. Young on 09/04/17, will encourage to see outpatient. Tobacco dependence -Encourage cessation -Nicotine patch ordered -Approx. 7 min were spent counseling the pt in cessation techniques. She understands continuing to smoke could lead to stroke and and worsening COPD. The benefits were also presented to the patient. She expresses desire to quit. Continue home medications as indicated for chronic condition DVT prophylaxis: SCDs. Continue home Plavix and ASA Discharge Planning: Clinical improvement.
--- NOTE | 2018-08-21 10:39 | P.DS ---
Date of admission: 08/19/18 17:33 Primary care physician: Shelley Prieto MD Anticipated date of discharge: 08/21/18 Brief History from admission: Patient is a 63-year-old female with a past medical history of [place] status post stent x2, hyperlipidemia, hypertension, anxiety/depression, GERD and COPD with home O2 who presents to the emergency room for evaluation of cough and shortness of breath. She reports that she has had 2 days of coughing which she tried to treat with Robitussin. She also tried using her own home O2 which to help some. She typically does not use the O2 because her tubing is too short. She initially denies fever but does report intermittent chills and sweating. No current chest pain. No nausea vomiting or diarrhea. She has had normal urine output in her ostomy bag. No edema. Patient update on day of discharge: Patient seen and examined, sitting up in bed on 2 L nasal cannula. Will order walk test, assess for need for oxygen at home. She has had oxygen at home, does also have a concentrator at home. Patient had a reading of 92% today on 2 L nasal cannula. Is feeling improved. Continue on antibiotics. Shortness of breath improved. Vital signs stable. Afebrile. Patient is close follow-up with PCP, primary doctor and schedule maker. Have appointment set for the next week. DS: Diagnosis - Discharge Diagnosis (1) Acute exacerbation of chronic obstructive pulmonary disease (COPD) Status: Acute (2) Hypoxia Status: Acute DS: Medications - Discharge Medications Prescriptions: azithromycin 500 mg PO DAILY 4 Days #4 tab codeine-guaifenesin 10 ml PO Q4-6H PRN 5 Days #300 ml PRN Reason: Cough guaifenesin [Mucinex] 600 mg PO BID 5 Days #10 tab ipratropium-albuterol 1 amp NEB Q2HR NEB PRN 5 Days ml PRN Reason: Shortness Of Breath/Wheezing ondansetron HCl [Zofran] 4 mg PO Q6-8H PRN #10 tab PRN Reason: Nausea And Vomiting prednisone 20 mg PO DAILY 4 Days #4 tab DS: Summary Hospital Course: Patient is a 63-year-old female with a past medical history of [place] status post stent x2, hyperlipidemia, hypertension, anxiety/depression, GERD and COPD with home O2 who presents to the emergency room for evaluation of cough and shortness of breath. She presented with COPD with exacerbation. She has acute bronchitis as well. A VQ scan was negative for PE. Troponins negative PE BMP grossly normal. Patient was started on oxygen, O2 sats 92% on 2 L. Will order for home O2. She does have home O2 as well as a concentrator. Case management assisting. She was given duo nebs as well as Mucinex. Patient states that she could tolerate a small dose of prednisone, will give 4 days worth. Continue antibiotics upon discharge. Continue home Lasix. Has appoint with Dr. Young on 09/04/17, will encourage to see outpatient. Patient does have tobacco dependence, encouraged cessation. Nicotine patch at home. Patient states she does not plan to stop smoke when she gets home. Continue home medications indicated for chronic conditions. Patient will follow up with PCP, [facility] and schedule maker. She is stable at this time and agreeable to plan. Discharge home. Rx is written. Diet as tolerated. Activity as tolerated. - Time Spent with Patient Total time spent providing and/or coordinating discharge services: Greater than 30 minutes - Quality: VTE Deep Vein Thrombosis/Pulmonary Embolism Present on Admission: No Exam Vital signs: Vital Signs 08/20/18 11:16 08/20/18 12:00 08/20/18 16:00 Temperature 97.5 F L 97.7 F Pulse Rate 94 H 95 H 83 Respiratory Rate 20 20 20 Blood Pressure 111/55 L 120/57 L Pulse Oximetry 94 L 95 08/20/18 16:42 08/20/18 19:47 08/20/18 19:49 Temperature 99.6 F Pulse Rate 86 93 H 90 Respiratory Rate 20 16 18 Blood Pressure 102/61 Pulse Oximetry 94 L 95 08/21/18 00:00 08/21/18 01:43 08/21/18 03:47 Temperature 100.3 F H 99.3 F Pulse Rate 94 H 101 H Respiratory Rate 16 18 Blood Pressure 105/57 L Pulse Oximetry 94 L 08/21/18 07:33 08/21/18 08:00 Temperature 98.8 F Pulse Rate 88 95 H Respiratory Rate 20 18 Blood Pressure 124/60 Pulse Oximetry 92 L 92 L Intake & Output 08/20/18 08/21/18 08/21/18 18:59 06:59 18:59 Intake Total 620 / 620 250 / 250 Output Total 1750 / 1750 1400 / 1400 Balance -1130 / -1130 -1150 / -1150 Weight 74.2 kg Intake: IV 250 / 250 Azithromycin Inj 500 MG In NS 250 / 250 Inj 250 ML @ 250 mls/hr IV.SIG Q24H AVERY Rx#:[id number] Oral 620 / 620 Output: Urine 1750 / 1750 200 / 200 Urine Amount (Stoma) 1200 / 1200 Continent Urostomy Right 1200 / 1200 Other: # Bowel Movements 0 Narrative: GENERAL: Well-nourished, well-developed adult female SKIN: Warm and dry. HEAD: Atraumatic. Normocephalic. CARDIOVASCULAR: Regular rate and rhythm. RESPIRATORY: No accessory muscle use. Wheezing improved today, still mildly present in bilateral posterior bases breath sounds equal bilaterally. on 2 L nasal cannula GASTROINTESTINAL: Abdomen soft, non-tender, non-distended. Positive bowel sounds. Urostomy in place. MUSCULOSKELETAL: Extremities without clubbing, cyanosis, or edema. No obvious deformities. NEUROLOGICAL: Awake and alert. No obvious cranial nerve deficits. Motor grossly within normal limits. Normal speech. PSYCHIATRIC: Appropriate mood and affect; insight and judgment good. Results Procedures completed during hospitalization: See above Labs on day of discharge: Labs from last 24 hours 08/21/18 07:20 CBC w Diff Auto diff final WBC 7.4 RBC 3.15 L Hgb 9.3 L Hct 28.8 L MCV 91.6 MCH 29.6 MCHC 32.3 RDW 14.1 Plt Count 236 MPV 7.0 Neut % (Auto) 73.2 H Lymph % (Auto) 14.3 [place] % (Auto) 12.1 H Eos % (Auto) 0.1 Baso % (Auto) 0.3 Neut # (Auto) 5.4 Lymph # (Auto) 1.1 [place] # (Auto) 0.9 Eos # (Auto) 0.0 Baso # (Auto) 0.0 WBC Differential . Differential Comment . - Impressions ITS Impressions Chest X-Ray 08/19/18 12:15 CONCLUSION: COPD Stable chest without evidence of acute process. Pulmonary Perfusion Imaging 08/19/18 13:56 CONCLUSION: 1. Low probability for pulmonary embolus. Air trapping in the lungs. Discharge Plan - Discharge Disposition Patient Disposition: W/Home Health Service - Discharge Condition Condition: Stable - Discharge Order Discharge Orders: Discharge Order (Routine); Ordered 08/21/18 Ordered By: Jyotsna An - Discharge Details Anticipated Discharge Date: 08/21/18 Discharge Comment: Please see [facility] as scheduled on 09/04/17. - Physicians Team Primary Care Provider: Shelley Prieto Attending Provider: Len Mills
--- NOTE | 2018-08-21 10:39 | P.DCO ---
- Diagnosis (1) Acute exacerbation of chronic obstructive pulmonary disease (COPD) Status: Acute (2) Hypoxia Status: Acute - Physical Therapy Order: Evaluate and treat, Improve ambulation, Strength and gait training - Home Health Nursing Order: Medical education, Signs/symptoms of disease process, Oxygen administration education, Medication education-adverse effect, Nursing assessment with vital signs - Case Management Consult Case Management Consult-Home Health: Yes - Certification I have seen patient Celia Dobbs on 08/21/18. My clinical findings support the need for the requested home health care services because: Patient has SOB, Deconditioned with increased weakness I certify that my clinical findings support that this patient is homebound because: Unsteady gait/balance
== END 2018-08-21 14:23 | disposition home health service (06) ==
LOC: PHEDA 11:59 → PHEFT 11:59 → PH3 18:57
PROVIDERS: ADMIT Internal Medicine; ATTEND Internal Medicine
CPT/HCPCS: 71010; 71045; 78582; 80048; 80053; 83520; 83880; 84484; 85025; 85379; 85610; 85730; 87275; 87276; 87804; 90775; 93005; 94640; 94665; 96365; 96366; 96375; 96376; 99285; A9519; A9540; A9567; C1094; C9113; G0378; J0456; J2405; J2920; J7050